=== PATIENT | female | born 1935 | race Caucasian/White ===

== ENCOUNTER 2020-04-29 06:15 | Outpatient (REF) | payer MEDICARE, SELFPAY ==
[2020-04-29 11:59] LABS: Alanine Aminotransferase 16 U/L (0-31); Alkaline Phosphatase 74 U/L (39-117); Anion Gap 13 (12-20); Aspartate Amino Transferase 18 U/L (5-31); Bilirubin Total 0.5 mg/dL (0.0-1.0); Blood Urea Nitrogen 17 mg/dL (9-16); Carbon Dioxide 30 mmol/L (22-29); Chloride 102 mmol/L (96-108); Cholesterol 153 mg/dL; Estimated Glomerular Filt Rate > 60; Glucose Fasting 124 mg/dL (60-99); HDL Cholesterol 62 mg/dL; LDL Cholesterol Calculated 74 mg/dl; Potassium 4.1 mmol/l (3.3-5.1); Sodium 141 mmol/L (135-145); Total Protein 6.8 g/dL (6.5-8.0); Triglycerides 88 mg/dL
== END 2020-04-29 06:16 | disposition home or self-care (01) ==
LOC: HO.HMGCLDS 06:15
PROVIDERS: PCP Internal Medicine; Visit Provider Internal Medicine
DX: E78.2 Mixed hyperlipidemia (principal); I10 Essential (primary) hypertension
CPT/HCPCS: 80053; 80061

== ENCOUNTER 2020-06-03 09:22 | Outpatient (REF) | payer MEDICARE, SELFPAY ==
--- NOTE | 2020-06-03 09:26 | US_ITS ---
EXAMINATION: US VENOUS ULTRASOUND WITH DOPPLER LOWER EXTREMITY, RIGHT CLINICAL INFORMATION: Right lower extremity edema. COMPARISON: None TECHNIQUE: Ultrasound of the deep veins is performed from the hip to the calf with compression sonography and color and pulse Doppler assessment. Spectral analysis with color-flow imaging is performed. FINDINGS: There is normal venous compression and respiratory variation and augmented flow. The visualized common femoral vein, superficial femoral vein, profunda femoral vein, popliteal vein, and the trifurcation region shows no evidence of deep venous thrombosis. A right popliteal cyst measures 4.7 x 1.2 x 2.0 cm. Color Doppler showed no abnormal vascular flow. The subcutaneous soft tissues are unremarkable. If the patient's symptoms persist, followup ultrasound in 5 days 7 days might be of value to exclude proximal propagation from a non-visualized calf vein. US/US venous duplex LE RT IMPRESSION: 1. No deep venous thrombosis demonstrated in the right lower extremity. 2. Right popliteal cyst as detailed above.
== END 2020-06-03 09:23 | disposition home or self-care (01) ==
LOC: HO.HMGCX 09:22
PROVIDERS: PCP Internal Medicine; Visit Provider Nurse Practitioner Family
DX: R60.0 Localized edema (principal); M79.89 Other specified soft tissue disorders
CPT/HCPCS: 93971

== ENCOUNTER → 2020-06-20 09:43 | Outpatient (BNVA) | payer MEDICARE, SELFPAY | PROVIDERS: PCP Internal Medicine; Visit Provider Orthopaedic Surgery | DX: M71.21 Synovial cyst of popliteal space [Baker], right knee (principal) | CPT/HCPCS: 99202 ==

== ENCOUNTER → 2020-06-25 08:21 | Outpatient (BNVA) | payer MEDICARE, SELFPAY | PROVIDERS: PCP Internal Medicine; Visit Provider Internal Medicine Cardiovascular Disease | DX: I35.0 Nonrheumatic aortic (valve) stenosis (principal); I10 Essential (primary) hypertension | CPT/HCPCS: 93005; 99212 ==

== ENCOUNTER 2020-07-03 08:21 | Outpatient (REF) | payer MEDICARE, SELFPAY ==
--- NOTE | 2020-07-03 | US_ITS ---
EXAMINATION: US RETROPERITONEAL LIMITED (RENAL ONLY) CLINICAL INFORMATION: Kidney stones. COMPARISON: Renal ultrasound 12/06/2019 TECHNIQUE: Real-time imaging of the kidneys. FINDINGS: RIGHT KIDNEY: 12.2 x 5.3 x 5.3 cm (SAG x AP x TRV). The kidney is normal in size, contour, and echogenicity. Renal cortical thickness is normal. No focal parenchymal lesions or hydronephrosis. Lower pole 0.4 cm calculus noted. There is a mid pole calcification which measures 1 cm which could be cortical or within the collecting system. This is unchanged. LEFT KIDNEY: 11.0 x 6.3 x 7.2 cm (SAG x AP x TRV). The kidney is normal in size, contour, and echogenicity. Cortical thinning noted. There is severe hydronephrosis.. Midpole 2 x 1.5 x 1.3 cm calculus. US/US renal BI IMPRESSION: Severe left hydronephrosis which appears chronic. Associated cortical thinning. Unchanged midpole left renal calculus. Unchanged right-sided calculi.
== END 2020-07-03 08:22 | disposition home or self-care (01) ==
LOC: HO.HMGCX 08:21
PROVIDERS: PCP Internal Medicine; Visit Provider Urology
DX: N20.0 Calculus of kidney (principal)
CPT/HCPCS: 76775

== ENCOUNTER → 2020-07-24 13:27 | Outpatient (BNVA) | payer MEDICARE, SELFPAY | PROVIDERS: PCP Anesthesiology; Visit Provider Urology | DX: Z76.89 Persons encountering health services in other specified circumstances (principal) | CPT/HCPCS: Q3014 ==

== ENCOUNTER 2020-10-09 12:03 | Outpatient (REF) | payer MEDICARE, SELFPAY ==
--- NOTE | ~2020-10-09 | XR_ITS ---
EXAMINATION: XR CERVICAL SPINE CLINICAL INFORMATION: Neck pain COMPARISON: Previous x-ray July [address] of the cervical spine December 2019 TECHNIQUE: 3 views of the cervical spine were obtained. FINDINGS: There is head tilt to the right and curvature of the proximal cervical spine to the left. Bone alignment is otherwise normal. No fracture or dislocation is seen. There is multilevel degenerative spondylosis and degenerative disc disease at C3-C4, C5-C6 and C6-C7. There is multilevel facet arthritis. There are degenerative changes at the C1 dens articulation. Prevertebral soft tissues are normal. XR/XR cervical spine 2V IMPRESSION: Multilevel degenerative changes.
[2020-10-09 14:55] LABS: Anion Gap 15 (12-20); Blood Urea Nitrogen 21 mg/dL (9-16); C Reactive Protein 0.37 mg/dL (< or = 0.50); Calcium 9.8 mg/dL (8.4-10.2); Carbon Dioxide 29 mmol/L (22-29); Chloride 101 mmol/L (96-108); Estimated Glomerular Filt Rate > 60; Glucose Random 97 mg/dL (60-115); Potassium 4.1 mmol/L (3.3-5.1); Sodium 141 mmol/L (135-145)
[2020-10-09 15:22] LABS: Erythrocyte Sedimentation Rate 26 MM/HR (0-20)
== END 2020-10-09 12:04 | disposition home or self-care (01) ==
LOC: HO.HMGCX 12:03
PROVIDERS: PCP Internal Medicine; Visit Provider Internal Medicine
DX: M54.2 Cervicalgia (principal); R51.9 Headache, unspecified
CPT/HCPCS: 36415; 72040; 80048; 85652; 86140

== ENCOUNTER 2020-11-17 10:27 | Outpatient (REF) | payer MEDICARE, SELFPAY ==
--- NOTE | ~2020-11-17 | XR_ITS ---
EXAMINATION: XR CERVICAL SPINE CLINICAL INFORMATION: Osteoarthritis cervical spine with radiculopathy. COMPARISON: Radiographs cervical spine 10/09/2020. TECHNIQUE: Cervical spine is imaged in 7 views: AP x 4, lateral, bilateral oblique. FINDINGS: The head is tilted to the right similar to prior exam. There is diffuse osteopenia. Vertebral bodies are normal in height. There is no cervical vertebral compression, destructive process, or prevertebral soft tissue swelling. The odontoid appears intact on the lateral view. There are degenerative changes between the anterior arch of C1 and the dens. There are multilevel degenerative changes in the facets, greatest at C3 through C7. There are degenerative disc changes, greatest at C5-C6 and C6-C7 with disc narrowing and endplate sclerosis and anterior osteophytes, bridging at C6-C7. There is borderline spondylolisthesis at C4-C5 and at C6-C7. The oblique view show no significant osseous narrowing or spurring neural foramen. XR/XR cervical spine 5V IMPRESSION: 1. Diffuse multilevel spondylosis with degenerative disc and degenerative facet changes. 2. No cervical vertebral compression or destructive process. 3. Borderline spondylolisthesis C4-C5 and C6-7.
== END 2020-11-17 10:28 | disposition home or self-care (01) ==
LOC: HO.XRAY 10:27
PROVIDERS: PCP Internal Medicine Medical Oncology; Visit Provider Internal Medicine Medical Oncology
DX: M47.22 Other spondylosis with radiculopathy, cervical region (principal)
CPT/HCPCS: 72050

== ENCOUNTER 2020-11-20 12:48 | Outpatient (REF) | payer MEDICARE, SELFPAY ==
--- NOTE | ~2020-11-20 | MR_ITS ---
EXAMINATION: MR CERVICAL SPINE WITHOUT CONTRAST CLINICAL INFORMATION: Neck pain. Osteoarthritis. COMPARISON: Most recent cervical spine radiographs dated 11/17/2020. Cervical spine MRI dated 10/04/[address] dated 12/26/2019. TECHNIQUE: MRI of the cervical spine was obtained using routine sequences without contrast. FINDINGS: VERTEBRAL BODIES AND PARASPINAL SOFT TISSUES: The cervical lordosis is maintained. Vertebral body and posterior element fusion is redemonstrated at C3-C4, similar when compared to the prior examination. Additional multilevel left-sided facet joint fusions are redemonstrated. No acute fracture. Minimal grade 1 anterolisthesis of C6 on C7, unchanged. No marrow edema to suggest acute osseous injury. No abnormal signal within the visualized cord. The paraspinal soft tissues are unremarkable. CERVICOMEDULLARY JUNCTION AND VISUALIZED POSTERIOR FOSSA: Unremarkable. SPINAL LEVELS: C2-C3: Redemonstration of left-sided facet arthropathy without significant central canal or neural foraminal stenosis, unchanged. C3-C4: Fusion of the vertebral bodies and facet joints. No significant disc bulge. No central canal or neural foraminal stenosis. C4-C5: Shallow broad-based disc-osteophyte complex with a superimposed posterior central disc protrusion which completely effaces the ventral thecal sac, similar when compared to the prior examination. Bilateral facet arthropathy and uncinate spurring with mild bilateral neural foraminal stenosis, unchanged. C5-C6: Shallow broad-based disc-osteophyte complex which nearly completely effaces the ventral thecal sac. Bilateral facet arthropathy with mild right neural foraminal stenosis. Findings are unchanged. C6-C7: Disc-osteophyte complex with a shallow superimposed posterior central disc protrusion which completely effaces the ventral thecal sac, similar when compared to the prior examination. Bilateral facet arthropathy without significant neural foraminal stenosis. C7-T1: Small posterior central disc-osteophyte which completely effaces the ventral thecal sac, unchanged. Bilateral facet arthropathy without significant neural foraminal stenosis. MR/MR cervical spine wo con IMPRESSION: 1. No acute fracture or subluxation. 2. Fusion of the C3-C4 vertebral bodies as well as multilevel facet fusion appears redemonstrated. Increasing marrow edema associated with the right-sided facet arthropathy at C4-C5. 3. Multilevel degenerative disc disease with disc-osteophyte complexes and neural foraminal stenosis, not significantly changed.
== END 2020-11-20 12:49 | disposition home or self-care (01) ==
LOC: HO.MRI 12:48
PROVIDERS: Visit Provider Internal Medicine Medical Oncology
DX: M47.22 Other spondylosis with radiculopathy, cervical region (principal); M54.2 Cervicalgia
CPT/HCPCS: 72141

== ENCOUNTER → 2020-12-02 10:03 | Outpatient (BNVA) | payer MEDICARE, SELFPAY | PROVIDERS: PCP Internal Medicine Medical Oncology; Visit Provider Nurse Practitioner Family | DX: M47.812 Spondylosis without myelopathy or radiculopathy, cervical region (principal) | CPT/HCPCS: 99212 ==

== ENCOUNTER → 2020-12-05 09:58 | Outpatient (BNVA) | payer MEDICARE, SELFPAY | DX: N20.0 Calculus of kidney (principal) | CPT/HCPCS: 51798; 99212 ==

== ENCOUNTER → 2020-12-22 08:33 | Outpatient (BNVA) | payer MEDICARE, SELFPAY | PROVIDERS: PCP Internal Medicine Medical Oncology; Visit Provider Internal Medicine Cardiovascular Disease | DX: I35.0 Nonrheumatic aortic (valve) stenosis (principal); I10 Essential (primary) hypertension | CPT/HCPCS: 99212 ==

== ENCOUNTER → 2021-02-05 10:15 | Outpatient (BNVA) | payer MEDICARE, SELFPAY | PROVIDERS: PCP Internal Medicine Medical Oncology | CPT/HCPCS: Q3014 ==

== ENCOUNTER → 2021-05-11 08:14 | Outpatient (BNVA) | payer MEDICARE, SELFPAY | PROVIDERS: PCP Internal Medicine Medical Oncology; Visit Provider Internal Medicine | DX: M54.12 Radiculopathy, cervical region (principal); M47.812 Spondylosis without myelopathy or radiculopathy, cervical region | CPT/HCPCS: Q3014 ==

== ENCOUNTER → 2021-05-18 08:42 | Outpatient (BNVA) | payer MEDICARE, SELFPAY | PROVIDERS: PCP Internal Medicine Medical Oncology; Visit Provider Internal Medicine | DX: M47.812 Spondylosis without myelopathy or radiculopathy, cervical region (principal) | CPT/HCPCS: 99212 ==

== ENCOUNTER → 2021-05-22 09:59 | Outpatient (BNVA) | payer MEDICARE, SELFPAY | PROVIDERS: PCP Internal Medicine Medical Oncology; Visit Provider Internal Medicine | DX: M47.812 Spondylosis without myelopathy or radiculopathy, cervical region (principal) | CPT/HCPCS: Q3014 ==

== ENCOUNTER → 2021-06-08 13:10 | Outpatient (BNVA) | payer MEDICARE, SELFPAY | PROVIDERS: PCP Internal Medicine Medical Oncology; Visit Provider Internal Medicine | DX: Z13.89 Encounter for screening for other disorder (principal) | CPT/HCPCS: Q3014 ==

== ENCOUNTER → 2021-06-15 08:00 | Outpatient (BNVA) | payer MEDICARE, SELFPAY | PROVIDERS: PCP Internal Medicine Medical Oncology; Visit Provider Internal Medicine | DX: M47.812 Spondylosis without myelopathy or radiculopathy, cervical region (principal) | CPT/HCPCS: 64405; 64450; 99212 ==

== ENCOUNTER → 2021-06-26 10:23 | Outpatient (BNVA) | payer MEDICARE, SELFPAY | PROVIDERS: PCP Internal Medicine Medical Oncology; Visit Provider Internal Medicine | DX: Z13.89 Encounter for screening for other disorder (principal) | CPT/HCPCS: 99212 ==

== ENCOUNTER → 2021-07-17 10:34 | Outpatient (BNVA) | payer MEDICARE, SELFPAY | PROVIDERS: PCP Internal Medicine Medical Oncology; Visit Provider Internal Medicine | DX: H92.02 Otalgia, left ear (principal) | CPT/HCPCS: Q3014 ==

== ENCOUNTER 2021-08-03 09:40 | Outpatient (REF) | payer MEDICARE, SELFPAY ==
--- NOTE | ~2021-08-03 | US_ITS ---
EXAMINATION: US RETROPERITONEAL LIMITED (RENAL ONLY) CLINICAL INFORMATION: Calculus of kidney. COMPARISON: Renal ultrasound 07/03/2020, CT abdomen and pelvis noncontrast 03/22/2019. TECHNIQUE: Real-time imaging of the kidneys. FINDINGS: RIGHT KIDNEY: 11.1 x 5.2 x 6.2 cm (SAG x AP x TRV). The kidneys are normal in size and normal parenchymal thickness parenchymal echogenicity is within normal. There is no hydronephrosis or caliectasis. There is nonobstructing calculus interpolar region 4 x 8 mm. There are other scattered nonobstructing calcifications, collecting system versus parenchymal, largest upper pole 5 mm. There are 2 incidental cysts mid pole, both just under 1 cm. No additional imaging required. No visible solid mass. LEFT KIDNEY: 12.7 x 6.0 x 6.0 cm (SAG x AP x TRV). There is thinning of the renal parenchyma. Marked hydronephrosis is again seen with large dilated extrarenal pelvis measuring approximately 4.8 x 8.1 cm. Prior measurement similar approximately 5 x 7 cm. No visible calculi. Small cyst noted lateral lower pole approximately 2.1 x 1.6 x 1.6 cm. No additional imaging required. US/US renal BI IMPRESSION: Right: -No hydronephrosis or caliectasis. -Nonobstructing calculi and/or parenchymal calcifications. Left: -Chronic prominent hydronephrosis with large extrarenal pelvis. No obstructing calculi demonstrated. -Chronic thinning renal parenchyma.
== END 2021-08-03 09:41 | disposition home or self-care (01) ==
LOC: HO.US 09:40
PROVIDERS: PCP Internal Medicine Medical Oncology; Visit Provider Urology
DX: N20.0 Calculus of kidney (principal); Q61.02 Congenital multiple renal cysts
CPT/HCPCS: 76775

== ENCOUNTER 2021-10-22 05:59 | Outpatient (REF) | payer MEDICARE, SELFPAY ==
[2021-10-22 11:26] LABS: MANUAL DIFF FLAG NO
[2021-10-22 11:33] LABS: Basophils Percent Auto 0.3 % (0-2); Eosinophils Absolute Auto 0.1 X10*3/uL (0.0-0.4); Eosinophils Percent Auto 1.5 % (0-4); Hematocrit 42.4 % (37.0-47.0); Hemoglobin 14.3 g/dl (12.0-16.0); Imm Gran Abs Auto 0.03 X10*3/uL (0.00-0.03); Imm Gran Pct Auto 0.4 % (0.0-0.4); Lymphocytes Absolute Auto 1.5 X10*3/uL (1.2-4.9); Lymphocytes Percent Auto 19.7 % (20-40); Mean Corpuscular HGB Conc 33.7 g/dl (31.0-35.0); Mean Corpuscular Hemoglobin 32.6 pg (27.0-33.0); Mean Corpuscular Volume 96.8 fL (80.0-98.0); Mean Platelet Volume 11.5 fL (9.4-12.3); Monocytes Absolute Auto 0.4 X10*3/uL (0.1-1.2); Monocytes Percent Auto 5.4 % (2-11); Neutrophils Absolute Auto 5.7 x10*3/uL (2.0-8.3); Neutrophils Percent Auto 72.7 % (45-73); Platelet Count 268 X10*3/uL (160-400); Red Blood Count 4.38 X10*6/uL (4.20-5.50); White Blood Count 7.8 X10*3/uL (4.8-10.8)
[2021-10-22 12:09] LABS: Alanine Aminotransferase 17 U/L (0-31); Albumin Level 4.2 g/dL (3.5-5.0); Alkaline Phosphatase 75 U/L (39-117); Anion Gap 13 (12-20); Aspartate Amino Transferase 19 U/L (5-31); Bilirubin Total 0.6 mg/dL (0.0-1.0); Blood Urea Nitrogen 15 mg/dL (9-16); Calcium 9.8 mg/dL (8.4-10.2); Carbon Dioxide 31 mmol/L (22-29); Chloride 100 mmol/L (96-108); Cholesterol 169 mg/dL; Estimated Glomerular Filt Rate > 60; Glucose Fasting 131 mg/dL (60-99); HDL Cholesterol 63 mg/dL; LDL Cholesterol Calculated 81 mg/dl; Sodium 140 mmol/L (135-145); Triglycerides 127 mg/dL
[2021-10-22 12:11] LABS: Vitamin D 25-OH Total 50.2 ng/mL (>30)
== END 2021-10-22 06:00 | disposition home or self-care (01) ==
LOC: HO.HMGCLDS 05:59
PROVIDERS: Visit Provider Internal Medicine Medical Oncology
DX: G89.4 Chronic pain syndrome (principal); N18.9 Chronic kidney disease, unspecified; I35.0 Nonrheumatic aortic (valve) stenosis; E11.9 Type 2 diabetes mellitus without complications
CPT/HCPCS: 36415; 80053; 80061; 82306; 85025

== ENCOUNTER 2022-02-03 06:01 | Outpatient (REF) | payer MEDICARE, SELFPAY ==
[2022-02-03 11:05] LABS: MANUAL DIFF FLAG NO
[2022-02-03 11:15] LABS: Basophils Percent Auto 0.3 % (0-2); Eosinophils Absolute Auto 0.1 X10*3/uL (0.0-0.4); Eosinophils Percent Auto 1.6 % (0-4); Hematocrit 39.1 % (37.0-47.0); Hemoglobin 13.5 g/dl (12.0-16.0); Imm Gran Abs Auto 0.03 X10*3/uL (0.00-0.03); Imm Gran Pct Auto 0.4 % (0.0-0.4); Lymphocytes Absolute Auto 1.6 X10*3/uL (1.2-4.9); Lymphocytes Percent Auto 23.3 % (20-40); Mean Corpuscular HGB Conc 34.5 g/dl (31.0-35.0); Mean Corpuscular Volume 95.6 fL (80.0-98.0); Monocytes Absolute Auto 0.5 X10*3/uL (0.1-1.2); Monocytes Percent Auto 6.5 % (2-11); Neutrophils Absolute Auto 4.8 x10*3/uL (2.0-8.3); Neutrophils Percent Auto 67.9 % (45-73); Platelet Count 237 X10*3/uL (160-400); Red Blood Count 4.09 X10*6/uL (4.20-5.50); Red Cell Distribution Width 12.7 % (11.0-16.0)
[2022-02-03 11:25] LABS: Estimated Average Glucose 117 mg/dL; Hemoglobin A1c % 5.7 %
[2022-02-03 11:36] LABS: Alanine Aminotransferase 14 U/L (0-31); Albumin Level 4.1 g/dL (3.5-5.0); Alkaline Phosphatase 70 U/L (39-117); Anion Gap 16 (12-20); Aspartate Amino Transferase 18 U/L (5-31); Bilirubin Total 0.5 mg/dL (0.0-1.0); Blood Urea Nitrogen 15 mg/dL (9-16); Calcium 9.2 mg/dL (8.4-10.2); Carbon Dioxide 28 mmol/L (22-29); Chloride 101 mmol/L (96-108); Cholesterol 164 mg/dL; Estimated Glomerular Filt Rate > 60; Glucose Fasting 117 mg/dL (60-99); HDL Cholesterol 70 mg/dL; LDL Cholesterol Calculated 76 mg/dl; Potassium 3.9 mmol/L (3.3-5.1); Sodium 141 mmol/L (135-145); Total Protein 6.9 g/dL (6.5-8.0); Triglycerides 94 mg/dL
== END 2022-02-03 06:02 | disposition home or self-care (01) ==
LOC: HO.HMGCLDS 06:01
PROVIDERS: PCP Internal Medicine Medical Oncology; Visit Provider Internal Medicine Medical Oncology
DX: N18.9 Chronic kidney disease, unspecified (principal); E11.9 Type 2 diabetes mellitus without complications
CPT/HCPCS: 36415; 80053; 80061; 83036; 85025

== ENCOUNTER → 2022-03-08 14:19 | Outpatient (BNVA) | payer MEDICARE, SELFPAY | PROVIDERS: PCP Internal Medicine Medical Oncology; Referring Provider Internal Medicine Medical Oncology; Visit Provider Internal Medicine Cardiovascular Disease | DX: I35.0 Nonrheumatic aortic (valve) stenosis (principal); I10 Essential (primary) hypertension; M54.12 Radiculopathy, cervical region | CPT/HCPCS: 93005; 99212 ==

== ENCOUNTER 2022-05-07 07:31 | Emergency (ER) | payer MEDICARE, SELFPAY ==
--- NOTE | ~2022-05-07 | XR_ITS ---
EXAMINATION: XR FOOT, RIGHT CLINICAL INFORMATION: Atraumatic right foot pain. COMPARISON: None TECHNIQUE: AP, lateral, and oblique views of the right foot. FINDINGS: There is generalized osteopenia. Moderate interphalangeal degenerative joint changes are seen. There is no acute fracture or dislocation. The tarsal bones are normally aligned. Moderate to severe atherosclerosis is seen. The soft tissues are unremarkable. XR/XR foot RT 2V IMPRESSION: 1. Generalized osteopenia and moderate interphalangeal degenerative joint changes most consistent with osteoarthritis. No overt fracture. 2. Moderate to severe atherosclerosis.
[2022-05-07 07:34] VITALS: BP 169/72; PULSE 78; RESP 16; TEMP 36.1; O2SAT 97; BMI 24.1
--- NOTE | 2022-05-07 08:44 | ED_ITS ---
HPI - Extremity Problem General Chief complaint: Extremity Problem Stated complaint: R Foot Pain No Injury Time Seen by Provider: 05/07/22 08:07 Source: patient and family (Son) Mode of arrival: ambulatory History of Present Illness HPI Narrative: 86-year-old female comes in with pain to the lateral dorsal aspect of her right foot without obvious deformity and she denies any injury to that area of but states that it has been hurting since last night she denies any obvious color change, fevers, chills. Related Data Home Medications Medication Instructions Recorded Confirmed cholecalciferol (vitamin D3) 50 50 mcg PO DAILY 12/02/20 03/08/22 mcg (2,000 unit) capsule vitamin B comp and C no.3 15 mg-10 1 cap PO DAILY 12/02/20 03/08/22 mg-50 mg-5 mg-300 mg capsule (B Complex Plus Vitamin C) acetaminophen 500 mg tablet 500 mg PO Q6H PRN Pain 05/14/21 03/08/22 Previous Rx's Medication Instructions Recorded pyridoxine (vitamin B6) 100 mg 100 mg PO DAILY 90 days #90 tabs 04/09/21 tablet hydrochlorothiazide 25 mg tablet 25 mg PO QAM #90 tabs 06/30/21 lovastatin 20 mg tablet 20 mg PO BEDTIME #90 tabs 06/30/21 cyclobenzaprine 5 mg tablet 5 mg PO BEDTIME PRN muscle spasm 03/08/22 #10 tabs Allergies Allergy/AdvReac Type Severity Reaction Status Date / Time codeine [CODEINE] Allergy Unknown HALLUCINATI Verified 03/08/22 14:25 ONS Review of Systems Review of Systems: Pertinent positives and negatives as stated in HPI 10 point review of systems is otherwise negative. [facility] Past Medical History Source: nursing notes reviewed Medical History Aortic stenosis Yates's cyst Combined hyperlipidemia Depression Headache HTN (hypertension) Liposarcoma of lower extremity Neck pain Nephrolithiasis Pain of left mastoid Spinal stenosis of lumbar region Surgical History History of appendectomy History of arthroscopy of right knee History of colonoscopy History of total abdominal hysterectomy Family History Family History Father Diabetes Mother No problems noted. Social History Social History Household Members: Spouse Housing: House Are you a primary hospice spiritual care coordinator to a significant other at home: No Do you presently have visiting nurse or other home services: No Alcohol intake: never Patient Tobacco Use Status: Never used Tobacco Advance Directives: No Advance Directives Information Provided: Yes service: No Current occupational status: retired Physical Exam Vital Signs: Vital Signs: Last Vital Signs Temp 97.0 F 05/07/22 07:34 Pulse 78 05/07/22 07:34 Resp 16 05/07/22 07:34 BP 169/72 H 05/07/22 07:34 Pulse Ox 97 05/07/22 07:34 O2 Del Method 05/07/22 07:34 BMI result Body Mass Index 24.1 VITAL SIGNS: Reviewed. GENERAL: Well developed, well nourished, in no acute distress. HEAD: Normocephalic/atraumatic EYES: PERRLA, EOMI EARS: Ext canals without abnormality OROPHARYNX: no oral lesions noted, posterior pharynx clear LUNGS: Normal breath sounds. CARDIOVASCULAR: Regular rate and rhythm without noted murmurs ABDOMEN: Soft, non-tender, non-distended with bowel sounds. RIGHT FOOT:no swelling, erythema/induration, deformity, temp is warm, point tenderness lateral talus, no midfoot or malleoli ttp NEUROLOGIC: Alert and oriented x 4. Strength and sensation to light touch were grossly intact x 4. Course Course Course Narrative: 86-year-old female with history and clinical presentation after review of investigations most consistent with a tendinitis and no evidence of fracture or dislocation and no evidence of infection. Applied lidocaine patch and instructed patient to use [id number] Voltaren which is an anti- inflammatory. Discharge Plan Discharge Clinical Impression: Tendinitis of right foot Patient Disposition: Home, Self-Care Instructions: Metatarsalgia (DC) Additional Instructions: 1. Recommend [id number] Tylenol as needed for pain control. 2. Recommend [id number] Voltaren (diclofenac), this is an anti- inflammatory that you can apply topically to reduce the inflammation in pain. 3. You absolutely have to follow-up with primary care provider in the next 1-2 days for re-evaluation further outpatient management. Return to the ER for worsening symptoms. Prescriptions: No Action pyridoxine (vitamin B6) 100 mg tablet 100 mg PO DAILY 90 Days Qty: 90 3RF lovastatin 20 mg tablet 20 mg PO BEDTIME Qty: 90 3RF hydrochlorothiazide 25 mg tablet 25 mg PO QAM Qty: 90 3RF acetaminophen [Tylenol Ex Str Rapid Release] 500 mg Tablet 500 mg PO Q6H PRN (Reason: Pain) cholecalciferol (vitamin D3) 50 mcg (2,000 unit) capsule 50 mcg PO DAILY B Complex Plus Vitamin C [id number] mg capsule 1 cap PO DAILY Rx Instructions: give with food (meal/snack) cyclobenzaprine 5 mg tablet 5 mg PO BEDTIME PRN (Reason: muscle spasm) Qty: 10 0RF Referrals: David Carson MD [Primary Care Provider] -
[2022-05-07] MEDS: Lidocaine 4 % Patch ADH..PATCH 1 PATCH TRANSDERMA (08:54)
== END 2022-05-07 09:04 | disposition home or self-care (01) ==
PROVIDERS: Emergency Provider Student in an Organized Health Care Education/Training Program; PCP Internal Medicine Medical Oncology
DX: M79.671 Pain in right foot (principal); Z79.899 Other long term (current) drug therapy
CPT/HCPCS: 73620; 99283; 99284

== ENCOUNTER → 2022-05-10 10:54 | Outpatient (BNVA) | payer MEDICARE, SELFPAY | PROVIDERS: PCP Internal Medicine Medical Oncology; Visit Provider Urology | DX: N20.0 Calculus of kidney (principal); N26.1 Atrophy of kidney (terminal); N13.30 Unspecified hydronephrosis | CPT/HCPCS: 51798; 99212 ==

== ENCOUNTER 2022-05-13 06:06 | Outpatient (REF) | payer MEDICARE, SELFPAY ==
[2022-05-13 11:23] LABS: MANUAL DIFF FLAG NO
[2022-05-13 11:54] LABS: Basophils Percent Auto 0.3 % (0-2); Eosinophils Absolute Auto 0.2 X10*3/uL (0.0-0.4); Eosinophils Percent Auto 2.2 % (0-4); Hematocrit 39.4 % (37.0-47.0); Hemoglobin 13.5 g/dl (12.0-16.0); Imm Gran Abs Auto 0.02 X10*3/uL (0.00-0.03); Imm Gran Pct Auto 0.3 % (0.0-0.4); Lymphocytes Absolute Auto 1.8 X10*3/uL (1.2-4.9); Lymphocytes Percent Auto 25.7 % (20-40); Mean Corpuscular HGB Conc 34.3 g/dl (31.0-35.0); Mean Corpuscular Hemoglobin 32.8 pg (27.0-33.0); Mean Corpuscular Volume 95.6 fL (80.0-98.0); Mean Platelet Volume 11.8 fL (9.4-12.3); Monocytes Absolute Auto 0.5 X10*3/uL (0.1-1.2); Monocytes Percent Auto 6.7 % (2-11); Neutrophils Absolute Auto 4.6 x10*3/uL (2.0-8.3); Neutrophils Percent Auto 64.8 % (45-73); Platelet Count 240 X10*3/uL (160-400); Red Blood Count 4.12 X10*6/uL (4.20-5.50); Red Cell Distribution Width 12.7 % (11.0-16.0); White Blood Count 7.1 X10*3/uL (4.8-10.8)
[2022-05-13 12:04] LABS: Alanine Aminotransferase 15 U/L (0-31); Albumin Level 3.9 g/dL (3.5-5.0); Alkaline Phosphatase 64 U/L (39-117); Anion Gap 14 (12-20); Aspartate Amino Transferase 17 U/L (5-31); Bilirubin Total 0.5 mg/dL (0.0-1.0); Blood Urea Nitrogen 19 mg/dL (9-16); Calcium 9.3 mg/dL (8.4-10.2); Carbon Dioxide 31 mmol/L (22-29); Chloride 101 mmol/L (96-108); Cholesterol 149 mg/dL; Estimated Glomerular Filt Rate > 60; Glucose Fasting 126 mg/dL (60-99); HDL Cholesterol 61 mg/dL; LDL Cholesterol Calculated 74 mg/dl; Potassium 3.6 mmol/L (3.3-5.1); Sodium 142 mmol/L (135-145); Total Protein 6.5 g/dL (6.5-8.0); Triglycerides 74 mg/dL
[2022-05-13 12:44] LABS: Estimated Average Glucose 128 mg/dL; Hemoglobin A1c % 6.1 %
== END 2022-05-13 06:07 | disposition home or self-care (01) ==
LOC: HO.HMGCLDS 06:06
PROVIDERS: PCP Internal Medicine Medical Oncology; Visit Provider Internal Medicine Medical Oncology
DX: N18.9 Chronic kidney disease, unspecified (principal); E11.9 Type 2 diabetes mellitus without complications
CPT/HCPCS: 36415; 80053; 80061; 83036; 85025

== ENCOUNTER 2022-07-09 07:11 | Outpatient (REF) | payer MEDICARE, SELFPAY ==
[2022-07-09 11:17] LABS: MANUAL DIFF FLAG NO
[2022-07-09 11:34] LABS: Basophils Percent Auto 0.4 % (0-2); Eosinophils Absolute Auto 0.1 X10*3/uL (0.0-0.4); Eosinophils Percent Auto 1.4 % (0-4); Hemoglobin 13.8 g/dl (12.0-16.0); Imm Gran Abs Auto 0.04 X10*3/uL (0.00-0.03); Imm Gran Pct Auto 0.5 % (0.0-0.4); Lymphocytes Absolute Auto 1.3 X10*3/uL (1.2-4.9); Lymphocytes Percent Auto 17.4 % (20-40); Mean Corpuscular HGB Conc 33.7 g/dl (31.0-35.0); Mean Corpuscular Hemoglobin 32.8 pg (27.0-33.0); Mean Corpuscular Volume 97.4 fL (80.0-98.0); Mean Platelet Volume 11.6 fL (9.4-12.3); Monocytes Absolute Auto 0.5 X10*3/uL (0.1-1.2); Monocytes Percent Auto 6.2 % (2-11); Neutrophils Absolute Auto 5.7 x10*3/uL (2.0-8.3); Neutrophils Percent Auto 74.1 % (45-73); Platelet Count 264 X10*3/uL (160-400); Red Blood Count 4.21 X10*6/uL (4.20-5.50); Red Cell Distribution Width 13.1 % (11.0-16.0); White Blood Count 7.7 X10*3/uL (4.8-10.8)
[2022-07-09 11:45] LABS: Alanine Aminotransferase 15 U/L (0-31); Albumin Level 4.2 g/dL (3.5-5.0); Alkaline Phosphatase 70 U/L (39-117); Anion Gap 17 (12-20); Aspartate Amino Transferase 17 U/L (5-31); Bilirubin Total 0.7 mg/dL (0.0-1.0); Blood Urea Nitrogen 17 mg/dL (9-16); Calcium 9.4 mg/dL (8.4-10.2); Carbon Dioxide 30 mmol/L (22-29); Chloride 98 mmol/L (96-108); Cholesterol 162 mg/dL; Estimated Glomerular Filt Rate > 60; Glucose Random 139 mg/dL (60-115); HDL Cholesterol 66 mg/dL; LDL Cholesterol Calculated 75 mg/dl; Potassium 3.7 mmol/L (3.3-5.1); Sodium 141 mmol/L (135-145); Triglycerides 107 mg/dL
== END 2022-07-09 07:12 | disposition home or self-care (01) ==
LOC: HO.HMGCLDS 07:11
PROVIDERS: PCP Internal Medicine Medical Oncology; Visit Provider Internal Medicine Medical Oncology
DX: E11.9 Type 2 diabetes mellitus without complications (principal); G89.4 Chronic pain syndrome
CPT/HCPCS: 36415; 80053; 80061; 85025

== ENCOUNTER → 2022-08-30 14:55 | Outpatient (BNVA) | payer MEDICARE, SELFPAY | PROVIDERS: PCP Internal Medicine Medical Oncology; Visit Provider Internal Medicine Cardiovascular Disease | DX: I35.0 Nonrheumatic aortic (valve) stenosis (principal); I10 Essential (primary) hypertension; R07.9 Chest pain, unspecified | CPT/HCPCS: 93005; 99212 ==

== ENCOUNTER 2022-10-08 13:26 | Outpatient (RCR) | payer MEDICARE, SELFPAY | END 2022-10-26 14:43 | disposition home or self-care (01) | LOC: HO.WCC 13:26 | PROVIDERS: PCP Internal Medicine Medical Oncology; Visit Provider Physician Assistant | DX: E11.621 Type 2 diabetes mellitus with foot ulcer (principal); L97.512 Non-pressure chronic ulcer of other part of right foot with fat layer exposed; E11.40 Type 2 diabetes mellitus with diabetic neuropathy, unspecified; Z79.899 Other long term (current) drug therapy | CPT/HCPCS: 11042; 99212; 99213 ==

== ENCOUNTER 2022-10-13 07:18 | Outpatient (REF) | payer MEDICARE, SELFPAY ==
[2022-10-13 11:31] LABS: MANUAL DIFF FLAG NO
[2022-10-13 11:34] LABS: Basophils Percent Auto 0.4 % (0-2); Eosinophils Absolute Auto 0.1 X10*3/uL (0.0-0.4); Eosinophils Percent Auto 1.6 % (0-4); Hemoglobin 13.7 g/dl (12.0-16.0); Imm Gran Abs Auto 0.01 X10*3/uL (0.00-0.03); Imm Gran Pct Auto 0.1 % (0.0-0.4); Lymphocytes Percent Auto 15.1 % (20-40); Mean Corpuscular HGB Conc 34.3 g/dl (31.0-35.0); Mean Corpuscular Hemoglobin 32.8 pg (27.0-33.0); Mean Corpuscular Volume 95.7 fL (80.0-98.0); Mean Platelet Volume 11.9 fL (9.4-12.3); Monocytes Absolute Auto 0.4 X10*3/uL (0.1-1.2); Monocytes Percent Auto 6.5 % (2-11); Neutrophils Absolute Auto 5.1 x10*3/uL (2.0-8.3); Neutrophils Percent Auto 76.3 % (45-73); Platelet Count 240 X10*3/uL (160-400); Red Blood Count 4.18 X10*6/uL (4.20-5.50); Red Cell Distribution Width 13.2 % (11.0-16.0); White Blood Count 6.7 X10*3/uL (4.8-10.8)
[2022-10-13 11:57] LABS: Alanine Aminotransferase 16 U/L (0-31); Albumin Level 4.1 g/dL (3.5-5.0); Alkaline Phosphatase 67 U/L (39-117); Anion Gap 14 (12-20); Aspartate Amino Transferase 18 U/L (5-31); Bilirubin Total 0.7 mg/dL (0.0-1.0); Blood Urea Nitrogen 17 mg/dL (9-16); Calcium 9.5 mg/dL (8.4-10.2); Carbon Dioxide 34 mmol/L (22-29); Chloride 98 mmol/L (96-108); Cholesterol 158 mg/dL; Estimated Glomerular Filt Rate > 60; Glucose Fasting 158 mg/dL (60-99); HDL Cholesterol 63 mg/dL; LDL Cholesterol Calculated 76 mg/dl; Potassium 3.8 mmol/L (3.3-5.1); Sodium 142 mmol/L (135-145); Total Protein 6.9 g/dL (6.5-8.0); Triglycerides 99 mg/dL
[2022-10-13 12:00] LABS: Estimated Average Glucose 131 mg/dL; Hemoglobin A1c % 6.2 %
[2022-10-13 12:03] LABS: C Reactive Protein 0.36 mg/dL (< or = 0.50)
[2022-10-13 12:28] LABS: Erythrocyte Sedimentation Rate 29 MM/HR (0-20)
== END 2022-10-13 07:19 | disposition home or self-care (01) ==
LOC: HO.HMGCLDS 07:18
PROVIDERS: Absent Provider Physician Assistant; PCP Internal Medicine Medical Oncology; Visit Provider Internal Medicine Medical Oncology
DX: E11.9 Type 2 diabetes mellitus without complications (principal); Q62.11 Congenital occlusion of ureteropelvic junction; E66.9 Obesity, unspecified; S90.935D Unspecified superficial injury of left lesser toe(s), subsequent encounter
CPT/HCPCS: 36415; 80053; 80061; 83036; 84134; 85025; 85652; 86140

== ENCOUNTER 2022-10-14 08:48 | Outpatient (REF) | payer MEDICARE, SELFPAY ==
--- NOTE | ~2022-10-14 | CT_ITS ---
EXAMINATION: CT KIDNEY STONE STUDY CLINICAL INDICATIONS: Kidney stone. COMPARISON: Renal ultrasound 08/03/2021. CT abdomen and pelvis 05/04/2019. TECHNIQUE: 5 mm thin axial and reformatted 3 mm thin sagittal and coronal images of abdomen and pelvis were obtained without contrast. This CT examination was performed using dose optimization technique as appropriate, variously including the following: Automated exposure control Adjustment of MA and/or KV according to patient size(this includes techniques or standardized protocols for targeted exams where dose is matched to indication/reason for exam; extremities or head. Use of iterative reconstruction techniques. DLP: 547 mGy-cm FINDINGS: LUNGS: There is plate-like atelectasis right lung base. The heart size is normal. Moderate mitral valve calcification is seen. There is a small hiatal hernia. LIVER, DUCTS AND GALLBLADDER: The liver is homogeneous in density, normal contour and size. No focal lesion or intrahepatic ductal dilatation seen. The gallbladder is mildly distended with multiple radiopaque gallstones. No wall thickening seen. SPLEEN: Unremarkable. PANCREAS: The pancreas is normal size with punctate pancreatic calcifications. The peripancreatic fat borders are preserved. ADRENAL GLANDS: Unremarkable. KIDNEYS AND URETERS: The right kidney is normal size, shape and position. There are small radiopaque calculi in midpole and lower pole right kidney with the largest lower pole calculus measuring 8 mm approximately 10 cm from posterior skin line. There is 7 mm calcification in the upper pole right kidney cortex. No hydronephrosis seen. There is a chronic left hydronephrotic left kidney with diffuse thinning of the cortex. This most likely secondary to an obstructive left UPJ stone. The UPJ radiopaque stone measures 3 mm. LYMPHOVASCULAR STRUCTURES: The abdominal aorta is of normal caliber with atherosclerotic calcification. GASTROINTESTINAL TRACT: There are scattered diverticula, stool and gas seen throughout the colon without any significant distention. The small bowel loops are normal caliber. Appendix is not visualized. The stomach is nondistended. ABDOMINAL WALL: Unremarkable. PELVIS: The urinary bladder is distended and appears unremarkable. No free fluid. No abnormal pelvic or inguinal lymph nodes seen. OSSEOUS STRUCTURES: There is L-shaped levoscoliosis of dorsolumbar spine. There are degenerative disc changes virtually at every disc level with spondylosis. No lytic or sclerotic process seen. There is a left hip nail and intramedullary femoral dmitry. CT/CT kidney stone IMPRESSION: Chronic left hydronephrotic kidney with cortical atrophy from a left UPJ 3 mm calculus. Numerous nonobstructive calculi in mid and lower pole right kidney and upper pole cortical calcification. Distended gallbladder with gallstones but no wall thickening. Moderate constipation with diffuse colonic diverticulosis most prominent in the sigmoid region but no diverticulitis. Levoscoliosis and degenerative disc changes at all lumbar disc levels with spondylosis.
== END 2022-10-14 08:49 | disposition home or self-care (01) ==
LOC: HO.CT 08:48
PROVIDERS: PCP Internal Medicine Medical Oncology; Visit Provider Nurse Practitioner Family
DX: N20.0 Calculus of kidney (principal); N26.1 Atrophy of kidney (terminal); N18.30 Chronic kidney disease, stage 3 unspecified
CPT/HCPCS: 74176

== ENCOUNTER 2022-10-24 10:39 | Emergency (ER) | payer MEDICARE, SELFPAY ==
--- NOTE | ~2022-10-24 | CT_ITS ---
EXAMINATION: CT LUMBAR SPINE WITHOUT CONTRAST CLINICAL INFORMATION: Low back pain with right leg radiculopathy. COMPARISON: CT scan of the abdomen and pelvis dated 10/14/2022 and lumbar spine radiographs dated 12/29/2019. TECHNIQUE: Multiple axial images of the lumbar spine were obtained without demonstration of intravenous contrast. Coronal and sagittal reformatted images were obtained. This CT examination was performed using dose optimization techniques as appropriate, variously including the following: *Automated exposure control *Adjustment of mA and/or kV according to patient size (this includes techniques or standardized protocols for targeted exams where dose is matched to indication/reason for exam; i.e. extremities or head) *Use of iterative reconstruction technique DLP; 497 mGy-cm FINDINGS: Moderate thoracolumbar levoscoliosis is seen with apex at L1 measuring approximately 20 degrees. There is generalized osteopenia. Moderate to severe multilevel degenerative disc disease is seen most pronounced at T12-L1, L2-L3 and L5-S1. The vertebral bodies are intact. Mild to moderate multilevel bilateral neural foraminal narrowing is seen with narrowing most pronounced at T12-L1, L2-L3 and L5-S1. Moderate multilevel bilateral facet arthropathy is seen. The spinous processes are intact. There is no acute fracture. Multilevel prominent marginal osteophyte formation is seen greatest on the left at L3-L4 and L4-L5. L5 is transitional with partial sacralization. Mild to moderate bilateral sacroiliac degenerative joint changes. Previously seen incidental intra-abdominal/pelvic findings are again seen including cholelithiasis, severe left renal pelvicaliectasis and colonic diverticulosis without significant change. CT/CT lumbar spine wo IV con IMPRESSION: 1. Moderate thoracolumbar levoscoliosis and multilevel degenerative changes without acute abnormality. No significant change from the previous studies. 2. Incidental intra-abdominal/pelvic findings including cholelithiasis, severe left renal pelvicaliectasis and colonic diverticulosis without significant change.
[2022-10-24 10:41] VITALS: BP 150/78; PULSE 72; RESP 18; TEMP 36.4; O2SAT 99; BMI 25.2
[2022-10-24 11:04] VITALS: BP 160/69; PULSE 73; RESP 18; TEMP 36.5; O2SAT 98
--- NOTE | 2022-10-24 11:22 | PC.NURSE ---
Pt is a/ox4. Came via W/C, used cane and nursing help to transfer to stretcher, she complains of Lower back pain that radiates down into her Right leg. She is unable to lay flat w/o pain. Reports she is getting wound care to right foot for ulcers.
--- NOTE | 2022-10-24 11:51 | ED.BACK ---
HPI - Back Pain/Injury General Chief Complaint: Back Pain/Injury Stated Complaint: Back pain Time Seen by Provider: 10/24/22 11:00 Source: patient and family (Son, Mark) Mode of arrival: ambulatory Limitations: no limitations History of Present Illness HPI Narrative: 87-year-old female who presents emergency department for evaluation of right-sided lower back pain radiating to her buttocks and down the back of her leg to just above her ankle. Patient states she has chronic lower back pain. She states that over the last 2-3 days however the pain is become more severe. She states that the pain is now radiating down the back of her right leg to just above her ankle and this is new. She has had difficulty walking secondary to her pain even when she uses her cane. She states the pain is a constant, throbbing pain which is 9/10. She denied any weakness of her lower extremity. She denied loss of bowel or bladder control. She denied fever or chills. She cannot recount any recent injury. Related Data Home Medications Medication Instructions Recorded Confirmed cholecalciferol (vitamin D3) 50 50 mcg PO DAILY 12/02/20 08/30/22 mcg (2,000 unit) capsule vitamin B comp and C no.3 15 mg-10 1 cap PO DAILY 12/02/20 08/30/22 mg-50 mg-5 mg-300 mg capsule (B Complex Plus Vitamin C) acetaminophen 500 mg tablet 500 mg PO Q6H PRN Pain 05/14/21 08/30/22 Previous Rx's Medication Instructions Recorded hydrochlorothiazide 25 mg tablet 25 mg PO QAM #90 tabs 06/30/21 lovastatin 20 mg tablet 20 mg PO BEDTIME #90 tabs 06/30/21 pyridoxine (vitamin B6) 100 mg 100 mg PO DAILY 90 days #90 tabs 05/10/22 tablet metoprolol succinate 25 mg 25 mg PO DAILY #60 tabs 08/30/22 tablet,extended release 24 hr oxycodone 5 mg tablet 5 mg PO Q6H PRN pain (scale score 10/24/22 7-10) #10 tabs prednisone 20 mg tablet 20 mg PO DAILY 5 days #5 tabs 10/24/22 Allergies Allergy/AdvReac Type Severity Reaction Status Date / Time codeine [CODEINE] Allergy Unknown HALLUCINATI Verified 10/24/22 10:41 ONS Review of Systems Review of Systems: Yes all other systems are reviewed and are negative [facility] Past Medical History Medical History Aortic stenosis Yates's cyst Combined hyperlipidemia Depression Headache HTN (hypertension) Liposarcoma of lower extremity Neck pain Nephrolithiasis Pain of left mastoid Spinal stenosis of lumbar region Surgical History History of appendectomy History of arthroscopy of right knee History of colonoscopy History of total abdominal hysterectomy Family History Family History Father Diabetes Mother No problems noted. Social History Social History Household Members: Spouse Housing: House Are you a primary healthcare facility administrator to a significant other at home: No Do you presently have visiting nurse or other home services: No Alcohol intake: never Patient Tobacco Use Status: Never used Tobacco Smoked in Last 30 Days: No Use of substances other than those prescribed or required for medical reasons: No Advance Directives: No Advance Directives Information Provided: Yes service: No Current occupational status: retired Physical Exam Vital Signs: Vital Signs: Last Vital Signs Temp 97.7 F 10/24/22 11:04 Pulse 73 10/24/22 11:04 Resp 18 10/24/22 11:04 BP 160/69 H 10/24/22 11:04 Pulse Ox 98 10/24/22 11:04 O2 Del Method Room Air 10/24/22 11:04 BMI result Body Mass Index 25.2 Const: Other: Awake, alert, female patient, pleasant, cooperative, no distress, answers all questions appropriately HEENT: Head: Yes normal to inspection, Yes normocephalic and Yes atraumatic Ears: external ears normal General nose exam: Normal external nose present Face and sinus: Yes normal facial exam Mouth: Normal oral and palatal mucosa present Throat: Yes posterior oropharynx normal Eyes: General: appearance normal, both eyes and all related structures Pupils: Equal, round and reactive pupils present Neck: Neck: Yes normal visual inspection, Yes no lymphadenopathy, Yes trachea midline and Yes supple Chest: Chest palpation & inspection: normal inspection of the chest and normal palpation of entire chest wall Resp: Effort & Inspection: normal respiratory effort and able to speak in complete sentences Auscultation: clear to auscultation bilaterally Cardio: Rate: regular rate Rhythm: regular rhythm Heart sounds: S1 normal heart sound present, S2 normal heart sound present and Murmur heart sound present systolic III/ (Right upper sternal border) and at the right sternal border GI: Inspection: Yes normal to inspection Palpation (GI): Soft to palpation, nontender and no guarding Auscultation: normal bowel sounds Back/Spine/Pelvis: Other: Tenderness palpation of the lumbar spine with no localized point tenderness, also tenderness palpation of the right sacroiliac joint in the right paraspinal muscles in lumbar sacral area, there is no spasm of these muscles Skin: General skin exam: no rashes or lesions noted Neuro: Cranial nerves: Yes CN's II-XII intact bilaterally and Yes Equal, round and reactive pupils present Cognition (Neuro): normal cognition Motor exam (neuro): 5/5 motor strength present throughout Extrem: General: Yes normal to inspection Psych: Appearance: grossly normal Speech and movement: Normal speech and movement present Affect: normal affect Attitude: cooperative Thought process: Normal thought process present Thought content: Normal thought content present Medications Administered Discontinued Medications Generic Name Dose Route Start Last Admin Trade Name Freq PRN Reason Stop Dose Admin Acetaminophen 975 mg 10/24/22 11:50 10/24/22 11:55 Acetaminophen 325 Mg Tablet PO 10/24/22 11:51 975 mg ONCE ONE Administration Oxycodone HCl 5 mg 10/24/22 11:50 10/24/22 11:55 Oxycodone Hcl Immed Release 5 Mg Tablet PO 10/24/22 11:51 5 mg ONCE STA Administration Medical Decision Making Medical Decision Making [facility] Narrative: 87-year-old female who presents emergency department for evaluation of right lower back pain with pain that radiates down the back of her leg to just above her ankle, patient has chronic back pain but the pain is gotten worse over the last 2 days to the point where she is having difficulty walking has to use her cane continually. Her pain was 9/10. Her examination did reveal tenderness palpation of her lumbar spine with no localizing point tenderness as well as pain with palpation of the paraspinal muscles in lumbar sacral area. She also has pain with palpation of her right SI joint. I ordered a CT scan of the patient's lumbar spine to rule out possible compression fracture. Patient was treated with Tylenol 975 mg orally and oxycodone 5 mg orally. Patient states she is taking oxycodone the past without any difficulty. 1428: CT scan of the lumbar spine did not reveal any acute changes compared to CT scan of the abdomen pelvis done on 10/14/2022. Patient has multilevel disc disease as well as multilevel foraminal disease. At this time I doubt that she has had a compression fracture since there has been no significant change compared to her previous CT scan. Patient most likely has inflammation of 1 of her spinal nerves possibly secondary to arthritis or shifting disc causing her radicular pain. The patient did get improvement with the above treatment. The patient will be treated with Tylenol 1000 mg every 6 hours and prednisone 20 mg daily-she is given her 1st dose here in the emergency department for pain not relieved by these medications she was prescribed oxycodone 5 mg every 6 hours. She was given printed and verbal instructions and discharged home. Differential Diagnosis Differential diagnosis includes but is not limited to acute compression fracture, acute bulging disc, disc disease, spinal arthritis, spinal stenosis Admission/Observation Consideration of admission/observation: Escalation of care including admission/observation considered Radiology Impression Discussion of test interpretation with radiology: I have reviewed the radiologist's reading. Radiologist Impression: CT lumbar spine wo IV con IMPRESSION: 1. Moderate thoracolumbar levoscoliosis and multilevel degenerative changes without acute abnormality. No significant change from the previous studies. 2. Incidental intra-abdominal/pelvic findings including cholelithiasis, severe left renal pelvicaliectasis and colonic diverticulosis without significant change. Dictated By:Gilbert Jewell MD Discharge Plan Discharge Clinical Impression: Lumbar back pain, Acute left lumbar radiculopathy Patient Disposition: Home, Self-Care Instructions: Lumbar Radiculopathy (ED) Additional Instructions: The CT scan of your lumbar spine did not reveal any new changes compared to the CT scan that you had of your abdomen pelvis on 10/16/2022 which is reassuring. Your pain is most likely caused by inflammation of 1 of the nerves coming out of your back which is causing pain to go down your leg (radiculopathy) Take Tylenol (acetaminophen) 500 mg pills, 2 pills every 6 hours as needed for pain. Take prednisone 20 mg pills, 1 pills once a day for 5 days. While you are taking prednisone, do not take any NSAIDs (Motrin, Advil, ibuprofen, Aleve, naproxen). For pain not relieved by prednisone or Tylenol take oxycodone 5 mg pills, 1 pill every6 hours as needed for pain. Do not drive or work while taking this medication since they can cause sleepiness. Oxycodone is a narcotic medication that can be addicting. If you are concerned about addiction you can ask the pharmacist for less pills or do not get this prescription filled. Follow-up with your doctor in 2 days. Please return to the emergency department if your symptoms get worse or if you develop any symptoms that are concerning to you. Prescriptions: New oxycodone 5 mg tablet 5 mg PO Q6H PRN (Reason: pain (scale score 7-10)) Qty: 10 0RF Rx Instructions: Patient may request partial refill; Partial Fill upon patient request. prednisone 20 mg tablet 20 mg PO DAILY 5 Days Qty: 5 0RF No Action lovastatin 20 mg tablet 20 mg PO BEDTIME Qty: 90 3RF hydrochlorothiazide 25 mg tablet 25 mg PO QAM Qty: 90 3RF acetaminophen [Tylenol Ex Str Rapid Release] 500 mg Tablet 500 mg PO Q6H PRN (Reason: Pain) cholecalciferol (vitamin D3) 50 mcg (2,000 unit) capsule 50 mcg PO DAILY B Complex Plus Vitamin C 22-68-94-5-300 mg capsule 1 cap PO DAILY Rx Instructions: give with food (meal/snack) pyridoxine (vitamin B6) 100 mg tablet 100 mg PO DAILY 90 Days Qty: 90 3RF metoprolol succinate 25 mg tablet extended release 24 hr 25 mg PO DAILY Qty: 60 3RF
[2022-10-24] MEDS: oxyCODONE HCl Immed Release 5 MG TABLET PO (11:55)
[2022-10-24] MEDS: Acetaminophen 325 MG TABLET 975 MG PO (11:55)
[2022-10-24] MEDS: predniSONE 20 MG TABLET PO (14:50)
== END 2022-10-24 15:01 | disposition home or self-care (01) ==
PROVIDERS: Emergency Provider Emergency Medicine Emergency Medical Services; PCP Internal Medicine Medical Oncology
DX: M54.16 Radiculopathy, lumbar region (principal); M54.50 Low back pain, unspecified; Z79.899 Other long term (current) drug therapy
CPT/HCPCS: 72131; 99284

== ENCOUNTER → 2022-10-27 14:25 | Outpatient (BNVA) | payer MEDICARE, SELFPAY | PROVIDERS: PCP Internal Medicine Medical Oncology; Referring Provider Internal Medicine Medical Oncology; Visit Provider Internal Medicine Cardiovascular Disease | DX: I35.0 Nonrheumatic aortic (valve) stenosis (principal); I10 Essential (primary) hypertension | CPT/HCPCS: 99212 ==

== ENCOUNTER 2022-11-22 10:39 | Emergency (ER) | payer MEDICARE, SELFPAY ==
--- NOTE | ~2022-11-22 | XR_ITS ---
EXAMINATION: XR HIP, RIGHT CLINICAL INFORMATION: Rule out fracture COMPARISON: None available. TECHNIQUE: AP pelvis, right hip FINDINGS: The position of left intramedullary dmitry and compression screw is satisfactory. The right hip revealed changes of osteoarthritis with joint space narrowing and subchondral sclerosis and marginal spurring. There is no evidence of fractures. XR/XR hip RT w [id number] IMPRESSION: No fracture seen but changes of osteoarthritis in the right hip joint.
[2022-11-22 11:16] VITALS: BP 159/70; PULSE 83; RESP 18; TEMP 36.1; O2SAT 96; BMI 24.5
--- NOTE | 2022-11-22 11:17 | ED.GENADULT ---
HPI - General Adult General Chief complaint: Extremity Injury, Lower Stated complaint: R hip pain Time Seen by Provider: 11/22/22 12:44 Source: patient and family Mode of arrival: ambulatory History of Present Illness HPI narrative: 87-year-old female who states that on Tuesday she extended her right lower extremity at the hip with a flexed knee to adjust her foot in a sock and felt a crack. Patient walks with a cane at baseline but states that she has had significant difficulty since that time. She denies any numbness/tingling/weakness to the lower extremity. Related Data Home Medications Medication Instructions Recorded Confirmed cholecalciferol (vitamin D3) 50 50 mcg PO DAILY 12/02/20 10/27/22 mcg (2,000 unit) capsule vitamin B comp and C no.3 15 mg-10 1 cap PO DAILY 12/02/20 10/27/22 mg-50 mg-5 mg-300 mg capsule (B Complex Plus Vitamin C) acetaminophen 500 mg tablet 500 mg PO Q6H PRN Pain 05/14/21 10/27/22 Previous Rx's Medication Instructions Recorded hydrochlorothiazide 25 mg tablet 25 mg PO QAM #90 tabs 06/30/21 lovastatin 20 mg tablet 20 mg PO BEDTIME #90 tabs 06/30/21 pyridoxine (vitamin B6) 100 mg 100 mg PO DAILY 90 days #90 tabs 05/10/22 tablet metoprolol succinate 25 mg 25 mg PO DAILY #60 tabs 08/30/22 tablet,extended release 24 hr oxycodone 5 mg tablet 5 mg PO Q6H PRN pain (scale score 10/24/22 7-10) #10 tabs prednisone 20 mg tablet 20 mg PO DAILY 5 days #5 tabs 10/24/22 Allergies Allergy/AdvReac Type Severity Reaction Status Date / Time codeine [CODEINE] Allergy Unknown HALLUCINATI Verified 11/22/22 11:21 ONS Review of Systems Review of Systems: Pertinent positives and negatives as stated in HPI [facility] Past Medical History Source: nursing notes reviewed Medical History Aortic stenosis Yates's cyst Combined hyperlipidemia Depression Headache HTN (hypertension) Liposarcoma of lower extremity Neck pain Nephrolithiasis Pain of left mastoid Spinal stenosis of lumbar region Surgical History History of appendectomy History of arthroscopy of right knee History of colonoscopy History of total abdominal hysterectomy Family History Family History Father Diabetes Mother No problems noted. Social History Social History Household Members: Spouse Housing: House Are you a primary medicare compliance auditor to a significant other at home: No Do you presently have visiting nurse or other home services: No Alcohol intake: never Patient Tobacco Use Status: Never used Tobacco Smoked in Last 30 Days: No Use of substances other than those prescribed or required for medical reasons: No Advance Directives: Yes Advance Directives Information Provided: No Advance Directives on File: No service: No Current occupational status: retired Physical Exam ED Vital Signs: Vital Signs - 24 hr 11/22/22 11:16 11/22/22 11:56 Temperature 97.0 F 97.9 F Pulse Rate 83 74 Respiratory Rate 18 16 Blood Pressure 159/70 H 156/61 H Pulse Oximetry 96 98 Oxygen Delivery Method Room Air Room Air BMI result Body Mass Index 24.5 VITAL SIGNS: Reviewed. GENERAL: Well developed, well nourished, in no acute distress. HEAD: Normocephalic/atraumatic EYES: PERRLA, EOMI EARS: Ext canals without abnormality NOSE: Nares patent bilateral OROPHARYNX: no oral lesions noted, posterior pharynx clear NECK: Supple, no adenopathy LUNGS: Normal breath sounds. No adventitious sounds or accessory muscle use. SpO2<98> CARDIOVASCULAR: Regular rate and rhythm without noted murmurs ABDOMEN: Soft, non-tender, non-distended with bowel sounds. PELVIS: Stable, nontender MUSCULOSKELETAL: No tenderness, deformities, or effusions noted on gross inspection. EXTREMITIES: No cyanosis, clubbing or edema. SKIN: Inspection of the skin reveals no rashes NEUROLOGIC: Alert and oriented x 4. Strength and sensation to light touch were grossly intact x 4. Course Course Course Narrative: RME- 87 year old female presents for evaluation of right hip pain. She reports she bent her right leg back to try and change her sock 4 days ago. She felt a crack in her right hip has had significant difficulty with ambulating since. 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 Plan to start with x-ray of the right hip/pelvis. Medical Decision Making Medical Decision Making [facility] Narrative: 87-year-old female who otherwise appears well and my interpretation of the imaging studies are in agreement with radiology's impression. There is no evidence of acute fracture or dislocation, patient received combination analgesics as well as lidocaine patch and reassured that today there does not appear to be any issue but if she continues to have significant pain without any reduction she should return for repeat imaging because on rare occasions a hairline fracture can be missed. Differential Diagnosis Please see the discussion above Lab Data Please see the discussion above Radiology Impression Radiologist Impression: My interpretation is in agreement with radiology's impression. Discharge Plan Discharge Clinical Impression: Arthritis of right hip Patient Disposition: Home, Self-Care Instructions: Hip Pain (ED) Additional Instructions: 1. Resume all home medications as prescribed. 2. Tylenol 1000 mg, orally, every 6 hours as needed for pain control. Do not exceed 4000 mg within 24 hours. 3. Lidocaine patch, apply to area of maximal tenderness as directed on the outside packaging. 4. Ibuprofen 400 mg, orally with milk or food, every 6 hours as needed for pain control. You may take this medication with Tylenol for improved symptom relief. 5. Please follow-up with your primary care provider. Do not hesitate to return to the emergency room in 3-4 days if no improvement in hip pain for repeat imaging studies. Prescriptions: No Action lovastatin 20 mg tablet 20 mg PO BEDTIME Qty: 90 3RF hydrochlorothiazide 25 mg tablet 25 mg PO QAM Qty: 90 3RF acetaminophen [Tylenol Ex Str Rapid Release] 500 mg Tablet 500 mg PO Q6H PRN (Reason: Pain) oxycodone 5 mg tablet 5 mg PO Q6H PRN (Reason: pain (scale score 7-10)) Qty: 10 0RF Rx Instructions: Patient may request partial refill; Partial Fill upon patient request. prednisone 20 mg tablet 20 mg PO DAILY 5 Days Qty: 5 0RF cholecalciferol (vitamin D3) 50 mcg (2,000 unit) capsule 50 mcg PO DAILY B Complex Plus Vitamin C 34-54-36-5-300 mg capsule 1 cap PO DAILY Rx Instructions: give with food (meal/snack) pyridoxine (vitamin B6) 100 mg tablet 100 mg PO DAILY 90 Days Qty: 90 3RF metoprolol succinate 25 mg tablet extended release 24 hr 25 mg PO DAILY Qty: 60 3RF Referrals: David Carson MD [Primary Care Provider] -
[2022-11-22 11:56] VITALS: BP 156/61; PULSE 74; RESP 16; TEMP 36.6; O2SAT 98
[2022-11-22] MEDS: Acetaminophen 325 MG TABLET 975 MG PO (13:57)
[2022-11-22] MEDS: Lidocaine 4 % Patch ADH..PATCH 1 PATCH TRANSDERMA (13:57)
== END 2022-11-22 14:01 | disposition home or self-care (01) ==
PROVIDERS: Emergency Provider Student in an Organized Health Care Education/Training Program; PCP Internal Medicine Medical Oncology
DX: M16.11 Unilateral primary osteoarthritis, right hip (principal); Z79.899 Other long term (current) drug therapy
CPT/HCPCS: 73502; 99283; 99284

== ENCOUNTER 2022-11-24 08:28 | Emergency (ER) | payer MEDICARE, SELFPAY ==
--- NOTE | ~2022-11-24 | CT_ITS ---
EXAMINATION: CT HIP WITHOUT CONTRAST, RIGHT CLINICAL INFORMATION: Injury. Can't walk. Rule out occult fracture. COMPARISON: Radiographs from 11/22/2022. CT dated 10/14/2022 TECHNIQUE: Multidetector volumetric imaging was obtained through the right hip without contrast. Multiplanar reformatted images in coronal and sagittal orientations were submitted. This CT examination was performed using dose optimization techniques as appropriate, variously including the following: *Automated exposure control *Adjustment of mA and/or kV according to patient size (this includes techniques or standardized protocols for targeted exams where dose is matched to indication/reason for exam; i.e. extremities or head) *Use of iterative reconstruction technique DLP: 190 mGy-cm FINDINGS: Bones are osteopenic. Bcmkxuzd-wm-flkjtz osteoarthritis in the right hip is characterized by marked joint space narrowing, marginal osteophytes, articular cortical irregularity, and a few foci of subchondral cystic change. There is a 1.3 cm osseous loose body in the anterior recess of the joint. No acute fracture or malalignment. Imaged portion of the right innominate bone is intact. Fluid is evident in the trochanteric bursa. There is marked fatty atrophy of the gluteus minimus and anterior aspect of the gluteus medius, most consistent with chronic tendon tears. Osseous fragmentation is noted near the insertions at the greater trochanter. Subcutaneous fat stranding is evident at the lateral aspect of the hip. Calcific atherosclerosis is present in the femoral arteries. Diverticulosis in the sigmoid colon. No acute intrapelvic findings. CT/CT hip RT wo IV con IMPRESSION: 1. No acute fracture or malalignment at the right hip. 2. Hrhqbsnp-lg-awdnni osteoarthritis in the right hip. 3. Marked fatty atrophy of the gluteus minimus and anterior aspect of the gluteus medius, most consistent with chronic tendon tears. Associated trochanteric bursitis is suspected.
[2022-11-24 08:31] VITALS: BP 143/65; PULSE 79; RESP 18; TEMP 36.2; O2SAT 97; BMI 25.2
--- NOTE | 2022-11-24 08:52 | ED.GENADULT ---
HPI - General Adult General Chief complaint: General Medical Stated complaint: R Hip Pain S/P Injury 11/22/22 Time Seen by Provider: 11/24/22 08:38 Source: patient Mode of arrival: wheelchair Limitations: no limitations History of Present Illness HPI narrative: 87 yo female with history of , HLD, HTN, previous left hip fx with repair here with right hip pain since Tuesday. Patient was bending down to fix sock and felt pop in right hip. Seen here 11/22 with negative x-rays. Has been taking tylenol and using lidoderm patches but with continued pain. Able to walk but difficult. Pain radiates to right knee. No numbness, tingling or weakness. Lives alone and has had difficulty with ADLS Related Data Home Medications Medication Instructions Recorded Confirmed cholecalciferol (vitamin D3) 50 50 mcg PO DAILY 12/02/20 11/24/22 mcg (2,000 unit) capsule vitamin B comp and C no.3 15 mg-10 1 cap PO DAILY 12/02/20 11/24/22 mg-50 mg-5 mg-300 mg capsule (B Complex Plus Vitamin C) acetaminophen 500 mg tablet 500 mg PO Q6H PRN Pain 05/14/21 11/24/22 lovastatin 20 mg tablet 20 mg PO BEDTIME@1200 11/24/22 11/24/22 metoprolol succinate 25 mg 25 mg PO DAILY@1200 11/24/22 11/24/22 tablet,extended release 24 hr pregabalin 25 mg capsule 25 mg PO BID 11/24/22 11/24/22 pyridoxine (vitamin B6) 100 mg 100 mg PO DAILY@1200 11/24/22 11/24/22 tablet Previous Rx's Medication Instructions Recorded hydrochlorothiazide 25 mg tablet 25 mg PO QAM #90 tabs 06/30/21 Allergies Allergy/AdvReac Type Severity Reaction Status Date / Time codeine [CODEINE] Allergy Unknown HALLUCINATI Verified 11/22/22 11:21 ONS Review of Systems Review of Systems: Yes all other systems are reviewed and are negative Constitutional: Constitutional: Reports no additional constitutional complaints, Denies body ache(s), Denies chills, Denies fever(s), Denies headache(s) and Denies weakness Eyes: Eyes: Reports no additional eye complaints and Denies change in vision ENT: Reports system reviewed and no additional complaints, except as documented, Denies dizziness, Denies headache(s), Denies nasal congestion, Denies nasal discharge and Denies neck pain Cardiovascular: Cardiovascular: Reports no additional cardiovascular complaints, Denies chest pain, Denies leg edema and Denies dyspnea Respiratory: Respiratory: Reports no additional respiratory complaints, Denies cough and Denies dyspnea Gastrointestinal: Gastrointestinal: Reports no additional gastrointestinal complaints, Denies abdominal pain, Denies diarrhea, Denies nausea and Denies vomiting Genitourinary: Genitourinary: Reports no additional female genitourinary complaints and Denies urinary incontinence Musculoskeletal: Musculoskeletal: Reports no additional musculoskeletal complaints, Denies back pain, Reports arthralgias, Denies joint swelling, Reports limited range of motion, Denies neck pain, Denies numbness and Denies tingling Integumentary/Breasts: Skin/Breast: Reports system reviewed and no additional complaints, except as docu and Denies rash Neurologic: Reports system reviewed and no additional complaints, except as documented, Denies dizziness, Denies headache(s), Denies numbness, Denies tingling and Denies weakness PMFSH Past Medical History Attestation statement: The following information was validated with the patient. Source: old records reviewed and nursing notes reviewed Medical History Aortic stenosis Yates's cyst Combined hyperlipidemia Depression Headache HTN (hypertension) Liposarcoma of lower extremity Neck pain Nephrolithiasis Pain of left mastoid Spinal stenosis of lumbar region Surgical History History of appendectomy History of arthroscopy of right knee History of colonoscopy History of total abdominal hysterectomy Family History Family History Father Diabetes Mother No problems noted. Social History Social History Household Members: Spouse Housing: House Are you a primary gericare aide to a significant other at home: No Do you presently have visiting nurse or other home services: No Alcohol intake: never Patient Tobacco Use Status: Never used Tobacco Smoked in Last 30 Days: No Use of substances other than those prescribed or required for medical reasons: No Advance Directives: No Advance Directives Information Provided: Yes service: No Current occupational status: retired Physical Exam ED Vital Signs: Vital Signs - 24 hr 11/24/22 08:31 11/24/22 14:47 Temperature 97.2 F 96.8 F Pulse Rate 79 96 Respiratory Rate 18 18 Blood Pressure 143/65 H 114/89 Pulse Oximetry 97 98 Oxygen Delivery Method Room Air Room Air BMI result Body Mass Index 25.2 Const General: cooperative, healthy appearing, comfortable and no acute distress Orientation/consciousness: patient oriented x3 Limitations: no limitations HENMT Head: Yes normal to inspection Ears: hearing grossly normal bilaterally Eyes General: appearance normal, both eyes and all related structures Pupils: Equal, round and reactive pupils present Neck Neck: Yes normal visual inspection and Yes full ROM Chest Chest palpation & inspection: normal inspection of the chest Resp Effort & Inspection: normal respiratory effort Auscultation: clear to auscultation bilaterally Cardio Rate: regular rate Rhythm: regular rhythm Peripheral pulses: Peripheral pulses 2+ throughout GI Inspection: Yes normal to inspection Palpation (GI): Soft to palpation and nontender Back/Spine/Pelvis Thoracic/Lumbar Spine: thoracic and lumbar spine normal to inspection Skin General skin exam: no rashes or lesions noted Neuro General: patient oriented x3, moves all extremities and Unable to assess gait Cranial nerves: Yes CN's II-XII intact bilaterally, Yes Equal, round and reactive pupils present, Yes Bilaterally intact EOM present, Yes Nystagmus not present, Yes Normal facial strength present and Yes Midline tongue present Cognition (Neuro): normal cognition Gait exam (Neuro): Unable to assess gait Extrem Other: There is tenderness to the lateral right hip which is worsened with movement of the hip. There is no shortening or rotation noted. There are palpable distal pulses. Sensation is normal. Course Course Course Narrative: Ct shows IMPRESSION: 1.? No acute fracture or malalignment at the right hip. ? 2. Zcqhauoe-st-fmvccx osteoarthritis in the right hip. ? 3. Marked fatty atrophy of the gluteus minimus and anterior aspect of the gluteus medius, most consistent with chronic tendon tears. Associated trochanteric bursitis is suspected. ? Pending PT/CM involvement. Will place in physician obs pending dispositions. Medications Administered Discontinued Medications Generic Name Dose Route Start Last Admin Trade Name Freq PRN Reason Stop Dose Admin Oxycodone HCl 5 mg 11/24/22 09:00 11/24/22 09:41 Oxycodone Hcl Immed Release 5 Mg Tablet PO 11/24/22 09:01 5 mg ONCE ONE Administration Medical Decision Making Medical Decision Making [facility] Narrative: This is an 87-year-old female who had an injury on Tuesday with complaints of right hip pain with negative x-rays to return to the ER with continued pain and difficulty with ambulating Will check labs, CT hip Will provide analgesia If workup negative may need short-term rehab Differential Diagnosis Differential Diagnoses: The differential diagnosis associated with the presentation includes Fracture Lab Data [facility] Lab Attestation statement: I reviewed the patient's lab results. 11/24/22 10:05 11/24/22 10:05 Labs: Lab Results 11/24/22 11/24/22 11/24/22 Range/Units 10:05 10:05 13:42 WBC 8.1 (4.8-10.8) X10*3/uL RBC 3.55 L (4.20-5.50) X10*6/uL Hgb 11.9 L (12.0-16.0) g/dl Hct 34.1 L (37.0-47.0) % MCV 96.1 (80.0-98.0) fL MCH 33.5 H (27.0-33.0) pg MCHC 34.9 (31.0-35.0) g/dl RDW 13.0 (11.0-16.0) % Plt Count 210 (160-400) X10*3/uL MPV 11.2 (9.4-12.3) fL Immature Gran % (Auto) 0.5 H (0.0-0.4) % Neut % (Auto) 75.3 H (45-73) % Lymph % (Auto) 15.3 L (20-40) % [place] % (Auto) 6.7 (2-11) % Eos % (Auto) 2.0 (0-4) % Baso % (Auto) 0.2 (0-2) % Lymph # (Auto) 1.2 (1.2-4.9) X10*3/uL [place] # (Auto) 0.5 (0.1-1.2) X10*3/uL Eos # (Auto) 0.2 (0.0-0.4) X10*3/uL Baso # (Auto) 0.0 (0.0-0.2) X10*3/uL Abs Immat Gran (auto) 0.04 H (0.00-0.03) X10*3/uL Absolute Neuts (auto) 6.1 (2.0-8.3) x10*3/uL Absolute Nucleated RBC 0.000 (0.0-0.012) X10*3/uL Nucleated RBC % (auto) 0.0 (0.0-0.2) /100WBC Sodium 139 (135-145) mmol/L Potassium 3.4 (3.3-5.1) mmol/L Chloride 99 (96-108) mmol/L Carbon Dioxide 29 (22-29) mmol/L Anion Gap 14 (12-20) BUN 20 H (9-16) mg/dL Creatinine 0.85 (0.5-1.4) mg/dL Estim Creat Clear Calc 45.3 Estimated GFR > 60 Random Glucose 191 H (60-115) mg/dL Calcium 9.4 (8.4-10.2) mg/dL COVID-19 (CONSTANZA) Negative (Negative) COVID-19 Clin Com See Note Independent Interpretation I performed an independent interpretation of an: CT Scan Interpretation: I independently reviewed the CT scan agree with radiologist's report Radiology Impression Discussion of test interpretation with radiology: I have reviewed the radiologist's reading. Radiologist Impression: [place] [id number] CT Scan Report Signed Patient: Torri Oliva MR#: [id number] : 1935 Acct:[id number] Age/Sex: 87 / F ADM Date: 11/24/22 Loc: HO.ED Attending Dr: Ordering Physician: Mary Mckeon NP Date of Service: 11/24/22 Procedure(s): CT hip RT wo IV con Accession Number(s): [id number] cc: Mary Mckeon NP~ EXAMINATION: CT HIP WITHOUT CONTRAST, RIGHT CLINICAL INFORMATION: Injury. Can't walk. Rule out occult fracture.? COMPARISON: Radiographs from 11/22/2022. CT dated 10/14/2022? TECHNIQUE: Multidetector volumetric imaging was obtained through the right hip without contrast. Multiplanar reformatted images in coronal and sagittal orientations were submitted. This CT examination was performed using dose optimization techniques as appropriate, variously including the following: *Automated exposure control *Adjustment of mA and/or kV according to patient size (this includes techniques or standardized protocols for targeted exams where dose is matched to indication/reason for exam; i.e. extremities or head) *Use of iterative reconstruction technique DLP: 190 mGy-cm FINDINGS: Bones are osteopenic. Tkyisrhx-km-brvwah osteoarthritis in the right hip is characterized by marked joint space narrowing, marginal osteophytes, articular cortical irregularity, and a few foci of subchondral cystic change. There is a 1.3 cm osseous loose body in the anterior recess of the joint. No acute fracture or malalignment. Imaged portion of the right innominate bone is intact. Fluid is evident in the trochanteric bursa. There is marked fatty atrophy of the gluteus minimus and anterior aspect of the gluteus medius, most consistent with chronic tendon tears. Osseous fragmentation is noted near the insertions at the greater trochanter. Subcutaneous fat stranding is evident at the lateral aspect of the hip. Calcific atherosclerosis is present in the femoral arteries. Diverticulosis in the sigmoid colon. No acute intrapelvic findings. CT/CT hip RT wo IV con IMPRESSION: 1.? No acute fracture or malalignment at the right hip. ? 2. Wnidsdtu-ee-ujgjoj osteoarthritis in the right hip. ? 3. Marked fatty atrophy of the gluteus minimus and anterior aspect of the gluteus medius, most consistent with chronic tendon tears. Associated trochanteric bursitis is suspected. ? Discharge Plan Discharge Clinical Impression: Bursitis of hip, right Patient Disposition: Still a Patient Prescriptions: No Action hydrochlorothiazide 25 mg tablet 25 mg PO QAM Qty: 90 3RF acetaminophen [Tylenol Ex Str Rapid Release] 500 mg Tablet 500 mg PO Q6H PRN (Reason: Pain) pregabalin 25 mg capsule 25 mg PO BID pyridoxine (vitamin B6) 100 mg tablet 100 mg PO DAILY@1200 metoprolol succinate 25 mg tablet extended release 24 hr 25 mg PO DAILY@1200 lovastatin 20 mg tablet 20 mg PO BEDTIME@1200 cholecalciferol (vitamin D3) 50 mcg (2,000 unit) capsule 50 mcg PO DAILY B Complex Plus Vitamin C 33-70-26-5-300 mg capsule 1 cap PO DAILY Rx Instructions: give with food (meal/snack)
[2022-11-24] MEDS: oxyCODONE HCl Immed Release 5 MG TABLET PO (09:41)
[2022-11-24 10:10] LABS: MANUAL DIFF FLAG NO
[2022-11-24 10:13] LABS: Basophils Percent Auto 0.2 % (0-2); Eosinophils Absolute Auto 0.2 X10*3/uL (0.0-0.4); Hematocrit 34.1 % (37.0-47.0); Hemoglobin 11.9 g/dl (12.0-16.0); Imm Gran Abs Auto 0.04 X10*3/uL (0.00-0.03); Imm Gran Pct Auto 0.5 % (0.0-0.4); Lymphocytes Absolute Auto 1.2 X10*3/uL (1.2-4.9); Lymphocytes Percent Auto 15.3 % (20-40); Mean Corpuscular HGB Conc 34.9 g/dl (31.0-35.0); Mean Corpuscular Hemoglobin 33.5 pg (27.0-33.0); Mean Corpuscular Volume 96.1 fL (80.0-98.0); Mean Platelet Volume 11.2 fL (9.4-12.3); Monocytes Absolute Auto 0.5 X10*3/uL (0.1-1.2); Monocytes Percent Auto 6.7 % (2-11); Neutrophils Absolute Auto 6.1 x10*3/uL (2.0-8.3); Neutrophils Percent Auto 75.3 % (45-73); Platelet Count 210 X10*3/uL (160-400); Red Blood Count 3.55 X10*6/uL (4.20-5.50); White Blood Count 8.1 X10*3/uL (4.8-10.8)
[2022-11-24 11:16] LABS: Anion Gap 14 (12-20); Blood Urea Nitrogen 20 mg/dL (9-16); Calcium 9.4 mg/dL (8.4-10.2); Carbon Dioxide 29 mmol/L (22-29); Chloride 99 mmol/L (96-108); Creatinine Clr Calc Pharmacy 45.3; Estimated Glomerular Filt Rate > 60; Glucose Random 191 mg/dL (60-115); Potassium 3.4 mmol/L (3.3-5.1); Sodium 139 mmol/L (135-145)
[2022-11-24 14:06] LABS: COVID-19 Test Negative (Negative); IDNOW Serial# BCCEAD1C
[2022-11-24 14:47] VITALS: BP 114/89; PULSE 96; RESP 18; TEMP 36; O2SAT 98
--- NOTE | 2022-11-24 15:40 | PC.NURSE ---
assumed care of patient at 1430, transferred to overflow from main ED, pt A&Ox4, pleasant, c/o of right hip discomfort. Patient does not want to get changed into hospital clothes states she will be leaving soon , pt and her friend educated on bed search process and that it may take longer than expected to be transferred. Walked pt to BR using cane, pt unsteady, especially on left side, commode put at bedside for next time
--- NOTE | 2022-11-24 20:36 | MHC.CM.ED ---
Addendum entered by Anna Marie Loaiza 11/25/22 16:50: CM called and spoke to both the patient and to her son, Martinez regarding [facility] accepting her for services. Explained that [facility] should be calling them to set up a time for intake. Contact information given to Martinez for [facility]. CM also recommended to Martinez that he check with [facility] about having a WAREHOUSE FORKLIFT OPERATOR to assist with showering for his mother. CM also referred Martinez to [facility] for home services. Original Note: CM met with patient. C/O right hip pain. No injury. PT recommending Acute rehab. Referrals made to acute rehabs by previous CM. No facilities offering bed. Pt does not have a qualifying stay. Discussed with patient and son/HCP Martinez Oliva ([phone]) that patient would need to private pay, as the medicare waiver no longer exists. Explained the waiver. Explained that CM could contact local [facility] for rates, but typically they are about $400/day. Many facilities require 2-4 weeks up front. Also discussed options for home PT or Outpatient PT, that PCP could order. Pt was able to ambulate to with cane. Pt states she feels safe at home. Pt and son choose discharge with home PT. Son will call Dr. Carson regarding possibility of outpatient PT. CM made referral to [facility]. F2F completed. Contact card given. Will call patient with [facility] acceptance. Explained that if they choose Outpatient PT at [facility], then they can cancel [facility], as they cannot have both. Explained that insurance will only pay for one. Pt lives alone. Has cane, walker. 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 Has close friend who helps with shopping and doctor visits. Pt is home bound. Pt is a recent , as her in May. Son lives in [place], but is very supportive. Will stay with patient overnight tonight. [facility] aware and will discharge patient. RN tells CM that patient ambulated well, with cane. CM will follow for [facility] acceptance.
--- NOTE | 2022-11-25 08:48 | MHC.CM.ED ---
Received notification from [facility] that they would not be able to start care until Tuesday. [facility] able to accept patient and start services sooner. [facility] made aware.
== END 2022-11-24 17:12 | disposition home or self-care (01) ==
PROVIDERS: Nurse Practitioner Family; Emergency Provider Emergency Medicine; PCP Internal Medicine Medical Oncology
DX: M70.71 Other bursitis of hip, right hip (principal); M25.551 Pain in right hip; Y93.9 Activity, unspecified; I10 Essential (primary) hypertension; E78.2 Mixed hyperlipidemia; Z79.899 Other long term (current) drug therapy; Z79.02 Long term (current) use of antithrombotics/antiplatelets; Z20.822 Contact with and (suspected) exposure to COVID-19
CPT/HCPCS: 36415; 73700; 80048; 85025; 87635; 97162; 99284

== ENCOUNTER 2023-01-10 09:23 | Outpatient (AMB) | payer MEDICARE, SELFPAY ==
--- NOTE | 2023-01-10 09:24 | A.OFFVIS_ITS ---
Intake Vital Signs 01/10/23 09:32 Height 5 ft 7 in Weight 161 lb BMI 25.2 Intake Visit Reasons: New Prob- right hip OA Intake Note: Torri is an 87 year old female who presents today for a new problem visit with complaints of right hip pain. She reports that she is feeling pain in the right sided lower back that radiates down the right leg. She is working with physical therapy .The pain is feeling better while sitting but is flaired up while walking. Allergies codeine [CODEINE] Allergy (Unknown, Verified 01/10/23 09:34) HALLUCINATIONS HPI New Prob- right hip OA HPI Details Torri is an 87 year old woman who presents with complaints of low back pain. She says her pain is in the right side of her lower back, and radiates down her right leg to her foot. She denies any numbness or tingling. She says every step she takes causes pain in her back, leg, and knee. She says her pain is present with weight-bearing, but improves when she is sitting down. She has been working with PT and walks using a cane. She says she has a walker at home that she uses occasionally. She finds limited relief from Pregabalin. She says she has been seen by Dr. Gee in the past, and was not happy with her treatment by him. She has been seen by outside Pain Management for neck pain, PFSH Medical History Aortic stenosis Yates's cyst Combined hyperlipidemia Depression Headache HTN (hypertension) Liposarcoma of lower extremity Neck pain Nephrolithiasis Pain of left mastoid Spinal stenosis of lumbar region Surgical History History of appendectomy History of arthroscopy of right knee History of colonoscopy History of total abdominal hysterectomy Family History Father Diabetes Mother No problems noted. Social History Household Members: Spouse Housing: House Are you a primary caretaker grounds to a significant other at home: No Do you presently have visiting nurse or other home services: No Alcohol intake: never Patient Tobacco Use Status: Never used Tobacco service: No Current occupational status: retired Review of Systems Const All systems reviewed & are unremarkable except as noted in HPI and below Physical Exam Vital Signs: BMI result Body Mass Index 25.2 Const General: no acute distress, alert and awake Orientation/consciousness: patient oriented x3 HEENT Head: Yes normocephalic and Yes atraumatic Eyes EOM: EOMs intact bilaterally Resp Effort & Inspection: normal respiratory effort and able to speak in complete sentences Cardio Jugular venous distension: no JVD Skin General skin exam: turgor normal Rashes: no rashes Neuro General: patient oriented x3 Extrem Other: Right Hip: Poor ambulatory function Trendelenburg gait on right with shuffling gait valgus right knee + impingement Pain with straight leg raise, localized to lumbosacral region Radiating pain with IT of hip, some groin pain Psych Appearance: grossly normal Affect: normal affect Attitude: cooperative Results Reviewed Results Reviewed: I personally reviewed relevant CT images 1.? No acute fracture or malalignment at the right hip. ? 2. Yfbwwkma-df-kcnggs osteoarthritis in the right hip. ? 3. Marked fatty atrophy of the gluteus minimus and anterior aspect of the gluteus medius, most consistent with chronic tendon tears. Associated trochanteric bursitis is suspected. Assessment & Plan Assessment & Plan (1) Spinal stenosis of lumbar region: Code(s): M48.061 - Spinal stenosis, lumbar region without neurogenic claudication Plan: This is an 87 year old woman with right-sided low back pain, which radiates down her right leg. She denies any numbness or tingling, and ambulates with assistive devices. She has pain with ambulation or weight-bearing, and denies pain while sitting. She finds limited relief from Pregabalin. I referred her to Dr. Young in Pain Management for assessment and recommend she transition to using a walker full-time. She can follow up prn. (2) Sciatica: Code(s): M54.30 - Sciatica, unspecified side Qualifiers: Laterality: right Qualified Code(s): M54.31 - Sciatica, right side (3) Osteoarthritis of right hip: Code(s): M16.11 - Unilateral primary osteoarthritis, right hip Plan: Moderate-severe right hip OA, without complaints of groin pain today. She is limited in her ADLs and has poor gait mechanics. She is not a good surgical candidate at this time and I think her priority should be to manage her LBP with Pain Management. No acute intervention warranted, I recommend she transition to an assistive walker full-time. She can follow up prn. (4) Gait disturbance: Code(s): R26.9 - Unspecified abnormalities of gait and mobility Plan Scribed for Frank Brunson MD by Charles Bowers, durable medical equipment technician, on 01/10/23 at 9:50 AM, EST. Orders: Referrals Pain Management Referral M16.11 - Unilateral primary osteoarthritis, right hip, M48.061 - Spinal stenosis, lumbar region without neurogenic claudication Medications: Discontinued lovastatin 20 mg PO BEDTIME 90 tabs 3RF pyridoxine (vitamin B6) 100 mg PO DAILY 90 days 90 tabs 3RF metoprolol succinate ER 25 mg PO DAILY 60 tabs 3RF Coding Level of Care Code Est Pt Level 3 (19812) Diagnoses Spinal stenosis of lumbar region M48.061 Sciatica M54.31 Laterality: right Osteoarthritis of right hip M16.11 Gait disturbance R26.9
[2023-01-10 09:32] VITALS: BMI 25.2
== END 2023-01-10 09:55 | disposition home or self-care (01) ==
PROVIDERS: PCP Internal Medicine Medical Oncology; Visit Provider Orthopaedic Surgery
DX: M16.11 Unilateral primary osteoarthritis, right hip (principal); M48.061 Spinal stenosis, lumbar region without neurogenic claudication; M54.31 Sciatica, right side
CPT/HCPCS: 99213

== ENCOUNTER → 2023-01-10 09:23 | Outpatient (BNVA) | payer MEDICARE, SELFPAY | PROVIDERS: PCP Internal Medicine Medical Oncology; Visit Provider Orthopaedic Surgery | DX: M16.11 Unilateral primary osteoarthritis, right hip (principal); M48.061 Spinal stenosis, lumbar region without neurogenic claudication; M54.41 Lumbago with sciatica, right side; M26.9 Dentofacial anomaly, unspecified | CPT/HCPCS: 99212 ==

== ENCOUNTER 2023-01-23 15:59 | Emergency (ER) | payer MEDICARE, SELFPAY ==
--- NOTE | ~2023-01-23 | US_ITS ---
EXAMINATION: US VENOUS ULTRASOUND WITH DOPPLER LOWER EXTREMITY, RIGHT CLINICAL INFORMATION: Right calf pain. COMPARISON: 06/03/2020. TECHNIQUE: Ultrasound of the deep veins is performed from the hip to the calf with compression sonography and color and pulse Doppler assessment. Spectral analysis with color-flow imaging is performed. FINDINGS: There is normal venous compression and respiratory variation and augmented flow. The visualized common femoral vein, superficial femoral vein, profunda femoral vein, popliteal vein, and the trifurcation region shows no evidence of deep venous thrombosis. There is a 4.6 x 1.0 x 2.2 cm simple appearing fluid collection present within the right popliteal fossa, most consistent with popliteal fossa/Yates's cyst. If the patient's symptoms persist, followup ultrasound in 5 days 7 days might be of value to exclude proximal propagation from a non-visualized calf vein. US/US venous duplex LE RT IMPRESSION: 1. No DVT demonstrated in the right lower extremity. Incidental note is made of a 4.6 cm maximum dimension right popliteal fossa/Yates's cyst. 2. No significant change since 06/03/2020.
[2023-01-23 16:40] VITALS: BP 140/53; PULSE 70; RESP 18; TEMP 37.5; O2SAT 98; BMI 25.4
--- NOTE | 2023-01-23 16:44 | ED_ITS ---
HPI - General Adult General Chief complaint: Extremity Injury, Lower Stated complaint: Right leg pain/Knee Time Seen by Provider: 01/23/23 18:18 Source: patient and family ( niece who confirms history) Mode of arrival: wheelchair Limitations: no limitations History of Present Illness HPI narrative: patient is an 87-year-old female presents emergency department for evaluation of acute on chronic right knee pain. She has been followed by Orthopedics, states that last week she was diagnosed with bursitis to this knee. Her pain had been improving some. Today she was ambulating with the use of her cane when she developed sudden severe increase in her pain posteriorly radiating down into the calf. Pain became so bad that she was unable to continue ambulating. She lives home alone. She is brought to emergency department by her niece for further evaluation. Denies any numbness tingling or cold sensation to the foot. Denies any history of DVT / PE or coagulation disorder. Atraumatic. Denies any redness, swelling, warmth, fevers, chills Related Data Home Medications Medication Instructions Recorded Confirmed lovastatin 20 mg tablet 20 mg PO BEDTIME 11/24/22 01/23/23 metoprolol succinate 25 mg 25 mg PO DAILY@1200 11/24/22 01/23/23 tablet,extended release 24 hr pregabalin 25 mg capsule 25 mg PO BID 11/24/22 01/23/23 pyridoxine (vitamin B6) 100 mg 100 mg PO BEDTIME 11/24/22 01/23/23 tablet lidocaine 5 % topical patch 1 patch topical DAILY 01/23/23 01/23/23 Previous Rx's Medication Instructions Recorded hydrochlorothiazide 25 mg tablet 25 mg PO QA #90 tabs 06/30/21 Allergies Allergy/AdvReac Type Severity Reaction Status Date / Time codeine [CODEINE] Allergy Unknown HALLUCINATI Verified 01/10/23 09:34 ONS Review of Systems Review of Systems: Yes all other systems are reviewed and are negative PMFSH Past Medical History Attestation statement: The following information was validated with the patient. Source: old records reviewed Medical History Aortic stenosis Yates's cyst Combined hyperlipidemia Depression Headache HTN (hypertension) Liposarcoma of lower extremity Neck pain Nephrolithiasis Pain of left mastoid Spinal stenosis of lumbar region Surgical History History of appendectomy History of arthroscopy of right knee History of colonoscopy History of total abdominal hysterectomy Family History Family History Father Diabetes Mother No problems noted. Social History Social History Household Members: Spouse Housing: House Are you a primary insurance healthcare consultant to a significant other at home: No Do you presently have visiting nurse or other home services: No Alcohol intake: never Patient Tobacco Use Status: Never used Tobacco Smoked in Last 30 Days: No Use of substances other than those prescribed or required for medical reasons: No Advance Directives: No Advance Directives Information Provided: No service: No Current occupational status: retired Physical Exam ED Vital Signs: Vital Signs - 24 hr 01/24/23 15:22 01/24/23 20:31 01/25/23 03:24 Temperature 97.2 F 98.2 F Pulse Rate 75 76 68 Respiratory Rate 18 16 16 Blood Pressure 141/58 H 120/54 L 162/66 H Pulse Oximetry 97 98 98 Oxygen Delivery Method Room Air Room Air Room Air BMI result Body Mass Index 25.4 Appearance: Alert.?Oriented to person, place and time. No acute distress.?Normal affect. Eyes: Pupils equal, round and reactive to light.? ENT: Pharynx normal.?? Neck: Normal inspection.? Neck supple.?? CVS: Heart sounds normal. Normal heart rate and rhythm.? Pulses normal.?? Respiratory: No respiratory distress.? Lung sounds clear to auscultation bilaterally?? Abdomen: Soft and non-tender. Normoactive bowel sounds. ?? Skin: Skin warm and dry.? Normal skin color.? Extremities: No lower extremity edema.? mild right calf tenderness upon palpation. 2+ DP/ PT pulse bilaterally. Right knee without evidence of effusion, no erythema, warmth, rash, lesions. No laxity upon examination. No obvious deformity. Neuro: Moves all extremities spontaneously. Sensation intact bilaterally. No focal neuro deficits. Course Course Course Narrative: RME: 87 yold female presents to the ED For right calf pain without any trauma today. Positive for right calf tendrenss on palpation. labs and US ordred Reevaluation(s) Reevaluation #1: physician observation continued. Uneventful night. Vital signs stable. Pending disposition and PT and case management Reevaluation #2: Patient will be dc home with son, son will stay home with her she will follow up with PCP and ortho. Reevaluation #3: Patient's will stay overnight for further evaluation of long care insurance for possible home service ( which son prefers). UA ordered as reqeusted by overflow nurse Time: 18:01 Additional Reevaluation(s): Pending disposition, uneventful night, vital signs stable. Will continue to monitor, patient to remain in observation Medications Administered Generic Name Dose Route Start Last Admin Trade Name Freq PRN Reason Stop Dose Admin Hydrochlorothiazide 25 mg 01/24/23 09:00 01/25/23 07:57 Hydrochlorothiazide 25 Mg Tablet PO 25 mg DAILY ROSA Administration Protocol Lidocaine 1 patch 01/24/23 09:00 01/25/23 07:57 Lidocaine 4 % Patch Adh..Patch TRANSDERMA 1 patch DAILY ROSA Administration Metoprolol Succinate 25 mg 01/24/23 12:00 01/24/23 12:07 Metoprolol Succinate Er 25 Mg Tab.Er.24h PO 25 mg DAILY@1200 ROSA Administration Protocol Pravastatin Sodium 20 mg 01/24/23 21:00 01/24/23 20:48 Pravastatin Sodium 20 Mg Tablet PO 20 mg BEDTIME ROSA Administration Pregabalin 25 mg 01/23/23 21:00 01/25/23 07:57 Pregabalin 25 Mg Capsule PO 25 mg BID ROSA Administration Pyridoxine HCl 100 mg 01/23/23 21:00 01/24/23 20:48 Pyridoxine Hcl (Vitamin B6) 50 Mg Tablet PO 100 mg BEDTIME ROSA Administration Discontinued Medications Generic Name Dose Route Start Last Admin Trade Name Freq PRN Reason Stop Dose Admin Acetaminophen 975 mg 01/23/23 18:51 01/23/23 19:15 Acetaminophen 325 Mg Tablet PO 01/23/23 18:52 975 mg ONCE ONE Administration Tramadol HCl 50 mg 01/23/23 18:51 01/23/23 19:16 Tramadol Hcl 50 Mg Tablet PO 01/23/23 18:52 50 mg ONCE ONE Administration Medical Decision Making Medical Decision Making MDM Narrative: Patient is an 87-year-old female who presents emergency department for acute on chronic right knee pain atraumatic in nature. Physical examination is overall unremarkable, not consistent with septic arthritis at this time. Reviewed Duplex ultrasound reveals no evidence of DVT, there is however a right popliteal Yates's cyst Which is likely the etiology for her pain. Managed with acetaminophen and tramadol which did provide some improvement though she continues to have difficulty weight-bearing. She lives home alone, concern for safety. Will refer to case management/ physical therapy for safe disposition planning. Admission/Observation Consideration of admission/observation: Escalation of care including admission/observation considered ( Placed in position observation for case management/physical therapy evaluation) Lab Data MDM Lab Attestation statement: I reviewed the patient's lab results. serum labs are overall unremarkable, no leukocytosis, no anemia, CMP overall unremarkable. 01/23/23 17:10 01/23/23 17:10 Labs: Lab Results 01/23/23 01/23/23 01/23/23 Range/Units 17:10 17:10 17:10 WBC 6.6 (4.8-10.8) X10*3/uL RBC 4.01 L (4.20-5.50) X10*6/uL Hgb 13.1 (12.0-16.0) g/dl Hct 38.1 (37.0-47.0) % MCV 95.0 (80.0-98.0) fL MCH 32.7 (27.0-33.0) pg MCHC 34.4 (31.0-35.0) g/dl RDW 12.7 (11.0-16.0) % Plt Count 208 (160-400) X10*3/uL MPV 11.0 (9.4-12.3) fL Immature Gran % (Auto) 0.2 (0.0-0.4) % Neut % (Auto) 65.7 (45-73) % Lymph % (Auto) 24.7 (20-40) % [place] % (Auto) 7.9 (2-11) % Eos % (Auto) 1.2 (0-4) % Baso % (Auto) 0.3 (0-2) % Lymph # (Auto) 1.6 (1.2-4.9) X10*3/uL [place] # (Auto) 0.5 (0.1-1.2) X10*3/uL Eos # (Auto) 0.1 (0.0-0.4) X10*3/uL Baso # (Auto) 0.0 (0.0-0.2) X10*3/uL Abs Immat Gran (auto) 0.01 (0.00-0.03) X10*3/uL Absolute Neuts (auto) 4.3 (2.0-8.3) x10*3/uL Absolute Nucleated RBC 0.000 (0.0-0.012) X10*3/uL Nucleated RBC % (auto) 0.0 (0.0-0.2) /100WBC PT 11.7 (11.1-13.3) SEC INR 1.0 (0.9-1.1) APTT 25.7 L (26.0-36.4) SEC Sodium 138 (135-145) mmol/L Potassium 3.6 (3.3-5.1) mmol/L Chloride 99 (96-108) mmol/L Carbon Dioxide 28 (22-29) mmol/L Anion Gap 15 (12-20) BUN 17 H (9-16) mg/dL Creatinine 0.87 (0.5-1.4) mg/dL Estim Creat Clear Calc 44.3 Estimated GFR > 60 Random Glucose 119 H (60-115) mg/dL Calcium 10.0 D (8.4-10.2) mg/dL Total Bilirubin 0.6 (0.0-1.0) mg/dL AST 21 (5-31) U/L ALT 16 (0-31) U/L Alkaline Phosphatase 62 (39-117) U/L Total Protein 7.2 (6.5-8.0) g/dL Albumin 4.1 (3.5-5.0) g/dL Urine Color Urine Appearance Urine pH (5.0-9.0) Ur Specific [place] (1.005-1.025) Urine Protein (Neg-Trace) mg/dL Urine Glucose (UA) (Negative) mg/dL Urine Ketones (Negative) mg/dL Urine Blood (Negative) Urine Nitrite (Negative) Ur Leukocyte Esterase (Negative) Urine RBC (0-2) /HPF Urine WBC (0-5) /HPF Ur Squamous Epith Cells (0-2) /HPF Urine Bacteria (None Seen) Hyaline Casts (0-2) /LPF 01/24/23 Range/Units 20:52 WBC (4.8-10.8) X10*3/uL RBC (4.20-5.50) X10*6/uL Hgb (12.0-16.0) g/dl Hct (37.0-47.0) % MCV (80.0-98.0) fL MCH (27.0-33.0) pg MCHC (31.0-35.0) g/dl RDW (11.0-16.0) % Plt Count (160-400) X10*3/uL MPV (9.4-12.3) fL Immature Gran % (Auto) (0.0-0.4) % Neut % (Auto) (45-73) % Lymph % (Auto) (20-40) % [place] % (Auto) (2-11) % Eos % (Auto) (0-4) % Baso % (Auto) (0-2) % Lymph # (Auto) (1.2-4.9) X10*3/uL [place] # (Auto) (0.1-1.2) X10*3/uL Eos # (Auto) (0.0-0.4) X10*3/uL Baso # (Auto) (0.0-0.2) X10*3/uL Abs Immat Gran (auto) (0.00-0.03) X10*3/uL Absolute Neuts (auto) (2.0-8.3) x10*3/uL Absolute Nucleated RBC (0.0-0.012) X10*3/uL Nucleated RBC % (auto) (0.0-0.2) /100WBC PT (11.1-13.3) SEC INR (0.9-1.1) APTT (26.0-36.4) SEC Sodium (135-145) mmol/L Potassium (3.3-5.1) mmol/L Chloride (96-108) mmol/L Carbon Dioxide (22-29) mmol/L Anion Gap (12-20) BUN (9-16) mg/dL Creatinine (0.5-1.4) mg/dL Estim Creat Clear Calc Estimated GFR Random Glucose (60-115) mg/dL Calcium (8.4-10.2) mg/dL Total Bilirubin (0.0-1.0) mg/dL AST (5-31) U/L ALT (0-31) U/L Alkaline Phosphatase (39-117) U/L Total Protein (6.5-8.0) g/dL Albumin (3.5-5.0) g/dL Urine Color Yellow Urine Appearance Clear Urine pH 5.5 (5.0-9.0) Ur Specific [place] 1.025 (1.005-1.025) Urine Protein Negative (Neg-Trace) mg/dL Urine Glucose (UA) Negative (Negative) mg/dL Urine Ketones Negative (Negative) mg/dL Urine Blood Trace (Negative) Urine Nitrite Negative (Negative) Ur Leukocyte Esterase Negative (Negative) Urine RBC 0-2 (0-2) /HPF Urine WBC 0-5 (0-5) /HPF Ur Squamous Epith Cells 11-20 (0-2) /HPF Urine Bacteria Trace (None Seen) Hyaline Casts 0-2 (0-2) /LPF Radiology Impression Discussion of test interpretation with radiology: I have reviewed the radiologist's reading. Radiologist Impression: US/US venous duplex LE RT IMPRESSION: ? 1. No DVT demonstrated in the right lower extremity. Incidental note is made of a 4.6 cm maximum dimension right popliteal fossa/Yates's cyst. 2. No significant change since 06/03/2020. Independent Historian Clinical information obtained from an independent historian. History obtained from or confirmed by: Other ( Niece who confirms history) External Record Review External record reviewed: Outpatient record Prescription Management I considered prescription management with: Pain Medication Discharge Plan Discharge Clinical Impression: Yates's cyst, Knee pain, right Patient Disposition: Still a Patient Prescriptions: No Action hydrochlorothiazide 25 mg tablet 25 mg PO QAM Qty: 90 3RF pregabalin 25 mg capsule 25 mg PO BID pyridoxine (vitamin B6) 100 mg tablet 100 mg PO BEDTIME metoprolol succinate 25 mg tablet extended release 24 hr 25 mg PO DAILY@1200 lovastatin 20 mg tablet 20 mg PO BEDTIME lidocaine 5 % adhesive patch,medicated 1 patch topical DAILY
[2023-01-23 17:15] LABS: MANUAL DIFF FLAG NO
[2023-01-23 17:19] LABS: Basophils Percent Auto 0.3 % (0-2); Eosinophils Absolute Auto 0.1 X10*3/uL (0.0-0.4); Eosinophils Percent Auto 1.2 % (0-4); Hematocrit 38.1 % (37.0-47.0); Hemoglobin 13.1 g/dl (12.0-16.0); Imm Gran Abs Auto 0.01 X10*3/uL (0.00-0.03); Imm Gran Pct Auto 0.2 % (0.0-0.4); Lymphocytes Absolute Auto 1.6 X10*3/uL (1.2-4.9); Lymphocytes Percent Auto 24.7 % (20-40); Mean Corpuscular HGB Conc 34.4 g/dl (31.0-35.0); Mean Corpuscular Hemoglobin 32.7 pg (27.0-33.0); Monocytes Absolute Auto 0.5 X10*3/uL (0.1-1.2); Monocytes Percent Auto 7.9 % (2-11); Neutrophils Absolute Auto 4.3 x10*3/uL (2.0-8.3); Neutrophils Percent Auto 65.7 % (45-73); Platelet Count 208 X10*3/uL (160-400); Red Blood Count 4.01 X10*6/uL (4.20-5.50); Red Cell Distribution Width 12.7 % (11.0-16.0); White Blood Count 6.6 X10*3/uL (4.8-10.8)
[2023-01-23 17:26] LABS: Prothrombin Time 11.7 SEC (11.1-13.3)
[2023-01-23 17:28] LABS: Partial Thromboplastin Time 25.7 SEC (26.0-36.4)
[2023-01-23 18:04] LABS: Alanine Aminotransferase 16 U/L (0-31); Albumin Level 4.1 g/dL (3.5-5.0); Alkaline Phosphatase 62 U/L (39-117); Anion Gap 15 (12-20); Aspartate Amino Transferase 21 U/L (5-31); Bilirubin Total 0.6 mg/dL (0.0-1.0); Blood Urea Nitrogen 17 mg/dL (9-16); Carbon Dioxide 28 mmol/L (22-29); Chloride 99 mmol/L (96-108); Creatinine Clr Calc Pharmacy 44.3; Estimated Glomerular Filt Rate > 60; Glucose Random 119 mg/dL (60-115); Potassium 3.6 mmol/L (3.3-5.1); Sodium 138 mmol/L (135-145); Total Protein 7.2 g/dL (6.5-8.0)
[2023-01-23] MEDS: Acetaminophen 325 MG TABLET 975 MG PO (19:15)
[2023-01-23] MEDS: traMADoL HCL 50 MG TABLET PO (19:16)
[2023-01-23 19:20] VITALS: BP 179/65; PULSE 66; RESP 18; TEMP 36.7; O2SAT 98
--- NOTE | 2023-01-23 20:28 | PC.NURSE ---
pt transported to overflow unit for phys obs pending PT eval tomorrow. home meds ordered. pt aware and agreeable to plan for care.
[2023-01-23 22:00] VITALS: BP 175/54; PULSE 66; RESP 18; TEMP 36.5; O2SAT 96
--- NOTE | 2023-01-23 22:00 | PC.NURSE ---
Patient assisted to commode to urinate without issue. Patient is a one assist from bed to commode at this time. Patient assisted back to bed where she is watching TV at this time.
[2023-01-23] MEDS: Pyridoxine HCl (Vitamin B6) 50 MG TABLET 100 MG PO (22:26)
[2023-01-23] MEDS: Pregabalin 25 MG CAPSULE PO (22:26)
[2023-01-23 23:35] VITALS: BP 119/76; PULSE 64; RESP 14; TEMP 36.5; O2SAT 96
--- NOTE | 2023-01-24 03:31 | PC.NURSE ---
Assumed care of pt. Pt sleeping, no acute distress at this time. Continuing plan of care.
--- NOTE | 2023-01-24 04:06 | PC.NURSE ---
Pt now awake, watching television, no acute distress.
[2023-01-24 06:00] VITALS: BP 160/73; PULSE 65; RESP 14; TEMP 36.5; O2SAT 97
[2023-01-24 08:39] VITALS: BP 160/73; PULSE 65; O2SAT 97
[2023-01-24] MEDS: Pregabalin 25 MG CAPSULE PO ×2 (09:23→20:48)
[2023-01-24] MEDS: Lidocaine 4 % Patch ADH..PATCH 1 PATCH TRANSDERMA (09:24)
[2023-01-24] MEDS: hydroCHLOROthiazide 25 MG TABLET PO (10:35)
--- NOTE | 2023-01-24 11:29 | MHC.CM.ED ---
Met w/pt to discuss d/c planning needs: pt resides alone since the passing of her spouse in May. She has support from friends and her son from [place] who brings her to appointments if her friends cannot. Pt just completed home services w/[facility]. Would like a re-referral for RN and PT visits. Discussed STR placement and payor source: pt states she is not interested in STR and would like a return to home. PT eval remains pending at this time. ED CM to follow: pt states her son Martinez or her friend Sister Ana can transport her to home. Will await PT ja for assurance of home safety. [facility] referral made.
[2023-01-24] MEDS: Metoprolol Succinate ER 25 MG TAB.ER.24H PO (12:07)
--- NOTE | 2023-01-24 15:14 | PHA.MEDREC ---
Pharmacy Consult ? Medication Reconciliation Pharmacy has reviewed the medication reconciliation completed by Claudia.
[2023-01-24 15:22] VITALS: BP 141/58; PULSE 75; RESP 18; O2SAT 97
--- NOTE | 2023-01-24 16:21 | MHC.EDTECH ---
this pct assumed care of pt at 1500 ,pt awake in bed ,pt family at bedside .
--- NOTE | 2023-01-24 17:41 | MHC.EDTECH ---
PT VERY CONFUSED ,RN AWARE ,PT ATE 100 % OF DINNER ,DRANK 240 ML FLUIDS ,PT WAS ASSISTED UNTO BED SIDE COMMODE ,VOID LARGE AMOUNT OF URINE ,ASSISTED PT BACK TO BED AND SET UP TO BRUSH HER TEETH ,TELE SITTER IN PLACE AND BED ALARM ON .
--- NOTE | 2023-01-24 17:48 | MHC.CM.ED ---
Son tells CM that his mother has LTC insurance. Wants to have more help in the home. CM requested he check with her insurance to see if they cover STR, or Care in the home, or if it's just LTC in a facility. Son will make insurance calls in the morning. Son is very concerned that his mother is not safe at home and cannot complete her ADL's at this time. Son can only stay with her tonight. Requests pt remain in ED tonight due to safety concerns. Will give son a listing of local agencies that provide home care. [facility] notified via [facility]. CM following for discharge planning.
--- NOTE | 2023-01-24 20:12 | PC.NURSE ---
Assumed care at 07:00. Patient son updated by CM regarding plan regarding matta's cyst. pain 8/10, down from 10/10 yesterday. Ice applied to her knee. Llidocaine patch applied to right her hip. No PRN medications. Provider notified. Pain down to 5/10 right knee with ambulation and ice. Neck down to 5/10 per patient. Continuing to monitor
[2023-01-24 20:31] VITALS: BP 120/54; PULSE 76; RESP 16; TEMP 36.2; O2SAT 98
[2023-01-24] MEDS: Pyridoxine HCl (Vitamin B6) 50 MG TABLET 100 MG PO (20:48)
[2023-01-24] MEDS: Pravastatin Sodium 20 MG TABLET PO (20:48)
--- NOTE | 2023-01-24 20:55 | MHC.EDTECH ---
PATIENT WAS ASSISTED UNTO BEDSIDE COMMODE ,VOID LG AMOUNT OF URINE ,BACK TO BED ,URINE SAMPLE COLLECTED AND SENT TO LAB .
[2023-01-24 21:01] LABS: Appearance Urine Clear; Color Urine Yellow; Glucose Urine UA Negative (Negative); Leukocyte Esterase Urine Negative (Negative); Nitrite Urine Negative (Negative); PH 5.5 (5.0-9.0); Specific Gravity - Urine 1.025 (1.005-1.025); UMIC TRIGGER UACC YES; Urine Blood Trace (Negative); Urine Ketones Negative (Negative); Urine Protein Negative (Neg-Trace)
[2023-01-24 21:25] LABS: Bacteria Urine Trace (None Seen); Hyaline Casts Urine 0-2 /LPF (0-2); RBC Urine 0-2 /HPF (0-2); WBC Urine 0-5 /HPF (0-5)
--- NOTE | 2023-01-24 21:41 | MHC.CM.ED ---
CM met with son, Mark at his request. Mark states his mother has LTC insurance and wants to use it to hire more help at his mother's home to care for her, in addition to [facility]/PT services. Son is unsure if LTC insurance will pay for home care. CM encouraged son to call insurance company in the morning to discuss insurance coverage. Pt does not need LTC and son is aware that LTC beds are limited. Mark is concerned that his mother is unable to care for herself and complete ADL's at this time due to pain in her knee. Feels she will need help at home and states he lives in [place] and needs to work. Mark does not feel his mother is safe at home at this time. [facility]LES aware of situation and willing to have patient stay overnight so son can make care arrangements for this patient at home. [facility] for SN and PT. Notified via [facility] that patient was staying overnight again so son can make care arrangements. Will need to upload F2F and final D/C notes when patient is discharge. CM following for discharge planning.
--- NOTE | 2023-01-25 00:16 | MHC.EDTECH ---
0000 ROUNDING DONE ,PT SLEEPING COMFORTABLE IN BED .
--- NOTE | 2023-01-25 02:00 | MHC.EDTECH ---
0200 ROUNDING DONE ,PT SLEEPING .
--- NOTE | 2023-01-25 03:23 | MHC.EDTECH ---
PT GOT UP WITH ASSISTANCE TO BEDSIDE COMMODE ,VOID LG AMOUNT OF URINE ,BACK TO BED ,VITALS SIGN TAKEN ,BED ALARM ON .
[2023-01-25 03:24] VITALS: BP 162/66; PULSE 68; RESP 16; TEMP 36.8; O2SAT 98
--- NOTE | 2023-01-25 04:26 | PC.NURSE ---
Assumed care at 1900. Pt A&Ox3, can be forgetful at times but understands her situation. No c/o pain during this shift. Up to commode multiple times, no issues voiding. Medicated per AUG. Care ongoing.
--- NOTE | 2023-01-25 05:57 | MHC.EDTECH ---
0600 pt up to bedside commode ,void then back to bed .
[2023-01-25] MEDS: hydroCHLOROthiazide 25 MG TABLET PO (07:57)
[2023-01-25] MEDS: Lidocaine 4 % Patch ADH..PATCH 1 PATCH TRANSDERMA (07:57)
[2023-01-25] MEDS: Pregabalin 25 MG CAPSULE PO ×2 (07:57→20:36)
--- NOTE | 2023-01-25 11:35 | MHC.CM.ED ---
Addendum entered by Regina Aldana 01/25/23 15:58: Received telephone call from patient's son, Martinez. Patient can transfer to [facility] via S tomorrow 01/26 at 11am. Received confirmation from [facility]. Stevie CHINCHILLA booked. Med [facility] with chart. Patient, Martinez, Ambreen VALLADARES and Izabella STYLES aware. Addendum entered by Regina Aldana 01/25/23 14:39: [facility] not [facility] bed to offer. [facility] is able to offer a bed but requires 30 days payment upfront. Other facility options discussed with Martinez. Martinez accepts a bed at [facility]. [facility] has been asked to reach out to Martinez in order to arrange financial. Original Note: Patient remains in ER overflow. Met with patient's son, Martinez at bedside. LTC plan doesn't start until 30 days of care has been paid for. Family is interested in privately paying for STR. Choices: 1) [facility] 2)[facility]. Referral made via [facility]. Martinez also agreeable to referral being broadcasted locally to see if these 2 choices do not have beds to offer. Continue to monitor for d/c needs.
[2023-01-25] MEDS: Metoprolol Succinate ER 25 MG TAB.ER.24H PO (11:44)
[2023-01-25 14:05] VITALS: BP 128/62; PULSE 72; RESP 16; TEMP 36.6; O2SAT 97
[2023-01-25] MEDS: Pravastatin Sodium 20 MG TABLET PO (20:36)
[2023-01-25] MEDS: Pyridoxine HCl (Vitamin B6) 50 MG TABLET 100 MG PO (20:36)
[2023-01-25 22:10] VITALS: BP 138/58; PULSE 80; RESP 17; TEMP 36.3; O2SAT 95
[2023-01-26 07:44] VITALS: BP 151/62; PULSE 68; RESP 16; O2SAT 99
--- NOTE | 2023-01-26 08:31 | MHC.EDTECH ---
presented pt with breakfast tray, pt not interested in eating due to discharge plan, informed pt she was not leaving until 11am but pt was adamant about not eating. JACQUELYN jason
[2023-01-26] MEDS: Pregabalin 25 MG CAPSULE PO (08:48)
[2023-01-26] MEDS: hydroCHLOROthiazide 25 MG TABLET PO (08:48)
[2023-01-26] MEDS: Lidocaine 4 % Patch ADH..PATCH 1 PATCH TRANSDERMA (08:48)
[2023-01-26] MEDS: traMADoL HCL 50 MG TABLET 25 MG PO (09:16)
== END 2023-01-26 10:54 ==
PROVIDERS: Physician Assistant; Emergency Provider Internal Medicine; PCP Emergency Medicine
DX: M71.21 Synovial cyst of popliteal space [Baker], right knee (principal); M25.561 Pain in right knee; R26.81 Unsteadiness on feet; R60.0 Localized edema; Z79.899 Other long term (current) drug therapy
CPT/HCPCS: 36415; 80053; 81001; 81003; 85025; 85610; 85730; 93971; 97161; 99285

== ENCOUNTER 2023-02-21 09:47 | Outpatient (AMB) | payer MEDICARE, SELFPAY ==
--- NOTE | 2023-02-21 09:51 | A.OFFVIS_ITS ---
Intake Vital Signs 02/21/23 09:53 Height 5 ft 7 in Weight 162 lb BMI 25.4 Blood Pressure Location Lt brachial Position Sitting Respiration 14 Pulse 92 Pulse Source Pulse Oximeter Pulse Oximetry (%) 96 Oxygen Delivery Method Room Air Intake Visit Reasons: Unilateral Osteoarthritis, Right Hip Allergies codeine [CODEINE] Allergy (Unknown, Verified 02/21/23 09:54) HALLUCINATIONS Medication List - Last Reconciled 02/21/23 by Khalida Love LPN acetaminophen (Tylenol) 325 mg PO QID PRN hydrochlorothiazide 25 mg PO QAM lidocaine 5% 1 patch topical DAILY PRN lovastatin 20 mg PO BEDTIME metoprolol succinate ER 25 mg PO DAILY@1200 pregabalin 25 mg PO BID pyridoxine (vitamin B6) 100 mg PO BEDTIME HPI Unilateral Osteoarthritis, Right Hip HPI Details 87-year-old female who presents today to the office for low back and knee pain. The patient reports right-sided low back pain that radiates down her right leg to her foot. She denies any numbness or paresthesia. She reports pain in her back, leg, and knee with ambulation. She has pain with weight bearing but improves with sitting down. She has been working with PT and walks using a cane. She says she has a walker at home that she uses occasionally. She finds limited relief from pregabalin. She has not received any cortisone injections in the recent past. The patient's niece provided a knee brace for the patient. The patient was hospitalized for a ruptured Yates?s cyst in her knee recently. She was hospitalized for three nights and then went to [facility] for two weeks of short-term rehab. She continues to have some pain posteriorly radiating into the right calf. She has not had any recent intra-articular knee injections. She was seen by outside pain management for neck pain. [facility] Medical History Aortic stenosis Yates's cyst Combined hyperlipidemia Depression Headache HTN (hypertension) Liposarcoma of lower extremity Neck pain Nephrolithiasis Pain of left mastoid Spinal stenosis of lumbar region Surgical History History of appendectomy History of arthroscopy of right knee History of colonoscopy History of total abdominal hysterectomy Family History Father Diabetes Mother No problems noted. Social History Household Members: Spouse Housing: House Are you a primary career portals teacher to a significant other at home: No Do you presently have visiting nurse or other home services: No Alcohol intake: never Patient Tobacco Use Status: Never used Tobacco service: No Current occupational status: retired Review of Systems Const All systems reviewed & are unremarkable except as noted in HPI and below Physical Exam Vital Signs: Last Vital Signs Pulse 92 02/21/23 09:53 Resp 14 02/21/23 09:53 Pulse Ox 96 02/21/23 09:53 Oxygen Delivery Method Room Air 02/21/23 09:53 BMI result Body Mass Index 25.4 General: Appears afebrile. Alert and oriented. Mood and affect appropriate. Follows and participates in conversation appropriately. Respiratory effort is unlabored. Able to transition from sit to stand unassisted. Ambulates with an antalgic gait with the assistance of a cane. Walking reproduces pain in the right knee as well as right sacroiliac joint region. She is unable to participate in sacroiliac joint provocative maneuvers. Ultrasound examination around the right knee joint reveals residual effusions in the suprapatellar region. Tenderness to palpation in the infrapatellar saphenous region. Office Procedures Joint Injection/Drain Joint Injection/Drain Primary Site: right knee (Intra-articular) Secondary Site: right knee (Infrapatellar saphenous nerve) Prep: site was prepped using sterile technique Injected: Kenalog (30 mg intra-articular, 10 mg infrapatellar saphenous nerve), with 3 mL of (0.5% bupivacaine at each site), in the joint and other (Infrapatellar saphenous nerve) Approach Used: anteromedial Procedure: The patient tolerated the procedure well Coding 56279 - Large joint (Intra-articular knee and infrapatellar saphenous nerve block) Procedure code (CPT) selection complete Results Reviewed Results Reviewed: 01/23/23: US VENOUS ULTRASOUND WITH DOPPLER LOWER EXTREMITY, RIGHT FINDINGS: There is normal venous compression and respiratory variation and augmented flow. The visualized common femoral vein, superficial femoral vein, profunda femoral vein, popliteal vein, and the trifurcation region shows no evidence of deep venous thrombosis. There is a 4.6 x 1.0 x 2.2 cm simple appearing fluid collection present within the right popliteal fossa, most consistent with popliteal fossa/Yates's cyst. If the patient's symptoms persist, followup ultrasound in 5 days 7 days might be of value to exclude proximal propagation from a non-visualized calf vein. IMPRESSION: 1. No DVT demonstrated in the right lower extremity. Incidental note is made of a 4.6 cm maximum dimension right popliteal fossa/Yates's cyst. 2. No significant change since 06/03/2020. 11/24/22: CT HIP WITHOUT CONTRAST, RIGHT FINDINGS: Bones are osteopenic. Rselvqrk-hs-uqwjni osteoarthritis in the right hip is characterized by marked joint space narrowing, marginal osteophytes, articular cortical irregularity, and a few foci of subchondral cystic change. There is a 1.3 cm osseous loose body in the anterior recess of the joint. No acute fracture or malalignment. Imaged portion of the right innominate bone is intact. Fluid is evident in the trochanteric bursa. There is marked fatty atrophy of the gluteus minimus and anterior aspect of the gluteus medius, most consistent with chronic tendon tears. Osseous fragmentation is noted near the insertions at the greater trochanter. Subcutaneous fat stranding is evident at the lateral aspect of the hip. Calcific atherosclerosis is present in the femoral arteries. Diverticulosis in the sigmoid colon. No acute intrapelvic findings. IMPRESSION: 1. No acute fracture or malalignment at the right hip. 2. Wmhokxol-dq-welvbg osteoarthritis in the right hip. 3. Marked fatty atrophy of the gluteus minimus and anterior aspect of the gluteus medius, most consistent with chronic tendon tears. Associated trochanteric bursitis is suspected. 11/22/22: XR HIP, RIGHT FINDINGS: The position of left intramedullary dmitry and compression screw is satisfactory. The right hip revealed changes of osteoarthritis with joint space narrowing and subchondral sclerosis and marginal spurring. There is no evidence of fractures. IMPRESSION: No fracture seen but changes of osteoarthritis in the right hip joint 10/24/22: CT LUMBAR SPINE WITHOUT CONTRAST FINDINGS: Moderate thoracolumbar levoscoliosis is seen with apex at L1 measuring approximately 20 degrees. There is generalized osteopenia. Moderate to severe multilevel degenerative disc disease is seen most pronounced at T12-L1, L2-L3 and L5-S1. The vertebral bodies are intact. Mild to moderate multilevel bilateral neural foraminal narrowing is seen with narrowing most pronounced at T12-L1, L2-L3 and L5-S1. Moderate multilevel bilateral facet arthropathy is seen. The spinous processes are intact. There is no acute fracture. Multilevel prominent marginal osteophyte formation is seen greatest on the left at L3-L4 and L4-L5. L5 is transitional with partial sacralization. Mild to moderate bilateral sacroiliac degenerative joint changes. Previously seen incidental intra-abdominal/pelvic findings are again seen including cholelithiasis, severe left renal pelvicaliectasis and colonic diverticulosis without significant change. IMPRESSION: 1. Moderate thoracolumbar levoscoliosis and multilevel degenerative changes without acute abnormality. No significant change from the previous studies. 2. Incidental intra-abdominal/pelvic findings including cholelithiasis, severe left renal pelvicaliectasis and colonic diverticulosis without significant change. Assessment & Plan Assessment & Plan (1) Osteoarthritis of right knee: Code(s): M17.11 - Unilateral primary osteoarthritis, right knee Qualifiers: Osteoarthritis type: primary Qualified Code(s): M17.11 - Unilateral primary osteoarthritis, right knee (2) Sacroiliac joint dysfunction: Code(s): M53.3 - Sacrococcygeal disorders, not elsewhere classified (3) Lumbar spondylosis: Code(s): M47.816 - Spondylosis without myelopathy or radiculopathy, lumbar region Plan Patient is status post right intraarticular knee injection as well as a right infrapatellar saphenous nerve block based on manual palpation. Patient tolerated procedure well and was discharged home in stable condition with discharge instructions. All questions were answered. We will follow-up in two weeks via telephone or in clinic to assess response to therapy. A follow-up appointment was made during today's visit. Will schedule her right therapeutic sacroiliac joint injection for her right low back pain worse with activity and ambulation. If this is not helpful, we will consider facet interventions for lumbar spondylosis/thoracolumbar scoliosis in the future. Discussed the risks and benefits of the procedure with the patient in detail. All questions were answered. The patient is on board with the plan. Justification for interventional therapy: ? Patient with average pain > 6/10 ? Patient has exhausted conservative therapy ? Patient unable to tolerate physical therapy due to pain Scribed for Dr. Young by Alberto Jett, medical cost consultant, on 02/21/2023. I, Dr. Young, have personally reviewed and agree with the information entered by the scribe. Coding Level of Care Code Est Pt Level 4 (10418) Diagnoses Primary osteoarthritis of right knee M17.11 Osteoarthritis type: primary Sacroiliac joint dysfunction M53.3 Lumbar spondylosis M47.816 CPT Codes Coding - 30218 Large joint: 93851 - Large joint ([id number])
[2023-02-21 09:53] VITALS: PULSE 92; RESP 14; O2SAT 96; BMI 25.4
== END 2023-02-21 10:41 | disposition home or self-care (01) ==
PROVIDERS: PCP Emergency Medicine; Visit Provider Internal Medicine
DX: M25.561 Pain in right knee (principal); M53.3 Sacrococcygeal disorders, not elsewhere classified; M47.816 Spondylosis without myelopathy or radiculopathy, lumbar region; M17.11 Unilateral primary osteoarthritis, right knee
CPT/HCPCS: 20610; 99214

== ENCOUNTER → 2023-02-21 09:47 | Outpatient (BNVA) | payer MEDICARE, SELFPAY | PROVIDERS: PCP Emergency Medicine; Visit Provider Internal Medicine | DX: M17.11 Unilateral primary osteoarthritis, right knee (principal); M53.3 Sacrococcygeal disorders, not elsewhere classified; M47.816 Spondylosis without myelopathy or radiculopathy, lumbar region | CPT/HCPCS: 20610; 64447; 99212 ==

== ENCOUNTER 2023-02-23 06:09 | Outpatient (REF) | payer MEDICARE, SELFPAY ==
--- NOTE | ~2023-02-23 | FL_ITS ---
EXAMINATION: XR FLUOROSCOPY WITH IMAGES CLINICAL INFORMATION: Sacrococcygeal disorders, not elsewhere classified. COMPARISON: None available. TECHNIQUE: Fluoroscopy Supervised By: Dr. Francisco Young. Fluoroscopy Time: 0.1 minute. Cumulative Dose: 2.33 mGy. DAP: 0.236 Gycm2. Images: 2. FINDINGS: Images demonstrate needle placement projecting over the right sacroiliac joint FL/FL guidance in treatment room IMPRESSION: Fluoroscopy guidance for pain management procedure
== END 2023-02-23 06:10 | disposition home or self-care (01) ==
LOC: CF 06:09
PROVIDERS: Visit Provider Internal Medicine
DX: M53.3 Sacrococcygeal disorders, not elsewhere classified (principal)
CPT/HCPCS: 27096; J1020

== ENCOUNTER 2023-02-23 08:57 | Outpatient (AMB) | payer MEDICARE, SELFPAY ==
[2023-02-23 09:03] VITALS: BP 142/60; PULSE 65; RESP 14; O2SAT 98
--- NOTE | 2023-02-23 09:03 | A.OFFVIS_ITS ---
Intake Vital Signs 02/23/23 09:03 02/23/23 09:56 BP 142/60 H 126/72 Blood Pressure Location Lt brachial Lt brachial Position Sitting Sitting Respiration 14 14 Pulse 65 65 Pulse Source Pulse Oximeter Pulse Oximeter Pulse Oximetry (%) 98 98 Oxygen Delivery Method Room Air Room Air Intake Visit Reasons: right theraputic SIJ inj Allergies codeine [CODEINE] Allergy (Unknown, Verified 02/23/23 09:03) HALLUCINATIONS HPI right theraputic SIJ inj HPI Details Patient presents for scheduled procedure. Denies any recent cough, cold, infection, fever or other significant changes in medical history since last office visit. [facility] Medical History Aortic stenosis Yates's cyst Combined hyperlipidemia Depression Headache HTN (hypertension) Liposarcoma of lower extremity Neck pain Nephrolithiasis Pain of left mastoid Spinal stenosis of lumbar region Surgical History History of appendectomy History of arthroscopy of right knee History of colonoscopy History of total abdominal hysterectomy Family History Father Diabetes Mother No problems noted. Social History Household Members: Spouse Housing: House Are you a primary transitional care liaison to a significant other at home: No Do you presently have visiting nurse or other home services: No Alcohol intake: never Patient Tobacco Use Status: Never used Tobacco service: No Current occupational status: retired Physical Exam Vital Signs: Last Vital Signs Pulse 65 02/23/23 09:03 Resp 14 02/23/23 09:03 BP 142/60 H 02/23/23 09:03 Pulse Ox 98 02/23/23 09:03 Oxygen Delivery Method Room Air 02/23/23 09:03 Office Procedures Joint Injection/Drain Joint Injection/Drain Details: Sacroiliac Joint Injection, Right The procedure, its benefits, and its risks were explained and written informed consent was obtained from the patient. Immediately prior to starting the procedure, a time-out safety check was conducted. The patient's iden tification, procedure name, procedure site, and procedure laterality were confirmed with the patient. ? Patient was placed prone on the fluoroscopy table and the lumbosacral area was prepped using ChloraPrep and draped with sterile drape in standard fashion. The C-arm was rotated in a contralateral oblique fashion until the medial border of the iliac crest no longer foreshadowed the posterior sacroiliac joint line. The skin and subcutaneous tissue was anesthetized using 1 mL of 0.75% plain lidocaine with 1.5-inch 25-gauge needle in the middle region of the joint line.? A 3.5-inch 22-gauge spinal needle with small bend on the tip was slowly advanced towards the joint line, coaxial to the x-ray beam. Once bony content was obtained, the needle was easily slid into the intra-articular space.? Intra- articular needle position was confirmed using lateral fluoroscopy.? A total volume of 2.5 mL of solution containing 40 mg Depomedrol and rest 0.5% of bupivacaine was injected intra-articularly. The stylet was reinserted and needle was removed. The patient tolerated the procedure well. Patient denied any lower extremity weakness or numbness. Patient was observed for 30 min and was discharged after fulfilling the standard discharge criteria. Coding 34056 - Sacroiliac Procedure code (CPT) selection complete Results Reviewed Results Reviewed: 02/23/23 09:11 Lidocaine HCl 2 % MPF [Xylocaine 2 % MPF] 5 ml .ROUTE .STK-MED ONE methylPREDNISolone acetate [DEPO-MedroL] 40 mg .ROUTE .STK-MED ONE Assessment & Plan Assessment & Plan (1) Sacroiliac joint dysfunction: Code(s): M53.3 - Sacrococcygeal disorders, not elsewhere classified Plan Patient is status post right intra-articular SIJ steroid injection. Patient tolerated procedure well and was discharged home in stable condition with discharge instructions. All questions were answered. We will follow-up via telephone or in clinic to assess response to therapy. A follow-up appointment was made during today's visit. Orders: Orders FL guidance in treatment room Today M53.3 - Sacrococcygeal disorders, not elsewhere classified Coding Level of Care Code Procedure Only Diagnoses Sacroiliac joint dysfunction M53.3 CPT Codes Coding - Joint 9: 92568 - Sacroiliac ([id number])
[2023-02-23 09:56] VITALS: BP 126/72; PULSE 65; RESP 14; O2SAT 98
== END 2023-02-23 09:55 | disposition home or self-care (01) ==
LOC: HO.PMCPRC 08:57
PROVIDERS: PCP Emergency Medicine; Visit Provider Internal Medicine
DX: M53.3 Sacrococcygeal disorders, not elsewhere classified (principal)
CPT/HCPCS: 27096

== ENCOUNTER 2023-03-25 11:13 | Outpatient (AMB) | payer MEDICARE, SELFPAY ==
--- NOTE | 2023-03-25 11:57 | MHC.OFFVIS ---
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 The patient reports no relief following the procedure. She reports pain in her back and knee. Her knee pain is bothersome. She is using topical patches. She has tried knee braces with minimal benefit. She had right knee injection and SNB with minimal benefit. She lives alone at home. Past procedures: 02/23/23: Right intra-articular SIJ steroid injection: no relief. 02/21/23: right intraarticular knee injection as well as a right infrapatellar saphenous nerve block based on manual palpation: no relief. 06/15/21: Bilateral occipital nerve block. [facility] Medical History Aortic stenosis Yatse's cyst Combined hyperlipidemia Depression Headache HTN (hypertension) Liposarcoma of lower extremity Neck pain Nephrolithiasis Pain of left mastoid Spinal stenosis of lumbar region Surgical History History of appendectomy History of arthroscopy of right knee History of colonoscopy History of total abdominal hysterectomy Family History Father Diabetes Mother No problems noted. Social History Household Members: Spouse Housing: House Are you a primary family member caretaker to a significant other at home: No Do you presently have visiting nurse or other home services: No Alcohol intake: never Patient Tobacco Use Status: Never used Tobacco service: No Current occupational status: retired Review of Systems Const All systems reviewed & are unremarkable except as noted in HPI and below Physical Exam Vital Signs: Last Vital Signs Pulse 76 03/25/23 12:03 BP 137/62 03/25/23 12:03 Pulse Ox 99 03/25/23 12:03 Oxygen Delivery Method Room Air 03/25/23 12:03 BMI result Body Mass Index 25.8 General: Appears afebrile. Alert and oriented. Mood and affect appropriate. Follows and participates in conversation appropriately. Respiratory effort is unlabored. Able to transition from sit to stand unassisted. Ambulates with difficulty bearing weight on her right knee. Results Reviewed Results Reviewed: No imaging is available for review. Assessment & Plan Assessment & Plan (1) Osteoarthritis of right knee: Code(s): M17.11 - Unilateral primary osteoarthritis, right knee Qualifiers: Osteoarthritis type: primary Qualified Code(s): M17.11 - Unilateral primary osteoarthritis, right knee Plan Discussed temporary nerve stimulator vs. gel injections as a possible treatment option. Will schedule her for a right intraarticular Synvisc injection. If the injection is not helpful then we will follow up with the trial of right saphenous nerve stimulator placement. Discussed the risks and benefits of the procedure with the patient in detail. All questions were answered. The patient is on board with the plan. A device brochure was provided to the patient. Justification for interventional therapy: ? Patient with average pain > 6/10 ? Patient has exhausted conservative therapy Scribed for Dr. Young by Alberto Jett, medical office rep, on 03/25/2023. I, Dr. Young, have personally reviewed and agree with the information entered by the scribe. Coding Level of Care Code Est Pt Level 3 (57997) Diagnoses Primary osteoarthritis of right knee M17.11 Osteoarthritis type: primary
[2023-03-25 12:03] VITALS: BP 137/62; PULSE 76; O2SAT 99; BMI 25.8
== END 2023-03-25 12:25 | disposition home or self-care (01) ==
PROVIDERS: PCP Emergency Medicine; Visit Provider Internal Medicine
DX: M17.11 Unilateral primary osteoarthritis, right knee (principal)
CPT/HCPCS: 99213

== ENCOUNTER → 2023-03-25 11:13 | Outpatient (BNVA) | payer MEDICARE, SELFPAY | PROVIDERS: PCP Emergency Medicine; Visit Provider Internal Medicine | DX: M17.11 Unilateral primary osteoarthritis, right knee (principal); M48.061 Spinal stenosis, lumbar region without neurogenic claudication | CPT/HCPCS: 99212 ==

== ENCOUNTER 2023-04-02 09:44 | Emergency (ER) | payer MEDICARE, SELFPAY ==
[2023-04-02 09:53] VITALS: BP 149/51; PULSE 72; RESP 18; TEMP 36.7; O2SAT 98; BMI 25.6
--- NOTE | 2023-04-02 10:22 | ED_ITS ---
HPI - General Adult General Chief complaint: Extremity Injury, Lower Stated complaint: DIFF WALKING Time Seen by Provider: 04/02/23 09:49 Source: patient Mode of arrival: ambulatory History of Present Illness HPI narrative: 87-year-old female with history of gluteal mass as well as chronic pain. She has recently been evaluated by the pain management clinic but has had minimal improvement in her pain scale. She is unable to recall the last time that she had her gluteal mass imaged. She denies any dysuria, fever, chills. Related Data Home Medications Medication Instructions Recorded Confirmed lovastatin 20 mg tablet 20 mg PO BEDTIME 11/24/22 02/21/23 metoprolol succinate 25 mg 25 mg PO DAILY@1200 11/24/22 02/21/23 tablet,extended release 24 hr pregabalin 25 mg capsule 25 mg PO BID 11/24/22 02/21/23 pyridoxine (vitamin B6) 100 mg 100 mg PO BEDTIME 11/24/22 02/21/23 tablet Previous Rx's Medication Instructions Recorded hydrochlorothiazide 25 mg tablet 25 mg PO QAM #90 tabs 06/30/21 acetaminophen 325 mg capsule 325 mg PO QID PRN pain #20 caps 01/26/23 (Tylenol) lidocaine 5 % topical patch 1 patch topical DAILY PRN pain #15 01/26/23 ea ketorolac 10 mg tablet 10 mg PO Q6H PRN pain 5 days #20 04/02/23 tabs Allergies Allergy/AdvReac Type Severity Reaction Status Date / Time codeine [CODEINE] Allergy Unknown HALLUCINATI Verified 03/25/23 12:05 ONS Review of Systems Review of Systems: Pertinent positives and negatives as stated in HPI [facility] Past Medical History Source: nursing notes reviewed Medical History Pain of left mastoid Headache Neck pain Depression Yates's cyst Aortic stenosis Spinal stenosis of lumbar region Liposarcoma of lower extremity Nephrolithiasis Combined hyperlipidemia HTN (hypertension) Surgical History History of arthroscopy of right knee History of colonoscopy History of total abdominal hysterectomy History of appendectomy Family History Family History Father Diabetes Mother No problems noted. Social History Social History Household Members: Spouse Housing: House Are you a primary direct care worker to a significant other at home: No Do you presently have visiting nurse or other home services: No Alcohol intake: never Patient Tobacco Use Status: Never used Tobacco Smoked in Last 30 Days: No Use of substances other than those prescribed or required for medical reasons: No Advance Directives: Yes Advance Directives on File: Yes Advance Directives Date on File: 11/24/22 service: No Current occupational status: retired Physical Exam ED Vital Signs: Vital Signs - 24 hr 04/02/23 09:53 Temperature 98.1 F Pulse Rate 72 Respiratory Rate 18 Blood Pressure 149/51 H Pulse Oximetry 98 Oxygen Delivery Method Room Air BMI result Body Mass Index 25.6 VITAL SIGNS: Reviewed. GENERAL: Well developed, well nourished, in no acute distress. HEAD: Normocephalic/atraumatic EYES: PERRLA, EOMI EARS: Ext canals without abnormality NOSE: Nares patent bilateral OROPHARYNX: no oral lesions noted, posterior pharynx clear NECK: Supple, no adenopathy LUNGS: Normal breath sounds. No adventitious sounds or accessory muscle use. SpO2<98> CARDIOVASCULAR: Regular rate and rhythm without noted murmurs ABDOMEN: Soft, non-tender, non-distended with bowel sounds. MUSCULOSKELETAL: No tenderness, deformities, or effusions noted on gross inspection. EXTREMITIES: No cyanosis, clubbing or edema. SKIN: Inspection of the skin reveals no rashes NEUROLOGIC: Alert and oriented x 4. Strength and sensation to light touch were grossly intact x 4, DTRs are intact. Medical Decision Making Medical Decision Making MDM Narrative: 87-year-old female that has chronic pain that is been ongoing for years, I reviewed pain management documentation which informs us that and SI joint injection was unsuccessful and there is plan for gel injection and possibly nerve stimulator placement. Patient is only treating herself with 1000 mg of Tylenol every 6 hours. Here she will be provided with an IM injection of ketorolac, 1 g of Tylenol as well as lidocaine patch and be recommended to continue with this treatment outpatient. In addition, I discussed extensively with the patient and her son who is also at bedside that is very important that she continue with imaging studies for the soft tissue mass in her gluteal area as this may be contributing to her pain and difficulty with ambulation. Patient and son both state that they will co mmunicate this with Dr. Carson and I have copied this note over to Dr. Carson and Dr. Young. Differential Diagnosis Differential Diagnoses: The differential diagnosis associated with the presentation includes Please see the discussion above Admission/Observation Consideration of admission/observation: Escalation of care including admission/observation considered Please see the discussion above Discharge Plan Discharge Clinical Impression: Chronic pain, Mass of soft tissue of hip Patient Disposition: Home, Self-Care Instructions: Chronic Pain (ED) Additional Instructions: 1. Tylenol 1000 mg, orally, every 6 hours as needed for pain control. Do not exceed 4000 mg within 24 hours. 2. I also recommend [id number] lidocaine patch, apply to area of maximal tenderness as directed on the outside packaging. 3. Follow-up with Dr. Carson by calling the office on Tuesday morning and also recommend follow-up with Dr. Young. Return to the ER for any worsening symptoms. Prescriptions: New ketorolac 10 mg tablet 10 mg PO Q6H PRN (Reason: pain) 5 Days Qty: 20 0RF Rx Instructions: Patient received Toradol in the emergency room No Action hydrochlorothiazide 25 mg tablet 25 mg PO QAM Qty: 90 3RF pregabalin 25 mg capsule 25 mg PO BID pyridoxine (vitamin B6) 100 mg tablet 100 mg PO BEDTIME metoprolol succinate 25 mg tablet extended release 24 hr 25 mg PO DAILY@1200 lovastatin 20 mg tablet 20 mg PO BEDTIME acetaminophen [Tylenol] 325 mg capsule 325 mg PO QID PRN (Reason: pain) Qty: 20 0RF lidocaine 5 % adhesive patch,medicated 1 patch topical DAILY PRN (Reason: pain) Qty: 15 0RF Rx Instructions: leave on most painful area for up to 12 hrs Referrals: David Carson MD [Primary Care Provider] - Francisco Young MD [Physician] -
[2023-04-02] MEDS: Ketorolac Tromethamine 15 MG/ML VIAL IM (10:43)
[2023-04-02] MEDS: Acetaminophen 325 MG TABLET 975 MG PO (10:43)
[2023-04-02] MEDS: Lidocaine 4 % Patch ADH..PATCH 1 PATCH TRANSDERMA (10:43)
== END 2023-04-02 11:05 | disposition home or self-care (01) ==
PROVIDERS: Emergency Provider Student in an Organized Health Care Education/Training Program; PCP Internal Medicine Medical Oncology
DX: G89.4 Chronic pain syndrome (principal); R19.00 Intra-abdominal and pelvic swelling, mass and lump, unspecified site; M16.11 Unilateral primary osteoarthritis, right hip; I10 Essential (primary) hypertension; E78.2 Mixed hyperlipidemia
CPT/HCPCS: 96372; 99283; 99284; J1885

== ENCOUNTER 2023-04-18 09:59 | Outpatient (AMB) | payer MEDICARE, SELFPAY ==
--- NOTE | 2023-04-18 09:49 | A.OFFVIS_ITS ---
Intake Vital Signs 04/18/23 09:51 Weight 165 lb Intake Visit Reasons: 6 mth f/up Weather Anchor: Weather Anchor Present Allergies codeine [CODEINE] Allergy (Unknown, Verified 04/18/23 09:50) HALLUCINATIONS Medication List - Last Reconciled 04/18/23 by Thomas Reeder MD acetaminophen (Tylenol) 325 mg PO QID PRN hydrochlorothiazide 25 mg PO QAM ketorolac 10 mg PO Q6H PRN 5 days lidocaine 5% 1 patch topical DAILY PRN lovastatin 20 mg PO BEDTIME metoprolol succinate ER 25 mg PO DAILY@1200 pregabalin 25 mg PO BID pyridoxine (vitamin B6) 100 mg PO BEDTIME HPI HPI Comments History of Present Illness Details Pleasant 87-year-old female who is here for follow-up. She has background history of moderate to severe aortic stenosis and liposarcoma the right pelvis. She is in pain due to liposarcoma all the time. She also has arthritis involving the neck and knees. She is very limited and has very poor functional status. Previous echocardiography which was done in July 2019 showed ejection fraction more than 70% with moderate to severe aortic stenosis. The valve area was 0.74 with a mean gradient of 31 mm Hg and dimensionless index of 0.3. Previously she was complaining of some palpitations and we added Toprol-XL and she is doing better with that. Denies chest pain or shortness of breath. Again her concerns are mostly related to musculoskeletal pain in the back and right leg. She also has neck arthritis and pain. 04/18/23: Today she had a telephonic vi sit. Her son Martinez was also on the line. It appears that she has severe arthritis involving the right knee which is really affecting her life right now and she has significant pain in the knee. Her mobility has gone down further. She was frail to start with and not very active at baseline. As mentioned she had liposarcoma in the past and this has led to pain and poor mobility previously. We had discussions about aortic valve disease in her and given her frailty and overall poor functional status we decided not to pursue aortic valve replacement in the past. She is asking about her perioperative risk as she is being considered for knee surgery. We got records from Dr. Chaudhary in [place], [place]. It appears the procedure is being performed under spinal anesthesia. The patient has poor functional capacity. I do not think stress testing will be helpful to risk stratify her. She also has background of moderate to severe aortic valve stenosis based on echocardiography few years ago. Recently had exam was mostly moderate and she clearly had 2nd heart sound. I think she is intermediate to high risk for surgery. She will discuss with surgery about potential pros and cons and if there is clear benefit then she will consider surgery. Thank you for allowing me to participate in the care of your patient. Please feel free to contact me if you have any questions. [facility] Medical History Pain of left mastoid Headache Neck pain Depression Yates's cyst Aortic stenosis Spinal stenosis of lumbar region Liposarcoma of lower extremity Nephrolithiasis Combined hyperlipidemia HTN (hypertension) Surgical History History of arthroscopy of right knee History of colonoscopy History of total abdominal hysterectomy History of appendectomy Family History Father Diabetes Mother No problems noted. Social History Household Members: Spouse Housing: House Are you a primary respiratory care faculty to a significant other at home: No Do you presently have visiting nurse or other home services: No Alcohol intake: never Patient Tobacco Use Status: Never used Tobacco Advance Directives Date on File: 11/24/22 service: No Current occupational status: retired Review of Systems ENT Reports dizziness Card Denies chest pain, Denies chest pain at rest, Denies chest pain with activity, Denies rapid heart rate, Denies pedal edema, Denies edema, Denies leg edema, Denies lightheadedness, Denies palpitations, Denies dyspnea, Denies dyspnea on exertion and Denies orthopnea Resp Denies cough, Denies dyspnea and Denies dyspnea on exertion GI Denies hematochezia and Denies change in stool character Musc Denies abnormal gait, Reports limited range of motion, Reports muscle cramps, Denies muscle weakness, Denies numbness, Denies radiating pain into limb, Denies stiffness and Denies tingling Neuro Denies abnormal gait, Reports dizziness, Denies numbness and Denies tingling Endo Denies palpitations Telehealth Telehealth Location of provider rendering services: other Location of patient: address on file Patient Identification confirmed using: Name, : Yes Telehealth method: voice only Patient verbally consented to treatment: Yes Patient verbally consented to billing insurance company: Yes Patient informed of any privacy concerns related to visit: Yes Minutes spent on Phone/Video with Pt.: 20 Coding Level of Care Code Tele Est Pt Level 4 (37109)
== END 2023-04-18 10:38 | disposition home or self-care (01) ==
LOC: HO.HCS 09:59
PROVIDERS: PCP Internal Medicine Medical Oncology; Visit Provider Internal Medicine Cardiovascular Disease
DX: I35.0 Nonrheumatic aortic (valve) stenosis (principal)
CPT/HCPCS: 99442

== ENCOUNTER → 2023-04-18 09:59 | Outpatient (BNVA) | payer MEDICARE, SELFPAY | PROVIDERS: PCP Internal Medicine Medical Oncology; Visit Provider Internal Medicine Cardiovascular Disease ==

== ENCOUNTER 2023-04-21 16:29 | Emergency (ER) | payer MEDICARE, SELFPAY ==
--- NOTE | 2023-04-21 | ECG_ITS ---
Test Reason : CX PAIN Blood Pressure : / mmHG Vent. Rate : 075 BPM Atrial Rate : 075 BPM P-R Int : 186 ms QRS Dur : 092 ms QT Int : 408 ms P-R-T Axes : 087 013 065 degrees QTc Int : 455 ms Normal sinus rhythm Intra-ventricular conduction delay Minimal voltage criteria for LVH, may be normal variant ( [place] product ) Borderline ECG When compared with ECG of 02-DEC-2016 13:06, Questionable change in QRS axis Referred By: Generic ED Physician Electronically Signed By:SHIVA HICKMAN MD
[2023-04-21 16:48] VITALS: BP 150/70; PULSE 80; O2SAT 98; BMI 24.2
[2023-04-21 16:52] VITALS: PULSE 70; RESP 14; TEMP 36.7; O2SAT 99
--- NOTE | 2023-04-21 16:55 | ED_ITS ---
HPI - Chest Pain General Chief Complaint: Chest Pain Stated Complaint: CHEST PAIN Time Seen by Provider: 04/21/23 16:50 Source: patient Mode of arrival: EMS Limitations: no limitations History of Present Illness HPI narrative: ABBY 7 years old with history of moderate aortic stenosis, hypertension, knee arthritis had MRI today for the knee comes comes as she had chest pain earlier today when visiting nurse came no chest pain at this time. Patient does get chest pain off and on for a long time patient received 324 mg of aspirin Related Data Home Medications Medication Instructions Recorded Confirmed lovastatin 20 mg tablet 20 mg PO BEDTIME 11/24/22 04/18/23 metoprolol succinate 25 mg 25 mg PO DAILY@1200 11/24/22 04/18/23 tablet,extended release 24 hr pregabalin 25 mg capsule 25 mg PO BID 11/24/22 04/18/23 pyridoxine (vitamin B6) 100 mg 100 mg PO BEDTIME 11/24/22 04/18/23 tablet Previous Rx's Medication Instructions Recorded hydrochlorothiazide 25 mg tablet 25 mg PO QAM #90 tabs 06/30/21 acetaminophen 325 mg capsule 325 mg PO QID PRN pain #20 caps 01/26/23 (Tylenol) lidocaine 5 % topical patch 1 patch topical DAILY PRN pain #15 01/26/23 ea ketorolac 10 mg tablet 10 mg PO Q6H PRN pain 5 days #20 04/02/23 tabs Allergies Allergy/AdvReac Type Severity Reaction Status Date / Time codeine [CODEINE] Allergy Unknown HALLUCINATI Verified 04/21/23 16:48 ONS Review of Systems 2 Review of Systems: Yes all other systems are reviewed and are negative [facility] Past Medical History Medical History Pain of left mastoid Headache Neck pain Depression Yates's cyst Aortic stenosis Spinal stenosis of lumbar region Liposarcoma of lower extremity Nephrolithiasis Combined hyperlipidemia HTN (hypertension) Surgical History History of arthroscopy of right knee History of colonoscopy History of total abdominal hysterectomy History of appendectomy Family History Family History Father Diabetes Mother No problems noted. Social History Social History Household Members: Spouse Housing: House Are you a primary client care coordinator to a significant other at home: No Do you presently have visiting nurse or other home services: No Alcohol intake: never Patient Tobacco Use Status: Never used Tobacco Smoked in Last 30 Days: No Use of substances other than those prescribed or required for medical reasons: No Advance Directives: Yes Advance Directives on File: Yes Advance Directives Date on File: 11/24/22 service: No Current occupational status: retired Physical Exam 2 Vital Signs: Vital Signs: Last Vital Signs Temp 98.1 F 04/21/23 16:52 Pulse 84 04/21/23 18:00 Resp 16 04/21/23 18:00 BP 158/68 H 04/21/23 18:00 Pulse Ox 95 04/21/23 18:00 O2 Del Method Room Air 04/21/23 18:00 BMI result Body Mass Index 24.2 Appearance: Alert. Oriented X3. No acute distress. Eyes: PERRLA, No Nystagmus ENT: Pharynx normal. Oral Mucosa moist Neck: Normal inspection. Neck supple. CVS: Normal heart rate and rhythm. Pulses normal. 2/6 aortic ejection murmur at base Respiratory: No respiratory distress. Equal air entry bilateral, no wheezing/rales/rhonchi Abdomen: Soft and nontender. Bowel sounds are present, no mass palpable, no CVA tenderness Skin: Skin warm and dry. Normal skin color. Normal skin turgor. Extremities: No lower extremity edema. No calf tenderness Neuro: Oriented X 3. No motor deficit. No sensory deficit.No cerebellar signs , cranial nerves II-XII intact Medical Decision Making Medical Decision Making [facility] Narrative: Patient atypical chest pain for longstanding no chest pain for arrival in the ER EKG without any ischemic changes assess appropriate discharge advised of PCP Differential Diagnosis Differential Diagnoses: The differential diagnosis associated with the presentation includes ACS/musculoskeletal chest pain/chronic pain Admission/Observation Consideration of admission/observation: Escalation of care including admission/observation considered Lab Data [facility] Lab Attestation statement: I reviewed the patient's lab results. 04/21/23 17:28 04/21/23 17:28 Labs: Lab Results 04/21/23 04/21/23 Range/Units 17:28 19:53 WBC 8.4 (4.8-10.8) X10*3/uL RBC 3.75 L (4.20-5.50) X10*6/uL Hgb 12.8 (12.0-16.0) g/dl Hct 37.3 (37.0-47.0) % MCV 99.5 H (80.0-98.0) fL MCH 34.1 H (27.0-33.0) pg MCHC 34.3 (31.0-35.0) g/dl RDW 13.2 (11.0-16.0) % Plt Count 231 (160-400) X10*3/uL MPV 10.7 (9.4-12.3) fL Immature Gran % (Auto) 0.4 (0.0-0.4) % Neut % (Auto) 70.5 (45-73) % Lymph % (Auto) 19.7 L (20-40) % [place] % (Auto) 7.5 (2-11) % Eos % (Auto) 1.4 (0-4) % Baso % (Auto) 0.5 (0-2) % Lymph # (Auto) 1.7 (1.2-4.9) X10*3/uL [place] # (Auto) 0.6 (0.1-1.2) X10*3/uL Eos # (Auto) 0.1 (0.0-0.4) X10*3/uL Baso # (Auto) 0.0 (0.0-0.2) X10*3/uL Abs Immat Gran (auto) 0.03 (0.00-0.03) X10*3/uL Absolute Neuts (auto) 6.0 (2.0-8.3) x10*3/uL Absolute Nucleated RBC 0.000 (0.0-0.012) X10*3/uL Nucleated RBC % (auto) 0.0 (0.0-0.2) /100WBC Sodium 140 (135-145) mmol/L Potassium 3.6 (3.3-5.1) mmol/L Chloride 100 (96-108) mmol/L Carbon Dioxide 31 H (22-29) mmol/L Anion Gap 13 (12-20) BUN 23 H (9-16) mg/dL Creatinine 0.77 (0.5-1.4) mg/dL Estim Creat Clear Calc 48.1 Estimated GFR > 60 Random Glucose 113 (60-115) mg/dL Calcium 9.7 (8.4-10.2) mg/dL Troponin I High Sens 10.6 11.0 (<3.5-17.0) ng/L Independent Interpretation I performed an independent interpretation of an: EKG Interpretation: Normal sinus rhythm heart rate 75 beats per minute LVH no acute ST-T changes no acute ischemia External Record Review External record reviewed: Office record Discharge Plan Discharge Clinical Impression: Chest pain Patient Disposition: Home, Self-Care Instructions: Chest Pain (ED) Additional Instructions: You have atypical chest pain unlikely cardiac Follow with PCP Prescriptions: No Action hydrochlorothiazide 25 mg tablet 25 mg PO QAM Qty: 90 3RF pregabalin 25 mg capsule 25 mg PO BID pyridoxine (vitamin B6) 100 mg tablet 100 mg PO BEDTIME metoprolol succinate 25 mg tablet extended release 24 hr 25 mg PO DAILY@1200 lovastatin 20 mg tablet 20 mg PO BEDTIME acetaminophen [Tylenol] 325 mg capsule 325 mg PO QID PRN (Reason: pain) Qty: 20 0RF lidocaine 5 % adhesive patch,medicated 1 patch topical DAILY PRN (Reason: pain) Qty: 15 0RF Rx Instructions: leave on most painful area for up to 12 hrs ketorolac 10 mg tablet 10 mg PO Q6H PRN (Reason: pain) 5 Days Qty: 20 0RF Rx Instructions: Patient received Toradol in the emergency room Interventions: ED Discharge Assessment Last Done: 04/21/23 21:13 Discharge Date/Time: 04/21/23 21:13
[2023-04-21 17:33] LABS: MANUAL DIFF FLAG NO
--- NOTE | 2023-04-21 17:34 | PC.NURSE ---
ekg performed/labs obtained by [employer].
[2023-04-21 17:36] LABS: Basophils Percent Auto 0.5 % (0-2); Eosinophils Absolute Auto 0.1 X10*3/uL (0.0-0.4); Eosinophils Percent Auto 1.4 % (0-4); Hematocrit 37.3 % (37.0-47.0); Hemoglobin 12.8 g/dl (12.0-16.0); Imm Gran Abs Auto 0.03 X10*3/uL (0.00-0.03); Imm Gran Pct Auto 0.4 % (0.0-0.4); Lymphocytes Absolute Auto 1.7 X10*3/uL (1.2-4.9); Lymphocytes Percent Auto 19.7 % (20-40); Mean Corpuscular HGB Conc 34.3 g/dl (31.0-35.0); Mean Corpuscular Hemoglobin 34.1 pg (27.0-33.0); Mean Corpuscular Volume 99.5 fL (80.0-98.0); Mean Platelet Volume 10.7 fL (9.4-12.3); Monocytes Absolute Auto 0.6 X10*3/uL (0.1-1.2); Monocytes Percent Auto 7.5 % (2-11); Neutrophils Percent Auto 70.5 % (45-73); Platelet Count 231 X10*3/uL (160-400); Red Blood Count 3.75 X10*6/uL (4.20-5.50); Red Cell Distribution Width 13.2 % (11.0-16.0); White Blood Count 8.4 X10*3/uL (4.8-10.8)
[2023-04-21 17:59] LABS: Anion Gap 13 (12-20); Blood Urea Nitrogen 23 mg/dL (9-16); Calcium 9.7 mg/dL (8.4-10.2); Carbon Dioxide 31 mmol/L (22-29); Chloride 100 mmol/L (96-108); Creatinine Clr Calc Pharmacy 48.1; Estimated Glomerular Filt Rate > 60; Glucose Random 113 mg/dL (60-115); Potassium 3.6 mmol/L (3.3-5.1); Sodium 140 mmol/L (135-145)
[2023-04-21 18:00] VITALS: BP 158/68; PULSE 84; RESP 16; O2SAT 95
[2023-04-21 18:08] LABS: Troponin-I High Sensitivity 10.6 ng/L (<3.5-17.0)
--- NOTE | 2023-04-21 18:33 | PC.NURSE ---
vss and up t date at this time. nsr on the aesthetician. pt still c/o no pain at this time. respirations remain even and unlabored. call bhatti placed within reach.
--- NOTE | 2023-04-21 20:00 | PC.NURSE ---
pt's son (axel) called for status update on pt - pt notified at this time.
--- NOTE | 2023-04-21 20:17 | PC.NURSE ---
spoke w daughter in law Anahy, pt ok'd to update on pt status.
--- NOTE | 2023-04-21 20:44 | PC.NURSE ---
pt d/c paperwork in - pt's son (axel) called so transportation services can be provided. states he will be here in about 20 minutes.
== END 2023-04-21 21:13 | disposition home or self-care (01) ==
PROVIDERS: Emergency Provider Internal Medicine; PCP Internal Medicine
DX: R07.89 Other chest pain (principal); Z79.899 Other long term (current) drug therapy
CPT/HCPCS: 36415; 80048; 84484; 85025; 93005; 99283; 99285

== ENCOUNTER 2023-05-18 12:52 | Outpatient (AMB) | payer MEDICARE, SELFPAY ==
--- NOTE | 2023-05-18 12:55 | A.OFFVIS_ITS ---
Intake Vital Signs 05/18/23 12:56 Height 5 ft 6 in Weight 165 lb BMI 26.6 BP 120/58 L Blood Pressure Location Lt brachial Position Sitting Pulse 76 Intake Visit Reasons: Preop/ortho surg. at [facility]/ Dr roz kam Intake Note: preop/ortho pt its fine Cardiovascular Physician Assistant Required: No Accompanied by: Son Allergies codeine [CODEINE] Allergy (Unknown, Verified 04/21/23 16:48) HALLUCINATIONS Medication List - Last Reconciled 05/18/23 by Abbi Fernandez NP acetaminophen (Tylenol) 325 mg PO QID PRN hydrochlorothiazide 25 mg PO QAM lovastatin 20 mg PO BEDTIME metoprolol succinate ER 25 mg PO DAILY@1200 pregabalin 25 mg PO BID pyridoxine (vitamin B6) 100 mg PO BEDTIME HPI HPI Comments History of Present Illness Details 87-year-old is here for a pre-operative clearance. She has seen Dr. Reeder back on 04/18/23 and was cleared for her right knee replacement. She has been doing well she reports no chest discomfort or breathing issues. She was seen in the ED for chest discomfort which she said is her typical pain she has had for some time but she worried her physical therapist when talking about how she gets it. Reports she needs a EKG for the surgical team. [facility] Medical History Pain of left mastoid Headache Neck pain Depression Yates's cyst Aortic stenosis Spinal stenosis of lumbar region Liposarcoma of lower extremity Nephrolithiasis Combined hyperlipidemia HTN (hypertension) Surgical History History of arthroscopy of right knee History of colonoscopy History of total abdominal hysterectomy History of appendectomy Family History Father Diabetes Mother No problems noted. Social History Household Members: Spouse Housing: House Are you a primary child care associate to a significant other at home: No Do you presently have visiting nurse or other home services: No Alcohol intake: never Patient Tobacco Use Status: Never used Tobacco Advance Directives Date on File: 11/24/22 service: No Current occupational status: retired Review of Systems Const Denies chills, Denies fatigue, Denies fever(s), Denies frequent falls, Denies weakness, Denies weight gain and Denies weight loss ENT Denies dizziness Card Denies chest pain, Denies leg edema, Denies lightheadedness, Denies palpitations, Denies dyspnea and Denies dyspnea on exertion Resp Denies cough, Denies dyspnea and Denies dyspnea on exertion GI Denies hematochezia Musc Denies abnormal gait, Denies muscle weakness, Denies numbness, Denies radiating pain into limb and Denies tingling Neuro Denies abnormal gait, Denies dizziness, Denies frequent falls, Denies numbness, Denies tingling and Denies weakness Endo Denies fatigue and Denies palpitations Physical Exam Vital Signs: Last Vital Signs Pulse 76 05/18/23 12:56 BP 120/58 L 05/18/23 12:56 BMI result Body Mass Index 26.6 Const General: healthy appearing and no acute distress Orientation/consciousness: patient oriented x3 HEENT Head: Yes normal to inspection Eyes General: appearance normal, both eyes and all related structures Neck Neck: Yes normal visual inspection Chest Chest palpation & inspection: normal inspection of the chest Resp Effort & Inspection: normal respiratory effort Auscultation: clear to auscultation bilaterally Cardio Jugular venous distension: no JVD Palpation: normal PMI Rate: regular rate Rhythm: regular rhythm Heart sounds: S1 normal heart sound present, S2 normal heart sound present, no click, no gallops, Murmur heart sound present systolic and no rubs GI Inspection: Yes normal to inspection Palpation (GI): Soft to palpation Skin General skin exam: no rashes or lesions noted Neuro General: patient oriented x3 Extrem General: Yes normal to inspection Psych Appearance: grossly normal Office Procedures EKG Details: EKG today. Rate 76 bpm. QRS 96ms. QTc 463ms. NSR with sinus arrhythmia. LVH. No significant change from last. [id number], Complete Assessment & Plan Assessment & Plan (1) HTN (hypertension): Code(s): I10 - Essential (primary) hypertension (2) Combined hyperlipidemia: Code(s): E78.2 - Mixed hyperlipidemia (3) Chest pain: Code(s): R07.9 - Chest pain, unspecified Plan EKG today no significant changes. Continue medications as currently prescribed. Will fax paperwork to surgeon. Coding Level of Care Code Est Pt Level 3 (43850) Diagnoses HTN (hypertension) I10 Combined hyperlipidemia E78.2 Chest pain R07.9 CPT Codes EKG - CPT: 50946-[id number], Complete ([id number])
[2023-05-18 12:56] VITALS: BP 120/58; PULSE 76; BMI 26.6
== END 2023-05-18 13:26 | disposition home or self-care (01) ==
PROVIDERS: PCP Internal Medicine; Visit Provider Nurse Practitioner
DX: I10 Essential (primary) hypertension (principal); E78.2 Mixed hyperlipidemia; R07.9 Chest pain, unspecified
CPT/HCPCS: 93010; 99213

== ENCOUNTER → 2023-05-18 12:52 | Outpatient (BNVA) | payer MEDICARE, SELFPAY | PROVIDERS: PCP Internal Medicine; Visit Provider Nurse Practitioner | DX: I10 Essential (primary) hypertension (principal); R07.9 Chest pain, unspecified; E78.2 Mixed hyperlipidemia | CPT/HCPCS: 93005; 99212 ==

== ENCOUNTER 2023-06-09 10:29 | Outpatient (REF) | payer MEDICARE, SELFPAY ==
[2023-06-09 11:07] LABS: Basophils Percent Auto 0.6 % (0-2); Eosinophils Absolute Auto 0.1 X10*3/uL (0.0-0.4); Eosinophils Percent Auto 1.2 % (0-4); Hematocrit 38.3 % (37.0-47.0); Hemoglobin 13.3 g/dl (12.0-16.0); Imm Gran Abs Auto 0.03 X10*3/uL (0.00-0.03); Imm Gran Pct Auto 0.5 % (0.0-0.4); Lymphocytes Absolute Auto 1.3 X10*3/uL (1.2-4.9); Lymphocytes Percent Auto 19.4 % (20-40); MANUAL DIFF FLAG NO; Mean Corpuscular HGB Conc 34.7 g/dl (31.0-35.0); Mean Corpuscular Hemoglobin 33.7 pg (27.0-33.0); Mean Platelet Volume 10.9 fL (9.4-12.3); Monocytes Absolute Auto 0.5 X10*3/uL (0.1-1.2); Monocytes Percent Auto 7.3 % (2-11); Neutrophils Absolute Auto 4.6 x10*3/uL (2.0-8.3); Platelet Count 232 X10*3/uL (160-400); Red Blood Count 3.95 X10*6/uL (4.20-5.50); Red Cell Distribution Width 12.6 % (11.0-16.0); White Blood Count 6.5 X10*3/uL (4.8-10.8)
[2023-06-09 11:11] LABS: Prothrombin Time 11.6 SEC (11.1-13.3)
[2023-06-09 11:26] LABS: Alanine Aminotransferase 15 U/L (0-31); Albumin Level 3.9 g/dL (3.5-5.0); Alkaline Phosphatase 65 U/L (39-117); Anion Gap 14 (12-20); Aspartate Amino Transferase 18 U/L (5-31); Bilirubin Direct 0.2 mg/dL (0.0-0.5); Bilirubin Total 0.4 mg/dL (0.0-1.0); Blood Urea Nitrogen 17 mg/dL (9-16); Calcium 9.5 mg/dL (8.4-10.2); Carbon Dioxide 30 mmol/L (22-29); Chloride 99 mmol/L (96-108); Estimated Glomerular Filt Rate > 60; Glucose Random 205 mg/dL (60-115); Potassium 3.8 mmol/L (3.3-5.1); Sodium 139 mmol/L (135-145)
== END 2023-06-09 10:30 | disposition home or self-care (01) ==
LOC: HO.10HDL 10:29
PROVIDERS: Visit Provider Internal Medicine Medical Oncology
DX: I35.0 Nonrheumatic aortic (valve) stenosis (principal); N18.9 Chronic kidney disease, unspecified; E11.9 Type 2 diabetes mellitus without complications
CPT/HCPCS: 36415; 80053; 82248; 83036; 85025; 85610

== ENCOUNTER → 2023-06-15 07:50 | Outpatient (REF) | payer MEDICARE, SELFPAY ==
--- NOTE | 2023-06-15 07:54 | CA_ITS ---
Transthoracic Echocardiogram Patient (Last, First, Middle): Torri Oliva, Gender: Female Date of : 1935 Age: 87 Procedure Date: 06/15/2023 Procedure Type: Transthoracic Echocardiogram Location: OP Height: 170.18 cm Weight: 74.39 kg BSA: 1.86 m2 Heart Rate: bpm BP: 150 / 70 mmHg Plasterer Rough: GHAZAL Referring MD: Abbi Fernandez DESKTOP SUPPORT SPECIALIST Biomass Power Plant Manager: Rolo Figueroa MD Symptoms: I35.0 - Nonrheumatic aortic (valve) stenosis Study Quality: Fair ECG Rhythm: Sinus Conclusions: - 1. Severe aortic stenosis with mean gradient of 51 mmHg 2. Normal LV ejection fraction of 60 65% with mild LVH with grade 2 diastolic dysfunction 3. Moderately dilated left atrium 4. Mildly elevated right ventricular systolic pressure and right atrial pressures 5. No gross pericardial effusion Findings Left Ventricle Normal left ventricular size and systolic function. There is mildly increased left ventricular wall thickness. The visually estimated ejection fraction is between 60-65%. Spectral Doppler is indicative of a pseudonormal filling pattern. E/E prime ratio is >15, consistent with elevated filling pressures. Evidence suggests grade II (moderate) diastolic dysfunction. Right Ventricle Normal right ventricular cavity size and systolic function. Atria The left atrium is moderately dilated. There is no evidence of interatrial shunt. The right atrium is likely dilated. Aortic Valve There is severe calcification of the aortic valve. There is severe aortic valve stenosis. The peak aortic gradient is 85 mmHg.The mean gradient is 51 mmHg. The aortic valve area is 0.61 cm2. There is mild aortic valve regurgitation. Mitral Valve There is mild anterior and moderate posterior mitral leaflet thickening. There is severe mitral annular calcification. There is mild mitral valve regurgitation. There is no mitral valve stenosis. Pulmonic Valve The pulmonic valve is likely normal. Tricuspid Valve Normal tricuspid valve structure. There is mild tricuspid valve regurgitation. Mildly elevated right atrial pressure. Mild pulmonary hypertension is present. Great Vessels All visible segments of the aorta are normal in size. The pulmonary artery was not well visualized. Venous The inferior vena cava is mildly dilated and collapses greater than 50% with inspiration. Pericardium/Pleural There is no evidence of pericardial effusion. Prior Study Comparison Changes noted compared to prior study dated: 07/24/2019. Severe aortic stenosis is present Measurements 2D Linear Measurements IVSd: 1.20 0.6-0.9/0.6-1.0 cm LVIDd: 3.72 3.9-5.3/4.2-5.9 cm LVIDd Index: 2.00 2.4-3.2/2.2-3.1 cm/m2 LVIDs: 1.93 2.0-3.6 cm LVPWd: 1.05 0.7-1.1 cm LA Diam: 3.90 2.7-3.8/3.0-4.0 cm LAIDs Index: 2.10 1.5-2.3 cm/m2 LV Mass: 167.75 67-162/88-224 g LV Mass Index: 90.19 43-95/49-115 g/m2 LVOT Diam: 1.80 3.0+(-)1.3 cm Mitral Valve MV VTI: 0.41 MV Pk To: 1.53 MV Mn To: 0.90 MV Pk Grad: 9.00 MV Mn Grad: 4.00 MV Pk E: 1.45 MV PK A: 0.82 MV Decel Time: 214.00 E/A: 1.80 E'Lateral: 5.33 E'Medial: 4.57 E/E' Med: 31.70 E/E' Lat: 27.20 PHT: 63.00 MVA PHT: 3.49 MVA Continuity: 1.64 Decel Traverse: 6.78 Aortic Valve AoV Pk To: 4.60 AoV Mn To: 3.36 AoV VTI: 1.11 AoV Pk Grad: 85.00 Aov Mn Grad: 51.00 RICO Cont.VTI: 0.61 AI Pk To: 4.22 AI Traverse: 3.35 LVOT LVOT Pk To: 1.02 LVOT Mn To: 0.73 LVOT VTI: 0.27 LVOT Pk Grad: 4.00 LVOT Mn Grad: 2.00 LVOT Diam: 1.80 LVOT Area: 2.54 Diastolic Function MV Pk E: 1.45 MV Pk A: 0.82 E/A: 1.80 E'Medial: 4.57 E/E' Med: 31.70 E' Laterial: 5.33 E/E' Lat: 27.20 Right Ventricle TAPSE (mm): 23.00 TVS' To: 13.40 Tricuspid Valve TR Pk To: 3.01 TR Pk Grad: 36.00 RA Press: 8.00 RVSP: 44.00 Great Vessels Aorta Sinus of Valsalva: 3.02 2.0-3.5 cm Ao Asc: 2.60 2.1-3.4 cm Updated in Other Vendor System with Status of Final Rolo Figueroa MD electronically signed on 06/16/2023 11:32:47 AM with status of Final
== END ==
LOC: HO.CARD 07:50
PROVIDERS: PCP Internal Medicine Medical Oncology; Visit Provider Nurse Practitioner
DX: I35.0 Nonrheumatic aortic (valve) stenosis (principal); I10 Essential (primary) hypertension
CPT/HCPCS: 93306

== ENCOUNTER → 2023-06-15 07:54 | Outpatient (BNV) | payer MEDICARE, SELFPAY | PROVIDERS: PCP Internal Medicine Medical Oncology; Visit Provider Internal Medicine Cardiovascular Disease | DX: I35.2 Nonrheumatic aortic (valve) stenosis with insufficiency (principal) | CPT/HCPCS: 93306 ==

== ENCOUNTER 2023-07-06 11:44 | Outpatient (AMB) | payer MEDICARE, SELFPAY ==
--- NOTE | 2023-07-06 08:17 | A.OFFVIS_ITS ---
Intake Intake Visit Reasons: Med Review Allergies codeine [CODEINE] Allergy (Unknown, Verified 04/21/23 16:48) HALLUCINATIONS HPI HPI Comments History of Present Illness Details 07/06/23--- Telehealth - review meds Torri VILLEGAS is an 86 year old female here for FU, h/o chronic left hydronephrosis, h/o kidney stones and OAB symptoms, wears pads during the day, 'generally dry', up 2 x at night to urinate, denies dysuria h/o pelvic lipomyosarcoma- I reviewed chart - renal u/s 08/03/2021 - Nephrolithiasis/Urolithiasis: Continue vitamin B6 and surveillance. kidney stones analysis composition 05/2019 -- calcium oxalate - monohydrate. Prior treatment(s) include 04/24 Right USR. Prior imaging includes 12/23 , a renal ultrasound, right small collection of stones 06/26 - renal ultrasound, right 4 mm ston e, left cortical thinning hydronephrosis. Left mild hydronephrosis with renal thinning unchanged. Current therapeutic plan will be to continue with imaging surveillance. Hydronephrosis/Hydroureter: Left Hydronephrosis was diagnosed through routine imaging. Anatomic imaging findings include 12/21 , CT with, chronic, hydronephrosis, on the left - pelvic lipomyosarcoma with new left hydronephrosis 09/22 US - mild right hydro - stones 03/24 CT multiple right renal stones - 7mm largest, left mild hydronephrosis. Functional imaging 02/21 , with diuretic renogram - delayed uptake on left side L 16%, hydro with questionable outlet 09/22 , with diuretic renogram Left 12%, mild right hydronephrosis. Diagnosis based on imaging and findings Extrinsic Ureter compression Plan: 07/06/23 [facility] Medical History Pain of left mastoid Headache Neck pain Depression Yates's cyst Aortic stenosis Spinal stenosis of lumbar region Liposarcoma of lower extremity Nephrolithiasis Combined hyperlipidemia HTN (hypertension) Surgical History History of arthroscopy of right knee History of colonoscopy History of total abdominal hysterectomy History of appendectomy Family History Father Diabetes Mother No problems noted. Social History Household Members: Spouse Housing: House Are you a primary child care lead teacher to a significant other at home: No Do you presently have visiting nurse or other home services: No Alcohol intake: never Patient Tobacco Use Status: Never used Tobacco Advance Directives Date on File: 11/24/22 service: No Current occupational status: retired Review of Systems Const All systems reviewed & are unremarkable except as noted in HPI and below Reports no additional complaints Eyes Reports no additional complaints ENT Reports neck pain Card Denies dyspnea Resp Denies cough and Denies dyspnea GI Reports no additional complaints Reports no additional complaints Musc Reports back pain, Reports arthralgias and Reports neck pain Skin/Breast Denies rash and Denies unusual bruising Neuro Reports no additional complaints Psych Reports no additional complaints Endo Reports no additional complaints Jamaal/Lymph Reports no additional complaints Aller/Immun Reports no additional complaints Coding
--- NOTE | 2023-07-06 11:45 | A.OFFVIS_ITS ---
Intake Intake Visit Reasons: Med Review Intake Note: Annual follow up via phone for Kidney Stones & Chronic Left Hydronephrosis. Medications: Vitamin B6 Blood thinners: none Exhibition Specialist Required: No Accompanied by: Self / Same As Patient Allergies codeine [CODEINE] Allergy (Unknown, Verified 07/06/23 11:50) HALLUCINATIONS Medication List - Last Reconciled 07/06/23 by Dontrell Linda MD acetaminophen (Tylenol) 325 mg PO QID PRN hydrochlorothiazide 25 mg PO QAM lovastatin 20 mg PO BEDTIME metoprolol succinate ER 25 mg PO DAILY@1200 pregabalin 25 mg PO BID pyridoxine (vitamin B6) 100 mg PO BEDTIME HPI HPI Comments History of Present Illness Details Torri VILLEGAS is an 88 year old female scheduled for telehealth FU 07/06/23--h/o chronic left hydronephrosis , h/o B/L kidney stones and OAB symptoms, wears pads during the day, 'generally dry', up 2 x at night to urinate, denies dysuria h/o pelvic lipomyosarcoma- No complaints--continue vitamin B6. Nephrolithiasis/Urolithiasis: Continue vitamin B6 and surveillance. kidney stones analysis composition 05/2019 -- calcium oxalate - monohydrate. Prior treatment(s) include 04/24 Right USR. Prior imaging includes 12/23 , a renal ultrasound, right small collection of stones 06/26 - renal ultrasound, right 4 mm ston e, left cortical thinning hydronephrosis. Left mild hydronephrosis with renal thinning unchanged. Current therapeutic plan will be to continue with imaging surveillance. Hydronephrosis/Hydroureter: Left Hydronephrosis was diagnosed through routine imaging. Anatomic imaging findings include 12/21 , CT with, chronic, hydronephrosis, on the left - pelvic lipomyosarcoma with new left hydronephrosis 09/22 US - mild right hydro - stones 03/24 CT multiple right renal stones - 7mm largest, left mild hydronephrosis. Functional imaging 02/21 , with diuretic renogram - delayed uptake on left side L 16%, hydro with questionable outlet 09/22 , with diuretic renogram Left 12%, mild right hydronephrosis. Diagnosis based on imaging and findings Extrinsic Ureter compression [facility] Medical History Pain of left mastoid Headache Neck pain Depression Yates's cyst Aortic stenosis Spinal stenosis of lumbar region Liposarcoma of lower extremity Nephrolithiasis Combined hyperlipidemia HTN (hypertension) Surgical History History of arthroscopy of right knee History of colonoscopy History of total abdominal hysterectomy History of appendectomy Family History Father Diabetes Mother No problems noted. Social History Household Members: Spouse Housing: House Are you a primary critical care specialist to a significant other at home: No Do you presently have visiting nurse or other home services: No Alcohol intake: never Patient Tobacco Use Status: Never used Tobacco Advance Directives Date on File: 11/24/22 service: No Current occupational status: retired Review of Systems Const All systems reviewed & are unremarkable except as noted in HPI and below Reports no additional complaints Eyes Reports no additional complaints ENT Reports no additional complaints Card Denies dyspnea Resp Denies cough and Denies dyspnea GI Reports no additional complaints Reports no additional complaints Musc Reports no additional complaints Skin/Breast Denies rash and Denies unusual bruising Neuro Reports no additional complaints Psych Reports no additional complaints Endo Reports no additional complaints Jamaal/Lymph Reports no additional complaints Aller/Immun Reports no additional complaints Assessment & Plan Assessment & Plan (1) Nephrolithiasis: Comment: s/p R nephrostomy and acute kidney failure May 2019 Code(s): N20.0 - Calculus of kidney (2) Left renal atrophy: Code(s): N26.1 - Atrophy of kidney (terminal) (3) Hydronephrosis, left: Code(s): N13.30 - Unspecified hydronephrosis Plan Kidney stones Left atrophic kidney Left hydronephrosis-chronic Cont vit b6 Medications: New pyridoxine (vitamin B6) 100 mg PO BEDTIME 90 tabs 3RF Telehealth Telehealth Location of provider rendering services: practice address Location of patient: address on file Patient Identification confirmed using: Name, : Yes Telehealth method: voice only Patient verbally consented to treatment: Yes Patient verbally consented to billing insurance company: Yes Patient informed of any privacy concerns related to visit: Yes Minutes spent on Phone/Video with Pt.: 12 Coding Level of Care Code Tele Est Pt Level 3 (53149) Diagnoses Nephrolithiasis N20.0 Left renal atrophy N26.1 Hydronephrosis, left N13.30
== END 2023-07-06 11:50 | disposition home or self-care (01) ==
LOC: HO.HUSH 11:44
PROVIDERS: PCP Internal Medicine Medical Oncology; Visit Provider Urology
DX: N20.0 Calculus of kidney (principal); N26.1 Atrophy of kidney (terminal); N13.30 Unspecified hydronephrosis
CPT/HCPCS: 99442

== ENCOUNTER → 2023-07-06 11:44 | Outpatient (BNVA) | payer MEDICARE, SELFPAY | PROVIDERS: PCP Internal Medicine Medical Oncology; Visit Provider Urology ==

== ENCOUNTER 2023-09-07 09:21 | Outpatient (REF) | payer MEDICARE, SELFPAY ==
[2023-09-07 11:50] LABS: Blood Urea Nitrogen 17 mg/dL (9-16); Estimated Glomerular Filt Rate > 60
== END 2023-09-07 09:22 | disposition home or self-care (01) ==
LOC: HO.HMGCLDS 09:21
PROVIDERS: PCP Internal Medicine Medical Oncology; Visit Provider Radiology Vascular & Interventional Radiology
DX: R79.89 Other specified abnormal findings of blood chemistry (principal); R94.4 Abnormal results of kidney function studies
CPT/HCPCS: 36415; 82565; 84520

== ENCOUNTER 2023-09-23 08:18 | Outpatient (REF) | payer MEDICARE, SELFPAY ==
[2023-09-23 10:25] LABS: MANUAL DIFF FLAG NO
[2023-09-23 10:48] LABS: Basophils Percent Auto 0.4 % (0-2); Eosinophils Absolute Auto 0.1 X10*3/uL (0.0-0.4); Eosinophils Percent Auto 1.6 % (0-4); Hematocrit 39.1 % (37.0-47.0); Hemoglobin 13.2 g/dl (12.0-16.0); Imm Gran Abs Auto 0.04 X10*3/uL (0.00-0.03); Imm Gran Pct Auto 0.6 % (0.0-0.4); Lymphocytes Absolute Auto 1.2 X10*3/uL (1.2-4.9); Lymphocytes Percent Auto 16.9 % (20-40); Mean Corpuscular HGB Conc 33.8 g/dl (31.0-35.0); Mean Corpuscular Hemoglobin 32.8 pg (27.0-33.0); Mean Platelet Volume 11.6 fL (9.4-12.3); Monocytes Absolute Auto 0.5 X10*3/uL (0.1-1.2); Monocytes Percent Auto 6.6 % (2-11); Neutrophils Absolute Auto 5.1 x10*3/uL (2.0-8.3); Neutrophils Percent Auto 73.9 % (45-73); Platelet Count 264 X10*3/uL (160-400); Red Blood Count 4.03 X10*6/uL (4.20-5.50); Red Cell Distribution Width 13.6 % (11.0-16.0); White Blood Count 6.9 X10*3/uL (4.8-10.8)
[2023-09-23 10:48] LABS: INTERNATIONAL NORM RATIO 0.9 (0.9-1.1); Prothrombin Time 11.4 SEC (11.1-13.3)
[2023-09-23 11:22] LABS: Anion Gap 16 (12-20); Blood Urea Nitrogen 15 mg/dL (9-16); Calcium 9.7 mg/dL (8.4-10.2); Carbon Dioxide 28 mmol/L (22-29); Chloride 101 mmol/L (96-108); Estimated Glomerular Filt Rate 60; Glucose Random 213 mg/dL (60-115); Potassium 3.7 mmol/L (3.3-5.1); Sodium 141 mmol/L (135-145)
== END 2023-09-23 08:19 | disposition home or self-care (01) ==
LOC: HO.HMGCLDS 08:18
PROVIDERS: PCP Internal Medicine Medical Oncology; Visit Provider Internal Medicine Cardiovascular Disease
DX: R07.9 Chest pain, unspecified (principal); I35.0 Nonrheumatic aortic (valve) stenosis; E78.2 Mixed hyperlipidemia; I10 Essential (primary) hypertension
CPT/HCPCS: 36415; 80048; 85025; 85610

== ENCOUNTER → 2023-10-06 23:59 | Outpatient (BNV) | payer MEDICARE, SELFPAY | PROVIDERS: PCP Internal Medicine Medical Oncology; Visit Provider Internal Medicine Cardiovascular Disease | DX: I35.0 Nonrheumatic aortic (valve) stenosis (principal) | CPT/HCPCS: 93460; 99152 ==

== ENCOUNTER 2023-10-17 10:22 | Outpatient (AMB) | payer MEDICARE, SELFPAY ==
[2023-10-17 10:43] VITALS: BP 120/56; PULSE 76; O2SAT 97; BMI 27.3
--- NOTE | 2023-10-17 10:43 | A.OFFVIS_ITS ---
Vital Signs 10/17/23 10:43 Height 5 ft 6 in Weight 168 lb 13.985 oz BMI 27.3 BP 120/56 L Blood Pressure Location Rt brachial Position Sitting Pulse 76 Pulse Source Pulse Oximeter Pulse Oximetry (%) 97 Intake Visit Reasons: f/up per AC Assembly Member Required: No Accompanied by: Self / Same As Patient Allergies codeine [CODEINE] Allergy (Unknown, Verified 07/06/23 11:50) HALLUCINATIONS Medication List - Last Reconciled 10/17/23 by Thomas Reeder MD acetaminophen (Tylenol) 325 mg PO QID PRN hydrochlorothiazide 25 mg PO QAM lovastatin 20 mg PO BEDTIME metoprolol succinate ER 25 mg PO DAILY@1200 pregabalin 25 mg PO BID pyridoxine (vitamin B6) 100 mg PO BEDTIME HPI Comments Details: Pleasant 88-year-old female who is here for follow-up. She has background history of moderate to severe aortic stenosis and liposarcoma the right pelvis. She is in pain due to liposarcoma all the time. She also has arthritis involving the neck and knees. She is very limited and has very poor functional status. Previous echocardiography which was done in July 2019 showed ejection fraction more than 70% with moderate to severe aortic stenosis. The valve area was 0.74 with a mean gradient of 31 mm Hg and dimensionless index of 0.3. Previously she was complaining of some palpitations and we added Toprol-XL and s he is doing better with that. Denies chest pain or shortness of breath. Again her concerns are mostly related to musculoskeletal pain in the back and right leg. She also has neck arthritis and pain. 10/17/23: She returns for follow-up after cardiac catheterization. She has severe aortic valve stenosis by echocardiography. She has right knee arthritis which is really affecting her life currently and she gets significant pain. She underwent assessment by anesthesia and due to severe aortic valve stenosis she was deemed surgically high-risk and the procedure was canceled. I referred her for genicular artery embolization with new [employer] endovascular which was successfully performed but she continues to have significant pain. She was referred to heart team for assessment for transcatheter aortic valve replacement and subsequent right knee replacement. She had cardiac catheterization done which did not show any coronary disease. She is waiting for CT TAVR protocol on Tuesday. Denying any chest pain or shortness of breath. No dizziness. FORMERLY [facility] Medical History Pain of left mastoid Headache Neck pain Depression Yates's cyst Aortic stenosis Spinal stenosis of lumbar region Liposarcoma of lower extremity Nephrolithiasis Combined hyperlipidemia HTN (hypertension) Surgical History History of arthroscopy of right knee History of colonoscopy History of total abdominal hysterectomy History of appendectomy Family History Father Diabetes Mother No problems noted. Social History Household Members: Spouse Housing: House Are you a primary senior care manager to a significant other at home: No Do you presently have visiting nurse or other home services: No Alcohol intake: never Patient Tobacco Use Status: Never used Tobacco Advance Directives Date on File: 11/24/22 service: No Current occupational status: retired Review of Systems Const Denies chills, Denies fatigue, Denies fever(s), Denies frequent falls, Denies weakness, Denies weight gain and Denies weight loss ENT Denies dizziness Card Denies chest pain, Denies leg edema, Denies lightheadedness, Denies palpitations, Denies dyspnea and Denies dyspnea on exertion Resp Denies cough, Denies dyspnea and Denies dyspnea on exertion GI Denies hematochezia Musc Denies abnormal gait, Denies muscle weakness, Denies numbness, Denies radiating pain into limb and Denies tingling Neuro Denies abnormal gait, Denies dizziness, Denies frequent falls, Denies numbness, Denies tingling and Denies weakness Endo Denies fatigue and Denies palpitations Physical Exam Vital Signs: Last Vital Signs Pulse 76 10/17/23 10:43 BP 120/56 L 10/17/23 10:43 Pulse Ox 97 10/17/23 10:43 BMI result Body Mass Index 27.3 GENERAL APPEARANCE: in no acute distress, pleasant. NECK: no carotid bruit, no jugular venous distention. SKIN: no suspicious lesions, warm and dry. HEART: Systolic murmur aortic area with preserved 2nd heart sound, regular rate and rhythm. LUNGS: clear to auscultation bilaterally. ABDOMEN: soft, nontender. EXTREMITIES: no edema. PERIPHERAL PULSES: equal. NEUROLOGIC: No gross deficits, AAO X 3 Assessment & Plan Assessment & Plan (1) HTN (hypertension): Code(s): I10 - Essential (primary) hypertension Category: Medical (2) Aortic stenosis: Code(s): I35.0 - Nonrheumatic aortic (valve) stenosis Category: Medical Plan Very pleasant 88-year-old female who is here for follow-up. She has known history of hypertension and aortic valve stenosis. Blood pressure is well controlled. She has severe aortic valve stenosis by echocardiography. She underwent cardiac catheterization before heart team assessment for transcatheter aortic valve replacement. She has getting a CT TAVR protocol this Tuesday. She has severe right knee arthritis and will need replacement. We tried genicular artery embolization but her symptoms have not improved significantly with that strategy. Clinically not very symptomatic although by echocardiography and catheterization assessment the valve is significantly severe. We will try to expedite the procedure so she can undergo her right knee replacement which will relieve her knee arthritis pain. Thank you for allowing me to participate in the care of your patient. Please feel free to contact me if you have any questions. Coding Level of Care Code Est Pt Level 4 (64855) Diagnoses HTN (hypertension) I10 Aortic stenosis I35.0
== END 2023-10-17 11:12 | disposition home or self-care (01) ==
PROVIDERS: PCP Internal Medicine Medical Oncology; Visit Provider Internal Medicine Cardiovascular Disease
DX: I10 Essential (primary) hypertension (principal); I35.0 Nonrheumatic aortic (valve) stenosis
CPT/HCPCS: 99214

== ENCOUNTER → 2023-10-17 10:22 | Outpatient (BNVA) | payer MEDICARE, SELFPAY | PROVIDERS: PCP Internal Medicine Medical Oncology; Visit Provider Internal Medicine Cardiovascular Disease | DX: I35.0 Nonrheumatic aortic (valve) stenosis (principal); I10 Essential (primary) hypertension; C76.3 Malignant neoplasm of pelvis; Z98.890 Other specified postprocedural states | CPT/HCPCS: 99212 ==

== ENCOUNTER → 2023-12-13 09:39 | Outpatient (REF) | payer MEDICARE, SELFPAY ==
--- NOTE | 2023-12-13 09:45 | CA_ITS ---
Transthoracic Echocardiogram Patient (Last, First, Middle): Torri Oliva, Gender: Female Date of : 1935 Age: 88 Procedure Date: 12/13/2023 Procedure Type: Transthoracic Echocardiogram Location: OP Height: 165.1 cm Weight: 74.84 kg BSA: 1.82 m2 Heart Rate: bpm BP: 142 / 84 mmHg Organic Preparation Technician: GHAZAL Referring MD: Rosy Garrison MD Symptoms: S/P TAVR Study Quality: Fair Conclusions: - The left ventricular systolic function is normal. The visually estimated ejection fraction is between 65-70%. - A bioprosthetic aortic valve is present. The prosthetic aortic valve appears to be functioning normally. - There is severe mitral annular calcification. Findings Left Ventricle Normal left ventricular cavity size. There is mildly increased left ventricular wall thickness. The left ventricular systolic function is normal. The visually estimated ejection fraction is between 65-70%. There is no dynamic left ventricular outflow tract obstruction. Evidence suggests grade I (mild) diastolic dysfunction. Right Ventricle Normal right ventricular cavity size. There is normal right ventricular systolic function. Atria The left atrium is mildly dilated. The right atrium is normal in size. Aortic Valve A bioprosthetic aortic valve is present. The prosthetic aortic valve appears to be functioning normally. There is no aortic valve regurgitation. Mitral Valve There is severe mitral annular calcification. There is mild mitral valve regurgitation. There is no mitral valve stenosis. Pulmonic Valve The pulmonic valve is likely normal. Tricuspid Valve There is trace tricuspid valve regurgitation. Borderline RVSP. Great Vessels The asc aorta is normal in size. Venous The inferior vena cava is normal in size and collapses greater than 50% with inspiration. Pericardium/Pleural There is no evidence of pericardial effusion. Prior Study Comparison Changes noted compared to prior study dated: 06/15/2023. s/p TAVR. Measurements 2D Linear Measurements IVSd: 1.22 0.6-0.9/0.6-1.0 cm LVIDd: 4.41 3.9-5.3/4.2-5.9 cm LVIDd Index: 2.42 2.4-3.2/2.2-3.1 cm/m2 LVIDs: 2.73 2.0-3.6 cm LVPWd: 1.03 0.7-1.1 cm LA Diam: 3.70 2.7-3.8/3.0-4.0 cm LAIDs Index: 2.03 1.5-2.3 cm/m2 LV Mass: 218.03 67-162/88-224 g LV Mass Index: 119.80 43-95/49-115 g/m2 LVOT Diam: 1.90 3.0+(-)1.3 cm 2D Systolic Function EF 4C: 62.40 >55% EF 2C: 67.30 >55% EF BiP: 64.20 >55% Mitral Valve MV VTI: 0.43 MV Pk To: 1.29 MV Mn To: 0.95 MV Pk Grad: 7.00 MV Mn Grad: 4.00 MV Pk E: 0.91 MV PK A: 1.33 MV Decel Time: 180.00 E/A: 0.70 E'Lateral: 4.13 E'Medial: 3.70 E/E' Med: 24.60 E/E' Lat: 22.10 PHT: 53.00 MVA PHT: 4.15 MVA Continuity: 1.45 Decel Andrews: 5.08 MR VTI: 1.72 MR RAD: 0.30 Aortic Valve AoV Pk To: 1.80 AoV Mn To: 1.19 AoV VTI: 0.36 AoV Pk Grad: 13.00 Aov Mn Grad: 6.00 RICO Cont.VTI: 1.71 LVOT LVOT Pk To: 0.94 LVOT Mn To: 0.63 LVOT VTI: 0.22 LVOT Pk Grad: 4.00 LVOT Mn Grad: 2.00 LVOT Diam: 1.90 LVOT Area: 2.84 Diastolic Function MV Pk E: 0.91 MV Pk A: 1.33 E/A: 0.70 E'Medial: 3.70 E/E' Med: 24.60 E' Laterial: 4.13 E/E' Lat: 22.10 Right Ventricle TAPSE (mm): 23.60 TVS' To: 10.00 Tricuspid Valve TR Pk To: 2.86 TR Pk Grad: 33.00 RA Press: 3.00 RVSP: 36.00 Great Vessels Aorta Sinus of Valsalva: 3.32 2.0-3.5 cm Ao Asc: 2.60 2.1-3.4 cm Updated in Other Vendor System with Status of Final Man Hadley MD electronically signed on 12/13/2023 1:15:22 PM with status of Final
== END ==
LOC: HO.CARD 09:39
PROVIDERS: PCP Internal Medicine Medical Oncology; Visit Provider Internal Medicine Cardiovascular Disease
DX: Z95.2 Presence of prosthetic heart valve (principal)
CPT/HCPCS: 93306

== ENCOUNTER → 2023-12-13 09:45 | Outpatient (BNV) | payer MEDICARE, SELFPAY | PROVIDERS: PCP Internal Medicine Medical Oncology; Visit Provider Internal Medicine | DX: I34.0 Nonrheumatic mitral (valve) insufficiency (principal); I34.81 Nonrheumatic mitral (valve) annulus calcification; Z95.3 Presence of xenogenic heart valve | CPT/HCPCS: 93306 ==

== ENCOUNTER 2024-02-15 09:24 | Outpatient (AMB) | payer MEDICARE, SELFPAY ==
--- NOTE | 2024-02-15 09:46 | AM.OFFVISNUR ---
Intake Visit Reasons: EKG Allergies codeine [CODEINE] Allergy (Unknown, Verified 07/06/23 11:50) HALLUCINATIONS Nursing Note pt is is here for nurse visit with ekg ekg left on providers desk for review Office Procedures EKG [id number], Complete
== END 2024-02-15 09:49 | disposition home or self-care (01) ==
PROVIDERS: PCP Internal Medicine Medical Oncology; Visit Provider Internal Medicine Cardiovascular Disease
DX: R94.31 Abnormal electrocardiogram [ECG] [EKG] (principal)
CPT/HCPCS: 93010

== ENCOUNTER → 2024-02-15 09:24 | Outpatient (BNVA) | payer MEDICARE, SELFPAY | PROVIDERS: PCP Internal Medicine Medical Oncology; Visit Provider Internal Medicine Cardiovascular Disease | DX: Z13.6 Encounter for screening for cardiovascular disorders (principal) | CPT/HCPCS: 93005 ==

== ENCOUNTER 2024-04-11 06:49 | Emergency (ER) | payer MEDICARE, SELFPAY ==
--- NOTE | ~2024-04-11 | CT_ITS ---
EXAMINATION: CT HEAD WITHOUT CONTRAST CLINICAL INFORMATION: altered mental status COMPARISON: CT dated December 26, 2019. TECHNIQUE: Contiguous axial imaging was performed from the skull base to vertex without intravenous administration of contrast. This CT examination was performed using dose optimization techniques as appropriate, variously including the following: *Automated exposure control *Adjustment of mA and/or kV according to patient size (this includes techniques or standardized protocols for targeted exams where dose is matched to indication/reason for exam; i.e. extremities or head) *Use of iterative reconstruction technique DLP: 633 mGy-cm FINDINGS: No acute intracranial hemorrhage, mass effect, midline shift, hydrocephalus or herniation. Bilateral multifocal patchy and confluent deep periventricular white matter hypodensities involving centrum semiovale and welch radiata. Multifocal old lacunar infarcts involving basal ganglia. Prominence of the extra-axial CSF spaces cerebral sulci and ventricles likely related to volume loss and more conspicuous in the frontotemporal regions. Calcified plaques in the V4 segments of the vertebral arteries and the cavernous supraclinoid segments both ICA. Bony calvarium is intact. Skull base is intact. No air-fluid levels in the included paranasal sinuses. Tympanic cavities and mastoid air cells are aerated CT/CT head/brain wo IV con IMPRESSION: No acute intracranial hemorrhage. Small vessel occlusive disease. Global cerebral atrophy. Electronically signed by: Sid Carrion MD 04/11/2024 09:48 AM JUSTA
[2024-04-11 07:14] VITALS: BP 139/63; PULSE 82; RESP 16; TEMP 36.9; O2SAT 100; BMI 25.8
--- NOTE | 2024-04-11 07:23 | ECG_ITS ---
Test Reason : irregular heart rate Blood Pressure : / mmHG Vent. Rate : 073 BPM Atrial Rate : 073 BPM P-R Int : 218 ms QRS Dur : 106 ms QT Int : 428 ms P-R-T Axes : 087 -03 097 degrees QTc Int : 471 ms Sinus rhythm with 1st degree A-V block with Premature atrial complexes Left ventricular hypertrophy with repolarization abnormality ( Rishi product ) Abnormal ECG When compared with ECG of 21-APR-2023 17:17, Premature atrial complexes are now Present OK interval has increased Referred By: Homero Rubio Electronically Signed By:JIM LA MD
--- NOTE | 2024-04-11 07:23 | ED_ITS ---
HPI - Altered Mental Status General Chief Complaint: Altered Mental Status Stated Complaint: memory issues Time Seen by Provider: 04/11/24 07:18 Source: family Mode of arrival: ambulatory Limitations: no limitations History of Present Illness ED Provider: Dr. Rubio HPI narrative: According to Dr. Ravi the patient has had a relatively acute change in mental status. According to the son the patient had a prolonged change in mental status. No fever, no dysuria MD complaint: altered mental status Related Data Home Medications ?Medication ?Instructions ?Recorded ?Confirmed lovastatin 20 mg tablet 20 mg PO BEDTIME 11/24/22 10/17/23 pregabalin 25 mg capsule 25 mg PO BID 11/24/22 10/17/23 Previous Rx's ?Medication ?Instructions ?Recorded hydrochlorothiazide 25 mg tablet 25 mg PO QAM #90 tabs 06/30/21 acetaminophen 325 mg capsule 325 mg PO QID PRN pain #20 caps 01/26/23 (Tylenol) pyridoxine (vitamin B6) 100 mg 100 mg PO BEDTIME #90 tabs 07/06/23 tablet metoprolol succinate 25 mg 25 mg PO DAILY@1200 #90 tabs 10/24/23 tablet,extended release 24 hr Allergies Allergy/AdvReac Type Severity Reaction Status Date / Time codeine [CODEINE] Allergy Unknown HALLUCINATI Verified 04/11/24 07:14 ONS Review of Systems 2 Review of Systems: Yes Unobtainable due to mental status Neurologic: Denies Sensory deficit (Neuro) [facility] Past Medical History Medical History Pain of left mastoid Headache Neck pain Depression Yates's cyst Aortic stenosis Spinal stenosis of lumbar region Liposarcoma of lower extremity Nephrolithiasis Combined hyperlipidemia HTN (hypertension) Surgical History History of arthroscopy of right knee History of colonoscopy History of total abdominal hysterectomy History of appendectomy Family History Family History Father Diabetes Mother No problems noted. Social History Social History Household Members: Spouse Housing: House Are you a primary interior plant caretaker to a significant other at home: No Do you presently have visiting nurse or other home services: No Alcohol intake: never Patient Tobacco Use Status: Never used Tobacco Smoked in Last 30 Days: No Use of substances other than those prescribed or required for medical reasons: No Advance Directives: Yes Advance Directives on File: Yes Advance Directives Date on File: 11/24/22 Do you have a plan to hurt others: No Plan service: No Current occupational status: retired Physical Exam ED Vital Signs: Vital Signs - 24 hr 04/11/24 07:14 04/11/24 07:24 04/11/24 10:19 Temperature 98.4 F 97.4 F 97.7 F Pulse Rate 82 74 69 Respiratory Rate 16 18 15 Blood Pressure 139/63 128/57 L 163/60 H Pulse Oximetry 100 98 97 Oxygen Delivery Method Room Air Room Air Room Air 04/11/24 11:24 04/11/24 14:17 Temperature 97.7 F Pulse Rate 69 97 Respiratory Rate 16 Blood Pressure 163/60 H 167/63 H Pulse Oximetry 97 99 Oxygen Delivery Method Room Air BMI result Body Mass Index 25.8 Const Other: Elderly female in no acute distress, slightly agitated Nutritional Appearance: average body habitus Orientation/consciousness: oriented to person Limitations: altered mental status HENMT Head: Yes normal to inspection Ears: external ears normal General nose exam: Normal external nose present Mouth: Normal oral and palatal mucosa present and oropharynx normal Throat: Yes posterior oropharynx normal Eyes General: appearance normal, both eyes and all related structures Neck Neck: Yes normal visual inspection Chest Chest palpation & inspection: normal inspection of the chest Resp Auscultation: clear to auscultation bilaterally Cardio Jugular venous distension: no JVD Rate: regular rate Rhythm: regular rhythm Heart sounds: S1 normal heart sound present and S2 normal heart sound present GI Inspection: Yes normal to inspection Palpation (GI): Soft to palpation, nontender and No hepatosplenomegaly present Auscultation: normal bowel sounds General: Yes no CVA tenderness Back/Spine/Pelvis Back: no CVA tenderness Skin General skin exam: no rashes or lesions noted Neuro General: oriented to person Cranial nerves: Yes CN's II-XII intact bilaterally Motor exam (neuro): 5/5 motor strength present throughout Sensory Exam: No Sensory deficit (Neuro) Extrem General: Yes normal to inspection Psych Other: Patient with clear memory issues slightly agitated Course Reevaluation(s) Reevaluation #1: After discussion with the son in more detail patient with likely progressive dementia Time: 14:35 Medical Decision Making Differential Diagnosis Differential Diagnoses: The differential diagnosis associated with the presentation includes (stroke, brain tumor, cerebral bleed, dementia, UTI) Admission/Observation Consideration of admission/observation: Escalation of care including admission/observation considered (upon arrival patient considered for admission.) Consult Healthcare Provider Management of the patient was discussed with: Primary Care Provider (Dr. Sylvester) Lab Data 04/11/24 07:32 04/11/24 07:32 Labs: Lab Results 04/11/24 04/11/24 04/11/24 Range/Units 07:32 10:18 11:28 WBC 8.5 (4.8-10.8) X10*3/uL RBC 3.74 L (4.20-5.50) X10*6/uL Hgb 12.3 (12.0-16.0) g/dl Hct 35.4 L (37.0-47.0) % MCV 94.7 (80.0-98.0) fL MCH 32.9 (27.0-33.0) pg MCHC 34.7 (31.0-35.0) g/dl RDW 12.7 (11.0-16.0) % Plt Count 259 (160-400) X10*3/uL MPV 10.3 (9.4-12.3) fL Immature Gran % (Auto) 0.2 (0.0-0.4) % Neut % (Auto) 78.9 H (45-73) % Lymph % (Auto) 11.9 L (20-40) % Gonzales % (Auto) 7.8 (2-11) % Eos % (Auto) 0.8 (0-4) % Baso % (Auto) 0.4 (0-2) % Lymph # (Auto) 1.0 L (1.2-4.9) X10*3/uL Gonzales # (Auto) 0.7 (0.1-1.2) X10*3/uL Eos # (Auto) 0.1 (0.0-0.4) X10*3/uL Baso # (Auto) 0.0 (0.0-0.2) X10*3/uL Abs Immat Gran (auto) 0.02 (0.00-0.03) X10*3/uL Absolute Neuts (auto) 6.7 (2.0-8.3) x10*3/uL Absolute Nucleated RBC 0.000 (0.0-0.012) X10*3/uL Nucleated RBC % (auto) 0.0 (0.0-0.2) /100WBC Sodium 137 (135-145) mmol/L Potassium 3.3 (3.3-5.1) mmol/L Chloride 95 L (96-108) mmol/L Carbon Dioxide 29 (22-29) mmol/L Anion Gap 16 (12-20) BUN 19 H (9-16) mg/dL Creatinine 0.99 (0.5-1.4) mg/dL Estim Creat Clear Calc 41.5 Estimated GFR 53 Random Glucose 179 H (60-115) mg/dL Calcium 9.5 (8.4-10.2) mg/dL Urine Color Yellow Urine Appearance Cloudy Urine pH 6.5 (5.0-9.0) Ur Specific [place] <= 1.005 (1.005-1.025) Urine Protein Negative (Neg-Trace) mg/dL Urine Glucose (UA) Negative (Negative) mg/dL Urine Ketones Negative (Negative) mg/dL Urine Blood Trace H (Negative) Urine Nitrite Negative (Negative) Ur Leukocyte Esterase Small (1+) H (Negative) Urine RBC 0-2 (0-2) /HPF Urine WBC 6-10 H (0-5) /HPF Ur Squamous Epith Cells >20 (0-2) /HPF Urine Bacteria 2+ (None Seen) Hyaline Casts 0-2 (0-2) /LPF COVID-19 (CONSTANZA) Negative (Negative) COVID-19 Clin Com See Note Independent Interpretation I performed an independent interpretation of an: EKG (sinus rate 70, Apc, old septal qs) and CT Scan (atrophy, no bleed) Independent Historian Clinical information obtained from an independent historian. History obtained from or confirmed by: Other (son) Prescription Management I considered prescription management with: Antibiotic (no evidence of UTI) Discharge Plan Discharge Clinical Impression: Dementia Patient Disposition: Home, Self-Care Instructions: Dementia (ED) Prescriptions: No Action hydrochlorothiazide 25 mg tablet 25 mg PO QAM Qty: 90 3RF metoprolol succinate 25 mg tablet extended release 24 hr 25 mg PO DAILY@1200 Qty: 90 1RF pregabalin 25 mg capsule 25 mg PO BID lovastatin 20 mg tablet 20 mg PO BEDTIME acetaminophen [Tylenol] 325 mg capsule 325 mg PO QID PRN (Reason: pain) Qty: 20 0RF pyridoxine (vitamin B6) 100 mg tablet 100 mg PO BEDTIME Qty: 90 3RF Referrals: David Carson MD [Primary Care Provider] - 1 week Ayla Coats MD [Physician] - 1 week Print Language: Indonesian
[2024-04-11 07:24] VITALS: BP 128/57; PULSE 74; RESP 18; TEMP 36.3; O2SAT 98
[2024-04-11 07:35] LABS: MANUAL DIFF FLAG NO
[2024-04-11 07:37] LABS: Basophils Percent Auto 0.4 % (0-2); Eosinophils Absolute Auto 0.1 X10*3/uL (0.0-0.4); Eosinophils Percent Auto 0.8 % (0-4); Hematocrit 35.4 % (37.0-47.0); Hemoglobin 12.3 g/dl (12.0-16.0); Imm Gran Abs Auto 0.02 X10*3/uL (0.00-0.03); Imm Gran Pct Auto 0.2 % (0.0-0.4); Lymphocytes Percent Auto 11.9 % (20-40); Mean Corpuscular HGB Conc 34.7 g/dl (31.0-35.0); Mean Corpuscular Hemoglobin 32.9 pg (27.0-33.0); Mean Corpuscular Volume 94.7 fL (80.0-98.0); Mean Platelet Volume 10.3 fL (9.4-12.3); Monocytes Absolute Auto 0.7 X10*3/uL (0.1-1.2); Monocytes Percent Auto 7.8 % (2-11); Neutrophils Absolute Auto 6.7 x10*3/uL (2.0-8.3); Neutrophils Percent Auto 78.9 % (45-73); Platelet Count 259 X10*3/uL (160-400); Red Blood Count 3.74 X10*6/uL (4.20-5.50); Red Cell Distribution Width 12.7 % (11.0-16.0); White Blood Count 8.5 X10*3/uL (4.8-10.8)
--- NOTE | 2024-04-11 07:37 | MHC.EDTECH ---
Patient changed over, EKG taken and read by the ED provider. Patient rest quietly in the bed and call bhatti within PT reach.
[2024-04-11 07:50] LABS: Anion Gap 16 (12-20); Blood Urea Nitrogen 19 mg/dL (9-16); Calcium 9.5 mg/dL (8.4-10.2); Carbon Dioxide 29 mmol/L (22-29); Chloride 95 mmol/L (96-108); Creatinine Clr Calc Pharmacy 41.5; Estimated Glomerular Filt Rate 53; Glucose Random 179 mg/dL (60-115); Potassium 3.3 mmol/L (3.3-5.1); Sodium 137 mmol/L (135-145)
[2024-04-11 10:19] VITALS: BP 163/60; PULSE 69; RESP 15; TEMP 36.5; O2SAT 97
[2024-04-11 10:29] LABS: Appearance Urine Cloudy; Color Urine Yellow; Glucose Urine UA Negative (Negative); Leukocyte Esterase Urine Small (1+) (Negative); Nitrite Urine Negative (Negative); PH 6.5 (5.0-9.0); Specific Gravity - Urine <= 1.005 (1.005-1.025); UMIC TRIGGER UACC YES; Urine Blood Trace (Negative); Urine Ketones Negative (Negative); Urine Protein Negative (Neg-Trace)
[2024-04-11 10:43] LABS: Bacteria Urine 2+ (None Seen); Hyaline Casts Urine 0-2 /LPF (0-2); RBC Urine 0-2 /HPF (0-2); Squamous Epithelial Cell Urine >20 /HPF (0-2); UACC Culture Trigger YES
[2024-04-11 11:24] VITALS: BP 163/60; PULSE 69; O2SAT 97
[2024-04-11 12:10] LABS: COVID-19 Test Negative (Negative); IDNOW Serial# 152EDE1D
--- NOTE | 2024-04-11 13:38 | MHC.CM.ED ---
Received case management consult from Dr Rubio. Patient came to the ER d/t AMS. Work up essentially negative. Physical therapy eval completed. Short term rehab is recommended. Met with patient and son, Martinez. Patient was at [facility] and d/c'd to [facility] from 03/08-04/03. Patient was d/c'd home. PCP verified. Copy of HCP verified to be on file. [facility] does not have a female bed available. [facility] a bed. Patient and Martinez feel [facility] is too far and requested referrals be made in [facility]. Referrals made as requested. After referral sent, received notification from son, Martinez that wanted patient to d/c home with resumption of services. Met with patient and Martinez again. Martinez upset because Dr Carson's sent patient to ER to do a work up for patient's memory, which has been an issue for over a month. T/W explained work up for memory issues would need to be conducted by neurology on an outpatient basis. Martinez verbalized understanding. Dr Rubio will be made aware and asked to make a neurology outpatient referral. Martinez will transport patient home. Marzena, Becca Henriquez RN and Dr Rubio all aware and agreeable to d/c plan. Continue to monitor for d/c needs.
[2024-04-11 14:17] VITALS: BP 167/63; PULSE 97; RESP 16; TEMP 36.5; O2SAT 99
[2024-04-11 14:44] VITALS: BP 167/63; PULSE 97; RESP 16; TEMP 36.5; O2SAT 99
== END 2024-04-11 14:52 | disposition home or self-care (01) ==
PROVIDERS: Emergency Provider Emergency Medicine; PCP Internal Medicine Medical Oncology
DX: F03.911 Unspecified dementia, unspecified severity, with agitation (principal); R41.82 Altered mental status, unspecified; E78.2 Mixed hyperlipidemia; Z79.02 Long term (current) use of antithrombotics/antiplatelets; Z79.899 Other long term (current) drug therapy; Z11.52 Encounter for screening for COVID-19
CPT/HCPCS: 36415; 70450; 80048; 81001; 85025; 87086; 87635; 93005; 97162; 99284

== ENCOUNTER → 2024-04-11 07:23 | Outpatient (BNV) | payer MEDICARE, SELFPAY | PROVIDERS: Emergency Provider Emergency Medicine; PCP Internal Medicine Medical Oncology; Visit Provider Internal Medicine Cardiovascular Disease | DX: I49.9 Cardiac arrhythmia, unspecified (principal) | CPT/HCPCS: 93010 ==

== ENCOUNTER → 2024-04-11 07:23 | Outpatient (BNV) | payer MEDICARE, SELFPAY | PROVIDERS: Emergency Provider Emergency Medicine; PCP Internal Medicine Medical Oncology; Visit Provider Radiology Diagnostic Radiology | DX: R41.82 Altered mental status, unspecified (principal) | CPT/HCPCS: 70450 ==

== ENCOUNTER 2024-05-14 10:50 | Outpatient (AMB) | payer MEDICARE, SELFPAY ==
[2024-05-14 11:08] VITALS: BP 130/60; PULSE 62; BMI 26.5
--- NOTE | 2024-05-14 11:08 | A.OFFVIS_ITS ---
Vital Signs 05/14/24 11:08 Height 5 ft 6 in Weight 164 lb 0.383 oz BMI 26.5 BP 130/60 Blood Pressure Location Lt brachial Position Sitting Pulse 62 Pulse Source Pulse Oximeter Intake Visit Reasons: 4 month follow up Intake Note: 4 mth f/up [employer] Required: No Accompanied by: Friend Allergies codeine [CODEINE] Allergy (Unknown, Verified 04/11/24 07:14) HALLUCINATIONS Medication List - Last Reconciled 05/14/24 by Thomas Reeder MD acetaminophen (Tylenol) 325 mg PO QID PRN hydrochlorothiazide 25 mg PO QAM lovastatin 20 mg PO BEDTIME metoprolol succinate ER 25 mg PO DAILY@1200 pregabalin 25 mg PO BID pyridoxine (vitamin B6) 100 mg PO BEDTIME HPI Comments Details: Pleasant 88-year-old female who is here for follow-up. She has background history of moderate to severe aortic stenosis and liposarcoma the right pelvis. She is in pain due to liposarcoma all the time. She also has arthritis involving the neck and knees. She is very limited and has very poor functional status. Previous echocardiography which was done in July 2019 showed ejection fraction more than 70% with moderate to severe aortic stenosis. The valve area was 0.74 with a mean gradient of 31 mm Hg and dimensionless index of 0.3. Previously she was complaining of some palpitations and we added Toprol-XL and she is doing better with that. Denies chest pain or shortness of breath. Again her concerns are mostly related to musculoskeletal pain in the back and right leg. She also has neck arthritis and pain. 10/17/23: She returns for follow-up after cardiac catheterization. She has severe aortic valve stenosis by echocardiography. She has right knee arthritis which is really affecting her life currently and she gets significant pain. She underwent assessment by anesthesia and due to severe aortic valve stenosis she was deemed surgically high-risk and the procedure was canceled. I referred her for genicular artery embolization with new [facility] end[facility] which was successfully performed but she continues to have significant pain. She was referred to heart team for assessment for transcatheter aortic valve replacement and subsequent right knee replacement. She had cardiac catheterization done which did not show any coronary disease. She is waiting for CT TAVR protocol on Tuesday. Denying any chest pain or shortness of breath. No dizziness. 05/14/2024: She is here for follow-up. 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 She is doing better from the right knee pain but has been experiencing right hip pain. She has right pelvic liposarcoma. [facility] Medical History Pain of left mastoid Headache Neck pain Depression Yates's cyst Aortic stenosis Spinal stenosis of lumbar region Liposarcoma of lower extremity Nephrolithiasis Combined hyperlipidemia HTN (hypertension) Surgical History History of arthroscopy of right knee History of colonoscopy History of total abdominal hysterectomy History of appendectomy Family History Father Diabetes Mother No problems noted. Social History Household Members: Spouse Housing: House Are you a primary healthcare advisory services manager to a significant other at home: No Do you presently have visiting nurse or other home services: No Alcohol intake: never Patient Tobacco Use Status: Never used Tobacco Advance Directives Date on File: 11/24/22 service: No Current occupational status: retired Review of Systems Const Denies chills, Denies fatigue, Denies fever(s), Denies frequent falls, Denies weakness, Denies weight gain and Denies weight loss ENT Denies dizziness Card Denies chest pain, Denies leg edema, Denies lightheadedness, Denies palpitations, Denies dyspnea and Denies dyspnea on exertion Resp Denies cough, Denies dyspnea and Denies dyspnea on exertion GI Denies hematochezia Musc Denies abnormal gait, Denies muscle weakness, Denies numbness, Denies radiating pain into limb and Denies tingling Neuro Denies abnormal gait, Denies dizziness, Denies frequent falls, Denies numbness, Denies tingling and Denies weakness Endo Denies fatigue and Denies palpitations Physical Exam Vital Signs: Last Vital Signs Pulse 62 05/14/24 11:08 BP 130/60 05/14/24 11:08 BMI result Body Mass Index 26.5 GENERAL APPEARANCE: in no acute distress, pleasant. NECK: no carotid bruit, no jugular venous distention. SKIN: no suspicious lesions, warm and dry. HEART: Mild systolic murmur aortic area, regular rate and rhythm. LUNGS: clear to auscultation bilaterally. ABDOMEN: soft, nontender. EXTREMITIES: no edema. PERIPHERAL PULSES: equal. NEUROLOGIC: No gross deficits, AAO X 3 Assessment & Plan Assessment & Plan (1) Aortic stenosis: Code(s): I35.0 - Nonrheumatic aortic (valve) stenosis Category: Medical (2) HTN (hypertension): Code(s): I10 - Essential (primary) hypertension Category: Medical Plan 88-year-old female who is here for follow-up. She has known history of hypertension and severe aortic valve stenosis status post transcatheter aortic valve replacement. She also underwent right knee surgery at this stage. She has recovered well from that and is currently living in a nursing facility. She is quite sedentary there at this stage. She has right hip pain and is following with the primary care physician. She was given prednisone which she is taking currently. Unclear what is the cause of hips pain is-can be related to arthritis. Blood pressure control is good. She will discuss with the primary care physician and potentially Orthopedics if there is any treatable cause for the pain. Follow-up will be in 6 months. Thank you for allowing me to participate in the care of your patient. Please feel free to contact me if you have any questions. Coding Level of Care Code Est Pt Level 4 (11581) Diagnoses Aortic stenosis I35.0 HTN (hypertension) I10
--- OUTSIDE RECORDS SUMMARY | 2024-05-16 14:49 | XMS_ITS | Continuity of Care Document ---
Author Organization [facility] Address [address] [place] [address] [address] [place] [id number] Phone Care Team Providers Care Applications Manager Name Role Phone Bernarda Echevarria MD, FACS, RVT Unavailable Unavailable Allergies, Adverse Reactions, Alerts Substance Reaction Status Criticality codeine Active No Information Medications Medication Instructions Dosage Effective Dates (start - stop) Status Comments hydrochlorothiazide 12.5 mg capsule - Active Procedures Procedure Date Office/Outpt E&M Established 15 Mins Aug Duplex Scan-extrem Veins; Uni/ 23 Office/Oupt E&M New Pt 30 Mins 23 Advance Directives Directive Yes / No Effective Date File Name No Information Encounters Encounter Description Practice Location Reason(s) For Visit Diagnoses Date Provider Providers Copied on Encounter Office/Outpt E&M Established 15 Mins [facility], [address] [place] [address] [address], [place], [id number], tel:[phone] [place] - [place] Body mass index (BMI) 25.0-25.9, adultVenous insufficiency (chronic) (peripheral) 3 Tien JUAREZ FACS JESUS Tri[place]. [address] [facility] [address], [place], [address], [place]. tel:[phone] Referring Provider: David Ivy, [address], [place], [address]. tel:[phone] [facility], [address] [place] [address] [address], [place], [id number], tel:[phone] [facility] for f/u exam aft trtmt for cond oth than malig neoplmVenous insufficiency (chronic) (peripheral) 3 Tien JUAREZ FACS T GEOVANNI Bernarda Kong. [address] [place] [address], [place], [address], . tel:[phone] Referring Provider: David Ivy, [address] [place] [address] [facility], [place], [address]. tel:[phone] Office/Oupt E&M New Pt 30 Mins [facility], [address] [place] [address] [address], [place], [id number], tel:[phone] [facility] Venous insufficiency (chronic) (peripheral) 3 Tien JUAREZ FACS T RUFINO [address] Kong. [address] [place] [address], [place], [address], . tel:[phone] Referring Provider: David Ivy, [address] [place] [address] [facility], [place], [address]. tel:[phone] Family History Family Member Type Diagnosis Age At Onset No Information Payers Payer name Insurance type Covered constitution party ID Authoriza tion(s) Medicare ANUSHKA MARTINEZ [id number] [facility] [place] [id number] Social History Type Description Quantity Date Captured Comments Alcohol Use Details Unknown Caffeine Use Details Unknown Tobacco Use Status No Information Smoking Status Never Smoker Non-Smoking Tobacco Use Details : No Details Available : No Details Available Sex Female Vital Signs Date / Time: Height Weight BMI Pulse Rate Blood Pressure Temperature Respiratory Rate Body Surface Area Head Circumference Head Circ. Percentile Wt./Rito. Percentile BMI percentile Pulse Ox Inhaled Ox 1:20 PM 67.00 in 72.575 kg (160.00 lbs) 25.0 6 kg/m eter (2) 1.85 meter(2) Chief Complaint And Reason For Visit No Information Reason For Referral Reason For Referral No Information Plan Of Treatment Date Type Action Status Goal Weight-reducing diet educati on completed Goal Diet education completed Goal Diet education completed Referral Ordered: David Carson timeframe: 3 Months (related to Essential (primary) hypertension) ordered Referral Ordered: Weight management: Referral to physician timeframe: 3 Months (related to Body mass index (BMI) 25.0-25.9, adult) ordered History Of Present Illness Encounter Date Complaint History Of Prese nt Illness No Information Functional Status Date Functional Assessmen t No Information Instructions Date Instruction Additional Infor renato Weight monitoring Related to Bod y mass index [BMI] 25.0-25.9, adult Weight-reducing diet education R elated to Body mass index [BMI] 25.0-25.9, adult Diet education Related to Essen tial (primary) hypertension Exercise education Related to Es sential (primary) hypertension Lifestyle education Related to E ssential (primary) hypertension Diet education Related to Body mass index (BMI) 25.0-25.9, adult Giving Encouragement to exercise Related to Body mass index (BMI) 25.0-25.9, adult Lifestyle education Related to B tyler mass index (BMI) 25.0-25.9, adult Patient education booklet given Related to Venous insufficiency (chronic) (peripheral) Assessments Type Assessment Date assessment Body mass index [BMI] 25.0-25.9, adult assessment Venous insufficiency (chronic) ( peripheral) Patient Care Teams Name Effective Dates (start - stop) Status Members No Information
== END 2024-05-14 11:35 | disposition home or self-care (01) ==
PROVIDERS: PCP Internal Medicine Medical Oncology; Visit Provider Internal Medicine Cardiovascular Disease
DX: I35.0 Nonrheumatic aortic (valve) stenosis (principal); I10 Essential (primary) hypertension
CPT/HCPCS: 99214

== ENCOUNTER → 2024-05-14 10:50 | Outpatient (BNVA) | payer MEDICARE, SELFPAY | PROVIDERS: PCP Internal Medicine Medical Oncology; Visit Provider Internal Medicine Cardiovascular Disease | DX: I35.0 Nonrheumatic aortic (valve) stenosis (principal); I10 Essential (primary) hypertension | CPT/HCPCS: 99212 ==

== ENCOUNTER 2024-05-29 11:15 | Outpatient (AMB) | payer MEDICARE, SELFPAY ==
--- NOTE | 2024-05-29 11:20 | MHC.OFFWIV ---
Intake Vital Signs 05/29/24 11:21 Height 5 ft 6 in Weight 166 lb BMI 26.8 BP 128/70 Blood Pressure Location Rt brachial Position Sitting Pulse 84 Pulse Source Pulse Oximeter Temp 98.1 F Temp Source Oral Pulse Oximetry (%) 97 Oxygen Delivery Method Room Air Intake Visit Reasons: EP congested, cough, running nose Intake Note: Patient here for cough, congestion and runny nose that has been present for about 4-5 days. Patient Tobacco Use Status: Never used Tobacco Allergies codeine [CODEINE] Allergy (Unknown, Verified 05/29/24 11:48) HALLUCINATIONS Medication List - Last Reconciled 05/29/24 by Andrea Silva MD acetaminophen (Tylenol) 325 mg PO QID PRN azithromycin take 500 mg today (day 1), then 250 mg for 4 days (days 2-5) PO hydrochlorothiazide 25 mg PO QAM lovastatin 20 mg PO BEDTIME metoprolol succinate ER 25 mg PO DAILY@1200 pregabalin 25 mg PO BID pyridoxine (vitamin B6) 100 mg PO BEDTIME Do you need a note to return to daycare/school/sports/work: No HPI EP congested, cough, running nose HPI Details Patient presents for a sick visit. Reporting symptoms of sinus congestion, sore throat and difficulty swallowing. Low-grade fever. No family member is sick. No recent travel. Patient reports symptoms of malaise and fatigue. [facility] Medical History Pain of left mastoid Headache Neck pain Depression Yates's cyst Aortic stenosis Spinal stenosis of lumbar region Liposarcoma of lower extremity Nephrolithiasis Combined hyperlipidemia HTN (hypertension) Surgical History History of arthroscopy of right knee History of colonoscopy History of total abdominal hysterectomy History of appendectomy Family History Father Diabetes Mother No problems noted. Social History Household Members: Spouse Housing: House Are you a primary animal care technician to a significant other at home: No Do you presently have visiting nurse or other home services: No Alcohol intake: never Patient Tobacco Use Status: Never used Tobacco Advance Directives Date on File: 11/24/22 service: No Current occupational status: retired Physical Exam Vital Signs: Last Vital Signs Temp 98.1 F 05/29/24 11:21 Pulse 84 05/29/24 11:21 BP 128/70 05/29/24 11:21 Pulse Ox 97 05/29/24 11:21 Oxygen Delivery Method Room Air 05/29/24 11:21 BMI result Body Mass Index 26.8 Const General: cooperative and healthy appearing Nutritional Appearance: well nourished Orientation/consciousness: patient oriented x3 Limitations: no limitations HEENT Head: Yes normal to inspection Eyes General: appearance normal, both eyes and all related structures Neck Neck: Yes normal visual inspection Chest Chest palpation & inspection: normal palpation of entire chest wall Resp Effort & Inspection: normal respiratory effort Neuro General: patient oriented x3 Assessment & Plan Assessment & Plan (1) Upper respiratory tract infection: Code(s): J06.9 - Acute upper respiratory infection, unspecified Plan: Antibiotics ordered. Increase fluid intake. Tylenol for aches and pains. If symptoms worsen, follow-up here for a recheck. Medications: New azithromycin take 500 mg today (day 1), then 250 mg for 4 days (days 2-5) PO 6 tabs 0RF Coding Level of Care Code Est Pt Level 3 (53106) Diagnoses Upper respiratory tract infection J06.9
[2024-05-29 11:21] VITALS: BP 128/70; PULSE 84; TEMP 36.7; O2SAT 97; BMI 26.8
== END 2024-05-29 11:51 | disposition home or self-care (01) ==
PROVIDERS: PCP Internal Medicine Medical Oncology; Visit Provider Internal Medicine
DX: J06.9 Acute upper respiratory infection, unspecified (principal)

== ENCOUNTER → 2024-05-29 11:15 | Outpatient (BNVA) | payer MEDICARE, SELFPAY | PROVIDERS: PCP Internal Medicine Medical Oncology; Visit Provider Internal Medicine | DX: J06.9 Acute upper respiratory infection, unspecified (principal) | CPT/HCPCS: 99212 ==

== ENCOUNTER 2024-06-01 02:25 | Emergency (ER) | payer MEDICARE, SELFPAY ==
[2024-06-01] VITALS (8 sets, daily range): BP systolic 111–172; BP diastolic 54–84; PULSE 73–90; RESP 17–24; TEMP 36.4–37.2; O2SAT 94–98; BMI 26.7
--- NOTE | ~2024-06-01 | XR_ITS ---
EXAMINATION: XR HUMERUS, LEFT XR SHOULDER LEFT CLINICAL INFORMATION: trauma COMPARISON: None available. TECHNIQUE: AP and lateral views of the left humerus. 2 views left shoulder. FINDINGS: Diffuse osteopenia present. Comminuted fracture of the left proximal humerus, involving the greater tuberosity and surgical neck, significantly anteromedially displaced by an estimated 3.2 cm, and lateral posteriorly angulated. There may be a small amount of impaction as well measuring approximately 1.3 cm. The humeral head maintains articulation with the glenoid. There is soft tissue swelling of the upper arm and shoulder. No additional fractures or focal bony abnormalities. XR/XR shoulder LT min 2V IMPRESSION: 1. Comminuted, displaced, and angulated proximal left humeral fracture involving the greater tuberosity of the humeral head and surgical neck of the humerus. There is a small amount of override in addition. 2. Osteopenia. Electronically signed by: Colby Fernandez MD 06/01/2024 10:13 AM JUSTA SETHI
--- NOTE | ~2024-06-01 | CT_ITS ---
EXAMINATION: CT CHEST, ABDOMEN AND PELVIS WITHOUT CONTRAST CLINICAL INFORMATION: Fall. Pain. COMPARISON: CT abdomen performed 01/14/2023 TECHNIQUE: Multidetector volumetric CT imaging of the chest, abdomen and pelvis was done. Axial MIP volume rendering provided. Sagittal and coronal reformatted images were obtained. This CT examination was performed using dose optimization techniques as appropriate, variously including the following: *Automated exposure control *Adjustment of mA and/or kV according to patient size (this includes techniques or standardized protocols for targeted exams where dose is matched to indication/reason for exam; i.e. extremities or head) *Use of iterative reconstruction technique DLP: 1388 mGy-cm FINDINGS: DITCH DIGGER: Unremarkable. LUNGS: There is mild scarring or subsegmental atelectasis at both lung bases. The lungs are otherwise clear. MEDIASTINUM: The mediastinum is normal. CORONARY ARTERY CALCIFICATION: Moderate. PLEURA: There is no pleural effusion. No pleural mass or thickening. AXILLA: No lymphadenopathy. are unremarkable. LIVER, GALLBLADDER, AND BILIARY TREE: The liver is normal in size, shape, and attenuation. No focal hepatic lesion or biliary ductal dilatation is present. There are numerous gallstones within a mildly distended gallbladder. PANCREAS: Pancreatic calcifications are noted. SPLEEN: Unremarkable. ADRENAL GLANDS: Unremarkable. KIDNEYS AND URETERS: The right kidney is normal in size and attenuation as well as position. There is chronic left hydronephrosis to the level of the left ureteropelvic pelvic junction with thinning of the left renal cortex. BLADDER: Unremarkable. GASTROINTESTINAL TRACT: There is retained stool. There are diverticula of the descending and sigmoid colon without evidence for diverticulitis. The appendix is not confidently seen as a separate structure. There is a small hiatal hernia. ABDOMINAL WALL: No significant hernia is appreciated. LYMPH NODES: Normal. VASCULAR: There is atherosclerotic plaque of the abdominal aorta and proximal branches PELVIC VISCERA: Unremarkable. OSSEOUS STRUCTURES: The bony structures are osteopenic. There is diffuse thoracolumbar degenerative change with mild curvature to the left. There is bilateral moderate hip degenerative change. There is no evidence for acute fracture. There is a displaced comminuted fracture of the left humeral neck/head. CT/CT abdomen pelvis wo IV con IMPRESSION: Fleischner guidelines were followed. Electronically signed by: Marlo Adams MD 06/01/2024 06:22 AM EST
--- NOTE | ~2024-06-01 | XR_ITS ---
EXAMINATION: XR HUMERUS, LEFT XR SHOULDER LEFT CLINICAL INFORMATION: trauma COMPARISON: None available. TECHNIQUE: AP and lateral views of the left humerus. 2 views left shoulder. FINDINGS: Diffuse osteopenia present. Comminuted fracture of the left proximal humerus, involving the greater tuberosity and surgical neck, significantly anteromedially displaced by an estimated 3.2 cm, and lateral posteriorly angulated. There may be a small amount of impaction as well measuring approximately 1.3 cm. The humeral head maintains articulation with the glenoid. There is soft tissue swelling of the upper arm and shoulder. No additional fractures or focal bony abnormalities. XR/XR humerus LT IMPRESSION: 1. Comminuted, displaced, and angulated proximal left humeral fracture involving the greater tuberosity of the humeral head and surgical neck of the humerus. There is a small amount of override in addition. 2. Osteopenia. Electronically signed by: Colby Fernandez MD 06/01/2024 10:13 AM [facility]
--- NOTE | ~2024-06-01 | CT_ITS ---
EXAMINATION: CT HEAD WITHOUT CONTRAST CT CERVICAL SPINE WITHOUT CONTRAST CLINICAL INFORMATION: Fall. Trauma. Pain. COMPARISON: April 11, 2024 TECHNIQUE: Contiguous axial imaging was performed through the head and cervical spine without intravenous administration of contrast. Sagittal and coronal reformatted images also obtained. This CT examination was performed using dose optimization techniques as appropriate, variously including the following: *Automated exposure control *Adjustment of mA and/or kV according to patient size (this includes techniques or standardized protocols for targeted exams where dose is matched to indication/reason for exam; i.e. extremities or head) *Use of iterative reconstruction technique DLP: 1081 mGy-cm FINDINGS: There is cerebral volume loss with prominence of the lateral and the third ventricles. The cortical sulci are widened appropriately. The fourth ventricle and basal cisterns are normally outlined. There is moderate bilateral periventricular and central white matter diminished attenuation. There are old bilateral basal ganglia and left thalamic lacunar infarcts. There is no acute territorial defects, hemorrhage or midline shift. The extra-axial spaces are unremarkable. Calvarium/scalp: Intact. Maxillofacial sinuses and mastoids: There is inferior frontal and ethmoid sinus mucosal thickening. There is also bilateral maxillary sinus mucosal thickening. The mastoids are clear. Cervical spine: The alignment is within normal limits. There is diffuse mild to moderate cervical disc degenerative change with loss of disc space, endplate change and posterior osteophytes associated with diffuse moderate facet osteoarthritic hypertrophic change with multilevel mild spinal canal and multilevel mild neural foraminal narrowing. The bony structures are osteopenic. There is no fracture. The soft tissues are unremarkable. CT/CT head/brain wo IV con IMPRESSION: 1. No acute intracranial process seen. 2. Moderate cerebral volume loss with chronic small vessel ischemic changes. 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 3. No acute cervical spine abnormality seen. Electronically signed by: Marlo Adams MD 06/01/2024 06:04 AM [facility]
--- NOTE | ~2024-06-01 | CT_ITS ---
EXAMINATION: CT CHEST, ABDOMEN AND PELVIS WITHOUT CONTRAST CLINICAL INFORMATION: Fall. Pain. COMPARISON: CT abdomen performed 01/14/2023 TECHNIQUE: Multidetector volumetric CT imaging of the chest, abdomen and pelvis was done. Axial MIP volume rendering provided. Sagittal and coronal reformatted images were obtained. This CT examination was performed using dose optimization techniques as appropriate, variously including the following: *Automated exposure control *Adjustment of mA and/or kV according to patient size (this includes techniques or standardized protocols for targeted exams where dose is matched to indication/reason for exam; i.e. 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 LUNGS: There is mild scarring or subsegmental atelectasis at both lung bases. The lungs are otherwise clear. MEDIASTINUM: The mediastinum is normal. CORONARY ARTERY CALCIFICATION: Moderate. PLEURA: There is no pleural effusion. No pleural mass or thickening. AXILLA: No lymphadenopathy. are unremarkable. LIVER, GALLBLADDER, AND BILIARY TREE: The liver is normal in size, shape, and attenuation. No focal hepatic lesion or biliary ductal dilatation is present. There are numerous gallstones within a mildly distended gallbladder. PANCREAS: Pancreatic calcifications are noted. SPLEEN: Unremarkable. ADRENAL GLANDS: Unremarkable. KIDNEYS AND URETERS: The right kidney is normal in size and attenuation as well as position. There is chronic left hydronephrosis to the level of the left ureteropelvic pelvic junction with thinning of the left renal cortex. BLADDER: Unremarkable. GASTROINTESTINAL TRACT: There is retained stool. There are diverticula of the descending and sigmoid colon without evidence for diverticulitis. The appendix is not confidently seen as a separate structure. There is a small hiatal hernia. ABDOMINAL WALL: No significant hernia is appreciated. LYMPH NODES: Normal. VASCULAR: There is atherosclerotic plaque of the abdominal aorta and proximal branches PELVIC VISCERA: Unremarkable. OSSEOUS STRUCTURES: The bony structures are osteopenic. There is diffuse thoracolumbar degenerative change with mild curvature to the left. There is bilateral moderate hip degenerative change. There is no evidence for acute fracture. There is a displaced comminuted fracture of the left humeral neck/head. CT/CT chest wo IV con IMPRESSION: Fleischner guidelines were followed. Electronically signed by: Marlo Adams MD 06/01/2024 06:22 AM [facility]
--- NOTE | ~2024-06-01 | CT_ITS ---
EXAMINATION: CT HEAD WITHOUT CONTRAST CT CERVICAL SPINE WITHOUT CONTRAST CLINICAL INFORMATION: Fall. Trauma. Pain. COMPARISON: April 11, 2024 TECHNIQUE: Contiguous axial imaging was performed through the head and cervical spine without intravenous administration of contrast. Sagittal and coronal reformatted images also obtained. This CT examination was performed using dose optimization techniques as appropriate, variously including the following: *Automated exposure control *Adjustment of mA and/or kV according to patient size (this includes techniques or standardized protocols for targeted exams where dose is matched to indication/reason for exam; i.e. extremities or head) *Use of iterative reconstruction technique DLP: 1081 mGy-cm FINDINGS: There is cerebral volume loss with prominence of the lateral and the third ventricles. The cortical sulci are widened appropriately. The fourth ventricle and basal cisterns are normally outlined. There is moderate bilateral periventricular and central white matter diminished attenuation. There are old bilateral basal ganglia and left thalamic lacunar infarcts. There is no acute territorial defects, hemorrhage or midline shift. The extra-axial spaces are unremarkable. Calvarium/scalp: Intact. Maxillofacial sinuses and mastoids: There is inferior frontal and ethmoid sinus mucosal thickening. There is also bilateral maxillary sinus mucosal thickening. The mastoids are clear. Cervical spine: The alignment is within normal limits. There is diffuse mild to moderate cervical disc degenerative change with loss of disc space, endplate change and posterior osteophytes associated with diffuse moderate facet osteoarthritic hypertrophic change with multilevel mild spinal canal and multilevel mild neural foraminal narrowing. The bony structures are osteopenic. There is no fracture. The soft tissues are unremarkable. CT/CT cervical spine wo IV con IMPRESSION: 1. No acute intracranial process seen. 2. Moderate cerebral volume loss with chronic small vessel ischemic changes. 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 3. No acute cervical spine abnormality seen. Electronically signed by: Marlo Adams MD 06/01/2024 06:04 AM [facility]
--- NOTE | ~2024-06-01 | XR_ITS ---
EXAMINATION: XR HIP, RIGHT CLINICAL INFORMATION: trauma COMPARISON: CT of the right hip 11/24/2022. CT abdomen and pelvis 06/01/2024. TECHNIQUE: Three views of the right hip. FINDINGS: There is osteopenia diffusely. There is an acute intertrochanteric right hip fracture with mild comminution, and impaction. There is resultant varus angulation of the joint. The right femoral head maintains normal contour although there are mild to moderate degenerative changes in the right hip joint. Femoral head compression screw screw with intramedullary dmitry in the left proximal femur, fixating an old left-sided hip fracture. No complication seen. Degenerative changes of the SI joints and lower lumbar spine. Sacral arches appear intact grossly. Soft tissues demonstrate diffuse vascular calcifications. XR/XR hip RT w PEL1V IMPRESSION: 1. Osteopenia. 2. Acute, comminuted right intertrochanteric hip fracture with resultant varus angulation of the hip joint. 3. Fixated old healed fracture of the left hip. Electronically signed by: Colby Fernandez MD 06/01/2024 09:23 AM [facility]
--- NOTE | ~2024-06-01 | XR_ITS ---
EXAMINATION: XR CHEST CLINICAL INFORMATION: preop COMPARISON: Chest CT dated earlier same day. 02/09/2016. TECHNIQUE: AP portable view of the chest was obtained. FINDINGS: Cardiac, hilar, and mediastinal contours are normal. The aorta is calcified. TAVR in place. Lungs are diffusely hyperaerated and hyperlucent, however clear. No pneumothorax or pleural effusion. There are mild degenerative changes in the shoulder joints and throughout the spine. XR/XR chest 1V IMPRESSION: 1. TAVR in place. 2. COPD. 3. No active superimposed disease. Electronically signed by: Colby Fernandez MD 06/01/2024 10:03 AM [facility]
[2024-06-01 03:34] LABS: Hematocrit 34.2 % (37.0-47.0); Hemoglobin 11.9 g/dl (12.0-16.0); Mean Corpuscular HGB Conc 34.8 g/dl (31.0-35.0); Mean Corpuscular Hemoglobin 32.7 pg (27.0-33.0); Mean Platelet Volume 10.1 fL (9.4-12.3); Platelet Count 196 X10*3/uL (160-400); Red Blood Count 3.64 X10*6/uL (4.20-5.50); Red Cell Distribution Width 12.8 % (11.0-16.0); White Blood Count 14.3 X10*3/uL (4.8-10.8)
--- NOTE | 2024-06-01 03:40 | ED_ITS ---
HPI - Fall General Chief Complaint: Fall Stated Complaint: SNF: Fall L hip oain L shoulder pain refused c col Time Seen by Provider: 06/01/24 03:33 Source: patient and EMS Mode of arrival: EMS Limitations: no limitations History of Present Illness ED Provider: DR. Bella HPI Narrative: 88-year-old female brought in by ambulance from [facility] for evaluation of a mechanical fall, patient slipped over a wet floor and fell, no head injury, patient is complaining of left shoulder pain, left hip pain, and back pain. No history of anticoagulation. Patient declined CP or SOB Related Data Home Medications ?Medication ?Instructions ?Recorded ?Confirmed lovastatin 20 mg tablet 20 mg PO BEDTIME 11/24/22 05/14/24 pregabalin 25 mg capsule 25 mg PO BID 11/24/22 05/14/24 Previous Rx's ?Medication ?Instructions ?Recorded hydrochlorothiazide 25 mg tablet 25 mg PO QAM #90 tabs 06/30/21 acetaminophen 325 mg capsule 325 mg PO QID PRN pain #20 caps 01/26/23 (Tylenol) pyridoxine (vitamin B6) 100 mg 100 mg PO BEDTIME #90 tabs 07/06/23 tablet metoprolol succinate 25 mg 25 mg PO DAILY@1200 #90 tabs 10/24/23 tablet,extended release 24 hr azithromycin 250 mg tablet See Rx Instructions PO .COMPLEX #6 05/29/24 tabs Allergies Allergy/AdvReac Type Severity Reaction Status Date / Time codeine [CODEINE] Allergy Unknown HALLUCINATI Verified 06/01/24 02:54 ONS Review of Systems 2 Review of Systems: All other systems are reviewed and are negative Constitutional: Reports as per HPI and Reports no additional constitutional complaints Eyes: Reports as per HPI and Reports no additional eye complaints Reports system reviewed and no additional complaints, except as documented Cardiovascular: Reports as per HPI and Reports no additional cardiovascular complaints Respiratory: Reports as per HPI and Reports no additional respiratory complaints Gastrointestinal: Reports as per HPI and Reports no additional gastrointestinal complaints Genitourinary: Reports no additional female genitourinary complaints Musculoskeletal: Reports no additional musculoskeletal complaints Skin/Breast: Reports system reviewed and no additional complaints, except as docu Psychiatric: Reports no additional psychiatric complaints Endocrine: Reports no additional endocrine complaints Hematologic/Lymphatic: Reports no additional hematologic/lymphatic complaints Allergic/Immunologic: Reports no additional allergic/immunologic complaints Reports system reviewed and no additional complaints, except as documented and Reports Abnormal speech present [facility] Past Medical History Medical History Pain of left mastoid Headache Neck pain Depression Yates's cyst Aortic stenosis Spinal stenosis of lumbar region Liposarcoma of lower extremity Nephrolithiasis Combined hyperlipidemia HTN (hypertension) Surgical History History of arthroscopy of right knee History of colonoscopy History of total abdominal hysterectomy History of appendectomy Family History Family History Father Diabetes Mother No problems noted. Social History Social History Household Members: Spouse Housing: House Are you a primary resident care aid to a significant other at home: No Do you presently have visiting nurse or other home services: No Alcohol intake: never Patient Tobacco Use Status: Never used Tobacco Advance Directives: Yes Advance Directives on File: Yes Advance Directives Date on File: 11/24/22 service: No Current occupational status: retired Physical Exam 2 Vital Signs: Vital Signs: Last Vital Signs Temp 97.6 F 06/01/24 02:47 Pulse 73 06/01/24 02:47 Resp 20 06/01/24 02:47 BP 172/75 H 06/01/24 02:47 Pulse Ox 97 06/01/24 02:47 O2 Del Method Room Air 06/01/24 02:47 BMI result Body Mass Index 26.7 Vital signs have been reviewed and appear to be correct. Blood pressure elevated. Heart rate normal. Respiratory rate normal. Temperature normal. Oxygen saturation normal. Appearance: Alert. Oriented X3. No acute distress. Head: Normal external exam. Normocephalic. Atraumatic. No Villar signs noted. No raccoon eyes noted Eyes: PERRLA. EOMI. Conjunctiva and sclera normal. Eyelids normal. ENT: TM's Normal. Pharynx normal. Uvula midline. Moist mucous membranes. No trismus noted. No drooling noted. No muffled voice noted. Neck: Normal inspection. Neck supple. FROM. No adenopathy. Thyroid Normal. No meningeal signs. No neck mass noted. CVS: Normal heart rate and rhythm. Heart sound normal. No murmurs noted. Pulses normal throughout. Respiratory: No respiratory distress. Painless inspiration. Breath sounds normal. No wheezes/rales/rhonchi noted. Chest nontender. No accessory muscle usage noted or decreased air movement noted. Abdomen: Soft and nontender. Bowel sounds normal in all 4 quadrants. No distention noted. No organomegaly noted. No visible injury noted. Back: No CVA tenderness. Full range of motion noted. Skin: Skin warm and dry. Normal skin color. Normal skin turgor. No rashes/lesions/lacerations noted. Extremities: Left shoulder: Tenderness to percussion, left upper extremity neurovascular exam is intact, left hip with tenderness. Neuro: Oriented X 3. Cranial nerve exam: II-XII are grossly intact No motor deficit. No sensory deficit. Reflexes normal. Course Reevaluation(s) Reevaluation #1: [facility] complaining of left shoulder pain, and back pain. CT head/cervical spine/chest/abdomen and pelvis reveals left humerus head fracture. Will start physician observation/PT/CM/pain control. Patient currently in independent living facility may need short-term rehab. Time: 06:44 Medical Decision Making Differential Diagnosis Differential Diagnoses: The differential diagnosis associated with the presentation includes (Intracranial bleed, cervical spine injury, extremity injury, chest trauma, abdominal trauma, pelvic trauma, electrolyte derangement, severe anemia.) Admission/Observation Consideration of admission/observation: Escalation of care including admission/observation considered Lab Data MDM Lab Attestation statement: I reviewed the patient's lab results. 06/01/24 03:28 06/01/24 03:28 Labs: Lab Results 06/01/24 Range/Units 03:28 WBC 14.3 H (4.8-10.8) X10*3/uL RBC 3.64 L (4.20-5.50) X10*6/uL Hgb 11.9 L (12.0-16.0) g/dl Hct 34.2 L (37.0-47.0) % MCV 94.0 (80.0-98.0) fL MCH 32.7 (27.0-33.0) pg MCHC 34.8 (31.0-35.0) g/dl RDW 12.8 (11.0-16.0) % Plt Count 196 (160-400) X10*3/uL MPV 10.1 (9.4-12.3) fL Absolute Nucleated RBC 0.000 (0.0-0.012) X10*3/uL Nucleated RBC % (auto) 0.0 (0.0-0.2) /100WBC Sodium 139 (135-145) mmol/L Potassium 3.7 (3.3-5.1) mmol/L Chloride 101 (96-108) mmol/L Carbon Dioxide 26 (22-29) mmol/L Anion Gap 16 (12-20) BUN 22 H (9-16) mg/dL Creatinine 0.86 (0.5-1.4) mg/dL Estim Creat Clear Calc 48.5 Estimated GFR > 60 Random Glucose 228 H (60-115) mg/dL Calcium 8.9 D (8.4-10.2) mg/dL Troponin I High Sens 9.4 (<3.5-17.0) ng/L Independent Interpretation I performed an independent interpretation of an: CT Scan (Head/C- spine/chest/abdomen/pelvis:OSSEOUS STRUCTURES: The bony structures are osteopenic. There is diffuse thoracolumbar degenerative change with mild curvature to the left. There is bilateral moderate hip degenerative change. There is no evidence for acute fracture. There is a displaced comminut) Radiology Impression Discussion of test interpretation with radiology: I have reviewed the radiologist's reading. Discharge Plan Discharge Clinical Impression: Fall, Closed fracture of head of left humerus, Contusion of back Patient Disposition: Still a Patient Prescriptions: No Action hydrochlorothiazide 25 mg tablet 25 mg PO QAM Qty: 90 3RF metoprolol succinate 25 mg tablet extended release 24 hr 25 mg PO DAILY@1200 Qty: 90 1RF pregabalin 25 mg capsule 25 mg PO BID lovastatin 20 mg tablet 20 mg PO BEDTIME acetaminophen [Tylenol] 325 mg capsule 325 mg PO QID PRN (Reason: pain) Qty: 20 0RF pyridoxine (vitamin B6) 100 mg tablet 100 mg PO BEDTIME Qty: 90 3RF azithromycin 250 mg tablet See Rx Instructions PO .COMPLEX Qty: 6 0RF Rx Instructions: take 500 mg today (day 1), then 250 mg for 4 days (days 2-5) PO Print Language: Fijian
[2024-06-01 03:48] LABS: Anion Gap 16 (12-20); Blood Urea Nitrogen 22 mg/dL (9-16); Calcium 8.9 mg/dL (8.4-10.2); Carbon Dioxide 26 mmol/L (22-29); Chloride 101 mmol/L (96-108); Creatinine Clr Calc Pharmacy 48.5; Estimated Glomerular Filt Rate > 60; Glucose Random 228 mg/dL (60-115); Potassium 3.7 mmol/L (3.3-5.1); Sodium 139 mmol/L (135-145)
[2024-06-01 03:53] LABS: Troponin-I High Sensitivity 9.4 ng/L (<3.5-17.0)
--- NOTE | 2024-06-01 08:00 | PC.NURSE ---
This RN was called to pt.'s room at appx. 07:55, staff member screaming I need help in here! Pt. was found down on the ground, laying on her right hip. Pt. appeared to be seizing or having some seizure-like activity- eyes were rolled back, shaking. Per oral surgeon, pt. was sitting on the commode, eyes were noted to roll back, then pt. fell forward onto the ground and started seizing. oral surgeon states that pt. did not have a HS. Pt. moved back onto stretcher with ED staff x4. VSS, pt. c/o R hip pain. Once laying flat on stretcher, pt. noted to have external rotation to the R hip. POC glucose taken and Troponin sent, IV access x2 placed, medication with 2mg IV Morphine and 1.5g IV Keppra, x-rays ordered of chest, R hip, L humerus, L shoulder. Pt.'s son at bedside moments later and updated by this RN and Sherif Bashir MD.
--- NOTE | 2024-06-01 08:05 | PC.NURSE ---
Pt. out of room and taken to x-ray at this time
--- NOTE | 2024-06-01 08:07 | ECG_ITS ---
Test Reason : SEIZURE Blood Pressure : / mmHG Vent. Rate : 083 BPM Atrial Rate : 083 BPM P-R Int : 180 ms QRS Dur : 126 ms QT Int : 460 ms P-R-T Axes : 087 -01 105 degrees QTc Int : 540 ms Normal sinus rhythm Left bundle branch block Abnormal ECG When compared to the previous EKG of Left bundle branch block is new Referred By: Davonte Bashir Electronically Signed By:JIM LA MD
[2024-06-01 08:10] LABS: Glucose, Whole Blood 207 mg/dL (60-115)
[2024-06-01] MEDS: levETIRAcetam in NaCl (iso-os) 1,500 MG/100 ML PIGGYBACK 400 MG IV (08:17)
[2024-06-01] MEDS: Morphine Sulfate 2 MG/ML CARTRIDGE IVPUSH (08:25)
--- NOTE | 2024-06-01 08:25 | PC.NURSE ---
Pt. medicated per MAR with 2mg IV Morphine
[2024-06-01 08:44] LABS: Troponin-I High Sensitivity 16.7 ng/L (<3.5-17.0)
--- NOTE | 2024-06-01 09:00 | PC.NURSE ---
Pt. returned from all x-rays. Resting comfortably in bed at this time. Pillows and additional blankets given for comfort. Respirations equal and unlabored.
--- NOTE | 2024-06-01 09:54 | P.HPOP_ITS ---
History of Present Illness History of Present Illness Date of Service: 06/01/24 Chief complaint: SNF: Fall L hip oain L shoulder pain refused c col Narrative: Torri Oliva is a 88 year old female with a PMH significant for aortic stenosis, recently underwent aortic valve replacement earlier this year, HLD, HTN, prior left hip IM Nail, and TKA who presented from her rehab facility to the ED for a mechanical fall after she slipped and fell. Patient was complaining of left hip and left shoulder pain. No anticoagulation use. X-rays were obtained at this time and the patient was found to have a left proximal humerus fracture. CT of the abdomen was also obtained and read as negative for any osseous abnormalities. She was awaiting P.T. eval for safe discharge. While in the ED the patient requested to use the bathroom and when attempting to ambulate the patient sustained a seizure and fell to the floor. She complained of right hip pain. Additional x-rays were obtained and she was found to have a left hip intertrochanteric fracture. Orthopedics was consulted for further evaluation and treatment. Of note, the CT obtained from admission was also reviewed by orthopedic's and the patient was found to have left superior and inferior pubic rami fractures prior to her secondary fall in the ED. Review of Systems 2 Review of Systems: Yes all other systems are reviewed and are negative PMFSH Past Medical History Medical History Pain of left mastoid Headache Neck pain Depression Yates's cyst Aortic stenosis Spinal stenosis of lumbar region Liposarcoma of lower extremity Nephrolithiasis Combined hyperlipidemia HTN (hypertension) Family History Family History Father Diabetes Mother No problems noted. Surgical History Surgical History History of arthroscopy of right knee History of colonoscopy History of total abdominal hysterectomy History of appendectomy Social History Social History Household Members: Spouse Housing: House Are you a primary critical care unit nurse to a significant other at home: No Do you presently have visiting nurse or other home services: No Alcohol intake: never Patient Tobacco Use Status: Never used Tobacco Smoked in Last 30 Days: No Use of substances other than those prescribed or required for medical reasons: No Advance Directives: Yes Advance Directives on File: Yes Advance Directives Date on File: 11/24/22 service: No Current occupational status: retired Meds Allergies Allergy/AdvReac Type Severity Reaction Status Date / Time codeine [CODEINE] Allergy Unknown HALLUCINATI Verified 06/01/24 02:54 ONS Home Medications ?Medication ?Instructions ?Recorded ?Confirmed ?Last Taken ?Type lovastatin 20 mg tablet 20 mg PO BEDTIME 11/24/22 05/14/24 Unknown History pregabalin 25 mg capsule 25 mg PO BID 11/24/22 05/14/24 Unknown History Physical Exam 2 Vital Signs: Vital Signs: Last Vital Signs Temp 98.9 F 06/01/24 06:52 Pulse 80 06/01/24 06:52 Resp 18 06/01/24 08:25 BP 137/64 06/01/24 06:52 Pulse Ox 95 06/01/24 06:52 O2 Del Method Room Air 06/01/24 06:52 BMI result Body Mass Index 26.7 Const: General: cooperative, healthy appearing and no acute distress Resp: Effort & Inspection: normal respiratory effort and able to speak in complete sentences Cardio: Rate: regular rate Peripheral pulses: Peripheral pulses 2+ throughout GI: Palpation (GI): Soft to palpation Skin: Lesions: no lesions Rashes: no rashes Extrem: Other: RLE is shortened and externally rotated. LUE held in internal rotation. Results Labs 06/01/24 03:28 06/01/24 03:28 Labs: Abnormal lab results 06/01/24 06/01/24 Range/Units 03:28 08:05 WBC 14.3 H (4.8-10.8) X10*3/uL RBC 3.64 L (4.20-5.50) X10*6/uL Hgb 11.9 L (12.0-16.0) g/dl Hct 34.2 L (37.0-47.0) % BUN 22 H (9-16) mg/dL POC Glucose 207 H (60-115) mg/dL Random Glucose 228 H (60-115) mg/dL H & H 06/01/24 Range/Units 03:28 Hgb 11.9 L (12.0-16.0) g/dl Hct 34.2 L (37.0-47.0) % All other labs normal. Assessment and Plan (1) Fracture of left superior pubic ramus: Status: Acute (2) Fracture of left inferior pubic ramus: Status: Acute (3) Closed fracture of left proximal humerus: Status: Acute (4) Intertrochanteric fracture of right hip: Status: Acute (5) Fall: Qualifiers: Encounter type: initial encounter Qualified Code(s): W19.XXXA - Unspecified fall, initial encounter Status: Acute Initially the patient had a CT scan that was obtained of the pelvis and was read as no osseous abnormalities. After patient sustained the fall in the ED after seizure X-rays of the pelvis and hip were obtained and she was found to have an intertrochanteric hip fracture. Orthopedics was then consulted for further evaluation and treatment. Upon further evaluation of the abdominal CT and pelvis x-rays the patient was found to have a vertical sheer fracture of the left pelvis that was present on initial films obtained when the patient initially presented to the ED. It was recommended that the patient be transferred to a tertiary care facility for further evaluation and treatment of the unstable pelvic fracture. Additionally she will require operative fixation of the right intertrochanteric hip fracture with intramedullary nailing. I discussed the case with Dr. So who was in agreement with my assessment and treatment plan. Dr. Bashir is aware and will arrange transfer. Left proximal humerus fracture: Sling, able to perform gentle ROM at the elbow hand and wrist. May come out of the sling and let the arm hang to assist with alignment and muscle relaxation. Quality Stroke Does the patient have a stroke diagnosis?: No VTE Prior VTE?: No VTE Risk Level:: Medical - moderate - high VTE Device Contraindication: N/A - Device Ordered VTE Drug Contraindication: N/A - Med Ordered Procedures Date of Service Date of Service: 06/01/24
--- NOTE | 2024-06-01 11:12 | PC.NURSE ---
Per verbal orders of Sherif Bashir MD - please place Jaffe catheter on pt. d/t R-sided hip fracture 16Fr Jaffe placed with 400ccs yellow urine output
[2024-06-01] MEDS: Morphine Sulfate 4 MG/ML CARTRIDGE IVPUSH (11:18)
--- NOTE | 2024-06-01 11:18 | PC.NURSE ---
Pt. medicated per MAR with 4mg IV Morphine. Son remains at bedside, updated him with pt.'s plan of care. Son expresses verbal gratitude
[2024-06-01] MEDS: 0.9 % Sodium Chloride 1,000 ML 999 ML IVCONT (11:20)
--- NOTE | 2024-06-01 11:58 | PC.NURSE ---
VSS, pt. verbalizes that she is having no pain at this time. Respirations equal and unlabored. Remains on rn cardiac rehab and continuous SPO2 monitor at this time. Family also remains at bedside at this time.
--- NOTE | 2024-06-01 12:03 | PC.NURSE ---
Report given to [facility] for pt. transport to [facility] ED
--- NOTE | 2024-06-01 12:04 | PC.NURSE ---
Three attempts to call [facility] ED. No one is answering at this time
--- NOTE | 2024-06-01 12:09 | PC.NURSE ---
Mark Oliva (son) - [phone] Mark is wondering about pt.'s belongings. This RN told Mark that in report, I was told that pt. arrived to ED very soiled. Explained to son that d/t pt. being soiled and the fact that she was injured, her clothing was likely cut off and thrown away, but that we will save his number and call him if we do come across any belongings.
--- NOTE | 2024-06-01 12:14 | PC.NURSE ---
Attempt to call [facility] again (4th attempt)- no answer
--- NOTE | 2024-06-01 12:20 | PC.NURSE ---
5th and 6th attmepts to call [facility] Emergency Department
--- NOTE | 2024-06-01 12:27 | PC.NURSE ---
Report called to Nicholas Hdz RN at [facility] Emergency Department
== END 2024-06-01 12:29 | disposition short-term general hospital (02) ==
PROVIDERS: Emergency Medicine; Emergency Provider Emergency Medicine
DX: S32.512A Fracture of superior rim of left pubis, initial encounter for closed fracture (principal); S32.592A Other specified fracture of left pubis, initial encounter for closed fracture; S42.202A Unspecified fracture of upper end of left humerus, initial encounter for closed fracture; S72.141A Displaced intertrochanteric fracture of right femur, initial encounter for closed fracture; S22.089A Unspecified fracture of T11-T12 vertebra, initial encounter for closed fracture; S20.229A Contusion of unspecified back wall of thorax, initial encounter; W01.0XXA Fall on same level from slipping, tripping and stumbling without subsequent striking against object, initial encounter; Y93.9 Activity, unspecified; Y92.230 Patient room in hospital as the place of occurrence of the external cause; Y92.099 Unspecified place in other non-institutional residence as the place of occurrence of the external cause; Y99.9 Unspecified external cause status; G40.409 Other generalized epilepsy and epileptic syndromes, not intractable, without status epilepticus; M25.512 Pain in left shoulder; M25.552 Pain in left hip; M54.9 Dorsalgia, unspecified; I10 Essential (primary) hypertension; I35.0 Nonrheumatic aortic (valve) stenosis; E78.5 Hyperlipidemia, unspecified; Z79.899 Other long term (current) drug therapy
CPT/HCPCS: 36415; 70450; 71045; 71250; 72125; 73030; 73060; 73502; 74176; 80048; 82947; 84484; 85027; 93005; 96361; 96365; 96375; 96376; 99285; J1953; J2270

== ENCOUNTER → 2024-06-01 03:06 | Outpatient (BNV) | payer MEDICARE, SELFPAY | PROVIDERS: Emergency Provider Emergency Medicine; Visit Provider Physician Assistant | DX: S32.512A Fracture of superior rim of left pubis, initial encounter for closed fracture (principal); S32.592A Other specified fracture of left pubis, initial encounter for closed fracture; S42.202A Unspecified fracture of upper end of left humerus, initial encounter for closed fracture; S72.141A Displaced intertrochanteric fracture of right femur, initial encounter for closed fracture; W19.XXXA Unspecified fall, initial encounter | CPT/HCPCS: 99223 ==

== ENCOUNTER → 2024-06-01 08:05 | Outpatient (BNV) | payer MEDICARE, SELFPAY | PROVIDERS: Emergency Provider Emergency Medicine; Visit Provider Radiology Diagnostic Radiology | DX: S42.352A Displaced comminuted fracture of shaft of humerus, left arm, initial encounter for closed fracture (principal); J44.9 Chronic obstructive pulmonary disease, unspecified; S72.141A Displaced intertrochanteric fracture of right femur, initial encounter for closed fracture | CPT/HCPCS: 71045; 73030; 73060; 73502 ==

== ENCOUNTER → 2024-06-01 08:07 | Outpatient (BNV) | payer MEDICARE, SELFPAY | PROVIDERS: Emergency Provider Emergency Medicine; Visit Provider Internal Medicine Cardiovascular Disease | DX: I44.7 Left bundle-branch block, unspecified (principal) | CPT/HCPCS: 93010 ==

== ENCOUNTER → 2025-03-01 08:54 | Outpatient (REF) | payer MEDICARE, SELFPAY ==
--- NOTE | 2025-03-01 09:07 | CA_ITS ---
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 The visually estimated ejection fraction is >70%. - A bioprosthetic aortic valve is present. The prosthetic aortic valve appears to be functioning normally. - There is severe mitral annular calcification. Findings Procedure Information The study quality is limited by the patients inability to tolerate the test. Left Ventricle Normal left ventricular cavity size. The left ventricular systolic function is hyperdynamic. The visually estimated ejection fraction is >70%. There is no evidence of regional wall motion abnormalities. Evidence suggests grade I (mild) diastolic dysfunction. There is moderate septal asymmetric hypertrophy. Right Ventricle Normal right ventricular cavity size. There is mildly decreased right ventricular systolic function. Atria The left atrium is moderately dilated. The right atrium is normal in size. Aortic Valve A bioprosthetic aortic valve is present. The prosthetic aortic valve appears to be functioning normally. The aortic valve was not well visualized. The mean gradient is 5 mmHg. There is no aortic valve regurgitation. Mitral Valve There is severe mitral annular calcification. There is trace mitral valve regurgitation. There is no mitral valve stenosis. Pulmonic Valve The pulmonic valve is likely normal. Tricuspid Valve There is trace tricuspid valve regurgitation. There is no evidence of pulmonary hypertension. Great Vessels The aorta was not well visualized. Venous The inferior vena cava is normal in size and collapses greater than 50% with inspiration. Pericardium/Pleural There is no evidence of pericardial effusion. Prior Study Comparison No significant change compared to prior study dated: 12/13/2023. Measurements 2D Linear Measurements LVOT Diam: 1.80 3.0+(-)1.3 cm 2D Systolic Function EF 4C: 65.90 >55% Mitral Valve MV VTI: 0.38 MV Pk To: 1.18 MV Mn To: 0.86 MV Pk Grad: 6.00 MV Mn Grad: 3.00 MV Pk E: 0.94 MV PK A: 1.05 MV Decel Time: 224.00 E/A: 0.90 E'Lateral: 4.79 E'Medial: 4.57 E/E' Med: 20.60 E/E' Lat: 19.70 PHT: 66.00 MVA PHT: 3.33 MVA Continuity: 1.37 Decel Chambers: 4.21 Aortic Valve AoV Pk To: 1.52 AoV Mn To: 1.01 AoV VTI: 0.35 AoV Pk Grad: 9.00 Aov Mn Grad: 5.00 RICO Cont.VTI: 1.49 LVOT LVOT Pk To: 1.02 LVOT Mn To: 0.66 LVOT VTI: 0.21 LVOT Pk Grad: 4.00 LVOT Mn Grad: 2.00 LVOT Diam: 1.80 LVOT Area: 2.54 Diastolic Function MV Pk E: 0.94 MV Pk A: 1.05 E/A: 0.90 E'Medial: 4.57 E/E' Med: 20.60 E' Laterial: 4.79 E/E' Lat: 19.70 Right Ventricle TAPSE (mm): 19.20 TVS' To: 9.14 Tricuspid Valve TR Pk To: 2.29 TR Pk Grad: 21.00 RA Press: 3.00 RVSP: 24.00 Updated in Other Vendor System with Status of Final Man Hadley MD electronically signed on 03/04/2025 3:42:49 PM with status of Final
--- OUTSIDE RECORDS SUMMARY | 2025-03-01 09:31 | XMS_ITS | Encounter Summary ---
Author Organization [facility] Address [address] [place] [address] Care Team Providers Care Turbinated Bone Grinder Name Role Phone Gagan Miguel MD Primary Care Provider [phone] Encounter Details Date Type Department Care Team (Late st Contact Info) Description 05/02/2024 Lab Requisition [facility] - Main Lab [address] [place] [address] Gagan Miguel MD [address] [place] [id number] Essential (primary) hypertension Social History Tobacco Use Types Packs/Day Years Used Date Smoking Tobacco: Never Smokeless Tobacco: Never Alcohol Use Standard Drinks/Week Comments No 0 (1 standard drink = 0.6 oz pur e alcohol) Comments Unknown Sex and Gender Information Value Date Recorded Sex Assigned at Not on file Legal Sex Female 6:29 PM EST Gender Identity Not on file Sexual Orientation Not on file documented as of this encounter Plan of Treatment Not on file documented as of this encounter Procedures Procedure Name Priority Date/Time Associated Diagnosis Comments MAGNESIUM Routine 05/02/2024 4:27 AM EST Essential (primary) hypertension BASIC METABOLIC PANEL Routine 05/02/2024 4:27 AM EST Essential (primary) hypertension documented in this encounter Results * Magnesium (05/02/2024 4:27 AM EST) Magnesium 2.0 1.9 - 2.6 mg/dL LAB CHEMISTRY METHOD 05/02/2024 11:42 AM [facility] Blood Venous blood specimen / Unknown Venipuncture / Unknown 05/02/2024 4:27 AM EST 05/02/2024 9:51 AM EST us Gagan Miguel MD LAB BLOOD ORDERABLES Final Res ult [facility] [address] [place] [address], * (ABNORMAL) Basic metabolic panel (05/02/2024 4:27 AM EST) Sodium 139 133 - 145 mmol/L LAB CHEMISTRY METHOD 05/02/2024 11:42 AM [facility] Potassium 3.3(L) 3.5 - 5.5 mmol/L LAB CHEMISTRY METHOD 05/02/2024 11:42 AM [facility] Chloride 100 96 - 110 mmol/L LAB CHEMISTRY METHOD 05/02/2024 11:42 AM [facility] CO2 32 21 - 32 mmol/L LAB CHEMISTRY METHOD 05/02/2024 11:42 AM [facility] Anion Gap 7 3 - 11 LAB CHEMISTRY METHOD 05/02/2024 11:42 AM [facility] Glucose 124(H) 70 - 100 mg/dL LAB CHEMISTRY METHOD 05/02/2024 11:42 AM [facility] BUN 21 5 - 25 mg/dL LAB CHEMISTRY METHOD 05/02/2024 11:42 AM [facility] Creatinine 0.76 0.50 - 1.10 mg/dL LAB CHEMISTRY METHOD 05/02/2024 11:42 AM [facility] eGFR 75 >=60 mL/min/1. 73m2 LAB CHEMISTRY METHOD 05/02/2024 11:42 AM [facility] Comment:Calculation based on the Chronic Kidney Disease Epidemiology Collaboration (CKD-EPI) equation refit without adjustment for race. BUN/Creatinine Ratio 27.6 LAB CHEMISTRY METHOD 05/02/2024 11:42 AM EST [facility] Calcium 8.8 8.5 - 10.5 mg/dL LAB CHEMISTRY METHOD 05/02/2024 11:42 AM EST [facility] Blood Venous blood specimen / Unknown Venipuncture / Unknown 05/02/2024 4:27 AM EST 05/02/2024 9:51 AM EST us Gagan Miguel MD LAB BLOOD ORDERABLES Final Res ult [facility] [address] [place] [address], documented in this encounter Visit Diagnoses Diagnosis Essential (primary) hypertension Unspecified essential hypertension documented in this encounter Additional Health Concerns Infection Onset Date Last Indicated Resolved Time Respiratory Rule-Out 11/03/2024 11/02/2024 025 3:17 PM EDT documented as of this encounter Care Teams Turbinated Bone Grinder Relationship Specialty Start Date End Date Gagan Miguel MD [address] [place] [id number] PCP - General Internal Medicine 04/27/24 documented as of this encounter
--- OUTSIDE RECORDS SUMMARY | 2025-03-01 09:31 | XMS_ITS | Encounter Summary ---
Author Organization [facility] Address [address] [place] [address] Care Team Providers Care Manager Tax Name Role Phone Gagan Miguel MD Primary Care Provider [phone] Encounter Details Date Type Department Care Team (Late st Contact Info) Description 08/13/2024 Lab Requisition [facility] - Main Lab [address] [facility] [place] [address] Corey Leung MD [address] [place] [address] Hypokalemia Social History Tobacco Use Types Packs/Day Years [...] Procedure Name Priority Date/Time Associated Diagnosis Comments COMPLETE BLOOD COUNT Routine 08/13/2024 6:44 AM EDT Hypokalemia BASIC METABOLIC PANEL Routine 08/13/2024 6:44 AM EDT Hypokalemia documented in this encounter Results * (ABNORMAL) Basic metabolic panel (08/13/2024 6:44 AM EDT) Sodium 136 133 - 145 mmol/L LAB CHEMISTRY METHOD 08/13/2024 12:10 PM [facility] Potassium 3.6 3.5 - 5.5 mmol/L LAB CHEMISTRY METHOD 08/13/2024 12:10 PM [facility] Chloride 95(L) 96 - 110 mmol/L LAB CHEMISTRY METHOD 08/13/2024 12:10 PM [facility] CO2 31 21 - 32 mmol/L LAB CHEMISTRY METHOD 08/13/2024 12:10 PM [facility] Anion Gap 10 3 - 11 LAB CHEMISTRY METHOD 08/13/2024 12:10 PM [facility] Glucose 87 70 - 100 mg/dL LAB CHEMISTRY METHOD 08/13/2024 12:10 PM [facility] BUN 14 5 - 25 mg/dL LAB CHEMISTRY METHOD 08/13/2024 12:10 PM [facility] Creatinine 0.58 0.50 - 1.10 mg/dL LAB CHEMISTRY METHOD 08/13/2024 12:10 PM [facility] eGFR 87 >=60 mL/min/1. 73m2 LAB CHEMISTRY METHOD 08/13/2024 12:10 PM [facility] Comment:Calculation based on the Chronic Kidney Disease Epidemiology Collaboration (CKD-EPI) equation refit without adjustment for race. BUN/Creatinine Ratio 24.1 LAB CHEMISTRY METHOD 08/13/2024 12:10 PM [facility] Calcium 9.0 8.5 - 10.5 mg/dL LAB CHEMISTRY METHOD 08/13/2024 12:10 PM [facility] Blood Venous blood specimen / Unknown Venipuncture / Unknown 08/13/2024 6:44 AM EDT 08/13/2024 10:53 AM EDT us Corey Leung MD LAB BLOOD ORDERABLES Final Resul t [facility] [address] [place] [address], * (ABNORMAL) Complete blood count (08/13/2024 6:44 AM EDT) [facility] WBC 8.1 4.8 - 10.8 K/mcL LAB HEMET[facility] RBC 3.80 3.80 - 4.80 M/mcL LAB HEMETOLOGY METHOD [facility]24 [facility] Hemoglobin 11.8 11.5 - 16.0 g/dL LAB HEMETOLOGY METHOD 08/13/2024 12:03 PM [facility] Hematocrit 37.1 35.0 - 47.0 % LAB HEMETOLOGY METHOD 08/13/2024 12:03 PM [facility] MCV 96.6 79.0 - 98.0 FL LAB HEMETOLOGY METHOD 08/13/2024 12:03 PM [facility] MCH 30.7 27.0 - 32.0 pcg LAB HEMETOLOGY METHOD 08/13/2024 12:03 PM [facility] MCHC 31.8(L) 32.0 - 37.0 g/dL LAB HEMETOLOGY METHOD 08/13/2024 12:03 PM [facility] RDW 14.0 11.0 - 15.0 % LAB HEMETOLOGY METHOD 08/13/2024 12:03 PM [facility] Platelets 317 130 - 400 K/mcL LAB HEMETOLOGY METHOD 08/13/2024 12:03 PM [facility] MPV 10.2 7.0 - 11.0 FL LAB HEMETOLOGY METHOD 08/13/2024 12:03 PM [facility] NRBC 0.0 <1.0 % LAB HEMETOLOGY METHOD 08/13/2024 12:03 PM EDT [facility] NRBC Absolute 0.00 <0.10 K/mcL LAB HEMETOLOGY METHOD 08/13/2024 12:03 PM EDT [facility] Blood Venous blood specimen / Unknown Venipuncture / Unknown 08/13/2024 6:44 AM EDT 08/13/2024 10:53 AM EDT us Corey Leung MD LAB BLOOD ORDERABLES Final Resul t [facility] [address] [place] [address], documented in this encounter Visit Diagnoses Diagnosis Hypokalemia Hypopotassemia documented in this encounter Additional Health Concerns Infection Onset Date Last Indicated Resolved Time Respiratory Rule-Out 11/03/2024 11/02/2024 025 3:17 PM EDT documented as of this encounter Care Teams Manager Tax Relationship Specialty Start Date End Date Gagan Miguel MD [address] [place] [id number] PCP - General Internal Medicine 04/27/24 documented as of this encounter
--- OUTSIDE RECORDS SUMMARY | 2025-03-01 09:31 | XMS_ITS | Encounter Summary ---
Author Organization [facility] Address [address] [place] [address] Care Team Providers Care Rippler Name Role Phone Gagan Miguel MD Primary Care Provider [phone] Encounter Details Date Type Department Care Team (Late st Contact Info) Description 10/16/2024 Lab Requisition [facility] - Main Lab [address] [facility] [place] [address] Corey Leung MD [address] [place] [address] Metabolic encephalopathy; Nonrheumatic aortic (valve) stenosis; Type 2 diabetes mellitus without complications (CMS/HCC V24, CMS/HCC V28) Social History Tobacco Use Types Packs/Day Years [...] Associated Diagnosis Comments COMPLETE BLOOD COUNT Routine 10/17/2024 5:48 AM EDT Metabolic encephalopathy Nonrheumatic aortic (valve) stenosis Type 2 diabetes mellitus without complications (CMS/HCC V24, CMS/HCC V28) BASIC METABOLIC PANEL Routine 10/17/2024 5:48 AM EDT Metabolic encephalopathy Nonrheumatic aortic (valve) stenosis Type 2 diabetes mellitus without complications (CMS/[facility] V24, [facility] V28) documented in this encounter Results * (ABNORMAL) Basic metabolic panel (10/17/2024 5:48 AM EDT) Sodium 134 133 - 145 mmol/L LAB CHEMISTRY METHOD 10/17/2024 8:52 AM [facility] Potassium 4.2 3.5 - 5.5 mmol/L LAB CHEMISTRY METHOD 10/17/2024 8:52 AM [facility] Chloride 97 96 - 110 mmol/L LAB CHEMISTRY METHOD 10/17/2024 8:52 AM [facility] CO2 29 21 - 32 mmol/L LAB CHEMISTRY METHOD 10/17/2024 8:52 AM [facility] Anion Gap 8 3 - 11 LAB CHEMISTRY METHOD 10/17/2024 8:52 AM [facility] Glucose 121(H) 70 - 100 mg/dL LAB CHEMISTRY METHOD 10/17/2024 8:52 AM [facility] BUN 19 5 - 25 mg/dL LAB CHEMISTRY METHOD 10/17/2024 8:52 AM [facility] Creatinine 0.62 0.50 - 1.10 mg/dL LAB CHEMISTRY METHOD 10/17/2024 8:52 AM [facility] eGFR 85 >=60 mL/min/1. 73m2 LAB CHEMISTRY METHOD 10/17/2024 8:52 AM [facility] Comment:Calculation based on the Chronic Kidney Disease Epidemiology Collaboration (CKD-EPI) equation refit without adjustment for race. BUN/Creatinine Ratio 30.6 LAB CHEMISTRY METHOD 10/17/2024 8:52 AM [facility] Calcium 8.7 8.5 - 10.5 mg/dL LAB CHEMISTRY METHOD 10/17/2024 8:52 AM [facility] Blood Venous blood specimen / Unknown Venipuncture / Unknown 10/17/2024 5:48 AM EDT 10/17/2024 8:05 AM EDT us Corey Leung MD LAB BLOOD ORDERABLES Final Resul t [facility] [address] [place] [address], * (ABNORMAL) Complete blood count (10/17/2024 5:48 AM EDT) [facility] WBC 9.0 4.8 - 10.8 K/mcL LAB HEMETOLOGY METHOD 10/17/2024 8:40 AM EDT [facility] RBC 3.60(L) 3.80 - 4.80 M/mcL LAB HEMETOLOGY METHOD 10/17/2024 8:40 AM EDT [facility] Hemoglobin 11.4(L) 11.5 - 16.0 g/dL LAB HEMETOLOGY METHOD 10/17/2024 8:40 AM EDT [facility] Hematocrit 34.9(L) 35.0 - 47.0 % LAB HEMETOLOGY METHOD 10/17/2024 8:40 AM EDT [facility] MCV 96.1 79.0 - 98.0 FL LAB HEMETOLOGY METHOD 10/17/2024 8:40 AM EDT [facility] MCH 31.4 27.0 - 32.0 pcg LAB HEMETOLOGY METHOD 10/17/2024 8:40 AM EDT [facility] MCHC 32.7 32.0 - 37.0 g/dL LAB HEMETOLOGY METHOD 10/17/2024 8:40 AM EDT [facility] RDW 16.1(H) 11.0 - 15.0 % LAB HEMETOLOGY METHOD 10/17/2024 8:40 AM EDT [facility] Platelets 285 130 - 400 K/mcL LAB HEMETOLOGY METHOD 10/17/2024 8:40 AM EDT [facility] MPV 10.9 7.0 - 11.0 FL LAB HEMETOLOGY METHOD 10/17/2024 8:40 AM EDT [facility] NRBC 0.0 <1.0 % LAB HEMETOLOGY METHOD 10/17/2024 8:40 AM EDT [facility] NRBC Absolute 0.00 <0.10 K/mcL LAB HEMETOLOGY METHOD 10/17/2024 8:40 AM EDT [facility] Blood Venous blood specimen / Unknown Venipuncture / Unknown 10/17/2024 5:48 AM EDT 10/17/2024 8:05 AM EDT Corey Leung MD LAB BLOOD ORDERABLES Final Resul t [facility] [address] [place] [address], [place] [phone] documented in this encounter Visit Diagnoses Diagnosis Metabolic encephalopathy Nonrheumatic aortic (valve) stenosis Type 2 diabetes mellitus without complications (CMS/HCC V24, CMS/HCC V28) documented in this encounter Additional Health Concerns Infection Onset Date Last Indicated Resolved Time Respiratory Rule-Out 11/03/2024 11/02/2024 025 3:17 PM EDT documented as of this encounter Care Teams Rippler Relationship Specialty Start Date End Date Gagan Miguel MD [address] [place] [id number] PCP - General Internal Medicine 04/27/24 documented as of this encounter
--- OUTSIDE RECORDS SUMMARY | 2025-03-01 09:31 | XMS_ITS | Encounter Summary ---
Author Organization [facility] Address [address] [place] [address] Care Team Providers Care Labor Relations Or Personnel Negotiator Name Role Phone Gagan Miguel MD Primary Care Provider [phone] Encounter Details Date Type Department Care Team (Late st Contact Info) Description 09/27/2024 Lab Requisition [facility] - Main Lab 299 [facility] [place] [address] Corey Leung MD [address] [place] [address] Hypokalemia Social History Tobacco Use Types Packs/Day [...] Procedure Name Priority Date/Time Associated Diagnosis Comments BASIC METABOLIC PANEL Routine 09/28/2024 5:14 AM EDT Hypokalemia documented in this encounter Results * (ABNORMAL) Basic metabolic panel (09/28/2024 5:14 AM EDT) Sodium 138 133 - 145 mmol/L LAB CHEMISTRY METHOD 09/28/2024 12:16 PM EDT [facility] Potassium 3.7 3.5 - 5.5 mmol/L LAB CHEMISTRY METHOD 09/28/2024 12:16 PM [facility] Chloride 97 96 - 110 mmol/L LAB CHEMISTRY METHOD 09/28/2024 12:16 PM [facility] CO2 35(H) 21 - 32 mmol/L LAB CHEMISTRY METHOD 09/28/2024 12:16 PM [facility] Anion Gap 6 3 - 11 LAB CHEMISTRY METHOD 09/28/2024 12:16 PM [facility] Glucose 98 70 - 100 mg/dL LAB CHEMISTRY METHOD 09/28/2024 12:16 PM [facility] BUN 24 5 - 25 mg/dL LAB CHEMISTRY METHOD 09/28/2024 12:16 PM [facility] Creatinine 0.76 0.50 - 1.10 mg/dL LAB CHEMISTRY METHOD 09/28/2024 12:16 PM [facility] eGFR 75 >=60 mL/min/1. 73m2 LAB CHEMISTRY METHOD 09/28/2024 12:16 PM [facility] LAB Comment:Calculation based on the Chronic Kidney Disease Epidemiology Collaboration (CKD-EPI) equation refit without adjustment for race. BUN/Creatinine Ratio 31.6 LAB CHEMISTRY METHOD 09/28/2024 12:16 PM [facility] Calcium 8.8 8.5 - 10.5 mg/dL LAB CHEMISTRY METHOD 09/28/2024 12:16 PM [facility] Blood Venous blood specimen / Unknown Venipuncture / Unknown 09/28/2024 5:14 AM EDT 09/28/2024 8:54 AM EDT us Corey Leung MD LAB BLOOD ORDERABLES Final Resul t [facility] [address] [place] [address], documented in this encounter Visit Diagnoses Diagnosis Hypokalemia Hypopotassemia documented in this encounter Additional Health Concerns Infection Onset Date Last Indicated Resolved Time Respiratory Rule-Out 11/03/2024 11/02/2024 025 3:17 PM EDT documented as of this encounter Care Teams Labor Relations Or Personnel Negotiator Relationship Specialty Start Date End Date Gagan Miguel MD [address] [place] [id number] PCP - General Internal Medicine 04/27/24 documented as of this encounter
--- OUTSIDE RECORDS SUMMARY | 2025-03-01 09:31 | XMS_ITS | Encounter Summary ---
Author Organization [facility] Address [address] [place] [address] Care Team Providers Care Welder Setter Electron Beam Machine Name Role Phone Gagan Miguel MD Primary Care Provider [phone] Encounter Details Date Type Department Care Team (Late st Contact Info) Description 09/25/[address] [facility] - Main Lab [address] [facility] [place] [address] Corey Leung MD [address] [place] [address] Metabolic encephalopathy; Nonrheumatic aortic (valve) stenosis; Type [...] Associated Diagnosis Comments COMPLETE BLOOD COUNT Routine 09/26/2024 10:12 AM EDT Metabolic encephalopathy Nonrheumatic aortic (valve) stenosis Type 2 diabetes mellitus without complications (CMS/HCC V24, CMS/HCC V28) BASIC METABOLIC PANEL Routine 09/26/2024 10:12 AM EDT Metabolic encephalopathy Nonrheumatic aortic (valve) stenosis Type 2 diabetes mellitus without complications (CMS/[facility] V24, [facility] V28) documented in this encounter Results * (ABNORMAL) Basic metabolic panel (09/26/2024 10:12 AM EDT) Sodium 135 133 - 145 mmol/L LAB CHEMISTRY METHOD 09/26/2024 12:19 PM [facility] Potassium 3.6 3.5 - 5.5 mmol/L LAB CHEMISTRY METHOD 09/26/2024 12:19 PM [facility] Chloride 95(L) 96 - 110 mmol/L LAB CHEMISTRY METHOD 09/26/2024 12:19 PM [facility] CO2 33(H) 21 - 32 mmol/L LAB CHEMISTRY METHOD 09/26/2024 12:19 PM [facility] Anion Gap 7 3 - 11 LAB CHEMISTRY METHOD 09/26/2024 12:19 PM [facility] Glucose 208(H) 70 - 100 mg/dL LAB CHEMISTRY METHOD 09/26/2024 12:19 PM [facility] BUN 16 5 - 25 mg/dL LAB CHEMISTRY METHOD 09/26/2024 12:19 PM [facility] Creatinine 0.62 0.50 - 1.10 mg/dL LAB CHEMISTRY METHOD 09/26/2024 12:19 PM [facility] eGFR 85 >=60 mL/min/1. 73m2 LAB CHEMISTRY METHOD 09/26/2024 12:19 PM [facility] Comment:Calculation based on the Chronic Kidney Disease Epidemiology Collaboration (CKD-EPI) equation refit without adjustment for race. BUN/Creatinine Ratio 25.8 LAB CHEMISTRY METHOD 09/26/2024 12:19 PM [facility] Calcium 8.7 8.5 - 10.5 mg/dL LAB CHEMISTRY METHOD 09/26/2024 12:19 PM [facility] Blood Venous blood specimen / Unknown Venipuncture / Unknown 09/26/2024 10:12 AM EDT 09/26/2024 11:24 AM EDT Corey Leung MD LAB BLOOD ORDERABLES Final Resul t [facility] [address] [place] [address], * (ABNORMAL) Complete blood count (09/26/2024 10:12 AM EDT) WBC 8.5 4.8 - 10.8 K/mcL LAB HEMETOLOGY METHOD 09/26/2024 12:13 PM EDT [facility] RBC 3.70(L) 3.80 - 4.80 M/mcL LAB HEMETOLOGY METHOD 09/26/2024 12:13 PM EDT [facility] Hemoglobin 11.4(L) 11.5 - 16.0 g/dL LAB HEMETOLOGY METHOD 09/26/2024 12:13 PM EDT [facility] Hematocrit 35.0 35.0 - 47.0 % LAB HEMETOLOGY METHOD 09/26/2024 12:13 PM EDT [facility] MCV 95.1 79.0 - 98.0 FL LAB HEMETOLOGY METHOD 09/26/2024 12:13 PM EDT [facility] MCH 31.0 27.0 - 32.0 pcg LAB HEMETOLOGY METHOD 09/26/2024 12:13 PM EDT [facility] MCHC 32.6 32.0 - 37.0 g/dL LAB HEMETOLOGY METHOD 09/26/2024 12:13 PM [facility] RDW 16.0(H) 11.0 - 15.0 % LAB HEMETOLOGY METHOD 09/26/2024 12:13 PM [facility] Platelets 279 130 - 400 K/mcL LAB HEMETOLOGY METHOD 09/26/2024 12:13 PM EDT [facility] MPV 11.1(H) 7.0 - 11.0 FL LAB HEMETOLOGY METHOD 09/26/2024 12:13 PM EDT [facility] NRBC 0.0 <1.0 % LAB HEMETOLOGY METHOD 09/26/2024 12:13 PM EDT [facility] NRBC Absolute 0.00 <0.10 K/mcL LAB HEMETOLOGY METHOD 09/26/2024 12:13 PM EDT [facility] Blood Venous blood specimen / Unknown Venipuncture / Unknown 09/26/2024 10:12 AM EDT 09/26/2024 11:24 AM EDT us Corey Leung MD LAB BLOOD ORDERABLES Final Resul t [facility] [address] [place] [address], documented in this encounter Visit Diagnoses Diagnosis Metabolic encephalopathy Nonrheumatic aortic (valve) stenosis Type 2 diabetes mellitus without complications (CMS/HCC V24, CMS/HCC V28) documented in this encounter Additional Health Concerns Infection Onset Date Last Indicated Resolved Time Respiratory Rule-Out 11/03/2024 11/02/2024 025 3:17 PM EDT documented as of this encounter Care Teams Welder Setter Electron Beam Machine Relationship Specialty Start Date End Date Gagan Miguel MD [address] [place] [id number] PCP - General Internal Medicine 04/27/24 documented as of this encounter
--- OUTSIDE RECORDS SUMMARY | 2025-03-01 09:31 | XMS_ITS | Clinical Summary ---
Author Organization [address] Address [address] [place] [phone] Phone Care Team Providers Care Control Room Tender Name Role Phone Gagan Miguel MD Primary Care Provider [phone] Medications acetaminophen (TYLENOL) 500 mg tablet Take 2 tablets (1,000 mg total) by mouth every 8 (eight) hours. 30 tablet 03/08/2024 Active Encounters Date Type Department Care Team Description 02/26/2025 Lab Requisition [facility] [address] [place] [phone] Corey Leung MD Metabolic encephalopathy; Nonrheumatic aortic (valve) stenosis; Type 2 diabetes mellitus without complications ([facility] V24, [facility] V28) 02/19/2025 Lab Requisition [facility] [address] [place] [phone] Corey Leung MD Metabolic encephalopathy; Nonrheumatic aortic (valve) stenosis; Type 2 diabetes mellitus without complications ([facility] V24, [facility] V28) 02/12/2025 Lab Requisition [facility] [address] [place] [phone] Corey Leung MD Metabolic encephalopathy; Nonrheumatic aortic (valve) stenosis; Type 2 diabetes mellitus without complications ([facility] V24, [facility] V28) 02/05/2025 Lab Requisition [facility] [address] [place] [phone] Corey Leung MD Type 2 diabetes mellitus without complications ([facility] V24, [facility] V28); Nonrheumatic aortic (valve) stenosis; Metabolic encephalopathy 01/29/2025 Lab Requisition [facility] [address] [place] [phone] Corey Leung MD Metabolic encephalopathy; Nonrheumatic aortic (valve) stenosis; Type 2 diabetes mellitus without complications ([facility] V24, [facility] V28) 01/22/2025 Lab Requisition [facility] [address] [place] [phone] Corey Leung MD Metabolic encephalopathy; Nonrheumatic aortic (valve) stenosis; Type 2 diabetes mellitus without complications ([facility] V24, [facility] V28) 01/15/2025 Lab Requisition [facility] [address] [place] [phone] Corey Leung MD Metabolic encephalopathy; Nonrheumatic aortic (valve) stenosis; Type 2 diabetes mellitus without complications ([facility] V24, [facility] V28) 01/08/2025 Lab Requisition [facility] [address] [place] [phone] Corey Leung MD Metabolic encephalopathy; Nonrheumatic aortic (valve) stenosis; Type 2 diabetes mellitus without complications ([facility] V24, [facility] V28) 01/01/2025 Lab Requisition [facility] [address] [place] [phone] Corey Leung MD Metabolic encephalopathy; Nonrheumatic aortic (valve) stenosis; Type 2 diabetes mellitus without complications ([facility] V24, [facility] V28) 12/25/2024 Lab Requisition [facility] [address] [place] [phone] Corey Leung MD Metabolic encephalopathy; Nonrheumatic aortic (valve) stenosis; Type 2 diabetes mellitus without complications ([facility], [facility] V28) 12/18/2024 Lab Requisition [facility] [address] [place] [phone] Corey Leung MD Metabolic encephalopathy; Nonrheumatic aortic (valve) stenosis; Type 2 diabetes mellitus without complications ([facility] V24, [facility] V28) 12/11/2024 Lab Requisition [facility] [address] [place] [phone] Corey Leung MD Metabolic encephalopathy; Nonrheumatic aortic (valve) stenosis; Type 2 diabetes mellitus without complications ([facility] V24, [facility] V28) 12/10/2024 Lab Requisition [facility] [address] [place] [phone] Corey Leung MD Altered mental status, unspecified 12/04/2024 Lab Requisition [facility] [address] [place] [phone] Corey Leung MD Metabolic encephalopathy; Nonrheumatic aortic (valve) stenosis; Type 2 diabetes mellitus without complications ([facility] V24, [facility] V28) from Last 3 Months Immunizations Name Administration Dates Next Due Pfizer SARS-CoV-2 COVID-19, mRNA, LNP-S, preservative free 04/10/2021,08/05/2020,07/15/2020 Surgical History Surgery Date Site/Laterality Comments HYSTERECTOMY PROCEDURE:HYSTERECTOMY OTHER SURGICAL HISTORY PROCEDURE:ruptured tendon;COMMENT:left foot HIP SURGERY Left PROCEDURE:HIP SURGERY;COMMENT:FX SURGERY AORTIC VALVE REPLACEMENT 11/17/2023 PROCEDURE:AORTIC VALVE REPLACEMENT Medical History Medical History Date Comments Neuropathy DX:Neuropathy;CO MMENT:ble Spinal stenosis DX:Spinal stenos is Scoliosis DX:Scoliosis Degenerative disk disease DX:Deg enerative disk disease 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, [facility]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[facility]) Hypertension DX:Hypertension Hypercholesterolemia DX:Hypercho lesterolemia 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, [facility]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[facility]);COMMENT:of right pelvis- monitored Fracture, toe DX:Fracture, toe ;COMMENT:x2 Murmur DX:Murmur Aortic stenosis DX:Aortic stenos is;COMMENT:per pcp note Diabetes mellitus, type II ( [facility] V24, [facility] V28) DX:Diabetes mellitus, type I I ([facility]) Family History Medical History Relation Name Comments Diabetes Father Cancer Sister Relation Name Status Comments Father Sister Social History Tobacco Use Types Packs/Day Years Used Date Smoking Tobacco: Never Smokeless Tobacco: Never Alcohol Use Standard Drinks/Week Comments No 0 (1 standard drink = 0.6 oz pur e alcohol) Comments Unknown Sex and Gender Information Value Date Recorded Sex Assigned at Not on file Legal Sex Female 6:29 PM EST Gender Identity Not on file Sexual Orientation Not on file Obstetrics History Last Filed Vital Signs Vital Sign Reading Time Taken Comments Blood Pressure - - Pulse - - Temperature - - Respiratory Rate - - Oxygen Saturation - - Inhaled Oxygen Concentration - - Weight 74.8 kg (165 lb) 03/05/2024 7:08 AM EDT Height 170.2 cm (5' 7 ) 03/05/2024 7:08 AM EDT Body Mass Index 25.84 03/05/2024 7:08 AM EDT Plan of Treatment Health Maintenance Due Date Last Done Comments Diabetes: Annual Foot Exam 1945 Diabetes: Annual Retina Eye Exam 1945 DTaP,Tdap,and Td Vaccines (1 - Tdap) 1954 Pneumococcal Vaccine: 50+ Years (1 of 2 - PCV) 1954 Zoster Vaccines (1 of 2) 1985 RSV Immunization Adult Patients (1 - 1-dose 75+ series) 2010 Falls Risk Assessment 05/08/2022 Medicare Annual Wellness Visit 05/08/2022 Osteoporosis Screening (Bone Density Screening) 05/08/2022 Social Influencers of Health Screening 05/08/2022 Depression Screening 06/06/2024 Diabetes: Blood Sugar Control Test (HGBA1C) 12/25/2024 06/27/2024 COVID-19 Vaccine ( season) 2025 04/10/2021, 08/05/2020, 07/15/2020 Influenza Vaccine (#1) 2025 Hypertension/CHF/CAD Annual BMP Blood Test 02/27/2026 02/27/2025, 02/20/2025, 02/13/2025, Additional history exists Cholesterol Screening (Lipid Panel) 04/30/2029 04/30/2024 HIB Vaccines Aged Out No longer eligi ble based on patient's age to complete this topic HPV Vaccines Aged Out No longer eligi ble based on patient's age to complete this topic Hepatitis A Vaccines Aged Out No long er eligible based on patient's age to complete this topic Hepatitis B Vaccines Aged Out No long er eligible based on patient's age to complete this topic IPV Vaccines Aged Out No longer eligi ble based on patient's age to complete this topic MMR Vaccines Aged Out No longer eligi ble based on patient's age to complete this topic Meningococcal ACWY Vaccine Aged Out N o longer eligible based on patient's age to complete this topic Meningococcal B Vaccine Aged Out No l onger eligible based on patient's age to complete this topic RSV Immunization Patients Under 20 months Aged Out No longer eligible based on patient's age to complete this topic Varicella Vaccines Aged Out No longer eligible based on patient's age to complete this topic Medical Devices Implanted Type Area Valet Cashier Device Identifier Shelf Expiration Date Model / Serial / Lot Knee Fem Bsplt W Pa Stry-How [id number] Implanted:Qty: 1 on 03/05/2024 by Tony Chaudhary MD Right: Knee [employer] [id number] 12/18/2028 5517-F-502 / / [id number] Knee Bsplt Triathlon Ti Sz 5 Stry-How [id number] Implanted:Qty: 1 on 03/05/2024 by Tony Chaudhary MD Right: Knee [employer] [id number] 11/25/2028 5536-B-500 / / [id number] Tibial Bearing Insert Cs 12mm Stry-How [id number] Implanted:Qty: 1 on 03/05/2024 by Tony Chaudhary MD Right: Knee [employer] [id number] 04/23/2028 5531-G-512 -E / / [id number] Knee Ptla Asym Tritanium 29x9 [facility] [id number] Implanted:Qty: 1 on 03/05/2024 by Tony Chaudhary MD Right: Knee [employer] [id number] 12/09/2027 5552-L-299 / / [id number] Procedures Procedure Name Priority Date/Time Associated Diagnosis Comments BASIC METABOLIC PANEL Routine 02/27/2025 7:39 AM EDT Metabolic encephalopathy Nonrheumatic aortic (valve) stenosis Type 2 diabetes mellitus without complications (CMS/HCC V24, CMS/HCC V28) COMPLETE BLOOD COUNT Routine 02/27/2025 7:39 AM EDT Metabolic encephalopathy Nonrheumatic aortic (valve) stenosis Type 2 diabetes mellitus without complications (CMS/HCC V24, CMS/HCC V28) BASIC METABOLIC PANEL Routine 02/20/2025 6:22 AM EDT Metabolic encephalopathy Nonrheumatic aortic (valve) stenosis Type 2 diabetes mellitus without complications (CMS/HCC V24, CMS/HCC V28) COMPLETE BLOOD COUNT Routine 02/20/2025 6:22 AM EDT Metabolic encephalopathy Nonrheumatic aortic (valve) stenosis Type 2 diabetes mellitus without complications (CMS/HCC V24, CMS/HCC V28) BASIC METABOLIC PANEL Routine 02/13/2025 5:02 AM EDT Metabolic encephalopathy Nonrheumatic aortic (valve) stenosis Type 2 diabetes mellitus without complications (CMS/HCC V24, CMS/HCC V28) COMPLETE BLOOD COUNT Routine 02/13/2025 5:02 AM EDT Metabolic encephalopathy Nonrheumatic aortic (valve) stenosis Type 2 diabetes mellitus without complications (CMS/HCC V24, CMS/HCC V28) BASIC METABOLIC PANEL Routine 02/06/2025 5:15 AM EDT Type 2 diabetes mellitus without complications (CMS/HCC V24, CMS/HCC V28) Nonrheumatic aortic (valve) stenosis Metabolic encephalopathy COMPLETE BLOOD COUNT Routine 02/06/2025 5:15 AM EDT Type 2 diabetes mellitus without complications (CMS/HCC V24, CMS/HCC V28) Nonrheumatic aortic (valve) stenosis Metabolic encephalopathy BASIC METABOLIC PANEL Routine 01/30/2025 7:21 AM EDT Metabolic encephalopathy Nonrheumatic aortic (valve) stenosis Type 2 diabetes mellitus without complications (CMS/HCC V24, CMS/HCC V28) COMPLETE BLOOD COUNT Routine 01/30/2025 7:21 AM EDT Metabolic encephalopathy Nonrheumatic aortic (valve) stenosis Type 2 diabetes mellitus without complications (CMS/HCC V24, CMS/HCC V28) BASIC METABOLIC PANEL Routine 01/23/2025 7:35 AM EDT Metabolic encephalopathy Nonrheumatic aortic (valve) stenosis Type 2 diabetes mellitus without complications (CMS/HCC V24, CMS/HCC V28) COMPLETE BLOOD COUNT Routine 01/23/2025 7:35 AM EDT Metabolic encephalopathy Nonrheumatic aortic (valve) stenosis Type 2 diabetes mellitus without complications (CMS/HCC V24, CMS/HCC V28) BASIC METABOLIC PANEL Routine 01/16/2025 6:52 AM EDT Metabolic encephalopathy Nonrheumatic aortic (valve) stenosis Type 2 diabetes mellitus without complications (CMS/HCC V24, CMS/HCC V28) COMPLETE BLOOD COUNT Routine 01/16/2025 6:52 AM EDT Metabolic encephalopathy Nonrheumatic aortic (valve) stenosis Type 2 diabetes mellitus without complications (CMS/HCC V24, CMS/HCC V28) BASIC METABOLIC PANEL Routine 01/09/2025 6:55 AM EDT Metabolic encephalopathy Nonrheumatic aortic (valve) stenosis Type 2 diabetes mellitus without complications (CMS/HCC V24, CMS/HCC V28) COMPLETE BLOOD COUNT Routine 01/09/2025 6:55 AM EDT Metabolic encephalopathy Nonrheumatic aortic (valve) stenosis Type 2 diabetes mellitus without complications (CMS/HCC V24, CMS/HCC V28) BASIC METABOLIC PANEL Routine 01/02/2025 6:04 AM EDT Metabolic encephalopathy Nonrheumatic aortic (valve) stenosis Type 2 diabetes mellitus without complications (CMS/HCC V24, CMS/HCC V28) COMPLETE BLOOD COUNT Routine 01/02/2025 6:04 AM EDT Metabolic encephalopathy Nonrheumatic aortic (valve) stenosis Type 2 diabetes mellitus without complications (CMS/HCC V24, CMS/HCC V28) BASIC METABOLIC PANEL Routine 12/26/2024 6:23 AM EDT Metabolic encephalopathy Nonrheumatic aortic (valve) stenosis Type 2 diabetes mellitus without complications (CMS/HCC V24, CMS/HCC V28) COMPLETE BLOOD COUNT Routine 12/26/2024 6:23 AM EDT Metabolic encephalopathy Nonrheumatic aortic (valve) stenosis Type 2 diabetes mellitus without complications (CMS/HCC V24, CMS/HCC V28) BASIC METABOLIC PANEL Routine 12/19/2024 6:27 AM EDT Metabolic encephalopathy Nonrheumatic aortic (valve) stenosis Type 2 diabetes mellitus without complications (CMS/HCC V24, CMS/HCC V28) COMPLETE BLOOD COUNT Routine 12/19/2024 6:27 AM EDT Metabolic encephalopathy Nonrheumatic aortic (valve) stenosis Type 2 diabetes mellitus without complications (CMS/HCC V24, CMS/HCC V28) BASIC METABOLIC PANEL Routine 12/12/2024 7:41 AM EDT Metabolic encephalopathy Nonrheumatic aortic (valve) stenosis Type 2 diabetes mellitus without complications (CMS/HCC V24, CMS/HCC V28) COMPLETE BLOOD COUNT Routine 12/12/2024 7:41 AM EDT Metabolic encephalopathy Nonrheumatic aortic (valve) stenosis Type 2 diabetes mellitus without complications (CMS/HCC V24, CMS/HCC V28) BASIC METABOLIC PANEL Routine 12/10/2024 5:32 AM EDT Altered mental status, unspecified COMPLETE BLOOD COUNT Routine 12/10/2024 5:32 AM EDT Altered mental status, unspecified COMPLETE BLOOD COUNT Routine 12/05/2024 6:20 AM EDT Metabolic encephalopathy Nonrheumatic aortic (valve) stenosis Type 2 diabetes mellitus without complications (CMS/HCC V24, CMS/HCC V28) BASIC METABOLIC PANEL Routine 12/05/2024 6:20 AM EDT Metabolic encephalopathy Nonrheumatic aortic (valve) stenosis Type 2 diabetes mellitus without complications (CMS/HCC V24, CMS/HCC V28) HEMOGLOBIN A1C Routine 06/27/2024 5:42 AM EST Nonrheumatic aortic (valve) stenosis Metabolic encephalopathy Type 2 diabetes mellitus without complications (CMS/HCC) LIPID PANEL WITH REFLEX TO DIRECT LDL Routine 04/30/2024 5:34 AM EST Type 2 diabetes mellitus without complications (CMS/HCC) Essential (primary) hypertension Hyperkalemia from Last 3 Months or Most Recently Relevant to Health Maintenance Results * (ABNORMAL) Complete blood count (02/27/2025 7:39 AM EDT) Only the most recent of14 resultswithin the time period is included. WBC 6.4 4.8 - 10.8 K/mcL LAB HEMETOLOGY METHOD 02/27/2025 9:37 AM EDT [facility] RBC 3.90 3.80 - 4.80 M/mcL LAB HEMETOLOGY METHOD 02/27/2025 9:37 AM EDT [facility] Hemoglobin 12.0 11.5 - 16.0 g/dL LAB HEMETOLOGY METHOD 02/27/2025 9:37 AM EDT [facility] Hematocrit 37.9 35.0 - 47.0 % LAB HEMETOLOGY METHOD 02/27/2025 9:37 AM EDT [facility] MCV 98.2(H) 79.0 - 98.0 FL LAB HEMETOLOGY METHOD 02/27/2025 9:37 AM EDT [facility] MCH 31.1 27.0 - 32.0 pcg LAB HEMETOLOGY METHOD 02/27/2025 9:37 AM EDT [facility] MCHC 31.7(L) 32.0 - 37.0 g/dL LAB HEMETOLOGY METHOD 02/27/2025 9:37 AM EDT [facility] RDW 13.7 11.0 - 15.0 % LAB HEMETOLOGY METHOD 02/27/2025 9:37 AM EDT [facility] Platelets 235 130 - 400 K/mcL LAB HEMETOLOGY METHOD 02/27/2025 9:37 AM EDT [facility] MPV 11.1(H) 7.0 - 11.0 FL LAB HEMETOLOGY METHOD 02/27/2025 9:37 AM EDT [facility] NRBC 0.0 <1.0 % LAB HEMETOLOGY METHOD 02/27/2025 9:37 AM T [facility] NRBC Absolute 0.00 <0.10 K/mcL LAB HEMETOLOGY METHOD 02/27/2025 9:37 AM T [facility] Blood Venous blood specimen / Unknown Venipuncture / Unknown 02/27/2025 7:39 AM EDT 02/27/2025 9:23 AM EDT us Corey Leung MD LAB BLOOD ORDERABLES Final Resul t [facility] [address] [place] [address], * Basic metabolic panel (02/27/2025 7:39 AM EDT) Only the most recent of14 resultswithin the time period is included. Sodium 140 133 - 145 mmol/L LAB CHEMISTRY METHOD 02/27/2025 11:10 AM [facility] Potassium 4.6 3.5 - 5.5 mmol/L LAB CHEMISTRY METHOD 02/27/2025 11:10 AM [facility] Comment:Hemolysis present Chloride 103 96 - 110 mmol/L LAB CHEMISTRY METHOD 02/27/2025 11:10 AM [facility] CO2 28 21 - 32 mmol/L LAB CHEMISTRY METHOD 02/27/2025 11:10 AM [facility] Anion Gap 9 3 - 11 LAB CHEMISTRY METHOD 02/27/2025 11:10 AM [facility] Glucose 91 70 - 100 mg/dL LAB CHEMISTRY METHOD 02/27/2025 11:10 AM [facility] BUN 24 5 - 25 mg/dL LAB CHEMISTRY METHOD 02/27/2025 11:10 AM [facility] Creatinine 0.51 0.50 - 1.10 mg/dL LAB CHEMISTRY METHOD 02/27/2025 11:10 AM [facility] eGFR 89 >=60 mL/min/1. 73m2 LAB CHEMISTRY METHOD 02/27/2025 11:10 AM [facility] Comment:Calculation based on the Chronic Kidney Disease Epidemiology Collaboration (CKD-EPI) equation refit without adjustment for race. BUN/Creatinine Ratio 47.1 LAB CHEMISTRY METHOD 02/27/2025 11:10 AM [facility] Calcium 9.2 8.5 - 10.5 mg/dL LAB CHEMISTRY METHOD 02/27/2025 11:10 AM [facility] Blood Venous blood specimen / Unknown Venipuncture / Unknown 02/27/2025 7:39 AM EDT 02/27/2025 10:58 AM EDT us Corey Leung MD LAB BLOOD ORDERABLES Final Resul t Performing Organization Address City/[facility]/ZIP Co de Phone Number [facility] [address] [place] [address], [place] [phone] * Hemoglobin A1c (06/27/2024 5:42 AM EST) [facility] Hemoglobin A1C 4.8 <6.5 % LAB CHEMISTRY METHOD 06/28/2024 11:17 AM EST [facility] Mean Bld Glu Estim. 91 mg/dL LAB CHEMISTRY METHOD 06/28/2024 11:[address] [facility] Blood Venous blood specimen / Unknown Venipuncture / Unknown 06/27/2024 5:42 AM EST 06/27/2024 1:46 PM EST us Corey Leung MD LAB BLOOD ORDERABLES Final Resul t Performing Organization Address [facility]/ZIP Co de Phone Number [facility] [address] [place] [address], [place] [phone] * Lipid panel with reflex to direct LDL (04/30/2024 5:34 AM EST) [facility] Cholesterol 139 0 - 200 mg/dL LAB CHEMISTRY METHOD 04/30/2024 11:[address] [facility] Triglycerides 78 0 - 150 mg/dL LAB CHEMISTRY METHOD 04/30/2024 11:[address] [facility] HDL 62 >=40 mg/dL LAB CHEMISTRY METHOD 04/30/2024 11:[address] [facility] LDL Calculated 61 0 - 100 mg/dL LAB CHEMISTRY METHOD 04/30/2024 11:[address] [facility] VLDL Cholesterol Jamshid 15.6 mg/dL LAB CHEMISTRY METHOD 04/30/2024 11:[address] [facility] Non HDL Chol. (LDL+VLDL) 77 <145 mg/dL LAB CHEMISTRY METHOD 04/30/2024 11:39 AM EST [facility] Chol/HDL Ratio 2.2 0.0 - 4.4 LAB CHEMISTRY METHOD 04/30/2024 11:39 AM EST [facility] Blood Venous blood specimen / Unknown Venipuncture / Unknown 04/30/2024 5:34 AM EST 04/30/2024 10:37 AM EST Gagan Miguel MD LAB BLOOD ORDERABLES Final Res ult [facility] [address] [place] [address], [place] [phone] from Last 3 Months or Most Recently Relevant to Health Maintenance Insurance MEDICARE [facility] Advance Directives Documents on File Type Date Recorded Patient Admissions Coordinator Expl anation Health Care Decision (hx) 03/05/2024 LIVING WILL Health Care Decision (hx) 03/05/2024 ADVANCE DIRECTIVE AN D LIVING WILL Care Teams Control Room Tender Relationship Specialty Start Date End Date Gagan Miguel MD [address] [place] [id number] PCP - General Internal Medicine 04/27/24
--- OUTSIDE RECORDS SUMMARY | 2025-03-01 09:31 | XMS_ITS | Encounter Summary ---
Author Organization [facility] Address [address] [place] [address] Care Team Providers Care Recreational Specialist Name Role Phone Gagan Miguel MD Primary Care Provider [phone] Encounter Details Date Type Department Care Team (Late st Contact Info) Description 10/20/2024 Lab Requisition [facility] [address] [facility] [place] [address] Corey Leung MD [address] [place] [address] Hypokalemia Social History Tobacco Use Types Packs/Day [...] Associated Diagnosis Comments BASIC METABOLIC PANEL Routine 10/20/2024 6:52 AM EDT Hypokalemia documented in this encounter Results * (ABNORMAL) Basic metabolic panel (10/20/2024 6:52 AM EDT) Sodium 139 133 - 145 mmol/L LAB CHEMISTRY METHOD 10/20/2024 12:25 PM EDT [facility] Potassium 3.8 3.5 - 5.5 mmol/L LAB CHEMISTRY METHOD 10/20/2024 12:25 PM [facility] Chloride 99 96 - 110 mmol/L LAB CHEMISTRY METHOD 10/20/2024 12:25 PM [facility] CO2 32 21 - 32 mmol/L LAB CHEMISTRY METHOD 10/20/2024 12:25 PM [facility] Anion Gap 8 3 - 11 LAB CHEMISTRY METHOD 10/20/2024 12:25 PM [facility] Glucose 110(H) 70 - 100 mg/dL LAB CHEMISTRY METHOD 10/20/2024 12:25 PM [facility] BUN 21 5 - 25 mg/dL LAB CHEMISTRY METHOD 10/20/2024 12:25 PM [facility] Creatinine 0.56 0.50 - 1.10 mg/dL LAB CHEMISTRY METHOD 10/20/2024 12:25 PM [facility] eGFR 87 >=60 mL/min/1. 73m2 LAB CHEMISTRY METHOD 10/20/2024 12:25 PM [facility] Comment:Calculation based on the Chronic Kidney Disease Epidemiology Collaboration (CKD-EPI) equation refit without adjustment for race. BUN/Creatinine Ratio 37.5 LAB CHEMISTRY METHOD 10/20/2024 12:25 PM [facility] Calcium 8.6 8.5 - 10.5 mg/dL LAB CHEMISTRY METHOD 10/20/2024 12:25 PM [facility] Blood Venous blood specimen / Unknown 10/20/2024 6:52 AM EDT 10/20/2024 11:56 AM EDT us Corey Leung MD LAB BLOOD ORDERABLES Final Resul t [facility] [address] [place] [address], documented in this encounter Visit Diagnoses Diagnosis Hypokalemia Hypopotassemia documented in this encounter Additional Health Concerns Infection Onset Date Last Indicated Resolved Time Respiratory Rule-Out 11/03/2024 11/02/2024 025 3:17 PM EDT documented as of this encounter Care Teams Recreational Specialist Relationship Specialty Start Date End Date Gagan Miguel MD [address] [place] [id number] PCP - General Internal Medicine 04/27/24 documented as of this encounter
--- OUTSIDE RECORDS SUMMARY | 2025-03-01 09:31 | XMS_ITS | Encounter Summary ---
Author Organization [facility] Address [address] [place] [address] Care Team Providers Care Biofuels Research Scientist Name Role Phone Gagan Miguel MD Primary Care Provider [phone] Encounter Details Date Type Department Care Team (Late st Contact Info) Description 10/02/2024 Lab Requisition [facility] - Main Lab 299 [facility] [place] [address] Corey Leung MD [address] [place] [address] Metabolic encephalopathy; Nonrheumatic aortic (valve) stenosis; Type [...] Associated Diagnosis Comments COMPLETE BLOOD COUNT Routine 10/03/2024 5:52 AM EDT Metabolic encephalopathy Nonrheumatic aortic (valve) stenosis Type 2 diabetes mellitus without complications (CMS/HCC V24, CMS/HCC V28) BASIC METABOLIC PANEL Routine 10/03/2024 5:52 AM EDT Metabolic encephalopathy Nonrheumatic aortic (valve) stenosis Type 2 diabetes mellitus without complications (CMS/[facility] V24, [facility] V28) documented in this encounter Results * (ABNORMAL) Basic metabolic panel (10/03/2024 5:52 AM EDT) Sodium 134 133 - 145 mmol/L LAB CHEMISTRY METHOD 10/03/2024 9:08 AM [facility] Potassium 3.9 3.5 - 5.5 mmol/L LAB CHEMISTRY METHOD 10/03/2024 9:08 AM [facility] Chloride 95(L) 96 - 110 mmol/L LAB CHEMISTRY METHOD 10/03/2024 9:08 AM [facility] CO2 33(H) 21 - 32 mmol/L LAB CHEMISTRY METHOD 10/03/2024 9:08 AM [facility] Anion Gap 6 3 - 11 LAB CHEMISTRY METHOD 10/03/2024 9:08 AM [facility] Glucose 91 70 - 100 mg/dL LAB CHEMISTRY METHOD 10/03/2024 9:08 AM [facility] BUN 17 5 - 25 mg/dL LAB CHEMISTRY METHOD 10/03/2024 9:08 AM [facility] Creatinine 0.47(L) 0.50 - 1.10 mg/dL LAB CHEMISTRY METHOD 10/03/2024 9:08 AM [facility] eGFR 91 >=60 mL/min/1. 73m2 LAB CHEMISTRY METHOD 10/03/2024 9:08 AM [facility] Comment:Calculation based on the Chronic Kidney Disease Epidemiology Collaboration (CKD-EPI) equation refit without adjustment for race. BUN/Creatinine Ratio 36.2 LAB CHEMISTRY METHOD 10/03/2024 9:08 AM [facility] Calcium 8.3(L) 8.5 - 10.5 mg/dL LAB CHEMISTRY METHOD 10/03/2024 9:08 AM [facility] Blood Venous blood specimen / Unknown Venipuncture / Unknown 10/03/2024 5:52 AM EDT 10/03/2024 8:20 AM EDT us Corey Leung MD LAB BLOOD ORDERABLES Final Resul t [facility] [address] [place] [address], * (ABNORMAL) Complete blood count (10/03/2024 5:52 AM EDT) WBC 9.2 4.8 - 10.8 K/mcL LAB HEMETOLOGY METHOD 10/03/2024 8:31 AM [facility] RBC 3.50(L) 3.80 - 4.80 M/mcL LAB HEMETOLOGY METHOD 10/03/2024 8:31 AM [facility] Hemoglobin 10.9(L) 11.5 - 16.0 g/dL LAB HEMETOLOGY METHOD 10/03/2024 8:31 AM [facility] Hematocrit 33.5(L) 35.0 - 47.0 % LAB HEMETOLOGY METHOD 10/03/2024 8:31 AM [facility] MCV 94.9 79.0 - 98.0 FL LAB HEMETOLOGY METHOD 10/03/2024 8:31 AM [facility] MCH 30.9 27.0 - 32.0 pcg LAB HEMETOLOGY METHOD 10/03/2024 8:31 AM [facility] MCHC 32.5 32.0 - 37.0 g/dL LAB HEMETOLOGY METHOD 10/03/2024 8:31 AM [facility] RDW 16.1(H) 11.0 - 15.0 % LAB HEMETOLOGY METHOD 10/03/2024 8:31 AM [facility] Platelets 283 130 - 400 K/mcL LAB HEMETOLOGY METHOD 10/03/2024 8:31 AM EDT [facility] MPV 11.0 7.0 - 11.0 FL LAB HEMETOLOGY METHOD 10/03/2024 8:31 AM EDT [facility] NRBC 0.0 <1.0 % LAB HEMETOLOGY METHOD 10/03/2024 8:31 AM EDT [facility] NRBC Absolute 0.00 <0.10 K/mcL LAB HEMETOLOGY METHOD 10/03/2024 8:31 AM EDT [facility] Blood Venous blood specimen / Unknown Venipuncture / Unknown 10/03/2024 5:52 AM EDT 10/03/2024 8:20 AM EDT us Corey Leung MD LAB BLOOD ORDERABLES Final Resul t [facility] [address] [place] [address], documented in this encounter Visit Diagnoses Diagnosis Metabolic encephalopathy Nonrheumatic aortic (valve) stenosis Type 2 diabetes mellitus without complications (CMS/[facility] V24, CMS/[facility] V28) documented in this encounter Additional Health Concerns Infection Onset Date Last Indicated Resolved Time Respiratory Rule-Out 11/03/2024 11/02/2024 025 3:17 PM EDT documented as of this encounter Care Teams Biofuels Research Scientist Relationship Specialty Start Date End Date Gagan Miguel MD [address] [place] [phone] PCP - General Internal Medicine 04/27/24 documented as of this encounter
--- OUTSIDE RECORDS SUMMARY | 2025-03-01 09:31 | XMS_ITS | Encounter Summary ---
Author Organization [facility] Address [address] [place] [address] Care Team Providers Care Cook Helper Dessert Name Role Phone Gagan Miguel MD Primary Care Provider [phone] Encounter Details Date Type Department Care Team (Late st Contact Info) Description 05/07/2024 Lab Requisition [facility] - Main Lab 299 [facility] [place] [address] Gagan Miguel MD [address] [place] [phone] Hypomagnesemia; Essential (primary) hypertension Social History Tobacco Use [...] Priority Date/Time Associated Diagnosis Comments MAGNESIUM Routine 05/07/2024 9:50 AM EST Essential (primary) hypertension Hypomagnesemia BASIC METABOLIC PANEL Routine 05/07/2024 9:50 AM EST Essential (primary) hypertension Hypomagnesemia documented in this encounter Results * Magnesium (05/07/2024 9:50 AM EST) Magnesium 2.0 1.9 - 2.6 mg/dL LAB CHEMISTRY METHOD 05/07/2024 2:14 PM [facility] Blood Venous blood specimen / Unknown Venipuncture / Unknown 05/07/2024 9:50 AM EST 05/07/2024 11:25 AM EST us Gagan Miguel MD LAB BLOOD ORDERABLES Final Res ult [facility] [address] [place] [address], [place] [phone] * (ABNORMAL) Basic metabolic panel (05/07/2024 9:50 AM EST) Sodium 141 133 - 145 mmol/L LAB CHEMISTRY METHOD 05/07/2024 2:17 PM [facility] Potassium 3.5 3.5 - 5.5 mmol/L LAB CHEMISTRY METHOD 05/07/2024 2:17 PM [facility] Chloride 101 96 - 110 mmol/L LAB CHEMISTRY METHOD 05/07/2024 2:17 PM [facility] CO2 30 21 - 32 mmol/L LAB CHEMISTRY METHOD 05/07/2024 2:17 PM [facility] Anion Gap 10 3 - 11 LAB CHEMISTRY METHOD 05/07/2024 2:17 PM [facility] Glucose 203(H) 70 - 100 mg/dL LAB CHEMISTRY METHOD 05/07/2024 2:17 PM [facility] BUN 20 5 - 25 mg/dL LAB CHEMISTRY METHOD 05/07/2024 2:17 PM [facility] Creatinine 0.84 0.50 - 1.10 mg/dL LAB CHEMISTRY METHOD 05/07/2024 2:17 PM [facility] eGFR 67 >=60 mL/min/1. 73m2 LAB CHEMISTRY METHOD 05/07/2024 2:17 PM [facility] Comment:Calculation based on the Chronic Kidney Disease Epidemiology Collaboration (CKD-EPI) equation refit without adjustment for race. BUN/Creatinine Ratio 23.8 LAB CHEMISTRY METHOD 05/07/2024 2:17 PM EST [facility] Calcium 9.1 8.5 - 10.5 mg/dL LAB CHEMISTRY METHOD 05/07/2024 2:17 PM EST [facility] Blood Venous blood specimen / Unknown Venipuncture / Unknown 05/07/2024 9:50 AM EST 05/07/2024 11:25 AM EST us Gagan Miguel MD LAB BLOOD ORDERABLES Final Res ult [facility] [address] [place] [address], documented in this encounter Visit Diagnoses Diagnosis Hypomagnesemia Disorders of magnesium metabolism Essential (primary) hypertension Unspecified essential hypertension documented in this encounter Additional Health Concerns Infection Onset Date Last Indicated Resolved Time Respiratory Rule-Out 11/03/2024 11/02/2024 025 3:17 PM EDT documented as of this encounter Care Teams Cook Helper Dessert Relationship Specialty Start Date End Date Gagan Miguel MD [address] [place] [phone] PCP - General Internal Medicine 04/27/24 documented as of this encounter
--- OUTSIDE RECORDS SUMMARY | 2025-03-01 09:31 | XMS_ITS | Encounter Summary ---
Author Organization [facility] Address [address] [place] [address] Care Team Providers Care Senior Sales Compensation Analyst Name Role Phone Gagan Miguel MD Primary Care Provider [phone] Encounter Details Date Type Department Care Team (Late st Contact Info) Description 10/09/2024 Lab Requisition [facility] - Main Lab 299 [facility] [place] [address] Corey Leung MD [address] [place] [address] Metabolic encephalopathy; Nonrheumatic aortic (valve) stenosis; Type [...] Associated Diagnosis Comments COMPLETE BLOOD COUNT Routine 10/10/2024 5:36 AM EDT Metabolic encephalopathy Nonrheumatic aortic (valve) stenosis Type 2 diabetes mellitus without complications (CMS/HCC V24, CMS/HCC V28) BASIC METABOLIC PANEL Routine 10/10/2024 5:36 AM EDT Metabolic encephalopathy Nonrheumatic aortic (valve) stenosis Type 2 diabetes mellitus without complications (CMS/[facility] V24, [facility] V28) documented in this encounter Results * (ABNORMAL) Basic metabolic panel (10/10/2024 5:36 AM EDT) Sodium 142 133 - 145 mmol/L LAB CHEMISTRY METHOD 10/10/2024 12:07 PM [facility] Potassium 3.9 3.5 - 5.5 mmol/L LAB CHEMISTRY METHOD 10/10/2024 12:07 PM [facility] Chloride 110 96 - 110 mmol/L LAB CHEMISTRY METHOD 10/10/2024 12:07 PM [facility] Comment:Results verified by repeat testing CO2 22 21 - 32 mmol/L LAB CHEMISTRY METHOD 10/10/2024 12:07 PM [facility] Anion Gap 10 3 - 11 LAB CHEMISTRY METHOD 10/10/2024 12:07 PM [facility] Glucose 69(L) 70 - 100 mg/dL LAB CHEMISTRY METHOD 10/10/2024 12:07 PM [facility] BUN 43(H) 5 - 25 mg/dL LAB CHEMISTRY METHOD 10/10/2024 12:07 PM [facility] Comment:Results verified by repeat testing Creatinine 0.73 0.50 - 1.10 mg/dL LAB CHEMISTRY METHOD 10/10/2024 12:07 PM [facility] eGFR 79 >=60 mL/min/1. 73m2 LAB CHEMISTRY METHOD 10/10/2024 12:07 PM [facility] Comment:Calculation based on the Chronic Kidney Disease Epidemiology Collaboration (CKD-EPI) equation refit without adjustment for race. BUN/Creatinine Ratio 58.9 LAB CHEMISTRY METHOD 10/10/2024 12:07 PM [facility] Calcium 8.5 8.5 - 10.5 mg/dL LAB CHEMISTRY METHOD 10/10/2024 12:07 PM [facility] Blood Venous blood specimen / Unknown Venipuncture / Unknown 10/10/2024 5:36 AM EDT 10/10/2024 11:00 AM EDT Corey Leung MD LAB BLOOD ORDERABLES Final Resul t [facility] [address] [place] [address], * (ABNORMAL) Complete blood count (10/10/2024 5:36 AM EDT) WBC 6.4 4.8 - 10.8 K/mcL LAB HEMETOLOGY METHOD 10/10/2024 11:22 AM EDT [facility] RBC 2.80(L) 3.80 - 4.80 M/mcL LAB HEMETOLOGY METHOD 10/10/2024 11:22 AM EDT [facility] Hemoglobin 9.0(L) 11.5 - 16.0 g/dL LAB HEMETOLOGY METHOD 10/10/2024 11:22 AM [facility] Hematocrit 28.5(L) 35.0 - 47.0 % LAB HEMETOLOGY METHOD 10/10/2024 11:22 AM [facility] MCV 103.6(H) 79.0 - 98.0 FL LAB HEMETOLOGY METHOD 10/10/2024 11:22 AM EDT [facility] MCH 32.7(H) 27.0 - 32.0 pcg LAB HEMETOLOGY METHOD 10/10/2024 11:22 AM [facility] MCHC 31.6(L) 32.0 - 37.0 g/dL LAB HEMETOLOGY METHOD 10/10/2024 11:22 AM [facility] RDW 15.9(H) 11.0 - 15.0 % LAB HEMETOLOGY METHOD 10/10/2024 11:22 AM EDT [facility] Platelets 333 130 - 400 K/mcL LAB HEMETOLOGY METHOD 10/10/2024 11:22 AM EDT [facility] MPV 9.1 7.0 - 11.0 FL LAB HEMETOLOGY METHOD 10/10/2024 11:22 AM EDT [facility] NRBC 0.0 <1.0 % LAB HEMETOLOGY METHOD 10/10/2024 11:22 AM EDT [facility] NRBC Absolute 0.00 <0.10 K/mcL LAB HEMETOLOGY METHOD 10/10/2024 11:22 AM EDT [facility] Blood Venous blood specimen / Unknown Venipuncture / Unknown 10/10/2024 5:36 AM EDT 10/10/2024 11:00 AM EDT us Corey Leung MD LAB BLOOD ORDERABLES Final Resul t [facility] [address] [place] [address], documented in this encounter Visit Diagnoses Diagnosis Metabolic encephalopathy Nonrheumatic aortic (valve) stenosis Type 2 diabetes mellitus without complications (CMS/HCC V24, CMS/HCC V28) documented in this encounter Additional Health Concerns Infection Onset Date Last Indicated Resolved Time Respiratory Rule-Out 11/03/2024 11/02/2024 025 3:17 PM EDT documented as of this encounter Care Teams Senior Sales Compensation Analyst Relationship Specialty Start Date End Date Gagan Miguel MD [address] [place] [phone] PCP - General Internal Medicine 04/27/24 documented as of this encounter
--- OUTSIDE RECORDS SUMMARY | 2025-03-01 09:31 | XMS_ITS | Encounter Summary ---
Author Organization [facility] Address [address] [place] [address] Care Team Providers Care Evidence Specialist Name Role Phone Gagan Miguel MD Primary Care Provider [phone] Encounter Details Date Type Department Care Team (Late st Contact Info) Description 10/23/2024 Lab Requisition [facility] - Main Lab 299 [facility] [place] [address] Corey Leung MD [address] [place] [address] Metabolic encephalopathy; Nonrheumatic aortic (valve) stenosis; Type [...] Associated Diagnosis Comments COMPLETE BLOOD COUNT Routine 10/24/2024 6:45 AM EDT Metabolic encephalopathy Nonrheumatic aortic (valve) stenosis Type 2 diabetes mellitus without complications (CMS/HCC V24, CMS/HCC V28) BASIC METABOLIC PANEL Routine 10/24/2024 6:45 AM EDT Metabolic encephalopathy Nonrheumatic aortic (valve) stenosis Type 2 diabetes mellitus without complications (CMS/[facility] V24, [facility] V28) documented in this encounter Results * (ABNORMAL) Basic metabolic panel (10/24/2024 6:45 AM EDT) Sodium 135 133 - 145 mmol/L LAB CHEMISTRY METHOD 10/24/2024 9:49 AM [facility] Potassium 3.8 3.5 - 5.5 mmol/L LAB CHEMISTRY METHOD 10/24/2024 9:49 AM [facility] Chloride 98 96 - 110 mmol/L LAB CHEMISTRY METHOD 10/24/2024 9:49 AM [facility] CO2 32 21 - 32 mmol/L LAB CHEMISTRY METHOD 10/24/2024 9:49 AM [facility] Anion Gap 5 3 - 11 LAB CHEMISTRY METHOD 10/24/2024 9:49 AM [facility] Glucose 121(H) 70 - 100 mg/dL LAB CHEMISTRY METHOD 10/24/2024 9:49 AM [facility] BUN 22 5 - 25 mg/dL LAB CHEMISTRY METHOD 10/24/2024 9:49 AM [facility] Creatinine 0.62 0.50 - 1.10 mg/dL LAB CHEMISTRY METHOD 10/24/2024 9:49 AM [facility] eGFR 85 >=60 mL/min/1. 73m2 LAB CHEMISTRY METHOD 10/24/2024 9:49 AM [facility] Comment:Calculation based on the Chronic Kidney Disease Epidemiology Collaboration (CKD-EPI) equation refit without adjustment for race. BUN/Creatinine Ratio 35.5 LAB CHEMISTRY METHOD 10/24/2024 9:49 AM [facility] Calcium 8.8 8.5 - 10.5 mg/dL LAB CHEMISTRY METHOD 10/24/2024 9:49 AM [facility] Blood Venous blood specimen / Unknown Venipuncture / Unknown 10/24/2024 6:45 AM EDT 10/24/2024 9:00 AM EDT us Corey Leung MD LAB BLOOD ORDERABLES Final Resul t [facility] [address] [place] [address], * (ABNORMAL) Complete blood count (10/24/2024 6:45 AM EDT) [facility] WBC 7.4 4.8 - 10.8 K/mcL LAB HEMETOLOGY METHOD 10/24/2024 9:23 AM EDT [facility] RBC 3.30(L) 3.80 - 4.80 M/mcL LAB HEMETOLOGY METHOD 10/24/2024 [facility] Hemoglobin 10.3(L) 11.5 - 16.0 g/dL LAB HEMETOLOGY METHOD 10/24/2024 9:23 AM [facility] Hematocrit 31.7(L) 35.0 - 47.0 % LAB HEMETOLOGY METHOD 10/24/2024 9:23 AM T [facility] MCV 96.6 79.0 - 98.0 FL LAB HEMETOLOGY METHOD 10/24/2024 9:23 AM EDT [facility] MCH 31.4 27.0 - 32.0 pcg LAB HEMETOLOGY METHOD 10/24/2024 9:23 AM [facility] MCHC 32.5 32.0 - 37.0 g/dL LAB HEMETOLOGY METHOD 10/24/2024 9:23 AM [facility] RDW 15.9(H) 11.0 - 15.0 % LAB HEMETOLOGY METHOD 10/24/2024 9:23 AM [facility] Platelets 251 130 - 400 K/mcL LAB HEMETOLOGY METHOD 10/24/2024 9:23 AM EDT [facility] MPV 10.8 7.0 - 11.0 FL LAB HEMETOLOGY METHOD 10/24/2024 9:23 AM EDT [facility] NRBC 0.0 <1.0 % LAB HEMETOLOGY METHOD 10/24/2024 9:23 AM EDT [facility] NRBC Absolute 0.00 <0.10 K/mcL LAB HEMETOLOGY METHOD 10/24/2024 9:23 AM EDT [facility] Blood Venous blood specimen / Unknown Venipuncture / Unknown 10/24/2024 6:45 AM EDT 10/24/2024 8:59 AM EDT Corey Leung MD LAB BLOOD ORDERABLES Final Resul t [facility] [address] [place] [address], [place] [phone] documented in this encounter Visit Diagnoses Diagnosis Metabolic encephalopathy Nonrheumatic aortic (valve) stenosis Type 2 diabetes mellitus without complications (CMS/HCC V24, CMS/HCC V28) documented in this encounter Additional Health Concerns Infection Onset Date Last Indicated Resolved Time Respiratory Rule-Out 11/03/2024 11/02/2024 025 3:17 PM EDT documented as of this encounter Care Teams Evidence Specialist Relationship Specialty Start Date End Date Gagan Miguel MD [address] [place] [phone] PCP - General Internal Medicine 04/27/24 documented as of this encounter
--- OUTSIDE RECORDS SUMMARY | 2025-03-01 09:31 | XMS_ITS | Encounter Summary ---
Author Organization [facility] Address [address] [place] [address] Care Team Providers Care Visual Inspector Name Role Phone Gagan Miguel MD Primary Care Provider [phone] Encounter Details Date Type Department Care Team (Late st Contact Info) Description 10/30/2024 Lab Requisition [facility] - Main Lab 299 [facility] [place] [address] Corey Leung MD [address] [place] [address] Metabolic encephalopathy; Nonrheumatic aortic (valve) stenosis; Type [...] Associated Diagnosis Comments COMPLETE BLOOD COUNT Routine 10/31/2024 7:30 AM EDT Metabolic encephalopathy Nonrheumatic aortic (valve) stenosis Type 2 diabetes mellitus without complications (CMS/HCC V24, CMS/HCC V28) BASIC METABOLIC PANEL Routine 10/31/2024 7:30 AM EDT Metabolic encephalopathy Nonrheumatic aortic (valve) stenosis Type 2 diabetes mellitus without complications (CMS/[facility] V24, [facility] V28) documented in this encounter Results * (ABNORMAL) Basic metabolic panel (10/31/2024 7:30 AM EDT) Sodium 136 133 - 145 mmol/L LAB CHEMISTRY METHOD 10/31/2024 12:15 PM [facility] Potassium 4.0 3.5 - 5.5 mmol/L LAB CHEMISTRY METHOD 10/31/2024 12:15 PM [facility] Chloride 100 96 - 110 mmol/L LAB CHEMISTRY METHOD 10/31/2024 12:15 PM [facility] CO2 28 21 - 32 mmol/L LAB CHEMISTRY METHOD 10/31/2024 12:15 PM [facility] Anion Gap 8 3 - 11 LAB CHEMISTRY METHOD 10/31/2024 12:15 PM [facility] Glucose 95 70 - 100 mg/dL LAB CHEMISTRY METHOD 10/31/2024 12:15 PM [facility] BUN 11 5 - 25 mg/dL LAB CHEMISTRY METHOD 10/31/2024 12:15 PM [facility] Creatinine 0.52 0.50 - 1.10 mg/dL LAB CHEMISTRY METHOD 10/31/2024 12:15 PM [facility] eGFR 89 >=60 mL/min/1. 73m2 LAB CHEMISTRY METHOD 10/31/2024 12:15 PM [facility] Comment:Calculation based on the Chronic Kidney Disease Epidemiology Collaboration (CKD-EPI) equation refit without adjustment for race. BUN/Creatinine Ratio 21.2 LAB CHEMISTRY METHOD 10/31/2024 12:15 PM [facility] Calcium 8.1(L) 8.5 - 10.5 mg/dL LAB CHEMISTRY METHOD 10/31/2024 12:15 PM [facility] Blood Venous blood specimen / Unknown Venipuncture / Unknown 10/31/2024 7:30 AM EDT 10/31/2024 9:45 AM EDT us Corey Leung MD LAB BLOOD ORDERABLES Final Resul t [facility] [address] [place] [address], * (ABNORMAL) Complete blood count (10/31/2024 7:30 AM EDT) [facility] WBC 5.5 4.8 - 10.8 K/mcL LAB HEMETOLOGY METHOD 10/31/2024 11:16 AM EDT [facility] RBC 3.30(L) 3.80 - 4.80 M/mcL LAB HEMETOLOGY METHOD 10/31/2024 11:[facility] Hemoglobin 10.5(L) 11.5 - 16.0 g/dL LAB HEMETOLOGY METHOD 10/31/2024 11:16 AM T [facility] Hematocrit 32.5(L) 35.0 - 47.0 % LAB HEMETOLOGY METHOD 10/31/2024 11:16 AM T [facility] MCV 97.9 79.0 - 98.0 FL LAB HEMETOLOGY METHOD 10/31/2024 11:16 AM EDT [facility] MCH 31.6 27.0 - 32.0 pcg LAB HEMETOLOGY METHOD 10/31/2024 11:16 AM T [facility] MCHC 32.3 32.0 - 37.0 g/dL LAB HEMETOLOGY METHOD 10/31/2024 11:16 AM [facility] RDW 16.9(H) 11.0 - 15.0 % LAB HEMETOLOGY METHOD 10/31/2024 11:16 [facility] Platelets 254 130 - 400 K/mcL LAB HEMETOLOGY METHOD 10/31/2024 11:16 AM EDT [facility] MPV 10.3 7.0 - 11.0 FL LAB HEMETOLOGY METHOD 10/31/2024 11:16 AM EDT [facility] NRBC 0.0 <1.0 % LAB HEMETOLOGY METHOD 10/31/2024 11:16 AM EDT [facility] NRBC Absolute 0.00 <0.10 K/mcL LAB HEMETOLOGY METHOD 10/31/2024 11:16 AM EDT [facility] Blood Venous blood specimen / Unknown Venipuncture / Unknown 10/31/2024 7:30 AM EDT 10/31/2024 9:45 AM EDT Corey Leung MD LAB BLOOD ORDERABLES Final Resul t [facility] [address] [place] [address], [place] [phone] documented in this encounter Visit Diagnoses Diagnosis Metabolic encephalopathy Nonrheumatic aortic (valve) stenosis Type 2 diabetes mellitus without complications (CMS/HCC V24, CMS/HCC V28) documented in this encounter Additional Health Concerns Infection Onset Date Last Indicated Resolved Time Respiratory Rule-Out 11/03/2024 11/02/2024 025 3:17 PM EDT documented as of this encounter Care Teams Visual Inspector Relationship Specialty Start Date End Date Gagan Miguel MD [address] [place] [phone] PCP - General Internal Medicine 04/27/24 documented as of this encounter
--- OUTSIDE RECORDS SUMMARY | 2025-03-01 09:31 | XMS_ITS | Encounter Summary ---
Author Organization [facility] Address [address] [place] [address] Care Team Providers Care Grocery Cashier Name Role Phone Gagan Miguel MD Primary Care Provider [phone] Encounter Details Date Type Department Care Team (Late st Contact Info) Description 08/14/2024 Lab Requisition [facility] - Main Lab [address] [facility] [place] [address] Corey Leung MD [address] [place] [address] Metabolic encephalopathy; Nonrheumatic aortic (valve) stenosis; Type [...] Associated Diagnosis Comments COMPLETE BLOOD COUNT Routine 08/15/2024 9:18 AM EDT Metabolic encephalopathy Nonrheumatic aortic (valve) stenosis Type 2 diabetes mellitus without complications (CMS/HCC) BASIC METABOLIC PANEL Routine 08/15/2024 9:18 AM EDT Metabolic encephalopathy Nonrheumatic aortic (valve) stenosis Type 2 diabetes mellitus without complications (CMS/HCC) documented in this encounter Results * (ABNORMAL) Basic metabolic panel (08/15/2024 9:18 AM EDT) Sodium 134 133 - 145 mmol/L LAB CHEMISTRY METHOD 08/15/2024 11:40 AM [facility] Potassium 3.9 3.5 - 5.5 mmol/L LAB CHEMISTRY METHOD 08/15/2024 11:40 AM [facility] Chloride 97 96 - 110 mmol/L LAB CHEMISTRY METHOD 08/15/2024 11:40 AM [facility] CO2 28 21 - 32 mmol/L LAB CHEMISTRY METHOD 08/15/2024 11:40 AM [facility] Anion Gap 9 3 - 11 LAB CHEMISTRY METHOD 08/15/2024 11:40 AM [facility] Glucose 171(H) 70 - 100 mg/dL LAB CHEMISTRY METHOD 08/15/2024 11:40 AM [facility] BUN 16 5 - 25 mg/dL LAB CHEMISTRY METHOD 08/15/2024 11:40 AM [facility] Creatinine 0.69 0.50 - 1.10 mg/dL LAB CHEMISTRY METHOD 08/15/2024 11:40 AM [facility] eGFR 83 >=60 mL/min/1. 73m2 LAB CHEMISTRY METHOD 08/15/2024 11:40 AM [facility] Comment:Calculation based on the Chronic Kidney Disease Epidemiology Collaboration (CKD-EPI) equation refit without adjustment for race. BUN/Creatinine Ratio 23.2 LAB CHEMISTRY METHOD 08/15/2024 11:40 AM [facility] Calcium 9.0 8.5 - 10.5 mg/dL LAB CHEMISTRY METHOD 08/15/2024 11:40 AM [facility] Blood Venous blood specimen / Unknown Venipuncture / Unknown 08/15/2024 9:18 AM EDT 08/15/2024 10:49 AM EDT us Corey Leung MD LAB BLOOD ORDERABLES Final Resul t [facility] [address] [place] [address], [place] [phone] * Complete blood count (08/15/2024 9:18 AM EDT) WBC 9.9 4.8 - 10.8 K/mcL LAB HEMETOLOGY METHOD 08/15/2024 11:04 AM EDT [facility] RBC 4.20 3.80 - 4.80 M/mcL LAB HEMETOLOGY METHOD 08/15/2024 11:04 AM EDT [facility] Hemoglobin 12.9 11.5 - 16.0 g/dL LAB HEMETOLOGY METHOD 08/15/2024 11:04 AM EDT [facility] Hematocrit 40.3 35.0 - 47.0 % LAB HEMETOLOGY METHOD 08/15/2024 11:04 AM EDT [facility] MCV 96.2 79.0 - 98.0 FL LAB HEMETOLOGY METHOD [facility] MCH 30.8 27.0 - 32.0 pcg LAB HEMETOLOGY METHOD 08/15/2024 11:04 AM EDT [facility] MCHC 32.0 32.0 - 37.0 g/dL LAB HEMETOLOGY METHOD 08/15[facility]2024 11[facility] RDW 13.9 11.0 - 15.0 % LAB HEMETOLOGY METHOD 08/15/2024 11:04 [facility] Platelets 310 130 - 400 K/mcL LAB HEMETOLOGY METHOD 08/15/2024 11:04 AM EDT [facility] MPV 10.5 7.0 - 11.0 FL LAB HEMETOLOGY METHOD 08/15/2024 11:04 AM EDT [facility] NRBC 0.0 <1.0 % LAB HEMETOLOGY METHOD 08/15/2024 11:04 AM EDT [facility] NRBC Absolute 0.00 <0.10 K/mcL LAB HEMETOLOGY METHOD 08/15/2024 11:04 AM EDT [facility] Blood Venous blood specimen / Unknown Venipuncture / Unknown 08/15/2024 9:18 AM EDT 08/15/2024 10:49 AM EDT us Corey Leung MD LAB BLOOD ORDERABLES Final Resul t [facility] [address] [place] [address], documented in this encounter Visit Diagnoses Diagnosis Metabolic encephalopathy Nonrheumatic aortic (valve) stenosis Type 2 diabetes mellitus without complications (CMS/HCC V24, CMS/HCC V28) documented in this encounter Additional Health Concerns Infection Onset Date Last Indicated Resolved Time Respiratory Rule-Out 11/03/2024 11/02/2024 025 3:17 PM EDT documented as of this encounter Care Teams Grocery Cashier Relationship Specialty Start Date End Date Gagan Miguel MD [address] [place] [id number] PCP - General Internal Medicine 04/27/24 documented as of this encounter
--- OUTSIDE RECORDS SUMMARY | 2025-03-01 09:32 | XMS_ITS | Encounter Summary ---
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; Essential (primary) hypertension; Fracture of unspecified part of neck of right femur, subsequent encounter for closed fracture with routine healing Social History Tobacco Use Types Packs/Day Years [...] Associated Diagnosis Comments COMPLETE BLOOD COUNT Routine 06/19/2024 6:17 AM EST Hyperkalemia 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 Essential (primary) hypertension Fracture of unspecified part of neck of right femur, subsequent encounter for closed fracture with routine healing COMPREHENSIVE METABOLIC PANEL Routine 06/19/2024 6:17 AM EST Hyperkalemia Other senior care (current) drug therapy Essential (primary) hypertension Fracture of unspecified part of neck of right femur, subsequent encounter for closed fracture with routine healing documented in this encounter Results * (ABNORMAL) Comprehensive metabolic panel (06/19/2024 6:17 AM EST) Sodium 135 133 - 145 mmol/L LAB CHEMISTRY METHOD 06/19/2024 12:18 PM [facility] Potassium 4.0 3.5 - 5.5 mmol/L LAB CHEMISTRY METHOD 06/19/2024 12:18 PM [facility] Chloride 98 96 - 110 mmol/L LAB CHEMISTRY METHOD 06/19/2024 12:18 PM [facility] CO2 31 21 - 32 mmol/L LAB CHEMISTRY METHOD 06/19/2024 12:18 PM [facility] Anion Gap 6 3 - 11 LAB CHEMISTRY METHOD 06/19/2024 12:18 PM [facility] Glucose 116(H) 70 - 100 mg/dL LAB CHEMISTRY METHOD 06/19/2024 12:18 PM [facility] BUN 13 5 - 25 mg/dL LAB CHEMISTRY METHOD 06/19/2024 12:18 PM [facility] Creatinine 0.50 0.50 - 1.10 mg/dL LAB CHEMISTRY METHOD 06/19/2024 12:18 PM [facility] eGFR 90 >=60 mL/min/1. 73m2 LAB CHEMISTRY METHOD 06/19/2024 12:18 PM [facility] Comment:Calculation based on the Chronic Kidney Disease Epidemiology Collaboration (CKD-EPI) equation refit without adjustment for race. BUN/Creatinine Ratio 26.0 LAB CHEMISTRY METHOD 06/19/2024 12:18 PM [facility] Calcium 8.2(L) 8.5 - 10.5 mg/dL LAB CHEMISTRY METHOD 06/19/2024 12:18 PM [facility] AST (SGOT) 20 10 - 42 unit/L LAB CHEMISTRY METHOD 06/19/2024 12:18 PM [facility] ALT (SGPT) 25 10 - 60 unit/L LAB CHEMISTRY METHOD 06/19/2024 12:18 PM [facility] Alkaline Phosphatase 259(H) 42 - 121 unit/L LAB CHEMISTRY METHOD 06/19/2024 12:18 PM [facility] Comment:Results verified by repeat testing Total Protein 5.6(L) 6.0 - 8.0 g/dL LAB CHEMISTRY METHOD 06/19/2024 12:18 PM [facility] Albumin 2.3(L) 3.2 - 5.0 g/dL LAB CHEMISTRY METHOD 06/19/2024 12:18 PM [facility] Total Bilirubin 0.9 0.0 - 1.4 mg/dL LAB CHEMISTRY METHOD 06/19/2024 12:18 PM [facility] Blood Venous blood specimen / Unknown Venipuncture / Unknown 06/19/2024 6:17 AM EST 06/19/2024 9:19 AM EST us Corey Leung MD LAB BLOOD ORDERABLES Final Resul t [facility] [address] [place] [address], * (ABNORMAL) Complete blood count (06/19/2024 6:17 AM EST) WBC 7.3 4.8 - 10.8 K/mcL LAB HEMETOLOGY METHOD 06/19/2024 10:41 AM EST [facility] RBC 3.20(L) 3.80 - 4.80 M/mcL LAB HEMETOLOGY METHOD 06/19/2024 10:41 AM EST [facility] Hemoglobin 10.1(L) 11.5 - 16.0 g/dL LAB HEMETOLOGY METHOD 06/19/2024 10:41 AM [facility] Hematocrit 33.7(L) 35.0 - 47.0 % LAB HEMETOLOGY METHOD 06/19/2024 10:41 AM [facility] MCV 104.3(H) 79.0 - 98.0 FL LAB HEMETOLOGY METHOD 06/19/2024 10:41 AM [facility] MCH 31.3 27.0 - 32.0 pcg LAB HEMETOLOGY METHOD 06/19/2024 10:41 AM [facility] MCHC 30.0(L) 32.0 - 37.0 g/dL LAB HEMETOLOGY METHOD 06/19/2024 10:41 AM [facility] RDW 16.8(H) 11.0 - 15.0 % LAB HEMETOLOGY METHOD 06/19/2024 10:41 AM [facility] Platelets 414(H) 130 - 400 K/mcL LAB HEMETOLOGY METHOD 06/19/2024 10:41 AM [facility] MPV 9.3 7.0 - 11.0 FL LAB HEMETOLOGY METHOD 06/19/2024 10:41 AM [facility] NRBC 0.0 <1.0 % LAB HEMETOLOGY METHOD 06/19/2024 10:41 AM [facility] NRBC Absolute 0.00 <0.10 K/mcL LAB HEMETOLOGY METHOD 06/19/2024 10:41 AM [facility] Blood Venous blood specimen / Unknown Venipuncture / Unknown 06/19/2024 6:17 AM EST 06/19/2024 9:19 AM EST us Corey Leung MD LAB BLOOD ORDERABLES Final Resul t [facility] [address] [place] [address], documented in this encounter Visit Diagnoses Diagnosis Hyperkalemia Hyperpotassemia Other senior care (current) drug therapy Essential (primary) hypertension Unspecified essential hypertension Fracture of unspecified part of neck of right femur, subsequent encounter for closed fracture with routine healing documented in this encounter Additional Health Concerns Infection Onset Date Last Indicated Resolved Time Respiratory Rule-Out 11/03/2024 11/02/2024 025 3:17 PM EDT documented as of this encounter Care Teams Pc Installation Engineer Relationship Specialty Start Date End Date Gagan Miguel MD [address] [place] [id number] PCP - General Internal Medicine 04/27/24 documented as of this encounter
--- OUTSIDE RECORDS SUMMARY | 2025-03-01 09:32 | XMS_ITS | Encounter Summary ---
Author Organization [facility] Address [address] [place] [address] Care Team Providers Care Foil Cutter Name Role Phone Gagan Miguel MD Primary Care Provider [phone] Encounter Details Date Type Department Care Team (Late st Contact Info) Description 11/27/[address] [facility] - Main Lab 299 [facility] [place] [address] Corey Leung MD [address] [place] [address] Metabolic encephalopathy; Nonrheumatic aortic (valve) stenosis; Type [...] Associated Diagnosis Comments COMPLETE BLOOD COUNT Routine 11/28/2024 6:09 AM EDT Metabolic encephalopathy Nonrheumatic aortic (valve) stenosis Type 2 diabetes mellitus without complications (CMS/HCC V24, CMS/HCC V28) BASIC METABOLIC PANEL Routine 11/28/2024 6:09 AM EDT Metabolic encephalopathy Nonrheumatic aortic (valve) stenosis Type 2 diabetes mellitus without complications (CMS/[facility] V24, [facility] V28) documented in this encounter Results * (ABNORMAL) Basic metabolic panel (11/28/2024 6:09 AM EDT) Sodium 136 133 - 145 mmol/L LAB CHEMISTRY METHOD 11/28/2024 10:49 AM [facility] Potassium 3.6 3.5 - 5.5 mmol/L LAB CHEMISTRY METHOD 11/28/2024 10:49 AM [facility] Chloride 97 96 - 110 mmol/L LAB CHEMISTRY METHOD 11/28/2024 10:49 AM [facility] CO2 31 21 - 32 mmol/L LAB CHEMISTRY METHOD 11/28/2024 10:49 AM [facility] Anion Gap 8 3 - 11 LAB CHEMISTRY METHOD 11/28/2024 10:49 AM [facility] Glucose 110(H) 70 - 100 mg/dL LAB CHEMISTRY METHOD 11/28/2024 10:49 AM [facility] BUN 25 5 - 25 mg/dL LAB CHEMISTRY METHOD 11/28/2024 10:49 AM [facility] Creatinine 0.62 0.50 - 1.10 mg/dL LAB CHEMISTRY METHOD 11/28/2024 10:49 AM [facility] LAB eGFR 85 >=60 mL/min/1. 73m2 LAB CHEMISTRY METHOD 11/28/2024 10:49 AM [facility] LAB Comment:Calculation based on the Chronic Kidney Disease Epidemiology Collaboration (CKD-EPI) equation refit without adjustment for race. BUN/Creatinine Ratio 40.3 LAB CHEMISTRY METHOD 11/28/2024 10:49 AM [facility] Calcium 8.8 8.5 - 10.5 mg/dL LAB CHEMISTRY METHOD 11/28/2024 10:49 AM [facility] Blood Venous blood specimen / Unknown Venipuncture / Unknown 11/28/2024 6:09 AM EDT 11/28/2024 9:51 AM EDT us Corey Leung MD LAB BLOOD ORDERABLES Final Resul t [facility] [address] [place] [address], * (ABNORMAL) Complete blood count (11/28/2024 6:09 AM EDT) [facility] WBC 7.9 4.8 - 10.8 K/mcL LAB HEMETOLOGY METHOD 11/28/2024 10:30 AM EDT [facility] RBC 3.70(L) 3.80 - 4.80 M/mcL LAB HEMETOLOGY METHOD 11/28/2024 10:30 AM EDT [facility] Hemoglobin 11.2(L) 11.5 - 16.0 g/dL LAB HEMETOLOGY METHOD 11/28/2024 10:30 AM EDT [facility] Hematocrit 36.0 35.0 - 47.0 % LAB HEMETOLOGY METHOD 11/28/2024 10:30 AM EDT [facility] MCV 98.6(H) 79.0 - 98.0 FL LAB HEMETOLOGY METHOD 11/28/2024 10:30 AM EDT [facility] MCH 30.7 27.0 - 32.0 pcg LAB HEMETOLOGY METHOD 11/28/2024 10:30 AM EDT [facility] MCHC 31.1(L) 32.0 - 37.0 g/dL LAB HEMETOLOGY METHOD 11/28/2024 10:30 AM EDT [facility] RDW 14.9 11.0 - 15.0 % LAB HEMETOLOGY [facility]28[facility]lets 247 130 - 400 K/mcL LAB HEMETOLOGY METHOD 11/28/2024 10:30 AM EDT [facility] MPV 11.0 7.0 - 11.0 FL LAB HEMETOLOGY METHOD 11/28/2024 10:30 AM EDT [facility] NRBC 0.0 <1.0 % LAB HEMETOLOGY METHOD 11/28/2024 10:30 AM EDT [facility] NRBC Absolute 0.00 <0.10 K/mcL LAB HEMETOLOGY METHOD 11/28/2024 10:30 AM EDT [facility] Blood Venous blood specimen / Unknown Venipuncture / Unknown 11/28/2024 6:09 AM EDT 11/28/2024 9:51 AM EDT Corey Leung MD LAB BLOOD ORDERABLES Final Resul t [facility] [address] [place] [address], [place] [phone] documented in this encounter Visit Diagnoses Diagnosis Metabolic encephalopathy Nonrheumatic aortic (valve) stenosis Type 2 diabetes mellitus without complications (CMS/HCC V24, CMS/HCC V28) documented in this encounter Care Teams Foil Cutter Relationship Specialty Start Date End Date Gagan Miguel MD [address] [place] [phone] PCP - General Internal Medicine 04/27/24 documented as of this encounter
--- OUTSIDE RECORDS SUMMARY | 2025-03-01 09:32 | XMS_ITS | Encounter Summary ---
Author Organization [facility] Address [address] [place] [address] Care Team Providers Care Digital Intern Name Role Phone Gagan Miguel MD Primary Care Provider [phone] Encounter Details Date Type Department Care Team (Late st Contact Info) Description 12/25/2024 Lab Requisition [facility] - Main Lab 299 [facility] [place] [address] Corey Leung MD [address] [place] [address] Metabolic encephalopathy; Nonrheumatic aortic (valve) stenosis; Type [...] Associated Diagnosis Comments COMPLETE BLOOD COUNT Routine 12/26/2024 6:23 AM EDT Metabolic encephalopathy Nonrheumatic aortic (valve) stenosis Type 2 diabetes mellitus without complications (CMS/HCC V24, CMS/HCC V28) BASIC METABOLIC PANEL Routine 12/26/2024 6:23 AM EDT Metabolic encephalopathy Nonrheumatic aortic (valve) stenosis Type 2 diabetes mellitus without complications (CMS/[facility] V24, [facility] V28) documented in this encounter Results * Basic metabolic panel (12/26/2024 6:23 AM EDT) Sodium 139 133 - 145 mmol/L LAB CHEMISTRY METHOD 12/26/2024 11:02 AM [facility] Potassium 4.1 3.5 - 5.5 mmol/L LAB CHEMISTRY METHOD 12/26/2024 11:02 AM [facility] Chloride 103 96 - 110 mmol/L LAB CHEMISTRY METHOD 12/26/2024 11:02 AM [facility] CO2 29 21 - 32 mmol/L LAB CHEMISTRY METHOD 12/26/2024 11:02 AM [facility] Anion Gap 7 3 - 11 LAB CHEMISTRY METHOD 12/26/2024 11:02 AM [facility] Glucose 100 70 - 100 mg/dL LAB CHEMISTRY METHOD 12/26/2024 11:02 AM [facility] BUN 19 5 - 25 mg/dL LAB CHEMISTRY METHOD 12/26/2024 11:02 AM [facility] Creatinine 0.66 0.50 - 1.10 mg/dL LAB CHEMISTRY METHOD 12/26/2024 11:02 AM [facility] eGFR 84 >=60 mL/min/1. 73m2 LAB CHEMISTRY METHOD 12/26/2024 11:02 AM [facility] Comment:Calculation based on the Chronic Kidney Disease Epidemiology Collaboration (CKD-EPI) equation refit without adjustment for race. BUN/Creatinine Ratio 28.8 LAB CHEMISTRY METHOD 12/26/2024 11:02 AM [facility] Calcium 9.1 8.5 - 10.5 mg/dL LAB CHEMISTRY METHOD 12/26/2024 11:02 AM [facility] Blood Venous blood specimen / Unknown Venipuncture / Unknown 12/26/2024 6:23 AM EDT 12/26/2024 9:57 AM EDT us Corey Leung MD LAB BLOOD ORDERABLES Final Resul t [facility] [address] [place] [address], * (ABNORMAL) Complete blood count (12/26/2024 6:23 AM EDT) WBC 8.7 4.8 - 10.8 K/mcL LAB HEMETOLOGY METHOD 12/26/2024 10:36 AM EDT [facility] RBC 3.80 3.80 - 4.80 M/mcL LAB HEMETOLOGY METHOD 12/26/2024 10:36 AM EDT [facility] Hemoglobin 11.8 11.5 - 16.0 g/dL LAB HEMETOLOGY METHOD 12/26/2024 10:36 AM EDT [facility] Hematocrit 37.6 35.0 - 47.0 % LAB HEMETOLOGY METHOD 12/26/2024 10:36 AM EDT [facility] MCV 99.7(H) 79.0 - 98.0 FL LAB HEMETOLOGY METHOD 12/26/2024 10:36 AM [facility] MCH 31.3 27.0 - 32.0 pcg LAB HEMETOLOGY METHOD 12/26/2024 10:36 AM EDT [facility] MCHC 31.4(L) 32.0 - 37.0 g/dL LAB HEMETOLOGY METHOD 12/26/2024 10:36 AM EDT [facility] RDW 14.7 11.0 - 15.0 % LAB HEMETOLOGY METHOD 12/26/2024 10:36 AM T [facility] Platelets 270 130 - 400 K/mcL LAB HEMETOLOGY METHOD 12/26/2024 10:36 AM EDT [facility] MPV 11.4(H) 7.0 - 11.0 FL LAB HEMETOLOGY METHOD 12/26/2024 10:36 AM EDT [facility] NRBC 0.0 <1.0 % [facility] METHOD 12/26/2024 10:36 AM EDT [facility] NRBC Absolute 0.00 <0.10 K/mcL LAB HEMETOLOGY METHOD 12/26/2024 10:36 AM EDT [facility] Blood Venous blood specimen / Unknown Venipuncture / Unknown 12/26/2024 6:23 AM EDT 12/26/2024 9:57 AM EDT us Corey Leung MD LAB BLOOD ORDERABLES Final Resul t [facility] [address] [place] [address], documented in this encounter Visit Diagnoses Diagnosis Metabolic encephalopathy Nonrheumatic aortic (valve) stenosis Type 2 diabetes mellitus without complications (CMS/HCC V24, CMS/HCC V28) documented in this encounter Care Teams Digital Intern Relationship Specialty Start Date End Date Gagan Miguel MD [address] [place] [id number] PCP - General Internal Medicine 04/27/24 documented as of this encounter
--- OUTSIDE RECORDS SUMMARY | 2025-03-01 09:32 | XMS_ITS | Encounter Summary ---
Author Organization [facility] Address [address] [place] [address] Care Team Providers Care Market Analyst Name Role Phone Gagan Miguel MD Primary Care Provider [phone] Encounter Details Date Type Department Care Team (Late st Contact Info) Description 01/22/2025 Lab Requisition [facility] - Main Lab [address] [facility] [place] [address] Corey Leung MD [address] [place] [address] Metabolic encephalopathy; Nonrheumatic aortic (valve) stenosis; Type [...] Associated Diagnosis Comments COMPLETE BLOOD COUNT Routine 01/23/2025 7:35 AM EDT Metabolic encephalopathy Nonrheumatic aortic (valve) stenosis Type 2 diabetes mellitus without complications (CMS/HCC V24, CMS/HCC V28) BASIC METABOLIC PANEL Routine 01/23/2025 7:35 AM EDT Metabolic encephalopathy Nonrheumatic aortic (valve) stenosis Type 2 diabetes mellitus without complications (CMS/[facility] V24, [facility] V28) documented in this encounter Results * Basic metabolic panel (01/23/2025 7:35 AM EDT) Sodium 139 133 - 145 mmol/L LAB CHEMISTRY METHOD 01/23/2025 10:46 AM [facility] Potassium 4.2 3.5 - 5.5 mmol/L LAB CHEMISTRY METHOD 01/23/2025 10:46 AM [facility] Chloride 104 96 - 110 mmol/L LAB CHEMISTRY METHOD 01/23/2025 10:46 AM [facility] CO2 32 21 - 32 mmol/L LAB CHEMISTRY METHOD 01/23/2025 10:46 AM [facility] Anion Gap 3 3 - 11 LAB CHEMISTRY METHOD 01/23/2025 10:46 AM [facility] Glucose 95 70 - 100 mg/dL LAB CHEMISTRY METHOD 01/23/2025 10:46 AM [facility] BUN 19 5 - 25 mg/dL LAB CHEMISTRY METHOD 01/23/2025 10:46 AM [facility] Creatinine 0.67 0.50 - 1.10 mg/dL LAB CHEMISTRY METHOD 01/23/2025 10:46 AM [facility] eGFR 84 >=60 mL/min/1. 73m2 LAB CHEMISTRY METHOD 01/23/2025 10:46 AM [facility] Comment:Calculation based on the Chronic Kidney Disease Epidemiology Collaboration (CKD-EPI) equation refit without adjustment for race. BUN/Creatinine Ratio 28.4 LAB CHEMISTRY METHOD 01/23/2025 10:46 AM [facility] Calcium 9.0 8.5 - 10.5 mg/dL LAB CHEMISTRY METHOD 01/23/2025 10:46 AM [facility] Blood Venous blood specimen / Unknown Venipuncture / Unknown 01/23/2025 7:35 AM EDT 01/23/2025 9:59 AM EDT us Corey Leung MD LAB BLOOD ORDERABLES Final Resul t [facility] [address] [place] [address], * (ABNORMAL) Complete blood count (01/23/2025 7:35 AM EDT) WBC 7.0 4.8 - 10.8 K/mcL LAB HEMETOLOGY METHOD 01/23/2025 10:11 AM EDT [facility] RBC 3.90 3.80 - 4.80 M/mcL LAB HEMETOLOGY METHOD 01/23/2025 10:11 AM [facility] Hemoglobin 12.1 11.5 - 16.0 g/dL LAB HEMETOLOGY METHOD 01/23/2025 10:11 AM EDT [facility] Hematocrit 38.1 35.0 - 47.0 % LAB HEMETOLOGY METHOD 01/23/2025 10:11 AM EDT [facility] MCV 97.7 79.0 - 98.0 FL LAB HEMETOLOGY METHOD 01/23/2025 10:11 AM T [facility] MCH 31.0 27.0 - 32.0 pcg LAB HEMETOLOGY METHOD 01/23/2025 10:11 AM T [facility] MCHC 31.8(L) 32.0 - 37.0 g/dL LAB HEMETOLOGY METHOD 01/23/2025 10:11 AM EDT [facility] RDW 14.5 11.0 - 15.0 % LAB HEMETOLOGY METHOD 01/23/2025 10:11 AM T [facility] Platelets 271 130 - 400 K/mcL LAB HEMETOLOGY METHOD 01/23/2025 10:11 AM EDT [facility] MPV 10.7 7.0 - 11.0 FL LAB HEMETOLOGY METHOD 01/23/2025 10:11 AM EDT [facility] NRBC 0.0 <1.0 % LAB HEMETOLOGY METHOD 01/23/2025 10:11 AM EDT [facility] NRBC Absolute 0.00 <0.10 K/mcL LAB HEMETOLOGY METHOD 01/23/2025 10:11 AM EDT [facility] Blood Venous blood specimen / Unknown Venipuncture / Unknown 01/23/2025 7:35 AM EDT 01/23/2025 9:59 AM EDT us Corey Leung MD LAB BLOOD ORDERABLES Final Resul t [facility] [address] [place] [address], documented in this encounter Visit Diagnoses Diagnosis Metabolic encephalopathy Nonrheumatic aortic (valve) stenosis Type 2 diabetes mellitus without complications (CMS/HCC V24, CMS/HCC V28) documented in this encounter Care Teams Market Analyst Relationship Specialty Start Date End Date Gagan Miguel MD [address] [place] [id number] PCP - General Internal Medicine 04/27/24 documented as of this encounter
--- OUTSIDE RECORDS SUMMARY | 2025-03-01 09:32 | XMS_ITS | Encounter Summary ---
Author Organization [facility] Address [address] [place] [address] Care Team Providers Care Stevedore Dock Name Role Phone Gagan Miguel MD Primary Care Provider [phone] Encounter Details Date Type Department Care Team (Late st Contact Info) Description 12/11/2024 Lab Requisition [facility] - Main Lab 299 [facility] [place] [address] Corey Leung MD [address] [place] [address] Metabolic encephalopathy; Nonrheumatic aortic (valve) stenosis; Type [...] Associated Diagnosis Comments COMPLETE BLOOD COUNT Routine 12/12/2024 7:41 AM EDT Metabolic encephalopathy Nonrheumatic aortic (valve) stenosis Type 2 diabetes mellitus without complications (CMS/HCC V24, CMS/HCC V28) BASIC METABOLIC PANEL Routine 12/12/2024 7:41 AM EDT Metabolic encephalopathy Nonrheumatic aortic (valve) stenosis Type 2 diabetes mellitus without complications (CMS/[facility] V24, [facility] V28) documented in this encounter Results * (ABNORMAL) Basic metabolic panel (12/12/2024 7:41 AM EDT) Sodium 138 133 - 145 mmol/L LAB CHEMISTRY METHOD 12/12/2024 10:[address] [facility] Potassium 4.0 3.5 - 5.5 mmol/L LAB CHEMISTRY METHOD 12/12/2024 10:[address] [facility] Chloride 99 96 - 110 mmol/L LAB CHEMISTRY METHOD 12/12/2024 10:[address] [facility] CO2 32 21 - 32 mmol/L LAB CHEMISTRY METHOD 12/12/2024 10:[address] [facility] Anion Gap 7 3 - 11 LAB CHEMISTRY METHOD 12/12/2024 10:[address] [facility] Glucose 113(H) 70 - 100 mg/dL LAB CHEMISTRY METHOD 12/12/2024 10:[address] [facility] BUN 19 5 - 25 mg/dL LAB CHEMISTRY METHOD 12/12/2024 10:[address] [facility] Creatinine 0.57 0.50 - 1.10 mg/dL LAB CHEMISTRY METHOD 12/12/2024 10:[address] [facility] eGFR 87 >=60 mL/min/1. 73m2 LAB CHEMISTRY METHOD 12/12/2024 10:[address] [facility] Comment:Calculation based on the Chronic Kidney Disease Epidemiology Collaboration (CKD-EPI) equation refit without adjustment for race. BUN/Creatinine Ratio 33.3 LAB CHEMISTRY METHOD 12/12/2024 10:[address] [facility] Calcium 9.1 8.5 - 10.5 mg/dL LAB CHEMISTRY METHOD 12/12/2024 10:[address] [facility] Blood Venous blood specimen / Unknown Venipuncture / Unknown 12/12/2024 7:41 AM EDT 12/12/2024 9:04 AM EDT us Corey Leung MD LAB BLOOD ORDERABLES Final Resul t [facility] [address] [place] [address], * (ABNORMAL) Complete blood count (12/12/2024 7:41 AM EDT) [facility] WBC 6.2 4.8 - 10.8 K/mcL LAB HEMETOLOGY METHOD 12/12/2024 9:27 AM EDT [facility] RBC 3.70(L) 3.80 - 4.80 M/mcL LAB HEMETOLOGY METHOD 12/12[facility]2024 [facility] Hemoglobin 11.5 11.5 - 16.0 g/dL LAB HEMETOLOGY METHOD 12/12/2024 9:27 AM EDT [facility] Hematocrit 36.6 35.0 - 47.0 % LAB HEMETOLOGY METHOD 12/12/2024 9:27 AM [facility] MCV 100.3(H) 79.0 - 98.0 FL LAB HEMETOLOGY METHOD 12/12/2024 9:27 [facility] MCH 31.5 27.0 - 32.0 pcg LAB HEMETOLOGY METHOD 12/12/2024 9:27 [facility] MCHC 31.4(L) 32.0 - 37.0 g/dL LAB HEMETOLOGY METHOD 12/12/2024 9:[address] [facility] RDW 15.1(H) 11.0 - 15.0 % LAB HEMETOLOGY METHOD 12/12/2024 9:27 [facility] Platelets 263 130 - 400 K/mcL LAB HEMETOLOGY METHOD 12/12/2024 9:27 AM EDT [facility] MPV 10.8 7.0 - 11.0 FL LAB HEMETOLOGY METHOD 12/12/2024 9:27 AM EDT [facility] NRBC 0.0 <1.0 % LAB HEMETOLOGY METHOD 12/12/2024 9:27 AM EDT [facility] NRBC Absolute 0.00 <0.10 K/mcL LAB HEMETOLOGY METHOD 12/12/2024 9:27 AM EDT [facility] Blood Venous blood specimen / Unknown Venipuncture / Unknown 12/12/2024 7:41 AM EDT 12/12/2024 9:04 AM EDT Corey Leung MD LAB BLOOD ORDERABLES Final Resul t [facility] [address] [place] [address], [place] [phone] documented in this encounter Visit Diagnoses Diagnosis Metabolic encephalopathy Nonrheumatic aortic (valve) stenosis Type 2 diabetes mellitus without complications (CMS/HCC V24, CMS/HCC V28) documented in this encounter Care Teams Stevedore Dock Relationship Specialty Start Date End Date Gagan Miguel MD [address] [place] [phone] PCP - General Internal Medicine 04/27/24 documented as of this encounter
--- OUTSIDE RECORDS SUMMARY | 2025-03-01 09:32 | XMS_ITS | Encounter Summary ---
Author Organization [facility] Address [address] [place] [address] Care Team Providers Care Turbine Operator Name Role Phone Gagan Miguel MD Primary Care Provider [phone] Encounter Details Date Type Department Care Team (Late st Contact Info) Description 11/20/2024 Lab Requisition [facility] - Main Lab 299 [facility] [place] [address] Corey Leung MD [address] [place] [address] Metabolic encephalopathy; Nonrheumatic aortic (valve) stenosis; Type [...] Associated Diagnosis Comments COMPLETE BLOOD COUNT Routine 11/21/2024 5:57 AM EDT Metabolic encephalopathy Nonrheumatic aortic (valve) stenosis Type 2 diabetes mellitus without complications (CMS/HCC V24, CMS/HCC V28) BASIC METABOLIC PANEL Routine 11/21/2024 5:57 AM EDT Metabolic encephalopathy Nonrheumatic aortic (valve) stenosis Type 2 diabetes mellitus without complications (CMS/[facility] V24, [facility] V28) documented in this encounter Results * (ABNORMAL) Complete blood count (11/21/2024 5:57 AM EDT) [facility] Signature WBC 9.8 4.8 - 10.8 K/mcL LAB HEMETOLOGY METHOD 11/21/2024 7:33 AM [facility] RBC 3.50(L) 3.80 - 4.80 M/mcL LAB HEMETOLOGY METHOD 11/21/2024 7:33 AM [facility] Hemoglobin 10.8(L) 11.5 - 16.0 g/dL LAB HEMETOLOGY METHOD 11/21/2024 7:33 AM [facility] Hematocrit 34.2(L) 35.0 - 47.0 % LAB HEMETOLOGY METHOD 11/21/2024 7:33 AM [facility] MCV 99.1(H) 79.0 - 98.0 FL LAB HEMETOLOGY METHOD 11/21/2024 7:33 AM [facility] MCH 31.3 27.0 - 32.0 pcg LAB HEMETOLOGY METHOD 11/21/2024 7:33 AM [facility] MCHC 31.6(L) 32.0 - 37.0 g/dL LAB HEMETOLOGY METHOD 11/21/2024 7:33 AM [facility] RDW 15.8(H) 11.0 - 15.0 % LAB HEMETOLOGY METHOD 11/21/2024 7:33 AM [facility] Platelets 391 130 - 400 K/mcL LAB HEMETOLOGY METHOD 11/21/2024 7:33 AM [facility] MPV 10.1 7.0 - 11.0 FL LAB HEMETOLOGY METHOD 11/21/2024 7:33 AM [facility] NRBC 0.0 <1.0 % LAB HEMETOLOGY METHOD 11/21/2024 7:33 AM EDT [facility] NRBC Absolute 0.00 <0.10 K/mcL LAB HEMETOLOGY METHOD 11/21/2024 7:33 AM EDT [facility] Blood Venous blood specimen / Unknown Venipuncture / Unknown 11/21/2024 5:57 AM EDT 11/21/2024 7:05 AM EDT us Corey Leung MD LAB BLOOD ORDERABLES Final Resul t [facility] [address] [place] [address], [place] [phone] * (ABNORMAL) Basic metabolic panel (11/21/2024 5:57 AM EDT) Sodium 135 133 - 145 mmol/L LAB CHEMISTRY METHOD 11/21/2024 8:11 AM [facility] Potassium 4.4 3.5 - 5.5 mmol/L LAB CHEMISTRY METHOD 11/21/2024 8:11 AM [facility] Chloride 98 96 - 110 mmol/L LAB CHEMISTRY METHOD 11/21/2024 8:11 AM [facility] CO2 33(H) 21 - 32 mmol/L LAB CHEMISTRY METHOD 11/21/2024 8:11 AM [facility] Anion Gap 4 3 - 11 LAB CHEMISTRY METHOD 11/21/2024 8:11 AM [facility] Glucose 85 70 - 100 mg/dL LAB CHEMISTRY METHOD 11/21/2024 8:11 AM [facility] BUN 24 5 - 25 mg/dL LAB CHEMISTRY METHOD 11/21/2024 8:11 AM [facility] Creatinine 0.62 0.50 - 1.10 mg/dL LAB CHEMISTRY METHOD 11/21/2024 8:11 AM EDT [facility] eGFR 85 >=60 mL/min/1. 73m2 LAB CHEMISTRY METHOD 11/21/2024 8:11 AM EDT [facility] Comment:Calculation based on the Chronic Kidney Disease Epidemiology Collaboration (CKD-EPI) equation refit without adjustment for race. BUN/Creatinine Ratio 38.7 LAB CHEMISTRY METHOD 11/21/2024 8:11 AM EDT [facility] Calcium 9.0 8.5 - 10.5 mg/dL LAB CHEMISTRY METHOD 11/21/2024 8:11 AM EDT [facility] Blood Venous blood specimen / Unknown Venipuncture / Unknown 11/21/2024 5:57 AM EDT 11/21/2024 7:05 AM EDT us Corey Leung MD LAB BLOOD ORDERABLES Final Resul t [facility] [address] [place] [address], documented in this encounter Visit Diagnoses Diagnosis Metabolic encephalopathy Nonrheumatic aortic (valve) stenosis Type 2 diabetes mellitus without complications (CMS/HCC V24, CMS/HCC V28) documented in this encounter Care Teams Turbine Operator Relationship Specialty Start Date End Date Gagan Miguel MD [address] [place] [id number] PCP - General Internal Medicine 04/27/24 documented as of this encounter
--- OUTSIDE RECORDS SUMMARY | 2025-03-01 09:32 | XMS_ITS | Encounter Summary ---
Author Organization [facility] Address [address] [place] [address] Care Team Providers Care Clinical Support Manager Name Role Phone Gagan Miguel MD Primary Care Provider [phone] Encounter Details Date Type Department Care Team (Late st Contact Info) Description 12/18/2024 Lab Requisition [facility] - Main Lab 299 [facility] [place] [address] Corey Leung MD [address] [place] [address] Metabolic encephalopathy; Nonrheumatic aortic (valve) stenosis; Type [...] Associated Diagnosis Comments COMPLETE BLOOD COUNT Routine 12/19/2024 6:27 AM EDT Metabolic encephalopathy Nonrheumatic aortic (valve) stenosis Type 2 diabetes mellitus without complications (CMS/HCC V24, CMS/HCC V28) BASIC METABOLIC PANEL Routine 12/19/2024 6:27 AM EDT Metabolic encephalopathy Nonrheumatic aortic (valve) stenosis Type 2 diabetes mellitus without complications (CMS/[facility] V24, [facility] V28) documented in this encounter Results * (ABNORMAL) Basic metabolic panel (12/19/2024 6:27 AM EDT) Sodium 140 133 - 145 mmol/L LAB CHEMISTRY METHOD 12/19/2024 9:38 AM [facility] Potassium 4.0 3.5 - 5.5 mmol/L LAB CHEMISTRY METHOD 12/19/2024 9:38 AM [facility] Chloride 104 96 - 110 mmol/L LAB CHEMISTRY METHOD 12/19/2024 9:38 AM [facility] CO2 33(H) 21 - 32 mmol/L LAB CHEMISTRY METHOD 12/19/2024 9:38 AM [facility] Anion Gap 3 3 - 11 LAB CHEMISTRY METHOD 12/19/2024 9:38 AM [facility] Glucose 86 70 - 100 mg/dL LAB CHEMISTRY METHOD 12/19/2024 9:38 AM [facility] BUN 16 5 - 25 mg/dL LAB CHEMISTRY METHOD 12/19/2024 9:38 AM [facility] Creatinine 0.58 0.50 - 1.10 mg/dL LAB CHEMISTRY METHOD 12/19/2024 9:38 AM [facility] eGFR 87 >=60 mL/min/1. 73m2 LAB CHEMISTRY METHOD 12/19/2024 9:38 AM [facility] Comment:Calculation based on the Chronic Kidney Disease Epidemiology Collaboration (CKD-EPI) equation refit without adjustment for race. BUN/Creatinine Ratio 27.6 LAB CHEMISTRY METHOD 12/19/2024 9:38 AM [facility] Calcium 8.5 8.5 - 10.5 mg/dL LAB CHEMISTRY METHOD 12/19/2024 9:38 AM [facility] Blood Venous blood specimen / Unknown Venipuncture / Unknown 12/19/2024 6:27 AM EDT 12/19/2024 9:04 AM EDT us Corey Leung MD LAB BLOOD ORDERABLES Final Resul t [facility] [address] [place] [address], * (ABNORMAL) Complete blood count (12/19/2024 6:27 AM EDT) [facility] WBC 7.7 4.8 - 10.8 K/mcL LAB HEMETOLOGY METHOD 12/19/2024 9:[address] [facility] RBC 3.40(L) 3.80 - 4.80 M/mcL LAB HEMETOLOGY METHOD 12/19/2024 9:18 AM [facility] Hemoglobin 11.0(L) 11.5 - 16.0 g/dL LAB HEMETOLOGY METHOD 12/19/2024 9:18 AM [facility] Hematocrit 34.4(L) 35.0 - 47.0 % LAB HEMETOLOGY METHOD 12/19/2024 9:18 AM [facility] MCV 100.6(H) 79.0 - 98.0 FL LAB HEMETOLOGY METHOD 12/19/2024 9:[address] [facility] MCH 32.2(H) 27.0 - 32.0 pcg LAB HEMETOLOGY METHOD 12/19/2024 9:[address] [facility] MCHC 32.0 32.0 - 37.0 g/dL LAB HEMETOLOGY METHOD 12/19/2024 9:18 AM [facility] RDW 15.5(H) 11.0 - 15.0 % LAB HEMETOLOGY METHOD 12/19/2024 9:[address] [facility] Platelets 262 130 - 400 K/mcL LAB HEMETOLOGY METHOD 12/19/2024 9:[address] [facility] MPV 10.9 7.0 - 11.0 FL LAB HEMETOLOGY METHOD 12/19/2024 9:[address] [facility] NRBC 0.0 <1.0 % LAB HEMETOLOGY METHOD 12/19/2024 9:[address] [facility] NRBC Absolute 0.00 <0.10 K/mcL LAB HEMETOLOGY METHOD 12/19/2024 9:[address] [facility] Blood Venous blood specimen / Unknown Venipuncture / Unknown 12/19/2024 6:27 AM EDT 12/19/2024 9:02 AM EDT us Corey Leung MD LAB BLOOD ORDERABLES Final Resul t [facility] [address] [place] [address], documented in this encounter Visit Diagnoses Diagnosis Metabolic encephalopathy Nonrheumatic aortic (valve) stenosis Type 2 diabetes mellitus without complications (CMS/HCC V24, CMS/HCC V28) documented in this encounter Care Teams Clinical Support Manager Relationship Specialty Start Date End Date Gagan Miguel MD [address] [place] [id number] PCP - General Internal Medicine 04/27/24 documented as of this encounter
--- OUTSIDE RECORDS SUMMARY | 2025-03-01 09:32 | XMS_ITS | Encounter Summary ---
Author Organization [facility] Address [address] [place] [address] Care Team Providers Care Traffic Assistant Name Role Phone Gagan Miguel MD Primary Care Provider [phone] Encounter Details Date Type Department Care Team (Late st Contact Info) Description 06/27/2024 Lab Requisition [facility] - Main Lab 299 [facility] [place] [address] Corey Leung MD [address] [place] [address] Nonrheumatic aortic (valve) stenosis; Metabolic encephalopathy; Type 2 diabetes mellitus without complications (CMS/HCC [...] Associated Diagnosis Comments COMPLETE BLOOD COUNT Routine 06/27/2024 5:42 AM EST Nonrheumatic aortic (valve) stenosis Metabolic encephalopathy Type 2 diabetes mellitus without complications (CMS/HCC) HEMOGLOBIN A1C Routine 06/27/2024 5:42 AM EST Nonrheumatic aortic (valve) stenosis Metabolic encephalopathy Type 2 diabetes mellitus without complications (CMS/HCC) BASIC METABOLIC PANEL Routine 06/27/2024 5:42 AM EST Nonrheumatic aortic (valve) stenosis Metabolic encephalopathy Type 2 diabetes mellitus without complications (CMS/HCC) documented in this encounter Results * Hemoglobin A1c (06/27/2024 5:42 AM EST) Hemoglobin A1C 4.8 <6.5 % LAB CHEMISTRY METHOD 06/28/2024 11:17 AM EST [facility] Mean Bld Glu Estim. 91 mg/dL LAB CHEMISTRY METHOD 06/28/2024 11:17 AM [facility] Blood Venous blood specimen / Unknown Venipuncture / Unknown 06/27/2024 5:42 AM EST 06/27/2024 1:46 PM EST Corey Leung MD LAB BLOOD ORDERABLES Final Resul t [facility] [address] [place] [address], * Basic metabolic panel (06/27/2024 5:42 AM EST) Pathologist [facility] Sodium 136 133 - 145 mmol/L LAB CHEMISTRY METHOD 06/27/2024 5:15 PM [facility] Potassium 4.8 3.5 - 5.5 mmol/L LAB CHEMISTRY METHOD 06/27/2024 5:15 PM [facility] Chloride 100 96 - 110 mmol/L LAB CHEMISTRY METHOD 06/27/2024 5:15 PM [facility] CO2 31 21 - 32 mmol/L LAB CHEMISTRY METHOD 06/27/2024 5:15 PM [facility] Anion Gap 5 3 - 11 LAB CHEMISTRY METHOD 06/27/2024 5:15 PM [facility] Glucose 80 70 - 100 mg/dL LAB CHEMISTRY METHOD 06/27/2024 5:15 PM [facility] BUN 16 5 - 25 mg/dL LAB CHEMISTRY METHOD 06/27/2024 5:15 PM EST [facility] Creatinine 0.61 0.50 - 1.10 mg/dL LAB CHEMISTRY METHOD 06/27/2024 5:15 PM EST [facility] eGFR 86 >=60 mL/min/1. 73m2 LAB CHEMISTRY METHOD 06/27/2024 5:15 PM EST [facility] Comment:Calculation based on the Chronic Kidney Disease Epidemiology Collaboration (CKD-EPI) equation refit without adjustment for race. BUN/Creatinine Ratio 26.2 LAB CHEMISTRY METHOD 06/27/2024 5:15 PM EST [facility] Calcium 8.5 8.5 - 10.5 mg/dL LAB CHEMISTRY METHOD 06/27/2024 5:15 PM [facility] Blood Venous blood specimen / Unknown Venipuncture / Unknown 06/27/2024 5:42 AM EST 06/27/2024 1:46 PM EST us Corey Leung MD LAB BLOOD ORDERABLES Final Resul t [facility] [address] [place] [address], [place] [phone] * (ABNORMAL) Complete blood count (06/27/2024 5:42 AM EST) WBC 6.3 4.8 - 10.8 K/mcL LAB HEMETOLOGY METHOD 06/27/2024 2:27 PM [facility] RBC 3.60(L) 3.80 - 4.80 M/mcL LAB HEMETOLOGY METHOD 06/27/2024 2:27 PM [facility] Hemoglobin 11.2(L) 11.5 - 16.0 g/dL LAB HEMETOLOGY METHOD 06/27/2024 2:27 PM EST [facility] Hematocrit 37.1 35.0 - 47.0 % LAB HEMETOLOGY METHOD 06/27/2024 2:27 PM [facility] MCV 103.6(H) 79.0 - 98.0 FL LAB HEMETOLOGY METHOD 06/27/2024 2:27 PM [facility] MCH 31.3 27.0 - 32.0 pcg LAB HEMETOLOGY METHOD 06/27/2024 2:27 PM [facility] MCHC 30.2(L) 32.0 - 37.0 g/dL LAB HEMETOLOGY METHOD 06/27/2024 2:27 PM [facility] RDW 15.7(H) 11.0 - 15.0 % LAB HEMETOLOGY METHOD 06/27/2024 2:27 PM [facility] Platelets 315 130 - 400 K/mcL LAB HEMETOLOGY METHOD 06/27/2024 2:27 PM [facility] MPV 9.9 7.0 - 11.0 FL LAB HEMETOLOGY METHOD 06/27/2024 2:27 PM [facility] NRBC 0.0 <1.0 % LAB HEMETOLOGY METHOD 06/27/2024 2:27 PM [facility] NRBC Absolute 0.00 <0.10 K/mcL LAB HEMETOLOGY METHOD 06/27/2024 2:27 PM [facility] Blood Venous blood specimen / Unknown Venipuncture / Unknown 06/27/2024 5:42 AM EST 06/27/2024 1:46 PM EST us Corey Leung MD LAB BLOOD ORDERABLES Final Resul t [facility] [address] [place] [address], documented in this encounter Visit Diagnoses Diagnosis Nonrheumatic aortic (valve) stenosis Metabolic encephalopathy Type 2 diabetes mellitus without complications (CMS/[facility] V24, CMS/[facility] V28) documented in this encounter Additional Health Concerns Infection Onset Date Last Indicated Resolved Time Respiratory Rule-Out 11/03/2024 11/02/2024 025 3:17 PM EDT documented as of this encounter Care Teams Traffic Assistant Relationship Specialty Start Date End Date Gagan Miguel MD [address] [place] [id number] PCP - General Internal Medicine 04/27/24 documented as of this encounter
--- OUTSIDE RECORDS SUMMARY | 2025-03-01 09:32 | XMS_ITS | Encounter Summary ---
Author Organization [facility] Address [address] [place] [address] Care Team Providers Care Patrol Commander Name Role Phone Gagan Miguel MD Primary Care Provider [phone] Encounter Details Date Type Department Care Team (Late st Contact Info) Description 12/10/2024 Lab Requisition [facility] - Main Lab 299 [facility] [place] [address] Corey Leung MD [address] [place] [address] Altered mental status, unspecified Social History Tobacco Use Types Packs/Day Years [...] Associated Diagnosis Comments COMPLETE BLOOD COUNT Routine 12/10/2024 5:32 AM EDT Altered mental status, unspecified BASIC METABOLIC PANEL Routine 12/10/2024 5:32 AM EDT Altered mental status, unspecified documented in this encounter Results * (ABNORMAL) Basic metabolic panel (12/10/2024 5:32 AM EDT) Sodium 138 133 - 145 mmol/L LAB CHEMISTRY METHOD 12/10/2024 6:29 AM [facility] Potassium 4.3 3.5 - 5.5 mmol/L LAB CHEMISTRY METHOD 12/10/2024 6:29 AM [facility] Chloride 102 96 - 110 mmol/L LAB CHEMISTRY METHOD 12/10/2024 6:29 AM [facility] CO2 34(H) 21 - 32 mmol/L LAB CHEMISTRY METHOD 12/10/2024 6:29 AM [facility] Anion Gap 2(L) 3 - 11 LAB CHEMISTRY METHOD 12/10/2024 6:29 AM [facility] Glucose 113(H) 70 - 100 mg/dL LAB CHEMISTRY METHOD 12/10/2024 6:29 AM [facility] BUN 24 5 - 25 mg/dL LAB CHEMISTRY METHOD 12/10/2024 6:29 AM [facility] Creatinine 0.68 0.50 - 1.10 mg/dL LAB CHEMISTRY METHOD 12/10/2024 6:29 AM [facility] eGFR 83 >=60 mL/min/1. 73m2 LAB CHEMISTRY METHOD 12/10/2024 6:29 AM [facility] Comment:Calculation based on the Chronic Kidney Disease Epidemiology Collaboration (CKD-EPI) equation refit without adjustment for race. BUN/Creatinine Ratio 35.3 LAB CHEMISTRY METHOD 12/10/2024 6:29 AM [facility] Calcium 8.8 8.5 - 10.5 mg/dL LAB CHEMISTRY METHOD 12/10/2024 6:29 AM [facility] Blood Venous blood specimen / Unknown Venipuncture / Unknown 12/10/2024 5:32 AM EDT 12/10/2024 5:54 AM EDT us Corey Leung MD LAB BLOOD ORDERABLES Final Resul t [facility] [address] [place] [address], * (ABNORMAL) Complete blood count (12/10/2024 5:32 AM EDT) [facility] Signature WBC 6.4 4.8 - 10.8 K/mcL LAB HEMETOLOGY METHOD 12/10/2024 6:05 AM EDT [facility] RBC 3.30(L) 3.80 - 4.80 M/mcL LAB HEMETOLOGY METHOD 12/10/2024 6:05 AM EDT [facility] Hemoglobin 10.2(L) 11.5 - 16.0 g/dL LAB HEMETOLOGY METHOD 12/10/2024 6:05 AM [facility] Hematocrit 32.7(L) 35.0 - 47.0 % LAB HEMETOLOGY METHOD 12/10/2024 6:[facility] MCV 98.2(H) 79.0 - 98.0 FL LAB HEMETOLOGY METHOD 12/10/2024 6:05 AM [facility] MCH 30.6 27.0 - 32.0 pcg LAB HEMETOLOGY METHOD 12/10/2024 6:05 AM [facility] MCHC 31.2(L) 32.0 - 37.0 g/dL LAB HEMETOLOGY METHOD 12/10/2024 6:05 AM [facility] RDW 15.1(H) 11.0 - 15.0 % LAB HEMETOLOGY METHOD 12/10/2024 6:05 AM [facility] Platelets 245 130 - 400 K/mcL LAB HEMETOLOGY METHOD 12/10/2024 6:05 AM [facility] MPV 10.4 7.0 - 11.0 FL LAB HEMETOLOGY METHOD 12/10/2024 6:05 AM [facility] NRBC 0.0 <1.0 % LAB HEMETOLOGY METHOD 12/10/2024 6:05 AM EDT [facility] NRBC Absolute 0.00 <0.10 K/mcL LAB HEMETOLOGY METHOD 12/10/2024 6:05 AM EDT [facility] Blood Venous blood specimen / Unknown Venipuncture / Unknown 12/10/2024 5:32 AM EDT 12/10/2024 5:54 AM EDT us Corey Leung MD LAB BLOOD ORDERABLES Final Resul t [facility] [address] [place] [address], documented in this encounter Visit Diagnoses Diagnosis Altered mental status, unspecified documented in this encounter Care Teams Patrol Commander Relationship Specialty Start Date End Date Gagan Miguel MD [address] [place] [id number] PCP - General Internal Medicine 04/27/24 documented as of this encounter
--- OUTSIDE RECORDS SUMMARY | 2025-03-01 09:32 | XMS_ITS | Encounter Summary ---
Author Organization [facility] Address [address] [place] [address] Care Team Providers Care Rn Access Name Role Phone Gagan Miguel MD Primary Care Provider [phone] Encounter Details Date Type Department Care Team (Late st Contact Info) Description 07/16/2024 Lab Requisition [facility] - Main Lab [address] [facility] [address] [place] [address] Corey Leung MD [address] [place] [address] Metabolic encephalopathy; Type 2 diabetes mellitus without [...] Associated Diagnosis Comments COMPLETE BLOOD COUNT Routine 07/16/2024 6:30 AM EST Metabolic encephalopathy Type 2 diabetes mellitus without complications (CMS/HCC) BASIC METABOLIC PANEL Routine 07/16/2024 6:30 AM EST Metabolic encephalopathy Type 2 diabetes mellitus without complications (CMS/HCC) documented in this encounter Results * (ABNORMAL) Basic metabolic panel (07/16/2024 6:30 AM EST) Sodium 137 133 - 145 mmol/L LAB CHEMISTRY METHOD 07/16/2024 2:02 PM [facility] Potassium 3.4(L) 3.5 - 5.5 mmol/L LAB CHEMISTRY METHOD 07/16/2024 2:02 PM [facility] Chloride 96 96 - 110 mmol/L LAB CHEMISTRY METHOD 07/16/2024 2:02 PM [facility] CO2 31 21 - 32 mmol/L LAB CHEMISTRY METHOD 07/16/2024 2:02 PM [facility] Anion Gap 10 3 - 11 LAB CHEMISTRY METHOD 07/16/2024 2:02 PM [facility] Glucose 115(H) 70 - 100 mg/dL LAB CHEMISTRY METHOD 07/16/2024 2:02 PM [facility] BUN 12 5 - 25 mg/dL LAB CHEMISTRY METHOD 07/16/2024 2:02 PM [facility] Creatinine 0.67 0.50 - 1.10 mg/dL LAB CHEMISTRY METHOD 07/16/2024 2:02 PM [facility] eGFR 84 >=60 mL/min/1. 73m2 LAB CHEMISTRY METHOD 07/16/2024 2:02 PM [facility] Comment:Calculation based on the Chronic Kidney Disease Epidemiology Collaboration (CKD-EPI) equation refit without adjustment for race. BUN/Creatinine Ratio 17.9 LAB CHEMISTRY METHOD 07/16/2024 2:02 PM [facility] Calcium 8.9 8.5 - 10.5 mg/dL LAB CHEMISTRY METHOD 07/16/2024 2:02 PM [facility] Blood Venous blood specimen / Unknown Venipuncture / Unknown 07/16/2024 6:30 AM EST 07/16/2024 11:25 AM EST Corey Leung MD LAB BLOOD ORDERABLES Final Resul t [facility] [address] [place] [address], * (ABNORMAL) Complete blood count (07/16/2024 6:30 AM EST) [facility] Signature WBC 7.0 4.8 - 10.8 K/mcL LAB HEMETOLOGY METHOD 07/16/2024 1:22 PM [facility] RBC 3.40(L) 3.80 - 4.80 M/mcL LAB HEMETOLOGY METHOD 07/16/2024 1:22 PM [facility] Hemoglobin 10.6(L) 11.5 - 16.0 g/dL LAB HEMETOLOGY METHOD 07/16/2024 1:22 PM [facility] Hematocrit 34.7(L) 35.0 - 47.0 % LAB HEMETOLOGY METHOD 07/16/2024 1:22 PM [facility] MCV 101.8(H) 79.0 - 98.0 FL LAB HEMETOLOGY METHOD 07/16/2024 1:22 PM EST [facility] MCH 31.1 27.0 - 32.0 pcg LAB HEMETOLOGY METHOD 07/16/2024 1:22 PM [facility] MCHC 30.5(L) 32.0 - 37.0 g/dL LAB HEMETOLOGY METHOD 07/16/2024 1:22 PM [facility] RDW 14.9 11.0 - 15.0 % LAB HEMETOLOGY METHOD 07/16/2024 1:22 PM [facility] Platelets 298 130 - 400 K/mcL LAB HEMETOLOGY METHOD 07/16/2024 1:22 PM [facility] MPV 10.1 7.0 - 11.0 FL LAB HEMETOLOGY METHOD 07/16/2024 1:22 PM [facility] NRBC 0.0 <1.0 % LAB HEMETOLOGY METHOD 07/16/2024 1:22 PM EST [facility] NRBC Absolute 0.00 <0.10 K/mcL LAB HEMETOLOGY METHOD 07/16/2024 1:22 PM EST [facility] Blood Venous blood specimen / Unknown Venipuncture / Unknown 07/16/2024 6:30 AM EST 07/16/2024 11:25 AM EST us Corey eLung MD LAB BLOOD ORDERABLES Final Resul t [facility] [address] [place] [address], documented in this encounter Visit Diagnoses Diagnosis Metabolic encephalopathy Type 2 diabetes mellitus without complications (CMS/HCC V24, CMS/HCC V28) documented in this encounter Additional Health Concerns Infection Onset Date Last Indicated Resolved Time Respiratory Rule-Out 11/03/2024 11/02/2024 025 3:17 PM EDT documented as of this encounter Care Teams Rn Access Relationship Specialty Start Date End Date Gagan Miguel MD [address] [place] [id number] PCP - General Internal Medicine 04/27/24 documented as of this encounter
--- OUTSIDE RECORDS SUMMARY | 2025-03-01 09:32 | XMS_ITS | Encounter Summary ---
Author Organization [facility] Address [address] [place] [address] Care Team Providers Care Director Report Name Role Phone Gagan Miguel MD Primary Care Provider [phone] Encounter Details Date Type Department Care Team (Late st Contact Info) Description 01/29/2025 Lab Requisition [facility] - Main Lab 299 [facility] [place] [address] Corey Leung MD [address] [place] [address] Metabolic encephalopathy; Nonrheumatic aortic (valve) stenosis; Type [...] Associated Diagnosis Comments COMPLETE BLOOD COUNT Routine 01/30/2025 7:21 AM EDT Metabolic encephalopathy Nonrheumatic aortic (valve) stenosis Type 2 diabetes mellitus without complications (CMS/HCC V24, CMS/HCC V28) BASIC METABOLIC PANEL Routine 01/30/2025 7:21 AM EDT Metabolic encephalopathy Nonrheumatic aortic (valve) stenosis Type 2 diabetes mellitus without complications (CMS/[facility] V24, [facility] V28) documented in this encounter Results * (ABNORMAL) Basic metabolic panel (01/30/2025 7:21 AM EDT) Sodium 139 133 - 145 mmol/L LAB CHEMISTRY METHOD 01/30/2025 10:29 AM [facility] Potassium 4.3 3.5 - 5.5 mmol/L LAB CHEMISTRY METHOD 01/30/2025 10:29 AM [facility] Chloride 104 96 - 110 mmol/L LAB CHEMISTRY METHOD 01/30/2025 10:29 AM [facility] CO2 32 21 - 32 mmol/L LAB CHEMISTRY METHOD 01/30/2025 10:29 AM [facility] Anion Gap 3 3 - 11 LAB CHEMISTRY METHOD 01/30/2025 10:29 AM [facility] Glucose 102(H) 70 - 100 mg/dL LAB CHEMISTRY METHOD 01/30/2025 10:29 AM [facility] BUN 25 5 - 25 mg/dL LAB CHEMISTRY METHOD 01/30/2025 10:29 AM [facility] Creatinine 0.64 0.50 - 1.10 mg/dL LAB CHEMISTRY METHOD 01/30/2025 10:29 AM [facility] eGFR 85 >=60 mL/min/1. 73m2 LAB CHEMISTRY METHOD 01/30/2025 10:29 AM [facility] Comment:Calculation based on the Chronic Kidney Disease Epidemiology Collaboration (CKD-EPI) equation refit without adjustment for race. BUN/Creatinine Ratio 39.1 LAB CHEMISTRY METHOD 01/30/2025 10:29 AM [facility] Calcium 8.7 8.5 - 10.5 mg/dL LAB CHEMISTRY METHOD 01/30/2025 10:29 AM [facility] Blood Venous blood specimen / Unknown Venipuncture / Unknown 01/30/2025 7:21 AM EDT 01/30/2025 9:37 AM EDT us Corey Leung MD LAB BLOOD ORDERABLES Final Resul t [facility] [address] [place] [address], * (ABNORMAL) Complete blood count (01/30/2025 7:21 AM EDT) [facility] WBC 5.7 4.8 - 10.8 K/mcL LAB HEMETOLOGY METHOD 01/30/2025 9:51 AM EDT [facility] RBC 3.50(L) 3.80 - 4.80 M/mcL LAB HEMETOLOGY METHOD [facility] Hemoglobin 10.8(L) 11.5 - 16.0 g/dL LAB HEMETOLOGY METHOD 01/30/2025 9:51 AM T [facility] Hematocrit 34.2(L) 35.0 - 47.0 % LAB HEMETOLOGY METHOD 01/30/2025 9:51 AM [facility] MCV 98.0 79.0 - 98.0 FL LAB HEMETOLOGY METHOD 01/30/2025 9:51 AM EDT [facility] MCH 30.9 27.0 - 32.0 pcg LAB HEMETOLOGY METHOD 01/30/2025 9:51 AM [facility] MCHC 31.6(L) 32.0 - 37.0 g/dL LAB HEMETOLOGY METHOD 01/30/2025 9:51 AM T [facility] RDW 14.3 11.0 - 15.0 % LAB HEMETOLOGY METHOD 01/30/2025 9:51 AM [facility] Platelets 231 130 - 400 K/mcL LAB HEMETOLOGY METHOD 01/30/2025 9:51 AM EDT [facility] MPV 11.0 7.0 - 11.0 FL LAB HEMETOLOGY METHOD 01/30/2025 9:51 AM EDT [facility] NRBC 0.0 <1.0 % LAB HEMETOLOGY METHOD 01/30/2025 9:51 AM EDT [facility] NRBC Absolute 0.00 <0.10 K/mcL LAB HEMETOLOGY METHOD 01/30/2025 9:51 AM EDT [facility] Blood Venous blood specimen / Unknown Venipuncture / Unknown 01/30/2025 7:21 AM EDT 01/30/2025 9:37 AM EDT Corey Leung MD LAB BLOOD ORDERABLES Final Resul t [facility] [address] [place] [address], [place] [phone] documented in this encounter Visit Diagnoses Diagnosis Metabolic encephalopathy Nonrheumatic aortic (valve) stenosis Type 2 diabetes mellitus without complications (CMS/HCC V24, CMS/HCC V28) documented in this encounter Care Teams Director Report Relationship Specialty Start Date End Date Gagan Miguel MD [address] [place] [phone] PCP - General Internal Medicine 04/27/24 documented as of this encounter
--- OUTSIDE RECORDS SUMMARY | 2025-03-01 09:32 | XMS_ITS | Encounter Summary ---
Author Organization [facility] Address [address] [place] [address] Care Team Providers Care Parking Lot Laborer Name Role Phone Gagan Miguel MD Primary Care Provider [phone] Encounter Details Date Type Department Care Team (Late st Contact Info) Description 11/06/2024 Lab Requisition [facility] - Main Lab 299 [facility] [place] [address] Corey Leung MD [address] [place] [address] Metabolic encephalopathy; Nonrheumatic aortic (valve) stenosis; Type [...] Associated Diagnosis Comments COMPLETE BLOOD COUNT Routine 11/07/2024 6:52 AM EDT Metabolic encephalopathy Nonrheumatic aortic (valve) stenosis Type 2 diabetes mellitus without complications (CMS/HCC V24, CMS/HCC V28) BASIC METABOLIC PANEL Routine 11/07/2024 6:52 AM EDT Metabolic encephalopathy Nonrheumatic aortic (valve) stenosis Type 2 diabetes mellitus without complications (CMS/[facility] V24, [facility] V28) documented in this encounter Results * (ABNORMAL) Complete blood count (11/07/2024 6:52 AM EDT) WBC 13.3(H) 4.8 - 10.8 K/mcL LAB HEMETOLOGY METHOD 11/07/2024 10:[address] [facility] RBC 3.60(L) 3.80 - 4.80 M/mcL LAB HEMETOLOGY METHOD 11/07/2024 10:[address] [facility] Hemoglobin 11.4(L) 11.5 - 16.0 g/dL LAB HEMETOLOGY METHOD 11/07/2024 10:[address] [facility] Hematocrit 35.8 35.0 - 47.0 % LAB HEMETOLOGY METHOD 11/07/2024 10:[address] [facility] MCV 98.9(H) 79.0 - 98.0 FL LAB HEMETOLOGY METHOD 11/07/2024 10:[address] [facility] MCH 31.5 27.0 - 32.0 pcg LAB HEMETOLOGY METHOD 11/07/2024 10:[address] [facility] MCHC 31.8(L) 32.0 - 37.0 g/dL LAB HEMETOLOGY METHOD 11/07/2024 10:[address] [facility] RDW 15.9(H) 11.0 - 15.0 % LAB HEMETOLOGY METHOD 11/07/2024 10:[address] [facility] Platelets 350 130 - 400 K/mcL LAB HEMETOLOGY METHOD 11/07/2024 10:[address] [facility] MPV 10.7 7.0 - 11.0 FL LAB HEMETOLOGY METHOD 11/07/2024 10:[address] [facility] NRBC 0.0 <1.0 % LAB HEMETOLOGY METHOD 11/07/2024 10:30 AM T [facility] NRBC Absolute 0.00 <0.10 K/mcL LAB HEMETOLOGY METHOD 11/07[facility]2024 [facility] Blood Venous blood specimen / Unknown Venipuncture / Unknown 11/07/2024 6:52 AM EDT 11/07/2024 10:01 AM EDT us Corey Leung MD LAB BLOOD ORDERABLES Final Resul t [facility] [address] [place] [address], [place] [phone] * (ABNORMAL) Basic metabolic panel (11/07/2024 6:52 AM EDT) Sodium 138 133 - 145 mmol/L LAB CHEMISTRY METHOD 11/07/2024 10:[address] [facility] Potassium 4.4 3.5 - 5.5 mmol/L LAB CHEMISTRY METHOD 11/07/2024 10:[address] [facility] Chloride 102 96 - 110 mmol/L LAB CHEMISTRY METHOD 11/07/2024 10:[address] [facility] CO2 29 21 - 32 mmol/L LAB CHEMISTRY METHOD 11/07/2024 10:[address] [facility] Anion Gap 7 3 - 11 LAB CHEMISTRY METHOD 11/07/2024 10:[address] [facility] Glucose 110(H) 70 - 100 mg/dL LAB CHEMISTRY METHOD 11/07/2024 10:[address] [facility] BUN 16 5 - 25 mg/dL LAB CHEMISTRY METHOD 11/07/2024 10:[address] [facility] Creatinine 0.55 0.50 - 1.10 mg/dL LAB CHEMISTRY METHOD 11/07/2024 10:52 AM EDT [facility] eGFR 88 >=60 mL/min/1. 73m2 LAB CHEMISTRY METHOD 11/07/2024 10:52 AM EDT [facility] Comment:Calculation based on the Chronic Kidney Disease Epidemiology Collaboration (CKD-EPI) equation refit without adjustment for race. BUN/Creatinine Ratio 29.1 LAB CHEMISTRY METHOD 11/07/2024 10:52 AM EDT [facility] Calcium 8.5 8.5 - 10.5 mg/dL LAB CHEMISTRY METHOD 11/07/2024 10:52 AM T [facility] Blood Venous blood specimen / Unknown Venipuncture / Unknown 11/07/2024 6:52 AM EDT 11/07/2024 10:01 AM EDT us Corey Leung MD LAB BLOOD ORDERABLES Final Resul t [facility] [address] [place] [address], documented in this encounter Visit Diagnoses Diagnosis Metabolic encephalopathy Nonrheumatic aortic (valve) stenosis Type 2 diabetes mellitus without complications (CMS/HCC V24, CMS/HCC V28) documented in this encounter Care Teams Parking Lot Laborer Relationship Specialty Start Date End Date Gagan Miguel MD [address] [place] [place] [id number] PCP - General Internal Medicine 04/27/24 documented as of this encounter
--- OUTSIDE RECORDS SUMMARY | 2025-03-01 09:32 | XMS_ITS | Encounter Summary ---
Author Organization [facility] Address [address] [place] [address] Care Team Providers Care Russian Language Professor Name Role Phone Gagan Miguel MD Primary Care Provider [phone] Encounter Details Date Type Department Care Team (Late st Contact Info) Description 08/21/2024 Lab Requisition [facility] - Main Lab 299 [facility] [place] [address] Corey Leung MD [address] [place] [address] Nonrheumatic aortic (valve) stenosis; Type 2 diabetes mellitus without complications (CMS/HCC V24, CMS/HCC V28); Metabolic encephalopathy Social History Tobacco Use Types Packs/Day Years [...] Associated Diagnosis Comments COMPLETE BLOOD COUNT Routine 08/22/2024 6:13 AM EDT Nonrheumatic aortic (valve) stenosis Type 2 diabetes mellitus without complications Metabolic encephalopathy BASIC METABOLIC PANEL Routine 08/22/2024 6:13 AM EDT Nonrheumatic aortic (valve) stenosis Type 2 diabetes mellitus without complications Metabolic encephalopathy documented in this encounter Results * (ABNORMAL) Basic metabolic panel (08/22/2024 6:13 AM EDT) Sodium 139 133 - 145 mmol/L LAB CHEMISTRY METHOD 08/22/2024 11:58 AM [facility] Potassium 2.8(LL) 3.5 - 5.5 mmol/L LAB CHEMISTRY METHOD 08/22/2024 11:58 AM [facility] Chloride 97 96 - 110 mmol/L LAB CHEMISTRY METHOD 08/22/2024 11:58 AM [facility] CO2 31 21 - 32 mmol/L LAB CHEMISTRY METHOD 08/22/2024 11:58 AM [facility] Anion Gap 11 3 - 11 LAB CHEMISTRY METHOD 08/22/2024 11:58 AM [facility] Glucose 72 70 - 100 mg/dL LAB CHEMISTRY METHOD 08/22/2024 11:58 AM [facility] BUN 14 5 - 25 mg/dL LAB CHEMISTRY METHOD 08/22/2024 11:58 AM [facility] Creatinine 0.66 0.50 - 1.10 mg/dL LAB CHEMISTRY METHOD 08/22/2024 11:58 AM [facility] eGFR 84 >=60 mL/min/1. 73m2 LAB CHEMISTRY METHOD 08/22/2024 11:58 AM [facility] Comment:Calculation based on the Chronic Kidney Disease Epidemiology Collaboration (CKD-EPI) equation refit without adjustment for race. BUN/Creatinine Ratio 21.2 LAB CHEMISTRY METHOD 08/22/2024 11:58 AM [facility] Calcium 8.6 8.5 - 10.5 mg/dL LAB CHEMISTRY METHOD 08/22/2024 11:58 AM [facility] Blood Venous blood specimen / Unknown Venipuncture / Unknown 08/22/2024 6:13 AM EDT 08/22/2024 10:22 AM EDT us Corey Leung MD LAB BLOOD ORDERABLES Final Resul t [facility] [address] [place] [address], [place] [phone] * (ABNORMAL) Complete blood count (08/22/2024 6:13 AM EDT) WBC 4.7(L) 4.8 - 10.8 K/mcL LAB HEMETOLOGY METHOD 08/22/2024 10:47 AM EDT [facility] RBC 4.00 3.80 - 4.80 M/mcL LAB HEMETOLOGY METHOD 08/22/2024 10:47 AM EDT [facility] Hemoglobin 12.2 11.5 - 16.0 g/dL LAB HEMETOLOGY METHOD 08/22/2024 10:47 AM EDT [facility] Hematocrit 38.1 35.0 - 47.0 % LAB HEMETOLOGY METHOD 08/22/2024 10:47 AM EDT [facility] MCV 95.0 79.0 - 98.0 FL LAB HEMETOLOGY METHOD 08/22/2024 10:47 AM EDT [facility] MCH 30.4 27.0 - 32.0 pcg LAB HEMETOLOGY METHOD 08/22/2024 10:47 AM EDT [facility] MCHC 32.0 32.0 - 37.0 g/dL LAB HEMETOLOGY METHOD 08/22/2024 10:47 AM EDT [facility] RDW 13.6 11.0 - 15.0 % LAB HEMETOLOGY METHOD 08/22/2024 10:47 AM T [facility] Platelets 200 130 - 400 K/mcL LAB HEMETOLOGY METHOD 08/22/2024 10:47 AM EDT [facility] MPV 11.1(H) 7.0 - 11.0 FL LAB HEMETOLOGY METHOD 08/22/2024 10:47 AM EDT [facility] NRBC 0.0 <1.0 % LAB HEMETOLOGY METHOD 08/22/2024 10:47 AM EDT [facility] NRBC Absolute 0.00 <0.10 K/mcL LAB HEMETOLOGY METHOD 08/22/2024 10:47 AM EDT [facility] Blood Venous blood specimen / Unknown Venipuncture / Unknown 08/22/2024 6:13 AM EDT 08/22/2024 10:23 AM EDT us Corey Leung MD LAB BLOOD ORDERABLES Final Resul t [facility] [address] [place] [address], documented in this encounter Visit Diagnoses Diagnosis Nonrheumatic aortic (valve) stenosis Type 2 diabetes mellitus without complications (CMS/HCC V24, CMS/HCC V28) Metabolic encephalopathy documented in this encounter Additional Health Concerns Infection Onset Date Last Indicated Resolved Time Respiratory Rule-Out 11/03/2024 11/02/2024 025 3:17 PM EDT documented as of this encounter Care Teams Russian Language Professor Relationship Specialty Start Date End Date Gagan Miguel MD [address] [place] [id number] PCP - General Internal Medicine 04/27/24 documented as of this encounter
--- OUTSIDE RECORDS SUMMARY | 2025-03-01 09:32 | XMS_ITS | Encounter Summary ---
Author Organization [facility] Address [address] [place] [address] Care Team Providers Care Relay Repairer Name Role Phone Gagan Miguel MD Primary Care Provider [phone] Encounter Details Date Type Department Care Team (Latest Contact Info) Description 04/27/2024 Lab Requisition [facility] - Main Lab [address] [facility] [place] [address] Gagan Miguel MD [address] [place] [id number] Type 2 diabetes mellitus without complications (CMS/HCC V24, CMS/HCC V28); Essential (primary) hypertension; Hyperkalemia Social History Tobacco Use Types Packs/Day Years [...] Procedure Name Priority Date/Time Associated Diagnosis Comments LIPID PANEL WITH REFLEX TO DIRECT LDL Routine 04/30/2024 5:34 AM EST Type 2 diabetes mellitus without complications (CMS/HCC) Essential (primary) hypertension Hyperkalemia COMPLETE BLOOD COUNT Routine 04/30/2024 5:34 AM EST Type 2 diabetes mellitus without complications (CMS/HCC) Essential (primary) hypertension Hyperkalemia COMPREHENSIVE METABOLIC PANEL Routine 04/30/2024 5:34 AM EST Type 2 diabetes mellitus without complications (CMS/HCC) Essential (primary) hypertension Hyperkalemia documented in this encounter Results * Lipid panel with reflex to direct LDL (04/30/2024 5:34 AM EST) Cholesterol 139 0 - 200 mg/dL LAB CHEMISTRY METHOD 04/30/2024 11:39 AM EST [facility] Triglycerides 78 0 - 150 mg/dL LAB CHEMISTRY METHOD 04/30/2024 11:39 AM EST [facility] HDL 62 >=40 mg/dL LAB CHEMISTRY METHOD 04/30/2024 11:39 AM EST [facility] LDL Calculated 61 0 - 100 mg/dL LAB CHEMISTRY METHOD 04/30/2024 11:39 AM EST [facility] VLDL Cholesterol Jamshid 15.6 mg/dL LAB CHEMISTRY METHOD 04/30/2024 11:39 AM EST [facility] Non HDL Chol. (LDL+VLDL) 77 <145 mg/dL LAB CHEMISTRY METHOD 04/30/2024 11:39 AM EST [facility] Chol/HDL Ratio 2.2 0.0 - 4.4 LAB CHEMISTRY METHOD 04/30/2024 11:39 AM EST [facility] Blood Venous blood specimen / Unknown Venipuncture / Unknown 04/30/2024 5:34 AM EST 04/30/2024 10:37 AM EST us Gagan Miguel MD LAB BLOOD ORDERABLES Final Res ult [facility] [address] [place] [address], * (ABNORMAL) Comprehensive metabolic panel (04/30/2024 5:34 AM EST) Sodium 140 133 - 145 mmol/L LAB CHEMISTRY METHOD 04/30/2024 11:39 AM [facility] Potassium 3.3(L) 3.5 - 5.5 mmol/L LAB CHEMISTRY METHOD 04/30/2024 11:39 AM [facility] Chloride 100 96 - 110 mmol/L LAB CHEMISTRY METHOD 04/30/2024 11:39 AM [facility] CO2 32 21 - 32 mmol/L LAB CHEMISTRY METHOD 04/30/2024 11:39 AM [facility] Anion Gap 8 3 - 11 LAB CHEMISTRY METHOD 04/30/2024 11:39 AM [facility] Glucose 105(H) 70 - 100 mg/dL LAB CHEMISTRY METHOD 04/30/2024 11:39 AM [facility] BUN 19 5 - 25 mg/dL LAB CHEMISTRY METHOD 04/30/2024 11:39 AM [facility] Creatinine 0.77 0.50 - 1.10 mg/dL LAB CHEMISTRY METHOD 04/30/2024 11:39 AM [facility] eGFR 74 >=60 mL/min/1. 73m2 LAB CHEMISTRY METHOD 04/30/2024 11:39 AM [facility] Comment:Calculation based on the Chronic Kidney Disease Epidemiology Collaboration (CKD-EPI) equation refit without adjustment for race. BUN/Creatinine Ratio 24.7 LAB CHEMISTRY METHOD 04/30/2024 11:39 AM [facility] Calcium 9.0 8.5 - 10.5 mg/dL LAB CHEMISTRY METHOD 04/30/2024 11:39 AM [facility] AST (SGOT) 12 10 - 42 unit/L LAB CHEMISTRY METHOD 04/30/2024 11:39 AM [facility] ALT (SGPT) 15 10 - 60 unit/L LAB CHEMISTRY METHOD 04/30/2024 11:39 AM [facility] Alkaline Phosphatase 92 42 - 121 unit/L LAB CHEMISTRY METHOD 04/30/2024 11:39 AM [facility] Total Protein 6.1 6.0 - 8.0 g/dL LAB CHEMISTRY METHOD 04/30/2024 11:39 AM [facility] Albumin 3.0(L) 3.2 - 5.0 g/dL LAB CHEMISTRY METHOD 04/30/2024 11:39 AM [facility] Total Bilirubin 0.3 0.0 - 1.4 mg/dL LAB CHEMISTRY METHOD 04/30/2024 11:39 AM [facility] Blood Venous blood specimen / Unknown Venipuncture / Unknown 04/30/2024 5:34 AM EST 04/30/2024 10:37 AM EST us Gagan Miguel MD LAB BLOOD ORDERABLES Final Res ult [facility] [address] [place] [address], * (ABNORMAL) Complete blood count (04/30/2024 5:34 AM EST) WBC 8.1 4.8 - 10.8 K/mcL LAB HEMETOLOGY METHOD 04/30/2024 10:59 AM [facility] RBC 3.60(L) 3.80 - 4.80 M/mcL LAB HEMETOLOGY METHOD 04/30/2024 10:59 AM [facility] Hemoglobin 11.5 11.5 - 16.0 g/dL LAB HEMETOLOGY METHOD 04/30/2024 10:59 AM [facility] Hematocrit 35.7 35.0 - 47.0 % LAB HEMETOLOGY METHOD 04/30/2024 10:59 AM [facility] MCV 98.3(H) 79.0 - 98.0 FL LAB HEMETOLOGY METHOD 04/30/2024 10:59 AM [facility] MCH 31.7 27.0 - 32.0 pcg LAB HEMETOLOGY METHOD 04/30/2024 10:59 AM [facility] MCHC 32.2 32.0 - 37.0 g/dL LAB HEMETOLOGY METHOD 04/30/2024 10:59 AM [facility] RDW 12.9 11.0 - 15.0 % LAB HEMETOLOGY METHOD 04/30/2024 10:59 AM [facility] Platelets 233 130 - 400 K/mcL LAB HEMETOLOGY METHOD 04/30/2024 10:59 AM [facility] MPV 11.3(H) 7.0 - 11.0 FL LAB HEMETOLOGY METHOD 04/30/2024 10:59 AM [facility] NRBC 0.0 <1.0 % LAB HEMETOLOGY METHOD 04/30/2024 10:59 AM [facility] NRBC Absolute 0.00 <0.10 K/mcL LAB HEMETOLOGY METHOD 04/30/2024 10:59 AM [facility] Blood Venous blood specimen / Unknown Venipuncture / Unknown 04/30/2024 5:34 AM EST 04/30/2024 10:37 AM EST Gagan Miguel MD LAB BLOOD ORDERABLES Final Res ult [facility] [address] [place] [address], documented in this encounter Visit Diagnoses Diagnosis Type 2 diabetes mellitus without complications (CMS/HCC V24, CMS/HCC V28) Essential (primary) hypertension Unspecified essential hypertension Hyperkalemia Hyperpotassemia documented in this encounter Additional Health Concerns Infection Onset Date Last Indicated Resolved Time Respiratory Rule-Out 11/03/2024 11/02/2024 025 3:17 PM EDT documented as of this encounter Care Teams Relay Repairer Relationship Specialty Start Date End Date Gagan Miguel MD [address] [place] [phone] PCP - General Internal Medicine 04/27/24 documented as of this encounter
--- OUTSIDE RECORDS SUMMARY | 2025-03-01 09:32 | XMS_ITS | Encounter Summary ---
Author Organization [facility] Address [address] [place] [address] Care Team Providers Care Teacher Of The Emotionally Disturbed Name Role Phone Gagan Miguel MD Primary Care Provider [phone] Encounter Details Date Type Department Care Team (Late st Contact Info) Description 07/03/2024 Lab Requisition [facility] - Main Lab [address] [facility] [place] [address] Corey Leung MD [address] [place] [address] Metabolic encephalopathy; Type 2 diabetes mellitus without complications (CMS/HCC V24, CMS/HCC V28); Nonrheumatic aortic (valve) stenosis Social History Tobacco Use Types Packs/Day Years [...] Associated Diagnosis Comments COMPLETE BLOOD COUNT Routine 07/04/2024 6:58 AM EST Metabolic encephalopathy Type 2 diabetes mellitus without complications (CMS/HCC) Nonrheumatic aortic (valve) stenosis BASIC METABOLIC PANEL Routine 07/04/2024 6:58 AM EST Metabolic encephalopathy Type 2 diabetes mellitus without complications (CMS/HCC) Nonrheumatic aortic (valve) stenosis documented in this encounter Results * (ABNORMAL) Basic metabolic panel (07/04/2024 6:58 AM EST) Sodium 138 133 - 145 mmol/L LAB CHEMISTRY METHOD 07/04/2024 1:[address] [facility] Potassium 4.2 3.5 - 5.5 mmol/L LAB CHEMISTRY METHOD 07/04/2024 1:[address] [facility] Chloride 101 96 - 110 mmol/L LAB CHEMISTRY METHOD 07/04/2024 1:[address] [facility] CO2 31 21 - 32 mmol/L LAB CHEMISTRY METHOD 07/04/2024 1:[address] [facility] Anion Gap 6 3 - 11 LAB CHEMISTRY METHOD 07/04/2024 1:[address] [facility] Glucose 109(H) 70 - 100 mg/dL LAB CHEMISTRY METHOD 07/04/2024 1:[address] [facility] BUN 14 5 - 25 mg/dL LAB CHEMISTRY METHOD 07/04/2024 1:[address] [facility] Creatinine 0.52 0.50 - 1.10 mg/dL LAB CHEMISTRY METHOD 07/04/2024 1:[address] [facility] eGFR 89 >=60 mL/min/1. 73m2 LAB CHEMISTRY METHOD 07/04/2024 1:[address] [facility] Comment:Calculation based on the Chronic Kidney Disease Epidemiology Collaboration (CKD-EPI) equation refit without adjustment for race. BUN/Creatinine Ratio 26.9 LAB CHEMISTRY METHOD 07/04/2024 1:[address] [facility] Calcium 8.5 8.5 - 10.5 mg/dL LAB CHEMISTRY METHOD 07/04/2024 1:[address] [facility] Blood Venous blood specimen / Unknown Venipuncture / Unknown 07/04/2024 6:58 AM EST 07/04/2024 11:49 AM EST us Corey Leung MD LAB BLOOD ORDERABLES Final Resul t [facility] [address] [place] [address], * (ABNORMAL) Complete blood count (07/04/2024 6:58 AM EST) WBC 6.3 4.8 - 10.8 K/mcL LAB HEMETOLOGY METHOD 07/04/2024 12:[address] [facility] RBC 3.10(L) 3.80 - 4.80 M/mcL LAB HEMETOLOGY METHOD 07/04/2024 12:[address] [facility] Hemoglobin 9.7(L) 11.5 - 16.0 g/dL LAB HEMETOLOGY METHOD 07/04/2024 12:[address] [facility] Hematocrit 31.4(L) 35.0 - 47.0 % LAB HEMETOLOGY METHOD 07/04/2024 12:[address] [facility] MCV 102.3(H) 79.0 - 98.0 FL LAB HEMETOLOGY METHOD 07/04/2024 12:[address] [facility] MCH 31.6 27.0 - 32.0 pcg LAB HEMETOLOGY METHOD 07/04/2024 12:[address] [facility] MCHC 30.9(L) 32.0 - 37.0 g/dL LAB HEMETOLOGY METHOD 07/04/2024 12:[address] [facility] RDW 15.6(H) 11.0 - 15.0 % LAB HEMETOLOGY METHOD 07/04/2024 12:[address] [facility] Platelets 295 130 - 400 K/mcL LAB HEMETOLOGY METHOD 07/04/2024 12:[address] [facility] MPV 9.7 7.0 - 11.0 FL LAB HEMETOLOGY METHOD 07/04/2024 12:32 PM EST [facility] NRBC 0.0 <1.0 % LAB HEMETOLOGY METHOD 07/04/2024 12:32 PM EST [facility] NRBC Absolute 0.00 <0.10 K/mcL LAB HEMETOLOGY METHOD 07/04/2024 12:32 PM EST [facility] Blood Venous blood specimen / Unknown Venipuncture / Unknown 07/04/2024 6:58 AM EST 07/04/2024 11:49 AM EST us Corey Leung MD LAB BLOOD ORDERABLES Final Resul t [facility] [address] [place] [address], documented in this encounter Visit Diagnoses Diagnosis Metabolic encephalopathy Type 2 diabetes mellitus without complications (CMS/HCC V24, CMS/HCC V28) Nonrheumatic aortic (valve) stenosis documented in this encounter Additional Health Concerns Infection Onset Date Last Indicated Resolved Time Respiratory Rule-Out 11/03/2024 11/02/2024 025 3:17 PM EDT documented as of this encounter Care Teams Teacher Of The Emotionally Disturbed Relationship Specialty Start Date End Date Gagan Miguel MD [address] [place] [phone] PCP - General Internal Medicine 04/27/24 documented as of this encounter
--- OUTSIDE RECORDS SUMMARY | 2025-03-01 09:32 | XMS_ITS ---
Author Name [facility] Organization Unknown Results Test Name/Text Value Interpretation Date Range Source CREAT SERPL [facility] 0.7 mg/dL Normal 03/07/2024 0.5 - 1 [facility] GLUCOSE SERPL [facility] 210.0 mg/dL Above high normal 03/07/2024 70 - 199 [facility] CALCIUM SERPL [facility] 9.3 mg/dL Normal 03/07/2024 8.4 - 10.2 [facility] SODIUM SERPL [facility] 135.0 mmol/L Normal 03/07/2024 135 - 14 5 [facility] CHLORIDE SERPL [facility] 95.0 mmol/L Below low normal 03/07/2024 98 - 107 [facility] ANION GAP SERPL [facility] 6.0 mmol/L Normal 03/07/2024 5 - 14 [facility] Glomerular filtration rate/1.73 sq M. predicted 83.0 Normal 03/07/2024 60 - [facility] HCO3 SER [facility] 34.0 mmol/L Above high normal 03/07/2024 24 - 32 [facility] BUN SERPL [facility] 15.0 mg/dL Normal 03/07/2024 7 - 17 [facility] POTASSIUM SERPL [facility] 3.4 mmol/L Below low normal 03/07/2024 3.5 - 5.1 [facility] HCT VFR BLD AUTO 29.9 % Below low normal 03/07/2024 37 - 47 [facility] RDW RBC AUTO RTO 13.7 % Normal 03/07/2024 12.1 - 16.2 [facility] MCHC RBC AUTO MCNC 34.5 g/dL Normal 03/07/2024 32 - 36 [facility] HGB BLD [facility] 10.3 g/dL Below low normal 03/07/2024 12.5 - 16 [facility] WBC NO. BLD AUTO 13.9 K/uL Above high normal 03/07/2024 4 - 10.5 [facility] PLATELET NO. BLD AUTO 209.0 K/uL Normal 03/07/2024 150 - 450 [facility] PMV BLD AUTO 9.5 fL Normal 03/07/2024 7.4 - 11.4 [facility] MCV RBC AUTO 96.8 fL Normal 03/07/2024 78 - 100 [facility] RBC NO. BLD AUTO 3.09 M/uL Below low normal 03/07/2024 4.2 - 5.4 [facility] MCH RBC QN AUTO 33.4 pg Above high normal 03/07/2024 25 - 33 [facility] GLUCOSE BLDC GLUCOMTR MCNC 149.0 mg/dL Normal 03/05/2024 70 - 199 [facility] History of Medication Use Medication Directions Dispensed Refills Start Date End Date [facility] traMADol 25 MG TABS Take 25 mg by mouth every 6 (six) hours as needed for mild pain (1-3). 03/08/2024 active tranexamic acid (LYSTEDA) tablet 1,950 mg 1,950 mg, Oral, Daily, First dose on Tue03/06/24 at 0900, For 3 dosesSwallow tablet whole; do not break, chew, or crush. 03/06/2024 4 completed nystatin (MYCOSTATIN) powder Topical, 2 times daily, First dose on Tue03/06/24 at 0900 03/06/2024 active methocarbamol (ROBAXIN) tablet 750 mg 750 mg, Oral, Every 6 hours PRN, muscle spasms, Starting on Tue03/05/24 at 1246, PACU/Floor 03/05/2024 4 aborted traMADol (ULTRAM) tablet 100 mg 100 mg, Oral, Every 6 hours PRN, moderate pain (4-6), Starting on Tue03/05/24 at 1246, PACU/Floor 03/05/2024 4 aborted traMADol (ULTRAM) tablet 50 mg 50 mg, Oral, Every 6 hours PRN, moderate pain (4-6), Starting on Tue03/07/24 at 1402, PACU/Floor 03/05/2024 4 active alum & mag hydroxide-simethico ne suspension 30 mL 30 mL, Oral, Every 6 hours PRN, indigestion, Starting on Tue03/05/24 at 1246 03/05/2024 active ondansetron (ZOFRAN) injection 4 mg 4 mg, Intravenous, Every 6 hours PRN, nausea, vomiting, Starting on Tue03/05/24 at 1246, PACU/FloorTo be given first. 03/05/2024 active cephalexin (KEFLEX) 500 MG capsule TAKE ONE CAPSULE BY MOUTH EVERY 12 HOURS FOR 7 DAYS 05/06/2023 aborted metoprolol succinate (TOPROL-XL) 24 hr tablet 25 mg 25 mg, Oral, Daily with lunch, First dose on Tue03/05/24 at 1300Do not crush tablet. 04/01/2023 active Diclofenac Sodium (VOLTAREN) 1 % GEL topical Place 1 application onto the skin 4 (four) times a day. 02/11/2015 4 aborted losartan (COZAAR) tablet 25 mg Take 25 mg by mouth daily. 4 aborted pyridoxine (B-6) 100 MG tablet Take 1 tablet (100 mg total) by mouth daily. 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 ProblemAct [facility] Myofacial muscle pain active 2015-04-06 ProblemAct [facility] Cervical spondylosis active 2015-03-26 ProblemAct [facility] Encounters Encounter Type Encounter Reason Primary Diagnosis Location Date Inpatient Unilateral primary osteoarthritis, right knee Unilateral primary osteoarthritis, right knee [facility] 03/05/2024 Ambulatory [facility] 02/22/2024 Ambulatory [facility] 06/07/2023 Care Team Organization Name Specialty Phone Email Start Date End Da te [facility] REHANA [facility] 06/0712/18/2024 [facility] 3 12/18/2024 [facility] AMANDEEP THAUKRRNE Primary Care
--- OUTSIDE RECORDS SUMMARY | 2025-03-01 09:32 | XMS_ITS | Encounter Summary ---
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 machine long goods helper (current) drug therapy; Type 2 diabetes mellitus without complications (CMS/HCC V24, CMS/HCC V28); Essential (primary) hypertension; Hyperkalemia; Encephalopathy, unspecified Social History Tobacco Use Types Packs/Day [...] Procedure Name Priority Date/Time Associated Diagnosis Comments VITAMIN D 25 HYDROXY Routine 06/11/2024 5:50 AM EST Other correction (current) drug therapy Type 2 diabetes mellitus without complications (CMS/HCC) Essential (primary) hypertension Hyperkalemia Encephalopathy, unspecified COMPLETE BLOOD COUNT Routine 06/11/2024 5:50 AM EST Other correction (current) drug therapy Type 2 diabetes mellitus without complications (CMS/HCC) Essential (primary) hypertension Hyperkalemia Encephalopathy, unspecified THYROID STIMULATING HORMONE Routine 06/11/2024 5:50 AM EST Other machine long goods helper (current) drug therapy Type 2 diabetes mellitus without complications (CMS/HCC) Essential (primary) hypertension Hyperkalemia Encephalopathy, unspecified FOLATE Routine 06/11/2024 5:50 AM EST Other machine long goods helper (current) drug therapy Type 2 diabetes mellitus without complications (CMS/HCC) Essential (primary) hypertension Hyperkalemia Encephalopathy, unspecified VITAMIN B12 Routine 06/11/2024 5:50 AM EST Other correction (current) drug therapy Type 2 diabetes mellitus without complications (CMS/HCC) Essential (primary) hypertension Hyperkalemia Encephalopathy, unspecified COMPREHENSIVE METABOLIC PANEL Routine 06/11/2024 5:50 AM EST Other machine long goods helper (current) drug therapy Type 2 diabetes mellitus without complications (CMS/HCC) Essential (primary) hypertension Hyperkalemia Encephalopathy, unspecified documented in this encounter Results * Vitamin D 25 hydroxy (06/11/2024 5:50 AM EST) Vit D, 25-Hydroxy 36.7 30.0 - 80.0 ng/mL LAB CHEMISTRY METHOD 06/11/2024 12:42 PM EST [facility] Blood Venous blood specimen / Unknown Venipuncture / Unknown 06/11/2024 5:50 AM EST 06/11/2024 10:47 AM EST us Corey Leung MD LAB BLOOD ORDERABLES Final Resul t [facility] [address] [place] [address], [place] [phone] * Thyroid stimulating hormone (06/11/2024 5:50 AM EST) TSH 3.08 0.40 - 4.00 mcIU/mL LAB CHEMISTRY METHOD 06/11/2024 12:43 PM EST [facility] Blood Venous blood specimen / Unknown Venipuncture / Unknown 06/11/2024 5:50 AM EST 06/11/2024 10:47 AM EST us Corey Leung MD LAB BLOOD ORDERABLES Final Resul t Performing Organization Address City/[facility] de Phone Number [facility] [address] [place] [address], [place] [phone] * Folate (06/11/2024 5:50 AM EST) [facility] Folate 13.6 2.8 - 17.0 ng/ml LAB CHEMISTRY METHOD 06/11/2024 12:59 PM EST [facility] Blood Venous blood specimen / Unknown Venipuncture / Unknown 06/11/2024 5:50 AM EST 06/11/2024 10:47 AM EST us Corey Leung MD LAB BLOOD ORDERABLES Final Resul t Performing Organization Address [facility] de Phone Number [facility] [address] [place] [address], [place] [phone] * (ABNORMAL) Vitamin B12 (06/11/2024 5:50 AM EST) [facility] Vitamin B-12 1,026(H) 250 - 900 pcg/mL LAB CHEMISTRY METHOD 06/11/2024 12:59 PM EST [facility] Blood Venous blood specimen / Unknown Venipuncture / Unknown 06/11/2024 5:50 AM EST 06/11/2024 10:47 AM EST us Corey Leung MD LAB BLOOD ORDERABLES Final Resul t Performing Organization Address City/[facility]/ZIP Co de Phone Number [facility] [address] [place] [address], [place] [phone] * (ABNORMAL) Comprehensive metabolic panel (06/11/2024 5:50 AM EST) Sodium 135 133 - 145 mmol/L LAB CHEMISTRY METHOD 06/11/2024 1:06 PM [facility] Potassium 3.4(L) 3.5 - 5.5 mmol/L LAB CHEMISTRY METHOD 06/11/2024 1:06 PM [facility] Chloride 97 96 - 110 mmol/L LAB CHEMISTRY METHOD 06/11/2024 1:06 PM [facility] CO2 29 21 - 32 mmol/L LAB CHEMISTRY METHOD 06/11/2024 1:06 PM [facility] Anion Gap 9 3 - 11 LAB CHEMISTRY METHOD 06/11/2024 1:06 PM [facility] Glucose 57(L) 70 - 100 mg/dL LAB CHEMISTRY METHOD 06/11/2024 1:06 PM [facility] BUN 18 5 - 25 mg/dL LAB CHEMISTRY METHOD 06/11/2024 1:06 PM [facility] Creatinine 0.59 0.50 - 1.10 mg/dL LAB CHEMISTRY METHOD 06/11/2024 1:06 PM [facility] eGFR 87 >=60 mL/min/1. 73m2 LAB CHEMISTRY METHOD 06/11/2024 1:06 PM [facility] Comment:Calculation based on the Chronic Kidney Disease Epidemiology Collaboration (CKD-EPI) equation refit without adjustment for race. BUN/Creatinine Ratio 30.5 LAB CHEMISTRY METHOD 06/11/2024 1:06 PM [facility] Calcium 7.9(L) 8.5 - 10.5 mg/dL LAB CHEMISTRY METHOD 06/11/2024 1:06 PM [facility] AST (SGOT) 33 10 - 42 unit/L LAB CHEMISTRY METHOD 06/11/2024 1:06 PM [facility] ALT (SGPT) 30 10 - 60 unit/L LAB CHEMISTRY METHOD 06/11/2024 1:06 PM [facility] Alkaline Phosphatase 111 42 - 121 unit/L LAB CHEMISTRY METHOD 06/11/2024 1:06 PM [facility] Total Protein 4.8(L) 6.0 - 8.0 g/dL LAB CHEMISTRY METHOD 06/11/2024 1:06 PM [facility] Albumin 2.0(L) 3.2 - 5.0 g/dL LAB CHEMISTRY METHOD 06/11/2024 1:06 PM [facility] Total Bilirubin 1.5(H) 0.0 - 1.4 mg/dL LAB CHEMISTRY METHOD 06/11/2024 1:06 PM [facility] Comment:Results verified by repeat testing Blood Venous blood specimen / Unknown Venipuncture / Unknown 06/11/2024 5:50 AM EST 06/11/2024 10:47 AM EST us Corey Leung MD LAB BLOOD ORDERABLES Final Resul t [facility] [address] [place] [address], [place] [phone] * (ABNORMAL) Complete blood count (06/11/2024 5:50 AM EST) WBC 11.4(H) 4.8 - 10.8 K/mcL LAB HEMETOLOGY METHOD 06/11/2024 1:19 PM [facility] RBC 2.80(L) 3.80 - 4.80 M/mcL LAB HEMETOLOGY METHOD 06/11/2024 1:19 PM [facility] Hemoglobin 8.7(L) 11.5 - 16.0 g/dL LAB HEMETOLOGY METHOD 06/11/2024 1:19 PM [facility] Hematocrit 28.9(L) 35.0 - 47.0 % LAB HEMETOLOGY METHOD 06/11/2024 1:19 PM [facility] MCV 104.0(H) 79.0 - 98.0 FL LAB HEMETOLOGY METHOD 06/11/2024 1:19 PM [facility] MCH 31.3 27.0 - 32.0 pcg LAB HEMETOLOGY METHOD 06/11/2024 1:19 PM [facility] MCHC 30.1(L) 32.0 - 37.0 g/dL LAB HEMETOLOGY METHOD 06/11/2024 1:19 PM [facility] RDW 18.3(H) 11.0 - 15.0 % LAB HEMETOLOGY METHOD 06/11/2024 1:19 PM [facility] Platelets 402(H) 130 - 400 K/mcL LAB HEMETOLOGY METHOD 06/11/2024 1:19 PM EST [facility] MPV 9.9 7.0 - 11.0 FL LAB HEMETOLOGY METHOD 06/11/2024 1:19 PM [facility] NRBC 0.2 <1.0 % LAB HEMETOLOGY METHOD 06/11/2024 1:19 PM [facility] NRBC Absolute 0.02 <0.10 K/mcL LAB HEMETOLOGY METHOD 06/11/2024 1:19 PM [facility] Blood Venous blood specimen / Unknown Venipuncture / Unknown 06/11/2024 5:50 AM EST 06/11/2024 10:47 AM EST us Corey Leung MD LAB BLOOD ORDERABLES Final Resul t [facility] [address] [place] [address], documented in this encounter Visit Diagnoses Diagnosis Other correction (current) drug therapy Type 2 diabetes mellitus without complications (CMS/[facility] V24, CMS/[facility] V28) Essential (primary) hypertension Unspecified essential hypertension Hyperkalemia Hyperpotassemia Encephalopathy, unspecified documented in this encounter Additional Health Concerns Infection Onset Date Last Indicated Resolved Time Respiratory Rule-Out 11/03/2024 11/02/2024 025 3:17 PM EDT documented as of this encounter Care Teams Oceanographer Physical Relationship Specialty Start Date End Date Gagan Miguel MD [address] [place] [phone] PCP - General Internal Medicine 04/27/24 documented as of this encounter
--- OUTSIDE RECORDS SUMMARY | 2025-03-01 09:32 | XMS_ITS | Encounter Summary ---
Author Organization [facility] Address [address] [place] [address] Care Team Providers Care Terminal Clerk Name Role Phone Gagan Miguel MD Primary Care Provider [phone] Encounter Details Date Type Department Care Team (Late st Contact Info) Description 11/13/2024 Lab Requisition [facility] - Main Lab [address] [facility] [place] [address] Corey Leung MD [address] [place] [address] Metabolic encephalopathy; Nonrheumatic aortic (valve) stenosis; Type [...] Associated Diagnosis Comments COMPLETE BLOOD COUNT Routine 11/14/2024 5:27 AM EDT Metabolic encephalopathy Nonrheumatic aortic (valve) stenosis Type 2 diabetes mellitus without complications (CMS/HCC V24, CMS/HCC V28) BASIC METABOLIC PANEL Routine 11/14/2024 5:27 AM EDT Metabolic encephalopathy Nonrheumatic aortic (valve) stenosis Type 2 diabetes mellitus without complications (CMS/[facility] V24, [facility] V28) documented in this encounter Results * (ABNORMAL) Basic metabolic panel (11/14/2024 5:27 AM EDT) Sodium 137 133 - 145 mmol/L LAB CHEMISTRY METHOD 11/14/2024 12:31 PM [facility] Potassium 4.3 3.5 - 5.5 mmol/L LAB CHEMISTRY METHOD 11/14/2024 12:31 PM [facility] Chloride 100 96 - 110 mmol/L LAB CHEMISTRY METHOD 11/14/2024 12:31 PM [facility] CO2 30 21 - 32 mmol/L LAB CHEMISTRY METHOD 11/14/2024 12:31 PM [facility] Anion Gap 7 3 - 11 LAB CHEMISTRY METHOD 11/14/2024 12:31 PM [facility] Glucose 105(H) 70 - 100 mg/dL LAB CHEMISTRY METHOD 11/14/2024 12:31 PM [facility] BUN 17 5 - 25 mg/dL LAB CHEMISTRY METHOD 11/14/2024 12:31 PM [facility] Creatinine 0.50 0.50 - 1.10 mg/dL LAB CHEMISTRY METHOD 11/14/2024 12:31 PM [facility] eGFR 90 >=60 mL/min/1. 73m2 LAB CHEMISTRY METHOD 11/14/2024 12:31 PM [facility] Comment:Calculation based on the Chronic Kidney Disease Epidemiology Collaboration (CKD-EPI) equation refit without adjustment for race. BUN/Creatinine Ratio 34.0 LAB CHEMISTRY METHOD 11/14/2024 12:31 PM [facility] Calcium 8.5 8.5 - 10.5 mg/dL LAB CHEMISTRY METHOD 11/14/2024 12:31 PM [facility] Blood Venous blood specimen / Unknown Venipuncture / Unknown 11/14/2024 5:27 AM EDT 11/14/2024 10:15 AM EDT us Corey Leung MD LAB BLOOD ORDERABLES Final Resul t [facility] [address] [place] [address], * (ABNORMAL) Complete blood count (11/14/2024 5:27 AM EDT) [facility] WBC 8.6 4.8 - 10.8 K/mcL LAB HEMETOLOGY METHOD 11/14/2024 10:33 AM EDT [facility] RBC 3.20(L) 3.80 - 4.80 M/mcL LAB HEMETOLOGY METHOD [facility] Hemoglobin 9.6(L) 11.5 - 16.0 g/dL LAB HEMETOLOGY METHOD 11/14/2024 10:33 AM [facility] Hematocrit 30.6(L) 35.0 - 47.0 % LAB HEMETOLOGY METHOD 11/14/2024 10:33 AM [facility] MCV 96.5 79.0 - 98.0 FL LAB HEMETOLOGY METHOD 11/14/2024 10:33 AM EDT [facility] MCH 30.3 27.0 - 32.0 pcg LAB HEMETOLOGY METHOD 11/14/2024 10:33 AM [facility] MCHC 31.4(L) 32.0 - 37.0 g/dL LAB HEMETOLOGY METHOD 11/14/2024 10:33 AM [facility] RDW 15.3(H) 11.0 - 15.0 % LAB HEMETOLOGY METHOD 11/14/2024 10:33 AM [facility] Platelets 422(H) 130 - 400 K/mcL LAB HEMETOLOGY METHOD 11/14/2024 10:33 AM EDT [facility] MPV 9.9 7.0 - 11.0 FL LAB HEMETOLOGY METHOD 11/14/2024 10:33 AM EDT [facility] NRBC 0.0 <1.0 % LAB HEMETOLOGY METHOD 11/14/2024 10:33 AM EDT [facility] NRBC Absolute 0.00 <0.10 K/[facility] LAB HEMETOLOGY METHOD 11/14/2024 10:33 AM EDT [facility] Blood Venous blood specimen / Unknown Venipuncture / Unknown 11/14/2024 5:27 AM EDT 11/14/2024 10:15 AM EDT us Corey Leung MD LAB BLOOD ORDERABLES Final Resul t [facility] [address] [place] [address], documented in this encounter Visit Diagnoses Diagnosis Metabolic encephalopathy Nonrheumatic aortic (valve) stenosis Type 2 diabetes mellitus without complications (CMS/HCC V24, CMS/HCC V28) documented in this encounter Care Teams Terminal Clerk Relationship Specialty Start Date End Date Gagan Miguel MD [address] [place] [id number] PCP - General Internal Medicine 04/27/24 documented as of this encounter
--- OUTSIDE RECORDS SUMMARY | 2025-03-01 09:32 | XMS_ITS | Encounter Summary ---
Author Organization [facility] Address [address] [place] [address] Care Team Providers Care Chemical Processor Name Role Phone Gagan Miguel MD Primary Care Provider [phone] Encounter Details Date Type Department Care Team (Late st Contact Info) Description 12/04/[address] [facility] - Main Lab [address] [facility] [place] [address] Corey Leung MD [address] [place] [address] Metabolic encephalopathy; Nonrheumatic aortic (valve) stenosis; Type [...] Associated Diagnosis Comments COMPLETE BLOOD COUNT Routine 12/05/2024 6:20 AM EDT Metabolic encephalopathy Nonrheumatic aortic (valve) stenosis Type 2 diabetes mellitus without complications (CMS/HCC V24, CMS/HCC V28) BASIC METABOLIC PANEL Routine 12/05/2024 6:20 AM EDT Metabolic encephalopathy Nonrheumatic aortic (valve) stenosis Type 2 diabetes mellitus without complications (CMS/[facility] V24, [facility] V28) documented in this encounter Results * (ABNORMAL) Complete blood count (12/05/2024 6:20 AM EDT) [facility] WBC 6.3 4.8 - 10.8 K/mcL LAB HEMETOLOGY METHOD 12/05/2024 9:05 AM [facility] RBC 3.20(L) 3.80 - 4.80 M/mcL LAB HEMETOLOGY METHOD 12/05/2024 9:05 AM [facility] Hemoglobin 9.9(L) 11.5 - 16.0 g/dL LAB HEMETOLOGY METHOD 12/05/2024 9:05 AM [facility] Hematocrit 31.4(L) 35.0 - 47.0 % LAB HEMETOLOGY METHOD 12/05/2024 9:05 AM [facility] MCV 98.7(H) 79.0 - 98.0 FL LAB HEMETOLOGY METHOD 12/05/2024 9:05 AM [facility] MCH 31.1 27.0 - 32.0 pcg LAB HEMETOLOGY METHOD 12/05/2024 9:05 AM [facility] MCHC 31.5(L) 32.0 - 37.0 g/dL LAB HEMETOLOGY METHOD 12/05/2024 9:05 AM [facility] RDW 15.0 11.0 - 15.0 % LAB HEMETOLOGY METHOD 12/05/2024 9:05 AM [facility] Platelets 241 130 - 400 K/mcL LAB HEMETOLOGY METHOD 12/05/2024 9:05 AM [facility] MPV 10.6 7.0 - 11.0 FL LAB HEMETOLOGY METHOD 12/05/2024 9:05 AM [facility] NRBC 0.0 <1.0 % LAB HEMETOLOGY METHOD 12/05/2024 9:05 AM [facility] NRBC Absolute 0.00 <0.10 K/mcL LAB HEMETOLOGY METHOD 12/05/2024 9:05 AM [facility] Blood Venous blood specimen / Unknown Venipuncture / Unknown 12/05/2024 6:20 AM EDT 12/05/2024 8:55 AM EDT us Corey Leung MD LAB BLOOD ORDERABLES Final Resul t [facility] [address] [place] [address], * Basic metabolic panel (12/05/2024 6:20 AM EDT) Sodium 138 133 - 145 mmol/L LAB CHEMISTRY METHOD 12/05/2024 9:36 AM [facility] Potassium 4.4 3.5 - 5.5 mmol/L LAB CHEMISTRY METHOD 12/05/2024 9:36 AM [facility] Chloride 103 96 - 110 mmol/L LAB CHEMISTRY METHOD 12/05/2024 9:36 AM [facility] CO2 30 21 - 32 mmol/L LAB CHEMISTRY METHOD 12/05/2024 9:36 AM [facility] Anion Gap 5 3 - 11 LAB CHEMISTRY METHOD 12/05/2024 9:36 AM [facility] Glucose 94 70 - 100 mg/dL LAB CHEMISTRY METHOD 12/05/2024 9:36 AM [facility] BUN 20 5 - 25 mg/dL LAB CHEMISTRY METHOD 12/05/2024 9:36 AM [facility] Creatinine 0.64 0.50 - 1.10 mg/dL LAB CHEMISTRY METHOD 12/05/2024 9:36 AM EDT [facility] eGFR 85 >=60 mL/min/1. 73m2 LAB CHEMISTRY METHOD 12/05/2024 9:36 AM EDT [facility] Comment:Calculation based on the Chronic Kidney Disease Epidemiology Collaboration (CKD-EPI) equation refit without adjustment for race. BUN/Creatinine Ratio 31.3 LAB CHEMISTRY METHOD 12/05/2024 9:36 AM EDT [facility] Calcium 8.7 8.5 - 10.5 mg/dL LAB CHEMISTRY METHOD 12/05/2024 9:36 AM EDT [facility] Blood Venous blood specimen / Unknown Venipuncture / Unknown 12/05/2024 6:20 AM EDT 12/05/2024 8:55 AM EDT us Corey Leung MD LAB BLOOD ORDERABLES Final Resul t [facility] [address] [place] [address], documented in this encounter Visit Diagnoses Diagnosis Metabolic encephalopathy Nonrheumatic aortic (valve) stenosis Type 2 diabetes mellitus without complications (CMS/HCC V24, CMS/HCC V28) documented in this encounter Care Teams Chemical Processor Relationship Specialty Start Date End Date Gagan Miguel MD [address] [place] [id number] PCP - General Internal Medicine 04/27/24 documented as of this encounter
--- OUTSIDE RECORDS SUMMARY | 2025-03-01 09:32 | XMS_ITS | Encounter Summary ---
Author Organization [facility] Address [address] [place] [address] Care Team Providers Care Configuration Engineer Name Role Phone Gagan Miguel MD Primary Care Provider [phone] Encounter Details Date Type Department Care Team (Late st Contact Info) Description 11/03/2024 Lab Requisition [facility] - Main Lab [address] [facility] [place] [address] Corey Leung MD [address] [place] [address] Acute cough; Nasal congestion Social History Tobacco Use Types Packs/Day Years [...] Procedure Name Priority Date/Time Associated Diagnosis Comments [id number], RSV, FLU A AND B QUALITATIVE RT-PCR, LOCAL REFERENCE LAB Routine 11/02/2024 12:00 AM EDT Acute cough Nasal congestion documented in this encounter Results * [id number], RSV, Influenza A and B qualitative RT-PCR (11/02/2024 12:00 AM EDT) SARS COV-2 Not Detected Not Detected LAB MOLECULAR DIAGNOSTICS METHOD 11/03/2024 3:17 PM EDT [facility] Comment: Disclaimer: The manner in which this information is used to guide patient care is the responsibility of the healthcare provider. Testing was performed using the [employer] Alinity m SARS-CoV-2 test. This test has been authorized by FDA under an Emergency Use Authorization (EUA). This test is only authorized for the duration of time the declaration that circumstances exist justifying the authorization of the emergency use of in vitro diagnostic tests for detection of SARS-CoV-2 virus and/or diagnosis of COVID-19 infection under section 564(b)(1) of the Act, 21 U.S.C. 360bbb- 3(b)(1), unless the authorization is terminated or revoked sooner. Fact sheet for Healthcare Providers can be found at: https://www.fda.gov/media/394402/download Fact sheet for Patients can be found at: https://www.fda.gov/media/489390/download Influenza A PCR Not Detected Not Detected LAB MOLECULAR DIAGNOSTICS METHOD 11/03/2024 3:17 PM EDT [facility] Influenza B PCR Not Detected Not Detected LAB MOLECULAR DIAGNOSTICS METHOD 11/03/2024 3:17 PM EDT [facility] RSV PCR Not Detected Not Detected LAB MOLECULAR DIAGNOSTICS METHOD 11/03/2024 3:17 PM EDT [facility] Swab Nasopharyngeal structure / Unknown Non-blood Collection / Unknown 11/02/2024 11/03/2024 12:36 PM EDT us Corey Leung MD LAB MICROBIOLOGY - GENERAL ORDER POWER Final Result [facility] [address] [place] [address], documented in this encounter Visit Diagnoses Diagnosis Acute cough Nasal congestion Other diseases of nasal cavity and sinuses documented in this encounter Additional Health Concerns Infection Onset Date Last Indicated Resolved Time Respiratory Rule-Out 11/03/2024 11/02/2024 025 3:17 PM EDT documented as of this encounter Care Teams Configuration Engineer Relationship Specialty Start Date End Date Gagan Miguel MD [address] [place] [phone] PCP - General Internal Medicine 04/27/24 documented as of this encounter
--- OUTSIDE RECORDS SUMMARY | 2025-03-01 09:33 | XMS_ITS | Encounter Summary ---
Author Organization [facility] Address [address] [place] [address] Care Team Providers Care Car Wash Attendant Automatic Name Role Phone Gagan Miguel MD Primary Care Provider [phone] Encounter Details Date Type Department Care Team (Late st Contact Info) Description 07/31/2024 Lab Requisition [facility] - Main Lab 299 [facility] [place] [address] Corey Leung MD [address] [place] [address] Metabolic encephalopathy; Nonrheumatic aortic (valve) stenosis; Type [...] Associated Diagnosis Comments COMPLETE BLOOD COUNT Routine 08/01/2024 5:17 AM EST Metabolic encephalopathy Nonrheumatic aortic (valve) stenosis Type 2 diabetes mellitus without complications (CMS/HCC) BASIC METABOLIC PANEL Routine 08/01/2024 5:17 AM EST Metabolic encephalopathy Nonrheumatic aortic (valve) stenosis Type 2 diabetes mellitus without complications (CMS/HCC) documented in this encounter Results * (ABNORMAL) Basic metabolic panel (08/01/2024 5:17 AM EST) Sodium 135 133 - 145 mmol/L LAB CHEMISTRY METHOD 08/01/2024 10:55 AM [facility] Potassium 3.6 3.5 - 5.5 mmol/L LAB CHEMISTRY METHOD 08/01/2024 10:55 AM [facility] Chloride 96 96 - 110 mmol/L LAB CHEMISTRY METHOD 08/01/2024 10:55 AM [facility] CO2 34(H) 21 - 32 mmol/L LAB CHEMISTRY METHOD 08/01/2024 10:55 AM [facility] Anion Gap 5 3 - 11 LAB CHEMISTRY METHOD 08/01/2024 10:55 AM [facility] Glucose 87 70 - 100 mg/dL LAB CHEMISTRY METHOD 08/01/2024 10:55 AM [facility] BUN 11 5 - 25 mg/dL LAB CHEMISTRY METHOD 08/01/2024 10:55 AM [facility] Creatinine 0.61 0.50 - 1.10 mg/dL LAB CHEMISTRY METHOD 08/01/2024 10:55 AM [facility] eGFR 86 >=60 mL/min/1. 73m2 LAB CHEMISTRY METHOD 08/01/2024 10:55 AM [facility] Comment:Calculation based on the Chronic Kidney Disease Epidemiology Collaboration (CKD-EPI) equation refit without adjustment for race. BUN/Creatinine Ratio 18.0 LAB CHEMISTRY METHOD 08/01/2024 10:55 AM [facility] Calcium 9.0 8.5 - 10.5 mg/dL LAB CHEMISTRY METHOD 08/01/2024 10:55 AM [facility] Blood Venous blood specimen / Unknown Venipuncture / Unknown 08/01/2024 5:17 AM EST 08/01/2024 8:46 AM EST us Corey Leung MD LAB BLOOD ORDERABLES Final Resul t [facility] [address] [place] [address], * (ABNORMAL) Complete blood count (08/01/2024 5:17 AM EST) WBC 7.2 4.8 - 10.8 K/mcL LAB HEMETOLOGY METHOD 08/01/2024 10:51 AM EST [facility] RBC 3.50(L) 3.80 - 4.80 M/mcL LAB HEMETOLOGY METHOD 08/01/2024 10:51 AM [facility] Hemoglobin 10.7(L) 11.5 - 16.0 g/dL LAB HEMETOLOGY METHOD 08/01/2024 10:51 AM [facility] Hematocrit 34.2(L) 35.0 - 47.0 % LAB HEMETOLOGY METHOD 08/01/2024 10:51 AM EST [facility] MCV 98.0 79.0 - 98.0 FL LAB HEMETOLOGY METHOD 08/01/2024 10:51 AM [facility] MCH 30.7 27.0 - 32.0 pcg LAB HEMETOLOGY METHOD 08/01/2024 10:51 AM [facility] MCHC 31.3(L) 32.0 - 37.0 g/dL LAB HEMETOLOGY METHOD 08/01/2024 10:51 AM EST [facility] RDW 14.2 11.0 - 15.0 % LAB HEMETOLOGY METHOD 08/01/2024 10:51 AM [facility] Platelets 284 130 - 400 K/mcL LAB HEMETOLOGY METHOD 08/01/2024 10:51 AM [facility] MPV 10.3 7.0 - 11.0 FL LAB HEMETOLOGY METHOD 08/01/2024 10:51 AM EST [facility] NRBC 0.0 <1.0 % LAB HEMETOLOGY METHOD 08/01/2024 10:51 AM EST [facility] NRBC Absolute 0.00 <0.10 K/mcL LAB HEMETOLOGY METHOD 08/01/2024 10:51 AM EST [facility] Blood Venous blood specimen / Unknown Venipuncture / Unknown 08/01/2024 5:17 AM EST 08/01/2024 8:46 AM EST us Corey Leung MD LAB BLOOD ORDERABLES Final Resul t [facility] [address] [place] [address], documented in this encounter Visit Diagnoses Diagnosis Metabolic encephalopathy Nonrheumatic aortic (valve) stenosis Type 2 diabetes mellitus without complications (CMS/HCC V24, CMS/HCC V28) documented in this encounter Additional Health Concerns Infection Onset Date Last Indicated Resolved Time Respiratory Rule-Out 11/03/2024 11/02/2024 025 3:17 PM EDT documented as of this encounter Care Teams Car Wash Attendant Automatic Relationship Specialty Start Date End Date Gagan Miguel MD [address] [place] [id number] PCP - General Internal Medicine 04/27/24 documented as of this encounter
--- OUTSIDE RECORDS SUMMARY | 2025-03-01 09:33 | XMS_ITS | Encounter Summary ---
Author Organization [facility] Address [address] [place] [address] Care Team Providers Care Systems Qa Analyst Name Role Phone Gagan Miguel MD Primary Care Provider [phone] Encounter Details Date Type Department Care Team (Late st Contact Info) Description 01/01/2025 Lab Requisition [facility] - Main Lab 299 [facility] [place] [address] Corey Leung MD [address] [place] [address] Metabolic encephalopathy; Nonrheumatic aortic (valve) stenosis; Type [...] Associated Diagnosis Comments COMPLETE BLOOD COUNT Routine 01/02/2025 6:04 AM EDT Metabolic encephalopathy Nonrheumatic aortic (valve) stenosis Type 2 diabetes mellitus without complications (CMS/HCC V24, CMS/HCC V28) BASIC METABOLIC PANEL Routine 01/02/2025 6:04 AM EDT Metabolic encephalopathy Nonrheumatic aortic (valve) stenosis Type 2 diabetes mellitus without complications (CMS/[facility] V24, [facility] V28) documented in this encounter Results * (ABNORMAL) Basic metabolic panel (01/02/2025 6:04 AM EDT) Sodium 138 133 - 145 mmol/L LAB CHEMISTRY METHOD 01/02/2025 10:19 AM [facility] Potassium 4.5 3.5 - 5.5 mmol/L LAB CHEMISTRY METHOD 01/02/2025 10:19 AM [facility] Chloride 105 96 - 110 mmol/L LAB CHEMISTRY METHOD 01/02/2025 10:19 AM [facility] CO2 32 21 - 32 mmol/L LAB CHEMISTRY METHOD 01/02/2025 10:19 AM [facility] Anion Gap 1(L) 3 - 11 LAB CHEMISTRY METHOD 01/02/2025 10:19 AM [facility] Glucose 101(H) 70 - 100 mg/dL LAB CHEMISTRY METHOD 01/02/2025 10:19 AM [facility] BUN 20 5 - 25 mg/dL LAB CHEMISTRY METHOD 01/02/2025 10:19 AM [facility] Creatinine 0.70 0.50 - 1.10 mg/dL LAB CHEMISTRY METHOD 01/02/2025 10:19 AM [facility] eGFR 83 >=60 mL/min/1. 73m2 LAB CHEMISTRY METHOD 01/02/2025 10:19 AM [facility] Comment:Calculation based on the Chronic Kidney Disease Epidemiology Collaboration (CKD-EPI) equation refit without adjustment for race. BUN/Creatinine Ratio 28.6 LAB CHEMISTRY METHOD 01/02/2025 10:19 AM [facility] Calcium 8.5 8.5 - 10.5 mg/dL LAB CHEMISTRY METHOD 01/02/2025 10:19 AM [facility] Blood Venous blood specimen / Unknown Venipuncture / Unknown 01/02/2025 6:04 AM EDT 01/02/2025 8:52 AM EDT Corey Leung MD LAB BLOOD ORDERABLES Final Resul t [facility] [address] [place] [address], * (ABNORMAL) Complete blood count (01/02/2025 6:04 AM EDT) [facility] WBC 7.0 4.8 - 10.8 K/mcL LAB HEMETOLOGY METHOD [facility] RBC 3.40(L) 3.80 - 4.80 M/mcL LAB HEMETOLOGY METHOD 01/02/2025 9:11 AM [facility] Hemoglobin 10.6(L) 11.5 - 16.0 g/dL LAB HEMETOLOGY METHOD 01/02/2025 9:11 AM [facility] Hematocrit 33.8(L) 35.0 - 47.0 % LAB HEMETOLOGY METHOD 01/02/2025 9:11 AM [facility] MCV 99.4(H) 79.0 - 98.0 FL LAB HEMETOLOGY METHOD 01/02/2025 9:11 AM [facility] MCH 31.2 27.0 - 32.0 pcg LAB HEMETOLOGY METHOD 01/02/2025 9:11 AM [facility] MCHC 31.4(L) 32.0 - 37.0 g/dL LAB HEMETOLOGY METHOD 01/02/2025 9:11 AM [facility] RDW 14.6 11.0 - 15.0 % LAB HEMETOLOGY METHOD 01/02/2025 9:11 AM [facility] Platelets 271 130 - 400 K/mcL LAB HEMETOLOGY METHOD 01/02/2025 9:11 AM EDT [facility] MPV 10.6 7.0 - 11.0 FL LAB HEMETOLOGY METHOD 01/02/2025 9:11 AM EDT [facility] NRBC 0.0 <1.0 % LAB HEMETOLOGY METHOD 01/02/2025 9:11 AM EDT [facility] NRBC Absolute 0.00 <0.10 K/mcL LAB HEMETOLOGY METHOD 01/02/2025 9:11 AM EDT [facility] Blood Venous blood specimen / Unknown Venipuncture / Unknown 01/02/2025 6:04 AM EDT 01/02/2025 8:51 AM EDT us Corey Leung MD LAB BLOOD ORDERABLES Final Resul t [facility] [address] [place] [address], documented in this encounter Visit Diagnoses Diagnosis Metabolic encephalopathy Nonrheumatic aortic (valve) stenosis Type 2 diabetes mellitus without complications (CMS/HCC V24, CMS/HCC V28) documented in this encounter Care Teams Systems Qa Analyst Relationship Specialty Start Date End Date Gagan Miguel MD [address] [place] [id number] PCP - General Internal Medicine 04/27/24 documented as of this encounter
--- OUTSIDE RECORDS SUMMARY | 2025-03-01 09:33 | XMS_ITS | Encounter Summary ---
Author Organization [facility] Address [address] [place] [address] Care Team Providers Care Bull Riveter Name Role Phone Gagan Miguel MD Primary Care Provider [phone] Encounter Details Date Type Department Care Team (Late st Contact Info) Description 01/08/2025 Lab Requisition [facility] - Main Lab 299 [facility] [place] [address] Corey Leung MD [address] [place] [address] Metabolic encephalopathy; Nonrheumatic aortic (valve) stenosis; Type [...] Associated Diagnosis Comments COMPLETE BLOOD COUNT Routine 01/09/2025 6:55 AM EDT Metabolic encephalopathy Nonrheumatic aortic (valve) stenosis Type 2 diabetes mellitus without complications (CMS/HCC V24, CMS/HCC V28) BASIC METABOLIC PANEL Routine 01/09/2025 6:55 AM EDT Metabolic encephalopathy Nonrheumatic aortic (valve) stenosis Type 2 diabetes mellitus without complications (CMS/[facility] V24, [facility] V28) documented in this encounter Results * Basic metabolic panel (01/09/2025 6:55 AM EDT) Sodium 139 133 - 145 mmol/L LAB CHEMISTRY METHOD 01/09/2025 11:26 AM [facility] Potassium 4.3 3.5 - 5.5 mmol/L LAB CHEMISTRY METHOD 01/09/2025 11:26 AM [facility] Chloride 104 96 - 110 mmol/L LAB CHEMISTRY METHOD 01/09/2025 11:26 AM [facility] CO2 32 21 - 32 mmol/L LAB CHEMISTRY METHOD 01/09/2025 11:26 AM [facility] Anion Gap 3 3 - 11 LAB CHEMISTRY METHOD 01/09/2025 11:26 AM [facility] Glucose 87 70 - 100 mg/dL LAB CHEMISTRY METHOD 01/09/2025 11:26 AM [facility] BUN 22 5 - 25 mg/dL LAB CHEMISTRY METHOD 01/09/2025 11:26 AM [facility] Creatinine 0.65 0.50 - 1.10 mg/dL LAB CHEMISTRY METHOD 01/09/2025 11:26 AM [facility] eGFR 84 >=60 mL/min/1. 73m2 LAB CHEMISTRY METHOD 01/09/2025 11:26 AM [facility] Comment:Calculation based on the Chronic Kidney Disease Epidemiology Collaboration (CKD-EPI) equation refit without adjustment for race. BUN/Creatinine Ratio 33.8 LAB CHEMISTRY METHOD 01/09/2025 11:26 AM [facility] Calcium 9.0 8.5 - 10.5 mg/dL LAB CHEMISTRY METHOD 01/09/2025 11:26 AM [facility] Blood Venous blood specimen / Unknown Venipuncture / Unknown 01/09/2025 6:55 AM EDT 01/09/2025 10:23 AM EDT us Corey Leung MD LAB BLOOD ORDERABLES Final Resul t [facility] [address] [place] [address], * (ABNORMAL) Complete blood count (01/09/2025 6:55 AM EDT) WBC 9.5 4.8 - 10.8 K/mcL LAB HEMETOLOGY METHOD 01/09/2025 10:57 AM EDT [facility] RBC 3.80 3.80 - 4.80 M/mcL LAB HEMETOLOGY METHOD 01/09/2025 10:57 AM EDT [facility] Hemoglobin 11.6 11.5 - 16.0 g/dL LAB HEMETOLOGY METHOD 01/09/2025 10:57 AM EDT [facility] Hematocrit 37.1 35.0 - 47.0 % LAB HEMETOLOGY METHOD 01/09/2025 10:57 AM EDT [facility] MCV 98.7(H) 79.0 - 98.0 FL LAB HEMETOLOGY METHOD 01/09/2025 10:57 AM [facility] MCH 30.9 27.0 - 32.0 pcg LAB HEMETOLOGY METHOD 01/09/2025 10:57 AM EDT [facility] MCHC 31.3(L) 32.0 - 37.0 g/dL LAB HEMETOLOGY METHOD 01/09/2025 10:57 AM EDT [facility] RDW 14.8 11.0 - 15.0 % LAB HEMETOLOGY METHOD 01/09/2025 10:57 AM EDT [facility] Platelets 290 130 - 400 K/mcL LAB HEMETOLOGY METHOD 01/09/2025 10:57 AM EDT [facility] MPV 10.6 7.0 - 11.0 FL LAB HEMETOLOGY METHOD 01/09/2025 10:57 AM EDT [facility] NRBC 0.0 <1.0 % LAB HEMETOLOGY METHOD 01/09/2025 10:57 AM EDT [facility] NRBC Absolute 0.00 <0.10 K/mcL LAB HEMETOLOGY METHOD 01/09/2025 10:57 AM EDT [facility] Blood Venous blood specimen / Unknown Venipuncture / Unknown 01/09/2025 6:55 AM EDT 01/09/2025 10:23 AM EDT us Corey Leung MD LAB BLOOD ORDERABLES Final Resul t [facility] [address] [place] [address], documented in this encounter Visit Diagnoses Diagnosis Metabolic encephalopathy Nonrheumatic aortic (valve) stenosis Type 2 diabetes mellitus without complications (CMS/HCC V24, CMS/HCC V28) documented in this encounter Care Teams Bull Riveter Relationship Specialty Start Date End Date Gagan Miguel MD [address] [place] [id number] PCP - General Internal Medicine 04/27/24 documented as of this encounter
--- OUTSIDE RECORDS SUMMARY | 2025-03-01 09:33 | XMS_ITS | Encounter Summary ---
Author Organization [facility] Address [address] [place] [address] Care Team Providers Care Intelligence Agent Name Role Phone Gagan Miguel MD Primary Care Provider [phone] Encounter Details Date Type Department Care Team (Late st Contact Info) Description 08/28/2024 Lab Requisition [facility] - Main Lab 299 [facility] [place] [address] Corey Leung MD [address] [place] [address] Metabolic encephalopathy; Nonrheumatic aortic (valve) stenosis; Type [...] Associated Diagnosis Comments COMPLETE BLOOD COUNT Routine 08/29/2024 6:21 AM EDT Metabolic encephalopathy Nonrheumatic aortic (valve) stenosis Type 2 diabetes mellitus without complications BASIC METABOLIC PANEL Routine 08/29/2024 6:21 AM EDT Metabolic encephalopathy Nonrheumatic aortic (valve) stenosis Type 2 diabetes mellitus without complications documented in this encounter Results * (ABNORMAL) Basic metabolic panel (08/29/2024 6:21 AM EDT) Sodium 134 133 - 145 mmol/L LAB CHEMISTRY METHOD 08/29/2024 9:45 AM [facility] Potassium 3.3(L) 3.5 - 5.5 mmol/L LAB CHEMISTRY METHOD 08/29/2024 9:45 AM [facility] Chloride 96 96 - 110 mmol/L LAB CHEMISTRY METHOD 08/29/2024 9:45 AM [facility] CO2 32 21 - 32 mmol/L LAB CHEMISTRY METHOD 08/29/2024 9:45 AM [facility] Anion Gap 6 3 - 11 LAB CHEMISTRY METHOD 08/29/2024 9:45 AM [facility] Glucose 104(H) 70 - 100 mg/dL LAB CHEMISTRY METHOD 08/29/2024 9:45 AM [facility] BUN 23 5 - 25 mg/dL LAB CHEMISTRY METHOD 08/29/2024 9:45 AM [facility] Creatinine 0.68 0.50 - 1.10 mg/dL LAB CHEMISTRY METHOD 08/29/2024 9:45 AM [facility] eGFR 83 >=60 mL/min/1. 73m2 LAB CHEMISTRY METHOD 08/29/2024 9:45 AM [facility] Comment:Calculation based on the Chronic Kidney Disease Epidemiology Collaboration (CKD-EPI) equation refit without adjustment for race. BUN/Creatinine Ratio 33.8 LAB CHEMISTRY METHOD 08/29/2024 9:45 AM [facility] Calcium 8.9 8.5 - 10.5 mg/dL LAB CHEMISTRY METHOD 08/29/2024 9:45 AM [facility] Blood Venous blood specimen / Unknown Venipuncture / Unknown 08/29/2024 6:21 AM EDT 08/29/2024 9:06 AM EDT us Corey Leung MD LAB BLOOD ORDERABLES Final Resul t [facility] [address] [place] [address], [place] [phone] * (ABNORMAL) Complete blood count (08/29/2024 6:21 AM EDT) WBC 7.8 4.8 - 10.8 K/mcL LAB HEMETOLOGY METHOD 08/29/2024 9:21 AM EDT [facility] RBC 4.20 3.80 - 4.80 M/mcL LAB HEMETOLOGY METHOD 08/29/2024 9:21 AM EDT [facility] Hemoglobin 12.5 11.5 - 16.0 g/dL LAB HEMETOLOGY METHOD 08/29/2024 9:21 AM EDT [facility] Hematocrit 39.5 35.0 - 47.0 % LAB HEMETOLOGY METHOD 08/29/2024 9:21 AM EDT [facility] MCV 95.0 79.0 - 98.0 FL LAB HEMETOLOGY METHOD 08/29/2024 9:21 AM EDT [facility] MCH 30.0 27.0 - 32.0 pcg LAB HEMETOLOGY METHOD 08/29/2024 9:21 AM EDT [facility] MCHC 31.6(L) 32.0 - 37.0 g/dL LAB HEMETOLOGY METHOD 08/29/2024 9:21 AM EDT [facility] RDW 14.1 11.0 - 15.0 % LAB HEMETOLOGY METHOD 08/29/2024 9:21 AM T [facility] Platelets 237 130 - 400 K/mcL LAB HEMETOLOGY METHOD 08/29/2024 9:21 AM EDT [facility] MPV 11.2(H) 7.0 - 11.0 FL LAB HEMETOLOGY METHOD 08/29/2024 9:21 AM EDT [facility] NRBC 0.0 <1.0 % LAB HEMETOLOGY METHOD 08/29/2024 9:21 AM EDT [facility] NRBC Absolute 0.00 <0.10 K/mcL LAB HEMETOLOGY METHOD 08/29/2024 9:21 AM EDT [facility] Blood Venous blood specimen / Unknown Venipuncture / Unknown 08/29/2024 6:21 AM EDT 08/29/2024 9:06 AM EDT Corey Lenug MD LAB BLOOD ORDERABLES Final Resul t [facility] [address] [place] [address], documented in this encounter Visit Diagnoses Diagnosis Metabolic encephalopathy Nonrheumatic aortic (valve) stenosis Type 2 diabetes mellitus without complications (CMS/HCC V24, CMS/HCC V28) documented in this encounter Additional Health Concerns Infection Onset Date Last Indicated Resolved Time Respiratory Rule-Out 11/03/2024 11/02/2024 025 3:17 PM EDT documented as of this encounter Care Teams Intelligence Agent Relationship Specialty Start Date End Date Gagan Miguel MD [address] [place] [id number] PCP - General Internal Medicine 04/27/24 documented as of this encounter
--- OUTSIDE RECORDS SUMMARY | 2025-03-01 09:33 | XMS_ITS | Encounter Summary ---
Author Organization [facility] Address [address] [place] [address] Care Team Providers Care Ladle Cleaner Name Role Phone Gagan Miguel MD Primary Care Provider [phone] Encounter Details Date Type Department Care Team (Late st Contact Info) Description 09/01/2024 Lab Requisition [facility] - Main Lab 299 [facility] [place] [address] Corey Leung MD [address] [place] [address] Essential (primary) hypertension Social History Tobacco Use [...] Associated Diagnosis Comments BASIC METABOLIC PANEL Routine 09/03/2024 7:20 AM EDT Essential (primary) hypertension documented in this encounter Results * (ABNORMAL) Basic metabolic panel (09/03/2024 7:20 AM EDT) Sodium 136 133 - 145 mmol/L LAB CHEMISTRY METHOD 09/03/2024 11:55 AM EDT [facility] Potassium 3.2(L) 3.5 - 5.5 mmol/L LAB CHEMISTRY METHOD 09/03/2024 11:55 AM [facility] Chloride 94(L) 96 - 110 mmol/L LAB CHEMISTRY METHOD 09/03/2024 11:55 AM [facility] CO2 34(H) 21 - 32 mmol/L LAB CHEMISTRY METHOD 09/03/2024 11:55 AM [facility] Anion Gap 8 3 - 11 LAB CHEMISTRY METHOD 09/03/2024 11:55 AM [facility] Glucose 105(H) 70 - 100 mg/dL LAB CHEMISTRY METHOD 09/03/2024 11:55 AM [facility] BUN 19 5 - 25 mg/dL LAB CHEMISTRY METHOD 09/03/2024 11:55 AM [facility] Creatinine 0.52 0.50 - 1.10 mg/dL LAB CHEMISTRY METHOD 09/03/2024 11:55 AM [facility] eGFR 89 >=60 mL/min/1. 73m2 LAB CHEMISTRY METHOD 09/03/2024 11:55 AM [facility] Comment:Calculation based on the Chronic Kidney Disease Epidemiology Collaboration (CKD-EPI) equation refit without adjustment for race. BUN/Creatinine Ratio 36.5 LAB CHEMISTRY METHOD 09/03/2024 11:55 AM [facility] Calcium 9.3 8.5 - 10.5 mg/dL LAB CHEMISTRY METHOD 09/03/2024 11:55 AM [facility] Blood Venous blood specimen / Unknown Venipuncture / Unknown 09/03/2024 7:20 AM EDT 09/03/2024 10:34 AM EDT us Corey Leung MD LAB BLOOD ORDERABLES Final Resul t [facility] [address] [place] [address], [place] [phone] documented in this encounter Visit Diagnoses Diagnosis Essential (primary) hypertension Unspecified essential hypertension documented in this encounter Additional Health Concerns Infection Onset Date Last Indicated Resolved Time Respiratory Rule-Out 11/03/2024 11/02/2024 025 3:17 PM EDT documented as of this encounter Care Teams Ladle Cleaner Relationship Specialty Start Date End Date Gagan Miguel MD [address] [place] [id number] PCP - General Internal Medicine 04/27/24 documented as of this encounter
--- OUTSIDE RECORDS SUMMARY | 2025-03-01 09:33 | XMS_ITS | Encounter Summary ---
Author Organization [facility] Address [address] [place] [address] Care Team Providers Care Crm System Administrator Name Role Phone Gagan Miguel MD Primary Care Provider [phone] Encounter Details Date Type Department Care Team (Late st Contact Info) Description 02/12/2025 Lab Requisition [facility] - Main Lab [address] [facility] [place] [address] Corey Leung MD [address] [place] [address] Metabolic encephalopathy; Nonrheumatic aortic (valve) stenosis; Type [...] Associated Diagnosis Comments COMPLETE BLOOD COUNT Routine 02/13/2025 5:02 AM EDT Metabolic encephalopathy Nonrheumatic aortic (valve) stenosis Type 2 diabetes mellitus without complications (CMS/HCC V24, CMS/HCC V28) BASIC METABOLIC PANEL Routine 02/13/2025 5:02 AM EDT Metabolic encephalopathy Nonrheumatic aortic (valve) stenosis Type 2 diabetes mellitus without complications (CMS/[facility] V24, [facility] V28) documented in this encounter Results * (ABNORMAL) Basic metabolic panel (02/13/2025 5:02 AM EDT) Sodium 140 133 - 145 mmol/L LAB CHEMISTRY METHOD 02/13/2025 9:05 AM [facility] Potassium 4.3 3.5 - 5.5 mmol/L LAB CHEMISTRY METHOD 02/13/2025 9:05 AM [facility] Chloride 106 96 - 110 mmol/L LAB CHEMISTRY METHOD 02/13/2025 9:05 AM [facility] CO2 30 21 - 32 mmol/L LAB CHEMISTRY METHOD 02/13/2025 9:05 AM [facility] Anion Gap 4 3 - 11 LAB CHEMISTRY METHOD 02/13/2025 9:05 AM [facility] Glucose 89 70 - 100 mg/dL LAB CHEMISTRY METHOD 02/13/2025 9:05 AM [facility] BUN 27(H) 5 - 25 mg/dL LAB CHEMISTRY METHOD 02/13/2025 9:05 AM [facility] Creatinine 0.59 0.50 - 1.10 mg/dL LAB CHEMISTRY METHOD 02/13/2025 9:05 AM [facility] eGFR 86 >=60 mL/min/1. 73m2 LAB CHEMISTRY METHOD 02/13/2025 9:05 AM [facility] Comment:Calculation based on the Chronic Kidney Disease Epidemiology Collaboration (CKD-EPI) equation refit without adjustment for race. BUN/Creatinine Ratio 45.8 LAB CHEMISTRY METHOD 02/13/2025 9:05 AM [facility] Calcium 8.6 8.5 - 10.5 mg/dL LAB CHEMISTRY METHOD 02/13/2025 9:05 AM [facility] Blood Venous blood specimen / Unknown Venipuncture / Unknown 02/13/2025 5:02 AM EDT 02/13/2025 8:39 AM EDT us Corey Leung MD LAB BLOOD ORDERABLES Final Resul t [facility] [address] [place] [address], * (ABNORMAL) Complete blood count (02/13/2025 5:02 AM EDT) [facility] WBC 6.0 4.8 - 10.8 K/mcL LAB HEMETOLOGY METHOD 02/13/2025 8:46 AM EDT [facility] RBC 3.40(L) 3.80 - 4.80 M/mcL LAB [facility]OLOGY [facility] Hemoglobin 10.7(L) 11.5 - 16.0 g/dL LAB HEMETOLOGY METHOD 02/13/2025 8:46 AM T [facility] Hematocrit 33.2(L) 35.0 - 47.0 % LAB HEMETOLOGY METHOD 02/13/2025 8:46 AM T [facility] MCV 97.4 79.0 - 98.0 FL LAB HEMETOLOGY METHOD 02/13/2025 8:46 AM EDT [facility] MCH 31.4 27.0 - 32.0 pcg LAB HEMETOLOGY METHOD 02/13/2025 8:46 AM [facility] MCHC 32.2 32.0 - 37.0 g/dL LAB HEMETOLOGY METHOD 02/13/2025 8:46 AM [facility] RDW 13.7 11.0 - 15.0 % LAB HEMETOLOGY METHOD 02/13/2025 8[facility] Platelets 222 130 - 400 K/mcL LAB HEMETOLOGY METHOD 02/13/2025 8:46 AM EDT [facility] MPV 11.5(H) 7.0 - 11.0 FL LAB HEMETOLOGY METHOD 02/13/2025 8:46 AM EDT [facility] NRBC 0.0 <1.0 % LAB HEMETOLOGY METHOD 02/13/2025 8:46 AM EDT [facility] NRBC Absolute 0.00 <0.10 K/mcL LAB HEMETOLOGY METHOD 02/13/2025 8:46 AM EDT [facility] Blood Venous blood specimen / Unknown Venipuncture / Unknown 02/13/2025 5:02 AM EDT 02/13/2025 8:41 AM EDT Corey Leung MD LAB BLOOD ORDERABLES Final Resul t [facility] [address] [place] [address], [place] [phone] documented in this encounter Visit Diagnoses Diagnosis Metabolic encephalopathy Nonrheumatic aortic (valve) stenosis Type 2 diabetes mellitus without complications (CMS/HCC V24, CMS/HCC V28) documented in this encounter Care Teams Crm System Administrator Relationship Specialty Start Date End Date Gagan Miguel MD [address] [place] [id number] PCP - General Internal Medicine 04/27/24 documented as of this encounter
--- OUTSIDE RECORDS SUMMARY | 2025-03-01 09:33 | XMS_ITS | Encounter Summary ---
Author Organization [facility] Address [address] [place] [address] Care Team Providers Care Rn Gynecology Name Role Phone Gagan Miguel MD Primary Care Provider [phone] Encounter Details Date Type Department Care Team (Late st Contact Info) Description 08/23/2024 Lab Requisition [facility] - Main Lab [address] [facility] [place] [address] Corey Leung MD [address] [place] [address] Hypokalemia Social History Tobacco Use Types Packs/Day [...] Associated Diagnosis Comments BASIC METABOLIC PANEL Routine 08/23/2024 5:07 AM EDT Hypokalemia documented in this encounter Results * (ABNORMAL) Basic metabolic panel (08/23/2024 5:07 AM EDT) Sodium 138 133 - 145 mmol/L LAB CHEMISTRY METHOD 08/23/2024 11:17 AM EDT [facility] Potassium 3.4(L) 3.5 - 5.5 mmol/L LAB CHEMISTRY METHOD 08/23/2024 11:17 AM [facility] Chloride 99 96 - 110 mmol/L LAB CHEMISTRY METHOD 08/23/2024 11:17 AM [facility] CO2 31 21 - 32 mmol/L LAB CHEMISTRY METHOD 08/23/2024 11:17 AM [facility] Anion Gap 8 3 - 11 LAB CHEMISTRY METHOD 08/23/2024 11:17 AM [facility] Glucose 77 70 - 100 mg/dL LAB CHEMISTRY METHOD 08/23/2024 11:17 AM [facility] BUN 20 5 - 25 mg/dL LAB CHEMISTRY METHOD 08/23/2024 11:17 AM [facility] Creatinine 0.61 0.50 - 1.10 mg/dL LAB CHEMISTRY METHOD 08/23/2024 11:17 AM [facility] eGFR 86 >=60 mL/min/1. 73m2 LAB CHEMISTRY METHOD 08/23/2024 11:17 AM [facility] Comment:Calculation based on the Chronic Kidney Disease Epidemiology Collaboration (CKD-EPI) equation refit without adjustment for race. BUN/Creatinine Ratio 32.8 LAB CHEMISTRY METHOD 08/23/2024 11:17 AM [facility] Calcium 8.5 8.5 - 10.5 mg/dL LAB CHEMISTRY METHOD 08/23/2024 11:17 AM [facility] Blood Venous blood specimen / Unknown Venipuncture / Unknown 08/23/2024 5:07 AM EDT 08/23/2024 9:46 AM EDT us Corey Leung MD LAB BLOOD ORDERABLES Final Resul t [facility] [address] [place] [address], documented in this encounter Visit Diagnoses Diagnosis Hypokalemia Hypopotassemia documented in this encounter Additional Health Concerns Infection Onset Date Last Indicated Resolved Time Respiratory Rule-Out 11/03/2024 11/02/2024 025 3:17 PM EDT documented as of this encounter Care Teams Rn Gynecology Relationship Specialty Start Date End Date Gagan Miguel MD [address] [place] [phone] PCP - General Internal Medicine 04/27/24 documented as of this encounter
--- OUTSIDE RECORDS SUMMARY | 2025-03-01 09:33 | XMS_ITS | Encounter Summary ---
Author Organization [facility] Address [address] [place] [address] Care Team Providers Care Conflict Resolution Professional Name Role Phone Gagan Miguel MD Primary Care Provider Encounter Details Date Type Department Care Team (Late st Contact Info) Description 07/10/2024 Lab Requisition [facility] - Main Lab [address] [facility] [place] [address] Corey Leung MD [address] [place] [address] Type 2 diabetes mellitus without complications (CMS/HCC V24, CMS/HCC V28); Nonrheumatic aortic (valve) stenosis; Metabolic encephalopathy Social History Tobacco Use Types [...] Associated Diagnosis Comments COMPLETE BLOOD COUNT Routine 07/11/2024 7:20 AM EST Type 2 diabetes mellitus without complications (CMS/HCC) Nonrheumatic aortic (valve) stenosis Metabolic encephalopathy BASIC METABOLIC PANEL Routine 07/11/2024 7:20 AM EST Type 2 diabetes mellitus without complications (CMS/HCC) Nonrheumatic aortic (valve) stenosis Metabolic encephalopathy documented in this encounter Results * (ABNORMAL) Basic metabolic panel (07/11/2024 7:20 AM EST) Sodium 136 133 - 145 mmol/L LAB CHEMISTRY METHOD 07/11/2024 10:59 AM [facility] Potassium 3.8 3.5 - 5.5 mmol/L LAB CHEMISTRY METHOD 07/11/2024 10:59 AM [facility] Chloride 97 96 - 110 mmol/L LAB CHEMISTRY METHOD 07/11/2024 10:59 AM [facility] CO2 35(H) 21 - 32 mmol/L LAB CHEMISTRY METHOD 07/11/2024 10:59 AM [facility] Anion Gap 4 3 - 11 LAB CHEMISTRY METHOD 07/11/2024 10:59 AM [facility] Glucose 108(H) 70 - 100 mg/dL LAB CHEMISTRY METHOD 07/11/2024 10:59 AM [facility] BUN 13 5 - 25 mg/dL LAB CHEMISTRY METHOD 07/11/2024 10:59 AM [facility] Creatinine 0.62 0.50 - 1.10 mg/dL LAB CHEMISTRY METHOD 07/11/2024 10:59 AM [facility] eGFR 85 >=60 mL/min/1. 73m2 LAB CHEMISTRY METHOD 07/11/2024 10:59 AM [facility] Comment:Calculation based on the Chronic Kidney Disease Epidemiology Collaboration (CKD-EPI) equation refit without adjustment for race. BUN/Creatinine Ratio 21.0 LAB CHEMISTRY METHOD 07/11/2024 10:59 AM [facility] Calcium 8.7 8.5 - 10.5 mg/dL LAB CHEMISTRY METHOD 07/11/2024 10:59 AM [facility] Blood Venous blood specimen / Unknown Venipuncture / Unknown 07/11/2024 7:20 AM EST 07/11/2024 10:17 AM EST us Corey Leung MD LAB BLOOD ORDERABLES Final Resul t [facility] [address] [place] [address], * (ABNORMAL) Complete blood count (07/11/2024 7:20 AM EST) WBC 5.1 4.8 - 10.8 K/mcL LAB HEMETOLOGY METHOD 07/11/2024 10:39 AM [facility] RBC 3.20(L) 3.80 - 4.80 M/mcL LAB HEMETOLOGY METHOD 07/11/2024 10:39 AM [facility] Hemoglobin 10.0(L) 11.5 - 16.0 g/dL LAB HEMETOLOGY METHOD 07/11/2024 10:39 AM [facility] Hematocrit 31.7(L) 35.0 - 47.0 % LAB HEMETOLOGY METHOD 07/11/2024 10:39 AM [facility] MCV 98.4(H) 79.0 - 98.0 FL LAB HEMETOLOGY METHOD 07/11/2024 10:39 AM [facility] MCH 31.1 27.0 - 32.0 pcg LAB HEMETOLOGY METHOD 07/11/2024 10:39 AM [facility] MCHC 31.5(L) 32.0 - 37.0 g/dL LAB HEMETOLOGY METHOD 07/11/2024 10:39 AM [facility] RDW 15.3(H) 11.0 - 15.0 % LAB HEMETOLOGY METHOD 07/11/2024 10:39 AM [facility] Platelets 297 130 - 400 K/mcL LAB HEMETOLOGY METHOD 07/11/2024 10:39 AM [facility] MPV 9.9 7.0 - 11.0 FL LAB HEMETOLOGY METHOD 07/11/2024 10:39 AM EST [facility] NRBC 0.0 <1.0 % LAB HEMETOLOGY METHOD 07/11/2024 10:39 AM EST [facility] NRBC Absolute 0.00 <0.10 K/mcL LAB HEMETOLOGY METHOD 07/11/2024 10:39 AM EST [facility] Blood Venous blood specimen / Unknown Venipuncture / Unknown 07/11/2024 7:20 AM EST 07/11/2024 10:17 AM EST us Corey Leung MD LAB BLOOD ORDERABLES Final Resul t [facility] [address] [place] [address], documented in this encounter Visit Diagnoses Diagnosis Type 2 diabetes mellitus without complications (CMS/HCC V24, CMS/HCC V28) Nonrheumatic aortic (valve) stenosis Metabolic encephalopathy documented in this encounter Additional Health Concerns Infection Onset Date Last Indicated Resolved Time Respiratory Rule-Out 11/03/2024 11/02/2024 025 3:17 PM EDT documented as of this encounter Care Teams Conflict Resolution Professional Relationship Specialty Start Date End Date Gagan Miguel MD [address] [place] [phone] PCP - General Internal Medicine 04/27/24 documented as of this encounter
--- OUTSIDE RECORDS SUMMARY | 2025-03-01 09:33 | XMS_ITS | Encounter Summary ---
Author Organization [facility] Address [address] [place] [address] Care Team Providers Care Band Director Name Role Phone Gagan Miguel MD Primary Care Provider [phone] Encounter Details Date Type Department Care Team (Late st Contact Info) Description 07/17/2024 Lab Requisition [facility] - Main Lab [address] [facility] [place] [address] Corey Leung MD [address] [place] [address] Metabolic encephalopathy; Nonrheumatic aortic (valve) stenosis; Type [...] Associated Diagnosis Comments COMPLETE BLOOD COUNT Routine 07/18/2024 7:12 AM EST Metabolic encephalopathy Nonrheumatic aortic (valve) stenosis Type 2 diabetes mellitus without complications (CMS/HCC) BASIC METABOLIC PANEL Routine 07/18/2024 7:12 AM EST Metabolic encephalopathy Nonrheumatic aortic (valve) stenosis Type 2 diabetes mellitus without complications (CMS/HCC) documented in this encounter Results * (ABNORMAL) Basic metabolic panel (07/18/2024 7:12 AM EST) Sodium 135 133 - 145 mmol/L LAB CHEMISTRY METHOD 07/18/2024 11:58 AM [facility] Potassium 3.5 3.5 - 5.5 mmol/L LAB CHEMISTRY METHOD 07/18/2024 11:58 AM [facility] Chloride 95(L) 96 - 110 mmol/L LAB CHEMISTRY METHOD 07/18/2024 11:58 AM [facility] CO2 33(H) 21 - 32 mmol/L LAB CHEMISTRY METHOD 07/18/2024 11:58 AM [facility] Anion Gap 7 3 - 11 LAB CHEMISTRY METHOD 07/18/2024 11:58 AM [facility] Glucose 116(H) 70 - 100 mg/dL LAB CHEMISTRY METHOD 07/18/2024 11:58 AM [facility] BUN 14 5 - 25 mg/dL LAB CHEMISTRY METHOD 07/18/2024 11:58 AM [facility] Creatinine 0.53 0.50 - 1.10 mg/dL LAB CHEMISTRY METHOD 07/18/2024 11:58 AM [facility] eGFR 89 >=60 mL/min/1. 73m2 LAB CHEMISTRY METHOD 07/18/2024 11:58 AM [facility] Comment:Calculation based on the Chronic Kidney Disease Epidemiology Collaboration (CKD-EPI) equation refit without adjustment for race. BUN/Creatinine Ratio 26.4 LAB CHEMISTRY METHOD 07/18/2024 11:58 AM [facility] Calcium 8.9 8.5 - 10.5 mg/dL LAB CHEMISTRY METHOD 07/18/2024 11:58 AM [facility] Blood Venous blood specimen / Unknown Venipuncture / Unknown 07/18/2024 7:12 AM EST 07/18/2024 11:13 AM EST us Corey Leung MD LAB BLOOD ORDERABLES Final Resul t [facility] [address] [place] [address], [place] [phone] * (ABNORMAL) Complete blood count (07/18/2024 7:12 AM EST) WBC 7.8 4.8 - 10.8 K/mcL LAB HEMETOLOGY METHOD 07/18/2024 11:30 AM [facility] RBC 3.70(L) 3.80 - 4.80 M/mcL LAB HEMETOLOGY METHOD 07/18/2024 11:30 AM [facility] Hemoglobin 11.2(L) 11.5 - 16.0 g/dL LAB HEMETOLOGY METHOD 07/18/2024 11:30 AM [facility] Hematocrit 35.9 35.0 - 47.0 % LAB HEMETOLOGY METHOD 07/18/2024 11:30 AM [facility] MCV 98.1(H) 79.0 - 98.0 FL LAB HEMETOLOGY METHOD 07/18/2024 11:30 AM [facility] MCH 30.6 27.0 - 32.0 pcg LAB HEMETOLOGY METHOD 07/18/2024 11:30 AM [facility] MCHC 31.2(L) 32.0 - 37.0 g/dL LAB HEMETOLOGY METHOD 07/18/2024 11:30 AM [facility] RDW 14.5 11.0 - 15.0 % LAB HEMETOLOGY METHOD 07/18/2024 11:30 AM [facility] Platelets 343 130 - 400 K/mcL LAB HEMETOLOGY METHOD 07/18/2024 11:30 AM [facility] MPV 10.5 7.0 - 11.0 FL LAB HEMETOLOGY METHOD 07/18/2024 11:30 AM EST [facility] NRBC 0.0 <1.0 % LAB HEMETOLOGY METHOD 07/18/2024 11:30 AM EST [facility] NRBC Absolute 0.00 <0.10 K/mcL LAB HEMETOLOGY METHOD 07/18/2024 11:30 AM EST [facility] Blood Venous blood specimen / Unknown Venipuncture / Unknown 07/18/2024 7:12 AM EST 07/18/2024 11:11 AM EST us Corey Leung MD LAB BLOOD ORDERABLES Final Resul t [facility] [address] [place] [address], documented in this encounter Visit Diagnoses Diagnosis Metabolic encephalopathy Nonrheumatic aortic (valve) stenosis Type 2 diabetes mellitus without complications (CMS/HCC V24, CMS/HCC V28) documented in this encounter Additional Health Concerns Infection Onset Date Last Indicated Resolved Time Respiratory Rule-Out 11/03/2024 11/02/2024 025 3:17 PM EDT documented as of this encounter Care Teams Band Director Relationship Specialty Start Date End Date Gagan Miguel MD [address] [place] [phone] PCP - General Internal Medicine 04/27/24 documented as of this encounter
--- OUTSIDE RECORDS SUMMARY | 2025-03-01 09:33 | XMS_ITS | Encounter Summary ---
Author Organization [facility] Address [address] [place] [address] Care Team Providers Care Liquid Natural Gas Plant Operator Name Role Phone Gagan Miguel MD Primary Care Provider Encounter Details Date Type Department Care Team (Late st Contact Info) Description 08/07/2024 Lab Requisition [facility] - Main Lab [address] [facility] [place] [address] Corey Leung MD [address] [place] [address] Metabolic encephalopathy; Nonrheumatic aortic (valve) stenosis; Type [...] Associated Diagnosis Comments COMPLETE BLOOD COUNT Routine 08/08/2024 6:14 AM EST Metabolic encephalopathy Nonrheumatic aortic (valve) stenosis Type 2 diabetes mellitus without complications (CMS/HCC) BASIC METABOLIC PANEL Routine 08/08/2024 6:14 AM EST Metabolic encephalopathy Nonrheumatic aortic (valve) stenosis Type 2 diabetes mellitus without complications (CMS/HCC) documented in this encounter Results * (ABNORMAL) Basic metabolic panel (08/08/2024 6:14 AM EST) Sodium 139 133 - 145 mmol/L LAB CHEMISTRY METHOD 08/08/2024 3:28 PM [facility] Potassium 3.1(L) 3.5 - 5.5 mmol/L LAB CHEMISTRY METHOD 08/08/2024 3:28 PM [facility] Chloride 96 96 - 110 mmol/L LAB CHEMISTRY METHOD 08/08/2024 3:28 PM [facility] CO2 30 21 - 32 mmol/L LAB CHEMISTRY METHOD 08/08/2024 3:28 PM [facility] Anion Gap 13(H) 3 - 11 LAB CHEMISTRY METHOD 08/08/2024 3:28 PM [facility] Glucose 83 70 - 100 mg/dL LAB CHEMISTRY METHOD 08/08/2024 3:28 PM [facility] BUN 15 5 - 25 mg/dL LAB CHEMISTRY METHOD 08/08/2024 3:28 PM [facility] Creatinine 0.64 0.50 - 1.10 mg/dL LAB CHEMISTRY METHOD 08/08/2024 3:28 PM [facility] eGFR 85 >=60 mL/min/1. 73m2 LAB CHEMISTRY METHOD 08/08/2024 3:28 PM [facility] Comment:Calculation based on the Chronic Kidney Disease Epidemiology Collaboration (CKD-EPI) equation refit without adjustment for race. BUN/Creatinine Ratio 23.4 LAB CHEMISTRY METHOD 08/08/2024 3:28 PM [facility] Calcium 8.6 8.5 - 10.5 mg/dL LAB CHEMISTRY METHOD 08/08/2024 3:28 PM [facility] Blood Venous blood specimen / Unknown Venipuncture / Unknown 08/08/2024 6:14 AM EST 08/08/2024 11:08 AM EST us Corey Leung MD LAB BLOOD ORDERABLES Final Resul t [facility] [address] [place] [address], * (ABNORMAL) Complete blood count (08/08/2024 6:14 AM EST) WBC 7.8 4.8 - 10.8 K/mcL LAB HEMETOLOGY METHOD 08/08/2024 11:39 AM [facility] RBC 3.40(L) 3.80 - 4.80 M/mcL LAB HEMETOLOGY METHOD 08/08/2024 11:39 AM [facility] Hemoglobin 10.5(L) 11.5 - 16.0 g/dL LAB HEMETOLOGY METHOD 08/08/2024 11:39 AM [facility] Hematocrit 33.8(L) 35.0 - 47.0 % LAB HEMETOLOGY METHOD 08/08/2024 11:39 AM [facility] MCV 99.4(H) 79.0 - 98.0 FL LAB HEMETOLOGY METHOD 08/08/2024 11:39 AM [facility] MCH 30.9 27.0 - 32.0 pcg LAB HEMETOLOGY METHOD 08/08/2024 11:39 AM [facility] MCHC 31.1(L) 32.0 - 37.0 g/dL LAB HEMETOLOGY METHOD 08/08/2024 11:39 AM [facility] RDW 14.2 11.0 - 15.0 % LAB HEMETOLOGY METHOD 08/08/2024 11:39 AM [facility] Platelets 288 130 - 400 K/mcL LAB HEMETOLOGY METHOD 08/08/2024 11:39 AM [facility] MPV 10.7 7.0 - 11.0 FL LAB HEMETOLOGY METHOD 08/08/2024 11:39 AM EST [facility] NRBC 0.0 <1.0 % LAB HEMETOLOGY METHOD 08/08/2024 11:39 AM EST [facility] NRBC Absolute 0.00 <0.10 K/mcL LAB HEMETOLOGY METHOD 08/08/2024 11:39 AM EST [facility] Blood Venous blood specimen / Unknown Venipuncture / Unknown 08/08/2024 6:14 AM EST 08/08/2024 11:08 AM EST us Corey Leung MD LAB BLOOD ORDERABLES Final Resul t [facility] [address] [place] [address], documented in this encounter Visit Diagnoses Diagnosis Metabolic encephalopathy Nonrheumatic aortic (valve) stenosis Type 2 diabetes mellitus without complications (CMS/HCC V24, CMS/HCC V28) documented in this encounter Additional Health Concerns Infection Onset Date Last Indicated Resolved Time Respiratory Rule-Out 11/03/2024 11/02/2024 025 3:17 PM EDT documented as of this encounter Care Teams Liquid Natural Gas Plant Operator Relationship Specialty Start Date End Date Gagan Miguel MD [address] [place] [phone] PCP - General Internal Medicine 04/27/24 documented as of this encounter
--- OUTSIDE RECORDS SUMMARY | 2025-03-01 09:33 | XMS_ITS | Encounter Summary ---
Author Organization [facility] Address [address] [place] [address] Care Team Providers Care Process Development Technician Name Role Phone Gagan Miguel MD Primary Care Provider [phone] Encounter Details Date Type Department Care Team (Late st Contact Info) Description 07/24/2024 Lab Requisition [facility] - Main Lab [address] [facility] [place] [address] Corey Leung MD [address] [place] [address] Metabolic encephalopathy; Nonrheumatic aortic (valve) stenosis; Type [...] Associated Diagnosis Comments COMPLETE BLOOD COUNT Routine 07/25/2024 6:55 AM EST Metabolic encephalopathy Nonrheumatic aortic (valve) stenosis Type 2 diabetes mellitus without complications (CMS/HCC) BASIC METABOLIC PANEL Routine 07/25/2024 6:55 AM EST Metabolic encephalopathy Nonrheumatic aortic (valve) stenosis Type 2 diabetes mellitus without complications (CMS/HCC) documented in this encounter Results * (ABNORMAL) Basic metabolic panel (07/25/2024 6:55 AM EST) Sodium 139 133 - 145 mmol/L LAB CHEMISTRY METHOD 07/25/2024 10:14 AM [facility] Potassium 3.6 3.5 - 5.5 mmol/L LAB CHEMISTRY METHOD 07/25/2024 10:14 AM [facility] Chloride 99 96 - 110 mmol/L LAB CHEMISTRY METHOD 07/25/2024 10:14 AM [facility] CO2 32 21 - 32 mmol/L LAB CHEMISTRY METHOD 07/25/2024 10:14 AM [facility] Anion Gap 8 3 - 11 LAB CHEMISTRY METHOD 07/25/2024 10:14 AM [facility] Glucose 209(H) 70 - 100 mg/dL LAB CHEMISTRY METHOD 07/25/2024 10:14 AM [facility] BUN 15 5 - 25 mg/dL LAB CHEMISTRY METHOD 07/25/2024 10:14 AM [facility] Creatinine 0.73 0.50 - 1.10 mg/dL LAB CHEMISTRY METHOD 07/25/2024 10:14 AM [facility] eGFR 79 >=60 mL/min/1. 73m2 LAB CHEMISTRY METHOD 07/25/2024 10:14 AM [facility] Comment:Calculation based on the Chronic Kidney Disease Epidemiology Collaboration (CKD-EPI) equation refit without adjustment for race. BUN/Creatinine Ratio 20.5 LAB CHEMISTRY METHOD 07/25/2024 10:14 AM [facility] Calcium 9.1 8.5 - 10.5 mg/dL LAB CHEMISTRY METHOD 07/25/2024 10:14 AM [facility] Blood Venous blood specimen / Unknown Venipuncture / Unknown 07/25/2024 6:55 AM EST 07/25/2024 9:45 AM EST us Corey Leung MD LAB BLOOD ORDERABLES Final Resul t [facility] [address] [place] [address], * (ABNORMAL) Complete blood count (07/25/2024 6:55 AM EST) WBC 9.1 4.8 - 10.8 K/mcL LAB HEMETOLOGY METHOD 07/25/2024 9:55 AM EST [facility] RBC 3.80 3.80 - 4.80 M/mcL LAB HEMETOLOGY METHOD 07/25/2024 9:55 AM EST [facility] Hemoglobin 11.6 11.5 - 16.0 g/dL LAB HEMETOLOGY METHOD 07/25/2024 9:55 AM [facility] Hematocrit 37.5 35.0 - 47.0 % LAB HEMETOLOGY METHOD 07/25/2024 9:55 AM EST [facility] MCV 99.5(H) 79.0 - 98.0 FL LAB HEMETOLOGY METHOD 07/25/2024 9:55 AM EST [facility] MCH 30.8 27.0 - 32.0 pcg LAB HEMETOLOGY METHOD 07/25/2024 9:55 AM EST [facility] MCHC 30.9(L) 32.0 - 37.0 g/dL LAB HEMETOLOGY METHOD 07/25/2024 9:55 AM EST [facility] RDW 13.9 11.0 - 15.0 % LAB HEMETOLOGY METHOD 07/25/2024 9:55 AM [facility] Platelets 275 130 - 400 K/mcL LAB HEMETOLOGY METHOD 07/25/2024 9:55 AM [facility] MPV 10.3 7.0 - 11.0 FL LAB HEMETOLOGY METHOD 07/25/2024 9:55 AM EST [facility] NRBC 0.0 <1.0 % LAB HEMETOLOGY METHOD 07/25/2024 9:55 AM EST [facility] NRBC Absolute 0.00 <0.10 K/mcL LAB HEMETOLOGY METHOD 07/25/2024 9:55 AM EST [facility] Blood Venous blood specimen / Unknown Venipuncture / Unknown 07/25/2024 6:55 AM EST 07/25/2024 9:45 AM EST us Corey Leung MD LAB BLOOD ORDERABLES Final Resul t [facility] [address] [place] [address], documented in this encounter Visit Diagnoses Diagnosis Metabolic encephalopathy Nonrheumatic aortic (valve) stenosis Type 2 diabetes mellitus without complications (CMS/HCC V24, CMS/HCC V28) documented in this encounter Additional Health Concerns Infection Onset Date Last Indicated Resolved Time Respiratory Rule-Out 11/03/2024 11/02/2024 025 3:17 PM EDT documented as of this encounter Care Teams Process Development Technician Relationship Specialty Start Date End Date Gagan Miguel MD [address] [place] [id number] PCP - General Internal Medicine 04/27/24 documented as of this encounter
--- OUTSIDE RECORDS SUMMARY | 2025-03-01 09:33 | XMS_ITS | Encounter Summary ---
Author Organization [facility] Address [address] [place] [address] Care Team Providers Care Associate Spa Director Name Role Phone Gagan Miguel MD Primary Care Provider [phone] Encounter Details Date Type Department Care Team (Late st Contact Info) Description 09/04/2024 Lab Requisition [facility] - Main Lab 299 [facility] [place] [address] Corey Leung MD [address] [place] [address] Metabolic encephalopathy; Nonrheumatic aortic (valve) stenosis; Type [...] Associated Diagnosis Comments COMPLETE BLOOD COUNT Routine 09/05/2024 11:16 AM EDT Metabolic encephalopathy Nonrheumatic aortic (valve) stenosis Type 2 diabetes mellitus without complications BASIC METABOLIC PANEL Routine 09/05/2024 11:16 AM EDT Metabolic encephalopathy Nonrheumatic aortic (valve) stenosis Type 2 diabetes mellitus without complications documented in this encounter Results * (ABNORMAL) Basic metabolic panel (09/05/2024 11:16 AM EDT) Sodium 132(L) 133 - 145 mmol/L LAB CHEMISTRY METHOD 09/05/2024 1:11 PM [facility] Potassium 3.5 3.5 - 5.5 mmol/L LAB CHEMISTRY METHOD 09/05/2024 1:11 PM [facility] Chloride 92(L) 96 - 110 mmol/L LAB CHEMISTRY METHOD 09/05/2024 1:11 PM [facility] CO2 32 21 - 32 mmol/L LAB CHEMISTRY METHOD 09/05/2024 1:11 PM [facility] Anion Gap 8 3 - 11 LAB CHEMISTRY METHOD 09/05/2024 1:11 PM [facility] Glucose 213(H) 70 - 100 mg/dL LAB CHEMISTRY METHOD 09/05/2024 1:11 PM [facility] BUN 21 5 - 25 mg/dL LAB CHEMISTRY METHOD 09/05/2024 1:11 PM [facility] Creatinine 0.80 0.50 - 1.10 mg/dL LAB CHEMISTRY METHOD 09/05/2024 1:11 PM [facility] eGFR 71 >=60 mL/min/1. 73m2 LAB CHEMISTRY METHOD 09/05/2024 1:11 PM [facility] Comment:Calculation based on the Chronic Kidney Disease Epidemiology Collaboration (CKD-EPI) equation refit without adjustment for race. BUN/Creatinine Ratio 26.3 LAB CHEMISTRY METHOD 09/05/2024 1:11 PM [facility] Calcium 9.2 8.5 - 10.5 mg/dL LAB CHEMISTRY METHOD 09/05/2024 1:11 PM [facility] Blood Venous blood specimen / Unknown Venipuncture / Unknown 09/05/2024 11:16 AM EDT 09/05/2024 12:13 PM EDT us Corey Leung MD LAB BLOOD ORDERABLES Final Resul t [facility] [address] [place] [address], [place] [phone] * (ABNORMAL) Complete blood count (09/05/2024 11:16 AM EDT) WBC 9.0 4.8 - 10.8 K/mcL LAB HEMETOLOGY METHOD 09/05/2024 12:[address] [facility] RBC 4.30 3.80 - 4.80 M/mcL LAB HEMETOLOGY METHOD 09/05/2024 12:[address] [facility] Hemoglobin 13.1 11.5 - 16.0 g/dL LAB HEMETOLOGY METHOD 09/05/2024 12:[address] [facility] Hematocrit 39.4 35.0 - 47.0 % LAB HEMETOLOGY METHOD 09/05/2024 12:[address] [facility] MCV 91.0 79.0 - 98.0 FL LAB HEMETOLOGY METHOD 09/05/2024 12:[address] [facility] MCH 30.3 27.0 - 32.0 pcg LAB HEMETOLOGY METHOD 09/05/2024 12:[address] [facility] MCHC 33.2 32.0 - 37.0 g/dL LAB HEMETOLOGY METHOD 09/05/2024 12:[address] [facility] RDW 14.2 11.0 - 15.0 % LAB HEMETOLOGY METHOD 09/05/2024 12:[address] [facility] Platelets 289 130 - 400 K/mcL LAB HEMETOLOGY METHOD 09/05/2024 12:[address] [facility] MPV 11.4(H) 7.0 - 11.0 FL LAB HEMETOLOGY METHOD 09/05/2024 12:[address] [facility] NRBC 0.0 <1.0 % LAB HEMETOLOGY METHOD 09/05/2024 12:[address] [facility] NRBC Absolute 0.00 <0.10 K/mcL LAB HEMETOLOGY METHOD 09/05/2024 12:[address] [facility] Blood Venous blood specimen / Unknown Venipuncture / Unknown 09/05/2024 11:16 AM EDT 09/05/2024 12:13 PM EDT Corey Leung MD LAB BLOOD ORDERABLES Final Resul t [facility] [address] [place] [address], documented in this encounter Visit Diagnoses Diagnosis Metabolic encephalopathy Nonrheumatic aortic (valve) stenosis Type 2 diabetes mellitus without complications (CMS/HCC V24, CMS/HCC V28) documented in this encounter Additional Health Concerns Infection Onset Date Last Indicated Resolved Time Respiratory Rule-Out 11/03/2024 11/02/2024 025 3:17 PM EDT documented as of this encounter Care Teams Associate Spa Director Relationship Specialty Start Date End Date Gagan Miguel MD [address] [place] [id number] PCP - General Internal Medicine 04/27/24 documented as of this encounter
--- OUTSIDE RECORDS SUMMARY | 2025-03-01 09:33 | XMS_ITS | Encounter Summary ---
Author Organization [facility] Address [address] [place] [address] Care Team Providers Care Metal Sheet Roller Operator Name Role Phone Gagan Miguel MD Primary Care Provider [phone] Encounter Details Date Type Department Care Team (Late st Contact Info) Description 02/26/2025 Lab Requisition [facility] - Main Lab 299 [facility] [place] [address] Corey Leung MD [address] [place] [address] Metabolic encephalopathy; Nonrheumatic aortic (valve) stenosis; Type [...] Associated Diagnosis Comments COMPLETE BLOOD COUNT Routine 02/27/2025 7:39 AM EDT Metabolic encephalopathy Nonrheumatic aortic (valve) stenosis Type 2 diabetes mellitus without complications (CMS/HCC V24, CMS/HCC V28) BASIC METABOLIC PANEL Routine 02/27/2025 7:39 AM EDT Metabolic encephalopathy Nonrheumatic aortic (valve) stenosis Type 2 diabetes mellitus without complications (CMS/[facility] V24, [facility] V28) documented in this encounter Results * Basic metabolic panel (02/27/2025 7:39 AM EDT) Sodium 140 133 - 145 mmol/L LAB CHEMISTRY METHOD 02/27/2025 11:10 AM [facility] Potassium 4.6 3.5 - 5.5 mmol/L LAB CHEMISTRY METHOD 02/27/2025 11:10 AM [facility] Comment:Hemolysis present Chloride 103 96 - 110 mmol/L LAB CHEMISTRY METHOD 02/27/2025 11:10 AM [facility] CO2 28 21 - 32 mmol/L LAB CHEMISTRY METHOD 02/27/2025 11:10 AM [facility] Anion Gap 9 3 - 11 LAB CHEMISTRY METHOD 02/27/2025 11:10 AM [facility] Glucose 91 70 - 100 mg/dL LAB CHEMISTRY METHOD 02/27/2025 11:10 AM [facility] BUN 24 5 - 25 mg/dL LAB CHEMISTRY METHOD 02/27/2025 11:10 AM [facility] Creatinine 0.51 0.50 - 1.10 mg/dL LAB CHEMISTRY METHOD 02/27/2025 11:10 AM [facility] eGFR 89 >=60 mL/min/1. 73m2 LAB CHEMISTRY METHOD 02/27/2025 11:10 AM [facility] Comment:Calculation based on the Chronic Kidney Disease Epidemiology Collaboration (CKD-EPI) equation refit without adjustment for race. BUN/Creatinine Ratio 47.1 LAB CHEMISTRY METHOD 02/27/2025 11:10 AM [facility] Calcium 9.2 8.5 - 10.5 mg/dL LAB CHEMISTRY METHOD 02/27/2025 11:10 AM [facility] Blood Venous blood specimen / Unknown Venipuncture / Unknown 02/27/2025 7:39 AM EDT 02/27/2025 10:58 AM EDT us Corey Leung MD LAB BLOOD ORDERABLES Final Resul t [facility] [address] [place] [address], * (ABNORMAL) Complete blood count (02/27/2025 7:39 AM EDT) [facility] WBC 6.4 4.8 - 10.8 K/mcL LAB HEMETOLOGY METHOD 02/27/2025 9:37 AM EDT [facility] RBC 3.90 3.80 - 4.80 M/mcL LAB HEMETOLOGY METHOD 02/27/2025 9:37 AM EDT [facility] Hemoglobin 12.0 11.5 - 16.0 g/dL LAB HEMETOLOGY METHOD 02/27/2025 9:37 AM EDT [facility] Hematocrit 37.9 35.0 - 47.0 % LAB HEMETOLOGY METHOD 02/27/2025 9:37 AM EDT [facility] MCV 98.2(H) 79.0 - 98.0 FL LAB HEMETOLOGY METHOD 02/27/2025 9:37 AM EDT [facility] MCH 31.1 27.0 - 32.0 pcg LAB HEMETOLOGY METHOD 02/27/2025 9:37 AM EDT [facility] MCHC 31.7(L) 32.0 - 37.0 g/dL LAB HEMETOLOGY METHOD 02/27/2025 9:37 AM EDT [facility] RDW 13.7 11.0 - 15.0 % LAB HEMETOLOGY METHOD 02/27/2025 9:37 AM EDT [facility] Platelets 235 130 - 400 K/mcL LAB HEMETOLOGY METHOD 02/27/2025 9:37 AM EDT [facility] MPV 11.1(H) 7.0 - 11.0 FL LAB HEMETOLOGY METHOD 02/27/2025 9:37 AM EDT [facility] NRBC 0.0 <1.0 % LAB HEMETOLOG METHOD 02/27/2025 9:37 AM EDT [facility] NRBC Absolute 0.00 <0.10 K/mcL LAB HEMETOLOGY METHOD 02/27/2025 9:37 AM EDT [facility] Blood Venous blood specimen / Unknown Venipuncture / Unknown 02/27/2025 7:39 AM EDT 02/27/2025 9:23 AM EDT us Corey Leung MD LAB BLOOD ORDERABLES Final Resul t [facility] [address] [place] [address], documented in this encounter Visit Diagnoses Diagnosis Metabolic encephalopathy Nonrheumatic aortic (valve) stenosis Type 2 diabetes mellitus without complications (CMS/HCC V24, CMS/HCC V28) documented in this encounter Care Teams Metal Sheet Roller Operator Relationship Specialty Start Date End Date Gagan Miguel MD [address] [place] [id number] PCP - General Internal Medicine 04/27/24 documented as of this encounter
--- OUTSIDE RECORDS SUMMARY | 2025-03-01 09:33 | XMS_ITS | Clinical Summary ---
Author Organization [facility] Address [address] [place] [address] Care Team Providers Care Sleeve Maker Name Role Phone David Carson MD Primary Care Provider [phone] Allergies Active Allergy Reactions Criticality Noted Date Comments Codeine Other (See Comments) 02/11/2015 Hallucinations Medications Medication Sig Dispensed Refills Start Date End Date Status Vitamin D, Cholecalciferol, 1000 UNITS TABS Take by mouth daily. 0 Active B Complex Vitamins (B COMPLEX PO) Take by mouth daily. 0 Active hydrochlorothiazide (HYDRODIURIL) 25 MG tablet Take 1 tablet (25 mg total) by mouth daily. 0 Active lovastatin (MEVACOR) 20 MG tablet Take 1 tablet (20 mg total) by mouth every night at bedtime. 0 Active pregabalin (LYRICA) 25 MG capsule Take 1 capsule (25 mg total) by mouth 2 (two) times a day. 0 05/03/2023 Active metoprolol succinate (TOPROL-XL) 24 hr tablet 25 mg Take 1 tablet (25 mg total) by mouth daily with lunch. 0 04/01/2023 Active pyridoxine (B-6) 100 MG tablet Take 1 tablet (100 mg total) by mouth daily. 0 Active acetaminophen (TYLENOL EXTRA STRENGTH) 500 MG tablet Take 2 tablets (1,000 mg total) by mouth every 8 (eight) hours. 30 tablet 0 03/08/2024 Active aspirin EC 81 MG EC tablet Take 1 tablet (81 mg total) by mouth 2 (two) times a day after meals. 80 tablet 0 03/08/2024 Active methocarbamol (ROBAXIN) 500 MG tablet Take 1 tablet (500 mg total) by mouth 3 (three) times a day as needed. 30 tablet 0 03/08/2024 Active senna-docusate (PERICOLACE) 8.6-50 MG Take 1 tablet by mouth 2 (two) times a day. 14 tablet 0 03/08/2024 Active traMADol 25 MG TABS Take 25 mg by mouth every 6 (six) hours as needed for mild pain (1-3). 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 Myofacial muscle pain 04/06/2015 Cervicalgia 03/26/2015 Cervical spondylosis 03/26/2015 Family History Medical History Relation Name Comments Diabetes Father Cancer Sister Relation Name Status Comments Father Sister Social History Tobacco Use Types Packs/Day Years Used Date Smoking Tobacco: Never Smokeless Tobacco: Never Tobacco Cessation:Counseling Given: Not Answered Alcohol Use Standard Drinks/Week Comments No 0 (1 standard drink = 0.6 oz pur e alcohol) Sex and Gender Information Value Date Recorded Sex Assigned at Female 06/16/2023 11:37 AM EST Gender Identity Female 02/22/2024 9:24 AM EDT Sexual Orientation Straight 03/05/2024 7: 07 AM EDT Job Start Date Occupation Industry Not on file Not on file Not on file Last Filed Vital Signs Vital Sign Reading Time Taken Comments Blood Pressure 134/52 03/08/2024 2:54 PM EDT Pulse 74 03/08/2024 2:54 PM EDT Temperature 36.5 C (97.7 F) 03/08/2024 2:54 PM EDT Respiratory Rate 18 03/08/2024 2:54 PM EDT Oxygen Saturation 97% 03/08/2024 2:54 PM EDT Inhaled Oxygen Concentration - - Weight 74.8 kg (165 lb) 03/05/2024 7:08 AM EDT Height 170.2 cm (5' 7 ) 03/05/2024 7:08 AM EDT Body Mass Index 25.84 03/05/2024 7:08 AM EDT Plan of Treatment Health Maintenance Due Date Last Done Comments Depression Screening 1947 Preventative Health Evaluation 1953 DTap / Tdap / Td (1 - Tdap) 1954 Shingrix-Zoster Vaccine (1 o f 2) 1985 Fall Risk Assessment 2000 Osteoporosis Screening (DEXA Scan) 2000 Pneumococcal Vaccine (1 of 1 - PCV) 2000 RSV Adult > 60+ Yrs or (1 - 1-dose 75+ series) 2010 COVID-19 Vaccine ( - 2024-2 6 season) 2025 04/10/2021, 08/05/2020, 07/15/2020 Influenza Vaccine (#1) 2025 Hepatitis B Vaccines Aged Out No long er eligible based on patient's age to complete this topic RSV Ped < 20 months Aged Out No longe r eligible based on patient's age to complete this topic Medical Devices Implanted Type Area Fusing Machine Operator Device Identifier Shelf Expiration Date Model / Serial / Lot Knee Fem Bsplt W Pa Stry-Howm 1522-[id number] - [id number] Implanted:Qty: 1 on 03/05/2024 by Tony Chaudhary MD at [facility] [place] [facility] Right: Knee [employer] [id number] 12/18/2028 5517-F-502 / / [id number] Knee Bsplt Triathlon Ti Sz 5 Stry-Howm [id number] - [id number] Implanted:Qty: 1 on 03/05/2024 by Tony Chaudhary MD at [facility] Right: Knee [employer] [id number] 11/25/2028 5536-B-500 / / [id number] Tibial Bearing Insert Cs 12mm Stry-Howm 1231-[id number] - [id number] Implanted:Qty: 1 on 03/05/2024 by Tony Chaudhary MD at [facility] Right: Knee [employer] [id number] 04/23/2028 5531-G-[id number] -E / / [id number] Knee Ptla Asym Tritanium 29x9 Stry-Howm [id number] - [id number] Implanted:Qty: 1 on 03/05/2024 by Tony Chaudhary MD at [facility] Right: Knee [employer] [id number] 12/09/2027 5552-L-299 / / [id number] Advance Directives For more information, please contact: [phone] Documents on File Type Date Recorded 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 Code Status History Code Status Date Activated Date Inactivated Comments Full Code 03/05/2024 6:41 AM 03/05/2024 9:19 AM This code status was ascertained in the following way: per living will or healthcare instructions . Care Teams Sleeve Maker Relationship Specialty Start Date End Date David Carson MD [facility] [address] [place] [id number] PCP - General Oncology 01/08/21
--- OUTSIDE RECORDS SUMMARY | 2025-03-01 09:33 | XMS_ITS | Encounter Summary ---
Author Organization [facility] Address [address] [place] [address] Care Team Providers Care Turning Sander Tender Name Role Phone Gagan Miguel MD Primary Care Provider [phone] Encounter Details Date Type Department Care Team (Late st Contact Info) Description 01/15/2025 Lab Requisition [facility] - Main Lab 299 [facility] [place] [address] Corey Leung MD [address] [place] [address] Metabolic encephalopathy; Nonrheumatic aortic (valve) stenosis; Type [...] Associated Diagnosis Comments COMPLETE BLOOD COUNT Routine 01/16/2025 6:52 AM EDT Metabolic encephalopathy Nonrheumatic aortic (valve) stenosis Type 2 diabetes mellitus without complications (CMS/HCC V24, CMS/HCC V28) BASIC METABOLIC PANEL Routine 01/16/2025 6:52 AM EDT Metabolic encephalopathy Nonrheumatic aortic (valve) stenosis Type 2 diabetes mellitus without complications (CMS/[facility] V24, [facility] V28) documented in this encounter Results * Basic metabolic panel (01/16/2025 6:52 AM EDT) Sodium 140 133 - 145 mmol/L LAB CHEMISTRY METHOD 01/16/2025 11:17 AM [facility] Potassium 4.6 3.5 - 5.5 mmol/L LAB CHEMISTRY METHOD 01/16/2025 11:17 AM [facility] Chloride 104 96 - 110 mmol/L LAB CHEMISTRY METHOD 01/16/2025 11:17 AM [facility] CO2 31 21 - 32 mmol/L LAB CHEMISTRY METHOD 01/16/2025 11:17 AM [facility] Anion Gap 5 3 - 11 LAB CHEMISTRY METHOD 01/16/2025 11:17 AM [facility] Glucose 94 70 - 100 mg/dL LAB CHEMISTRY METHOD 01/16/2025 11:17 AM [facility] BUN 24 5 - 25 mg/dL LAB CHEMISTRY METHOD 01/16/2025 11:17 AM [facility] Creatinine 0.74 0.50 - 1.10 mg/dL LAB CHEMISTRY METHOD 01/16/2025 11:17 AM [facility] LAB eGFR 77 >=60 mL/min/1. 73m2 LAB CHEMISTRY METHOD 01/16/2025 11:17 AM [facility] Comment:Calculation based on the Chronic Kidney Disease Epidemiology Collaboration (CKD-EPI) equation refit without adjustment for race. BUN/Creatinine Ratio 32.4 LAB CHEMISTRY METHOD 01/16/2025 11:17 AM [facility] Calcium 8.6 8.5 - 10.5 mg/dL LAB CHEMISTRY METHOD 01/16/2025 11:17 AM [facility] Blood Venous blood specimen / Unknown Venipuncture / Unknown 01/16/2025 6:52 AM EDT 01/16/2025 11:17 AM EDT us Corey Leung MD LAB BLOOD ORDERABLES Final Resul t [facility] [address] [place] [address], * (ABNORMAL) Complete blood count (01/16/2025 6:52 AM EDT) WBC 8.6 4.8 - 10.8 K/mcL LAB HEMETOLOGY METHOD 01/16/2025 10:33 AM EDT [facility] RBC 3.70(L) 3.80 - 4.80 M/mcL LAB HEMETOLOGY METHOD 01/16/2025 10:33 AM EDT [facility] Hemoglobin 11.8 11.5 - 16.0 g/dL LAB HEMETOLOGY METHOD 01/16/2025 10:33 AM EDT [facility] Hematocrit 36.5 35.0 - 47.0 % LAB HEMETOLOGY METHOD 01/16/2025 10:33 AM T [facility] MCV 98.9(H) 79.0 - 98.0 FL LAB HEMETOLOGY METHOD 01/16/2025 10:33 AM [facility] MCH 32.0 27.0 - 32.0 pcg LAB HEMETOLOGY METHOD 01/16/2025 10:33 AM EDT [facility] MCHC 32.3 32.0 - 37.0 g/dL LAB HEMETOLOGY METHOD 01/16/2025 10:33 AM T [facility] RDW 15.0 11.0 - 15.0 % LAB HEMETOLOGY METHOD 01/16/2025 10:33 AM [facility] Platelets 268 130 - 400 K/mcL LAB HEMETOLOGY METHOD 01/16/2025 10:33 AM EDT [facility] MPV 11.1(H) 7.0 - 11.0 FL LAB HEMETOLOGY METHOD 01/16/2025 10:33 AM EDT [facility] NRBC 0.0 <1.0 % [facility] 01/16/2025 10:33 AM EDT [facility] NRBC Absolute 0.00 <0.10 K/mcL LAB HEMETOLOGY METHOD 01/16/2025 10:33 AM EDT [facility] Blood Venous blood specimen / Unknown Venipuncture / Unknown 01/16/2025 6:52 AM EDT 01/16/2025 9:52 AM EDT us Corey Leung MD LAB BLOOD ORDERABLES Final Resul t [facility] [address] [place] [address], documented in this encounter Visit Diagnoses Diagnosis Metabolic encephalopathy Nonrheumatic aortic (valve) stenosis Type 2 diabetes mellitus without complications (CMS/HCC V24, CMS/HCC V28) documented in this encounter Care Teams Turning Sander Tender Relationship Specialty Start Date End Date Gagan Miguel MD [address] [place] [phone] PCP - General Internal Medicine 04/27/24 documented as of this encounter
--- OUTSIDE RECORDS SUMMARY | 2025-03-01 09:33 | XMS_ITS | Clinical Summary ---
Author Organization [facility] Address [address] [place] [address] Care Team Providers Care Finish Sander Name Role Phone David Carson Primary Care Provider [phone] Allergies Active Allergy Reactions Criticality Noted Date Comments Codeine Dizziness 08/19/2021 Medications baclofen (LIORESAL) 10 mg tablet [address]MS (150 MCG) BUCCALLY EVERY 12 HOURS 2 Active carBAMazepine XR (TEGretol XR) 100 mg tablet 1 Active cholecalciferol (VITAMIN D3) 1,000 unit tablet Take by mouth. Active pyridoxine, vitamin B6, (B-6) 100 mg tablet every 24 hours. Active hydroCHLOROthiaz shirley (HYDRODIURIL) 25 mg tablet Take 25 mg by mouth once a day. Active lovastatin (MEVACOR) 20 mg tablet Take 20 mg by mouth nightly. Active acetaminophen (TYLENOL) 325 mg tablet Take 325 mg by mouth every 6 hours as needed for pain. Active gabapentin (NEURONTIN) 100 mg capsule 1 Active HYDROcodone-acet aminophen (NORCO) 5-325 mg tablet 1 Active losartan (COZAAR) 25 mg tablet Take 25 mg by mouth. Active meloxicam (MOBIC) 15 mg tablet 1 Active oxyCODONE IR (ROXICODONE) 5 mg tablet 1 Active pregabalin (LYRICA) 50 mg capsule 1 Active tiZANidine (ZANAFLEX) 4 mg tablet 1 Active traMADoL (ULTRAM) 50 mg tablet 1 Active zinc oxide-vitamin B5-vit E 11.3 % cream Active cholecalciferol, vitamin D3, 10 mcg (400 unit) capsule Active pyridoxine, vitamin B6, (B-6) 100 mg tablet Active acetaminophen 325 mg capsule Activ e omeprazole magnesium (PriLOSEC) 10 mg susp,delayed release for recon Active multivitamin with minerals (MULTIPLE VITAMIN-MINERALS ORAL) Active meloxicam 15 mg tablet,disintegr ating every 24 hours. Active lovastatin (MEVACOR) 10 mg tablet Active losartan potassium, bulk, 100 % powder Active hydroCHLOROthiaz shirley (MICROZIDE) 12.5 mg capsule Acti ve gabapentin 10 % cream, metered-dose applicator Active doxycycline monohydrate (MONODOX) 100 mg capsule every 24 hours. 1 Active dexAMETHasone (DECADRON) 2 mg tablet Active amoxicillin/pota ssium clav (AMOXICILLIN-POT CLAVULA, BULK, MISC) Take by mouth. Active aspirin 81 mg EC tablet Active naproxen sodium 220 mg capsule Activ e vit [id number] (B Complex 100) 087-0-220-2-2 mg/mL solution Activ e escitalopram (LEXAPRO) 10 mg tablet 2 Active Family History Relation Name Status Comments Father Mother Social History Tobacco Use Types Packs/Day Years Used Date Smoking Tobacco: Never Smokeless Tobacco: Never Comments Unknown Sex and Gender Information Value Date Recorded Sex Assigned at Not on file Legal Sex Female 2:17 PM EDT Gender Identity Not on file Sexual Orientation Not on file Last Filed Vital Signs Vital Sign Reading Time Taken Comments Blood Pressure 178/62 10/01/2021 11:24 AM EDT Pulse 69 10/01/2021 11:24 AM EDT Temperature 35.6 C (96 F) 10/01/2021 10:46 AM EDT Respiratory Rate - - Oxygen Saturation 99% 10/01/2021 11:24 AM EDT Inhaled Oxygen Concentration - - Weight 68.9 kg (152 lb) 08/19/2021 3:15 PM EDT Height 157.5 cm (5' 2 ) 08/19/2021 3:15 PM EDT Body Mass Index 27.8 08/19/2021 3:15 PM EDT Plan of Treatment Health Maintenance Due Date Last Done Comments Osteoporosis Screening 1985 Zoster Vaccines (1 of 2) 1985 DTaP,Tdap,and Td Vaccines (1 - Tdap) 06/14/2010 06/13/2010 RSV Vaccine (60+ years old and patients) (1 - 1-dose 75+ series) 2010 Pneumococcal Vaccine: 50+ Years (2 of 2 - PCV20 or PCV21) 01/04/2017 01/05/2016 Alcohol/Substance Use Screening 06/06/2024 Depression Screening and Follow-Up 06/06/2024 Fall Risk Screening 06/06/2024 Health Care Proxy Review 06/06/2024 Social Drivers of Health Annual Screening 06/06/2024 COVID-19 Vaccine (4 - 2024-2 6 season) 2025 04/10/2021, 08/05/2020, 07/15/2020 Influenza Vaccine (#1) 2025 , 02/15/2020 Hepatitis B Vaccines Aged Out No long er eligible based on patient's age to complete this topic Insurance MEDICARE [facility] Care Teams Finish Sander Relationship Specialty Start Date End Date David Carson [address] [place] [id number] PCP - General Hematology 08/18/21
--- OUTSIDE RECORDS SUMMARY | 2025-03-01 09:33 | XMS_ITS | Encounter Summary ---
Author Organization [facility] Address [address] [place] [address] Care Team Providers Care Devops Engineer Name Role Phone Gagan Miguel MD Primary Care Provider [phone] Encounter Details Date Type Department Care Team (Late st Contact Info) Description 09/11/2024 Lab Requisition [facility] - Main Lab 299 [facility] [place] [address] Corey Leung MD [address] [place] [address] Metabolic encephalopathy; Nonrheumatic aortic (valve) stenosis; Type [...] Associated Diagnosis Comments COMPLETE BLOOD COUNT Routine 09/12/2024 9:30 AM EDT Metabolic encephalopathy Nonrheumatic aortic (valve) stenosis Type 2 diabetes mellitus without complications BASIC METABOLIC PANEL Routine 09/12/2024 9:30 AM EDT Metabolic encephalopathy Nonrheumatic aortic (valve) stenosis Type 2 diabetes mellitus without complications documented in this encounter Results * (ABNORMAL) Basic metabolic panel (09/12/2024 9:30 AM EDT) Sodium 136 133 - 145 mmol/L LAB CHEMISTRY METHOD 09/12/2024 1:13 PM [facility] Potassium 3.6 3.5 - 5.5 mmol/L LAB CHEMISTRY METHOD 09/12/2024 1:13 PM [facility] Chloride 94(L) 96 - 110 mmol/L LAB CHEMISTRY METHOD 09/12/2024 1:13 PM [facility] CO2 32 21 - 32 mmol/L LAB CHEMISTRY METHOD 09/12/2024 1:13 PM [facility] Anion Gap 10 3 - 11 LAB CHEMISTRY METHOD 09/12/2024 1:13 PM [facility] Glucose 179(H) 70 - 100 mg/dL LAB CHEMISTRY METHOD 09/12/2024 1:13 PM [facility] BUN 21 5 - 25 mg/dL LAB CHEMISTRY METHOD 09/12/2024 1:13 PM [facility] Creatinine 0.56 0.50 - 1.10 mg/dL LAB CHEMISTRY METHOD 09/12/2024 1:13 PM [facility] eGFR 87 >=60 mL/min/1. 73m2 LAB CHEMISTRY METHOD 09/12/2024 1:13 PM [facility] Comment:Calculation based on the Chronic Kidney Disease Epidemiology Collaboration (CKD-EPI) equation refit without adjustment for race. BUN/Creatinine Ratio 37.5 LAB CHEMISTRY METHOD 09/12/2024 1:13 PM [facility] Calcium 9.3 8.5 - 10.5 mg/dL LAB CHEMISTRY METHOD 09/12/2024 1:13 PM [facility] Blood Venous blood specimen / Unknown Venipuncture / Unknown 09/12/2024 9:30 AM EDT 09/12/2024 10:57 AM EDT us Corey Leung MD LAB BLOOD ORDERABLES Final Resul t [facility] [address] [place] [address], [place] [phone] * (ABNORMAL) Complete blood count (09/12/2024 9:30 AM EDT) WBC 10.5 4.8 - 10.8 K/mcL LAB HEMETOLOGY METHOD 09/12/2024 11:18 AM EDT [facility] RBC 4.30 3.80 - 4.80 M/mcL LAB HEMETOLOGY METHOD 09/12/2024 11:18 AM EDT [facility] Hemoglobin 13.2 11.5 - 16.0 g/dL LAB HEMETOLOGY METHOD 09/12/2024 11:18 AM [facility] Hematocrit 40.1 35.0 - 47.0 % LAB HEMETOLOGY METHOD 09/12/2024 11:18 AM EDT [facility] MCV 93.7 79.0 - 98.0 FL LAB HEMETOLOGY METHOD 09/12/2024 11:18 AM EDT [facility] MCH 30.8 27.0 - 32.0 pcg LAB HEMETOLOGY METHOD 09/12/2024 11:18 AM EDT [facility] MCHC 32.9 32.0 - 37.0 g/dL LAB HEMETOLOGY METHOD 09/12/2024 11:18 AM EDT [facility] RDW 14.8 11.0 - 15.0 % LAB HEMETOLOGY METHOD 09/12/2024 11:18 AM [facility] Platelets 269 130 - 400 K/mcL LAB HEMETOLOGY METHOD 09/12/2024 11:18 AM [facility] MPV 11.4(H) 7.0 - 11.0 FL LAB HEMETOLOGY METHOD 09/12/2024 11:18 AM EDT [facility] NRBC 0.0 <1.0 % LAB HEMETOLOGY METHOD 09/12/2024 11:18 AM EDT [facility] NRBC Absolute 0.00 <0.10 K/mcL LAB HEMETOLOGY METHOD 09/12/2024 11:18 AM EDT [facility] Blood Venous blood specimen / Unknown Venipuncture / Unknown 09/12/2024 9:30 AM EDT 09/12/2024 10:57 AM EDT us Corey Leung MD LAB BLOOD ORDERABLES Final Resul t [facility] [address] [place] [address], documented in this encounter Visit Diagnoses Diagnosis Metabolic encephalopathy Nonrheumatic aortic (valve) stenosis Type 2 diabetes mellitus without complications (CMS/HCC V24, CMS/HCC V28) documented in this encounter Additional Health Concerns Infection Onset Date Last Indicated Resolved Time Respiratory Rule-Out 11/03/2024 11/02/2024 025 3:17 PM EDT documented as of this encounter Care Teams Devops Engineer Relationship Specialty Start Date End Date Gagan Miguel MD [address] [place] [id number] PCP - General Internal Medicine 04/27/24 documented as of this encounter
--- OUTSIDE RECORDS SUMMARY | 2025-03-01 09:33 | XMS_ITS | Encounter Summary ---
Author Organization [facility] Address [address] [place] [address] Care Team Providers Care Assistant Professor Of Dietetics Name Role Phone Gagan Miguel MD Primary Care Provider [phone] Encounter Details Date Type Department Care Team (Late st Contact Info) Description 02/19/2025 Lab Requisition [facility] - Main Lab 299 [facility] [place] [address] Corey Leung MD [address] [place] [address] Metabolic encephalopathy; Nonrheumatic aortic (valve) stenosis; Type [...] Associated Diagnosis Comments COMPLETE BLOOD COUNT Routine 02/20/2025 6:22 AM EDT Metabolic encephalopathy Nonrheumatic aortic (valve) stenosis Type 2 diabetes mellitus without complications (CMS/HCC V24, CMS/HCC V28) BASIC METABOLIC PANEL Routine 02/20/2025 6:22 AM EDT Metabolic encephalopathy Nonrheumatic aortic (valve) stenosis Type 2 diabetes mellitus without complications (CMS/[facility] V24, [facility] V28) documented in this encounter Results * Basic metabolic panel (02/20/2025 6:22 AM EDT) Sodium 138 133 - 145 mmol/L LAB CHEMISTRY METHOD 02/20/2025 8:49 AM [facility] Potassium 4.3 3.5 - 5.5 mmol/L LAB CHEMISTRY METHOD 02/20/2025 8:49 AM [facility] Chloride 103 96 - 110 mmol/L LAB CHEMISTRY METHOD 02/20/2025 8:49 AM [facility] CO2 31 21 - 32 mmol/L LAB CHEMISTRY METHOD 02/20/2025 8:49 AM [facility] Anion Gap 4 3 - 11 LAB CHEMISTRY METHOD 02/20/2025 8:49 AM [facility] Glucose 97 70 - 100 mg/dL LAB CHEMISTRY METHOD 02/20/2025 8:49 AM [facility] BUN 20 5 - 25 mg/dL LAB CHEMISTRY METHOD 02/20/2025 8:49 AM [facility] Creatinine 0.64 0.50 - 1.10 mg/dL LAB CHEMISTRY METHOD 02/20/2025 8:49 AM [facility] eGFR 85 >=60 mL/min/1. 73m2 LAB CHEMISTRY METHOD 02/20/2025 8:49 AM [facility] Comment:Calculation based on the Chronic Kidney Disease Epidemiology Collaboration (CKD-EPI) equation refit without adjustment for race. BUN/Creatinine Ratio 31.3 LAB CHEMISTRY METHOD 02/20/2025 8:49 AM [facility] Calcium 9.0 8.5 - 10.5 mg/dL LAB CHEMISTRY METHOD 02/20/2025 8:49 AM [facility] Blood Venous blood specimen / Unknown Venipuncture / Unknown 02/20/2025 6:22 AM EDT 02/20/2025 8:20 AM EDT us Corey Leung MD LAB BLOOD ORDERABLES Final Resul t [facility] [address] [place] [address], * Complete blood count (02/20/2025 6:22 AM EDT) WBC 6.6 4.8 - 10.8 K/mcL LAB HEMETOLOGY METHOD 02/20/2025 8:41 AM EDT [facility] RBC 4.10 3.80 - 4.80 M/mcL LAB HEMETOLOGY METHOD 02/20/2025 8:41 AM EDT [facility] Hemoglobin 12.9 11.5 - 16.0 g/dL LAB HEMETOLOGY METHOD 02/20/2025 8:41 AM EDT [facility] Hematocrit 39.7 35.0 - 47.0 % LAB HEMETOLOGY METHOD 02/20/2025 8:41 AM EDT [facility] MCV 97.5 79.0 - 98.0 FL LAB HEMETOLOGY METHOD 02/20/2025 8:41 AM EDT [facility] MCH 31.7 27.0 - 32.0 pcg LAB HEMETOLOGY METHOD 02/20/2025 8:41 AM EDT [facility] MCHC 32.5 32.0 - 37.0 g/dL LAB HEMETOLOGY METHOD 02/20/2025 8:41 AM EDT [facility] RDW 13.3 11.0 - 15.0 % LAB HEMETOLOGY METHOD 02/20/2025 8:41 AM EDT [facility] Platelets 274 130 - 400 K/mcL LAB HEMETOLOGY METHOD 02/20/2025 8:41 AM EDT [facility] MPV 10.7 7.0 - 11.0 FL LAB HEMETOLOGY METHOD 02/20/2025 8:41 AM EDT [facility] NRBC 0.0 <1.0 % LAB HEMETOLOGY METHOD 02/20/2025 8:41 AM EDT [facility] NRBC Absolute 0.00 <0.10 K/mcL LAB HEMETOLOGY METHOD 02/20/2025 8:41 AM EDT [facility] Blood Venous blood specimen / Unknown Venipuncture / Unknown 02/20/2025 6:22 AM EDT 02/20/2025 8:18 AM EDT Corey Leung MD LAB BLOOD ORDERABLES Final Resul t [facility] [address] [place] [address], documented in this encounter Visit Diagnoses Diagnosis Metabolic encephalopathy Nonrheumatic aortic (valve) stenosis Type 2 diabetes mellitus without complications (CMS/HCC V24, CMS/HCC V28) documented in this encounter Care Teams Assistant Professor Of Dietetics Relationship Specialty Start Date End Date Gagan Miguel MD [address] [place] [phone] PCP - General Internal Medicine 04/27/24 documented as of this encounter
--- OUTSIDE RECORDS SUMMARY | 2025-03-01 09:33 | XMS_ITS | Encounter Summary ---
Author Organization [facility] Address [address] [place] [address] Care Team Providers Care Passenger Tire Builder Name Role Phone Gagan Miguel MD Primary Care Provider Encounter Details Date Type Department Care Team (Late st Contact Info) Description 09/24/2024 Lab Requisition [facility] - Main Lab 299 [facility] [place] [address] Corey Leung MD [address] [place] [address] Hypokalemia Social History Tobacco Use Types Packs/Day [...] Associated Diagnosis Comments BASIC METABOLIC PANEL Routine 09/24/2024 6:52 AM EDT Hypokalemia documented in this encounter Results * (ABNORMAL) Basic metabolic panel (09/24/2024 6:52 AM EDT) Sodium 138 133 - 145 mmol/L LAB CHEMISTRY METHOD 09/24/2024 1:59 PM EDT [facility] Potassium 3.1(L) 3.5 - 5.5 mmol/L LAB CHEMISTRY METHOD 09/24/2024 1:59 PM EDT [facility] Chloride 96 96 - 110 mmol/L LAB CHEMISTRY METHOD 09/24/2024 1:59 PM [facility] CO2 31 21 - 32 mmol/L LAB CHEMISTRY METHOD 09/24/2024 1:59 PM T [facility] Anion Gap 11 3 - 11 LAB CHEMISTRY METHOD 09/24/2024 1:59 PM EDT [facility] Glucose 122(H) 70 - 100 mg/dL LAB CHEMISTRY METHOD 09/24/2024 1:59 PM [facility] BUN 15 5 - 25 mg/dL LAB CHEMISTRY METHOD 09/24/2024 1:59 PM [facility] Creatinine 0.53 0.50 - 1.10 mg/dL LAB CHEMISTRY METHOD 09/24/2024 1:59 PM EDT [facility] eGFR 89 >=60 mL/min/1. 73m2 LAB CHEMISTRY METHOD 09/24/2024 1:59 PM T [facility] Comment:Calculation based on the Chronic Kidney Disease Epidemiology Collaboration (CKD-EPI) equation refit without adjustment for race. BUN/Creatinine Ratio 28.3 LAB CHEMISTRY METHOD 09/24/2024 1:59 PM [facility] Calcium 8.8 8.5 - 10.5 mg/dL LAB CHEMISTRY METHOD 09/24/2024 1:59 PM T [facility] Blood Venous blood specimen / Unknown Venipuncture / Unknown 09/24/2024 6:52 AM EDT 09/24/2024 11:46 AM EDT us Corey Leung MD LAB BLOOD ORDERABLES Final Resul t [facility] [address] [place] [address], documented in this encounter Visit Diagnoses Diagnosis Hypokalemia Hypopotassemia documented in this encounter Additional Health Concerns Infection Onset Date Last Indicated Resolved Time Respiratory Rule-Out 11/03/2024 11/02/2024 025 3:17 PM EDT documented as of this encounter Care Teams Passenger Tire Builder Relationship Specialty Start Date End Date Gagan Miguel MD [address] [place] [id number] PCP - General Internal Medicine 04/27/24 documented as of this encounter
--- OUTSIDE RECORDS SUMMARY | 2025-03-01 09:33 | XMS_ITS | Encounter Summary ---
Author Organization [facility] Address [address] [place] [address] Care Team Providers Care Lamp Wirer Name Role Phone Gagan Miguel MD Primary Care Provider [phone] Encounter Details Date Type Department Care Team (Late st Contact Info) Description 02/05/2025 Lab Requisition [facility] - Main Lab [address] [facility] [place] [address] Corey Leung MD [address] [place] [address] Type 2 diabetes mellitus without complications (CMS/HCC V24, CMS/[facility] V28); Nonrheumatic aortic (valve) stenosis; Metabolic encephalopathy [...] Associated Diagnosis Comments COMPLETE BLOOD COUNT Routine 02/06/2025 5:15 AM EDT Type 2 diabetes mellitus without complications (CMS/HCC V24, CMS/HCC V28) Nonrheumatic aortic (valve) stenosis Metabolic encephalopathy BASIC METABOLIC PANEL Routine 02/06/2025 5:15 AM EDT Type 2 diabetes mellitus without complications (CMS/HCC V24, CMS/HCC V28) Nonrheumatic aortic (valve) stenosis Metabolic encephalopathy documented in this encounter Results * (ABNORMAL) Basic metabolic panel (02/06/2025 5:15 AM EDT) Sodium 139 133 - 145 mmol/L LAB CHEMISTRY METHOD 02/06/2025 8:38 AM [facility] Potassium 4.3 3.5 - 5.5 mmol/L LAB CHEMISTRY METHOD 02/06/2025 8:38 AM [facility] Chloride 102 96 - 110 mmol/L LAB CHEMISTRY METHOD 02/06/2025 8:38 AM [facility] CO2 33(H) 21 - 32 mmol/L LAB CHEMISTRY METHOD 02/06/2025 8:38 AM [facility] Anion Gap 4 3 - 11 LAB CHEMISTRY METHOD 02/06/2025 8:38 AM [facility] Glucose 94 70 - 100 mg/dL LAB CHEMISTRY METHOD 02/06/2025 8:38 AM [facility] BUN 26(H) 5 - 25 mg/dL LAB CHEMISTRY METHOD 02/06/2025 8:38 AM [facility] Creatinine 0.68 0.50 - 1.10 mg/dL LAB CHEMISTRY METHOD 02/06/2025 8:38 AM [facility] eGFR 83 >=60 mL/min/1. 73m2 LAB CHEMISTRY METHOD 02/06/2025 8:38 AM [facility] Comment:Calculation based on the Chronic Kidney Disease Epidemiology Collaboration (CKD-EPI) equation refit without adjustment for race. BUN/Creatinine Ratio 38.2 LAB CHEMISTRY METHOD 02/06/2025 8:38 AM [facility] Calcium 9.3 8.5 - 10.5 mg/dL LAB CHEMISTRY METHOD 02/06/2025 8:38 AM [facility] Blood Venous blood specimen / Unknown Venipuncture / Unknown 02/06/2025 5:15 AM EDT 02/06/2025 7:57 AM EDT Corey Leung MD LAB BLOOD ORDERABLES Final Resul t [facility] [address] [place] [address], * (ABNORMAL) Complete blood count (02/06/2025 5:15 AM EDT) WBC 6.8 4.8 - 10.8 K/mcL LAB HEMETOLOGY METHOD 02/06/2025 8:18 AM EDT [facility] RBC 3.90 3.80 - 4.80 M/mcL LAB HEMETOLOGY METHOD 02/06/2025 8:18 AM EDT [facility] Hemoglobin 12.1 11.5 - 16.0 g/dL LAB HEMETOLOGY METHOD 02/06/2025 8:18 AM EDT [facility] Hematocrit 38.2 35.0 - 47.0 % LAB HEMETOLOGY METHOD 02/06/2025 8:18 AM EDT [facility] MCV 99.2(H) 79.0 - 98.0 FL LAB HEMETOLOGY METHOD 02/06/2025 8:18 AM EDT [facility] MCH 31.4 27.0 - 32.0 pcg LAB HEMETOLOGY METHOD 02/06/2025 8:18 AM EDT [facility] MCHC 31.7(L) 32.0 - 37.0 g/dL LAB HEMETOLOGY METHOD 02/06/2025 8:18 AM EDT [facility] RDW 14.2 11.0 - 15.0 % LAB HEMETOLOGY METHOD [facility] Platelets 244 130 - 400 K/mcL LAB HEMETOLOGY METHOD 02/06/2025 8:18 AM EDT [facility] MPV 10.8 7.0 - 11.0 FL LAB HEMETOLOGY METHOD 02/06/2025 8:18 AM EDT [facility] NRBC 0.0 <1.0 % LAB HEMETOLOGY METHOD 02/06/2025 8:18 AM EDT [facility] NRBC Absolute 0.00 <0.10 K/mcL LAB HEMETOLOGY METHOD 02/06/2025 8:18 AM EDT [facility] Blood Venous blood specimen / Unknown Venipuncture / Unknown 02/06/2025 5:15 AM EDT 02/06/2025 7:57 AM EDT us Corey Leung MD LAB BLOOD ORDERABLES Final Resul t [facility] [address] [place] [address], documented in this encounter Visit Diagnoses Diagnosis Type 2 diabetes mellitus without complications (CMS/HCC V24, CMS/HCC V28) Nonrheumatic aortic (valve) stenosis Metabolic encephalopathy documented in this encounter Care Teams Lamp Wirer Relationship Specialty Start Date End Date Gagan Miguel MD [address] [place] [id number] PCP - General Internal Medicine 04/27/24 documented as of this encounter
--- OUTSIDE RECORDS SUMMARY | 2025-03-01 09:34 | XMS_ITS | Encounter Summary ---
Author Organization [facility] Address [address] [place] [address] Care Team Providers Care Pals Specialist Name Role Phone Gagan Miguel MD Primary Care Provider [phone] Encounter Details Date Type Department Care Team (Late st Contact Info) Description 09/18/[address] [facility] - Main Lab [address] [facility] [place] [address] Corey Leung MD [address] [place] [address] Metabolic encephalopathy; Nonrheumatic aortic (valve) stenosis; Type [...] Associated Diagnosis Comments COMPLETE BLOOD COUNT Routine 09/19/2024 5:20 AM EDT Metabolic encephalopathy Nonrheumatic aortic (valve) stenosis Type 2 diabetes mellitus without complications (CMS/HCC V24, CMS/HCC V28) BASIC METABOLIC PANEL Routine 09/19/2024 5:20 AM EDT Metabolic encephalopathy Nonrheumatic aortic (valve) stenosis Type 2 diabetes mellitus without complications (CMS/[facility] V24, [facility] V28) documented in this encounter Results * (ABNORMAL) Basic metabolic panel (09/19/2024 5:20 AM EDT) Sodium 134 133 - 145 mmol/L LAB CHEMISTRY METHOD 09/19/2024 11:[address] [facility] Potassium 3.1(L) 3.5 - 5.5 mmol/L LAB CHEMISTRY METHOD 09/19/2024 11:[address] [facility] Chloride 93(L) 96 - 110 mmol/L LAB CHEMISTRY METHOD 09/19/2024 11:[address] [facility] CO2 33(H) 21 - 32 mmol/L LAB CHEMISTRY METHOD 09/19/2024 11:[address] [facility] Anion Gap 8 3 - 11 LAB CHEMISTRY METHOD 09/19/2024 11:[address] [facility] Glucose 106(H) 70 - 100 mg/dL LAB CHEMISTRY METHOD 09/19/2024 11:[address] [facility] BUN 19 5 - 25 mg/dL LAB CHEMISTRY METHOD 09/19/2024 11:[address] [facility] Creatinine 0.57 0.50 - 1.10 mg/dL LAB CHEMISTRY METHOD 09/19/2024 11:[address] [facility] eGFR 87 >=60 mL/min/1. 73m2 LAB CHEMISTRY METHOD 09/19/2024 11:[address] [facility] Comment:Calculation based on the Chronic Kidney Disease Epidemiology Collaboration (CKD-EPI) equation refit without adjustment for race. BUN/Creatinine Ratio 33.3 LAB CHEMISTRY METHOD 09/19/2024 11:[address] [facility] Calcium 8.7 8.5 - 10.5 mg/dL LAB CHEMISTRY METHOD 09/19/2024 11:[address] [facility] Blood Venous blood specimen / Unknown Venipuncture / Unknown 09/19/2024 5:20 AM EDT 09/19/2024 10:32 AM EDT us Corey Leung MD LAB BLOOD ORDERABLES Final Resul t [facility] [address] [place] [address], * (ABNORMAL) Complete blood count (09/19/2024 5:20 AM EDT) WBC 9.1 4.8 - 10.8 K/mcL LAB HEMETOLOGY METHOD 09/19/2024 10:[address] [facility] RBC 3.60(L) 3.80 - 4.80 M/mcL LAB HEMETOLOGY METHOD 09/19/2024 10:[address] [facility] Hemoglobin 11.1(L) 11.5 - 16.0 g/dL LAB HEMETOLOGY METHOD 09/19/2024 10:[address] [facility] Hematocrit 34.3(L) 35.0 - 47.0 % LAB HEMETOLOGY METHOD 09/19/2024 10:[address] [facility] MCV 94.8 79.0 - 98.0 FL LAB HEMETOLOGY METHOD 09/19/2024 10:[address] [facility] MCH 30.7 27.0 - 32.0 pcg LAB HEMETOLOGY METHOD 09/19/2024 10:[address] [facility] MCHC 32.4 32.0 - 37.0 g/dL LAB HEMETOLOGY METHOD 09/19/2024 10:[address] [facility] RDW 15.7(H) 11.0 - 15.0 % LAB HEMETOLOGY METHOD 09/19/2024 10:[address] [facility] Platelets 250 130 - 400 K/mcL LAB HEMETOLOGY METHOD 09/19/2024 10:55 AM EDT [facility] MPV 11.2(H) 7.0 - 11.0 FL LAB HEMETOLOGY METHOD 09/19/2024 10:55 AM EDT [facility] NRBC 0.0 <1.0 % LAB HEMETOLOGY METHOD 09/19/2024 10:55 AM EDT [facility] NRBC Absolute 0.00 <0.10 K/mcL LAB HEMETOLOGY METHOD 09/19/2024 10:55 AM EDT [facility] Blood Venous blood specimen / Unknown Venipuncture / Unknown 09/19/2024 5:20 AM EDT 09/19/2024 10:32 AM EDT us Corey Leung MD LAB BLOOD ORDERABLES Final Resul t [facility] [address] [place] [address], documented in this encounter Visit Diagnoses Diagnosis Metabolic encephalopathy Nonrheumatic aortic (valve) stenosis Type 2 diabetes mellitus without complications (CMS/[facility] V24, CMS/[facility] V28) documented in this encounter Additional Health Concerns Infection Onset Date Last Indicated Resolved Time Respiratory Rule-Out 11/03/2024 11/02/2024 025 3:17 PM EDT documented as of this encounter Care Teams Pals Specialist Relationship Specialty Start Date End Date Gagan Miguel MD [address] [place] [id number] PCP - General Internal Medicine 04/27/24 documented as of this encounter
== END ==
LOC: HO.CARD 08:54
PROVIDERS: PCP Internal Medicine Medical Oncology; Visit Provider Internal Medicine Cardiovascular Disease
DX: Z95.2 Presence of prosthetic heart valve (principal)
CPT/HCPCS: 93306

== ENCOUNTER → 2025-03-01 09:07 | Outpatient (BNV) | payer MEDICARE, SELFPAY | PROVIDERS: PCP Internal Medicine Medical Oncology; Visit Provider Internal Medicine | DX: I42.2 Other hypertrophic cardiomyopathy (principal); Z95.3 Presence of xenogenic heart valve; I34.81 Nonrheumatic mitral (valve) annulus calcification; I51.89 Other ill-defined heart diseases | CPT/HCPCS: 93306 ==